=== PATIENT | female | born 1950 | race Caucasian/White ===

== ENCOUNTER 2022-11-08 09:50 | Outpatient (OUT) | payer MEDICARE, SELFPAY ==
--- NOTE | 2022-11-08 09:54 | US_ITS ---
[address] [address] Patient Name: AVELINO KRAUSE MRN: [id number] date: 1950 Sex: F Assigned Patient Location: Current Patient Location: Accession/Order Number: [id number] Exam Date: 11/08/2022 10:00 Report Date: 11/08/2022 11:36 At the request of: SHANNON YOON Procedure: US pelvis transvaginal EXAMINATION: US pelvis transvaginal HISTORY: Gynecological exam Z01.411 , pelvic pain for 5 weeks COMPARISON: No relevant comparison available. TECHNIQUE: Transabdominal and/or transvaginal sonographic examination was performed as indicated by examination type. FINDINGS: UTERUS: Contains a hypoechoic 0.8 cm myometrial lesion favoring a leiomyoma, and a 3 mm hyperechoic area suspected represent a dystrophic calcification. Uterus size: 4.8 x 2.7 x 4.1 cm ENDOMETRIUM: Isoechoic 1.4 x 1.1 x 0.7 cm mass within fundal endometrial cavity with adjacent 0.2 cm area and small amount of fluid within the endometrial cavity. Endometrial thickness: 5 mm RIGHT OVARY: Normal size and appearance. Duplex Doppler demonstrates normal waveform and flow; resistive index 0.7. Ovary size: 1.7 x 1.0 x 1.2 cm LEFT OVARY: Normal size and appearance. Duplex Doppler demonstrates normal waveform and flow; resistive index 0.6. Ovary size: 1.9 x 1.2 x 1.1 cm CUL-DE-SAC: Unremarkable. No significant free fluid. BLADDER: Unremarkable. OTHER: None. US/US pelvis transvaginal IMPRESSION: 1. 1.4 cm mass versus clotted blood products within endometrial cavity; a mass is suspected. Tissue sampling should be considered. 2. Uterine myometrial findings favor a leiomyoma and dystrophic calcification. 3. Unremarkable ovaries. Electronically authenticated by: CHERIE MENENDEZ Date: 11/08/2022 11:36
== END 2022-11-08 09:51 | disposition home or self-care (01) ==
LOC: US 09:50
PROVIDERS: PCP Family Medicine; Visit Provider Family Medicine
DX: Z01.411 Encounter for gynecological examination (general) (routine) with abnormal findings (principal)
CPT/HCPCS: 76830

== ENCOUNTER 2023-01-27 13:11 | Outpatient (OUT) | payer MEDICARE, SELFPAY ==
--- NOTE | 2023-01-27 13:25 | CT_ITS ---
[address] [address] Patient Name: AVELINO KRAUSE MRN: [id number] date: 1950 Sex: F Assigned Patient Location: CT Current Patient Location: Accession/Order Number: [id number] Exam Date: 01/27/2023 13:31 Report Date: 01/29/2023 07:07 At the request of: RAYNA OCHOA Procedure: CT lung screening low-dose EXAMINATION: CT lung screening low-dose HISTORY: Nicotine Dependence F17.219 COMPARISON: No relevant comparison available. TECHNIQUE: Axial, Coronal, and Sagittal images were created without the administration of IV contrast material. Dose reduction techniques were achieved by using automated exposure control and/or adjustment of mA and/or kV according to patient size and/or use of iterative reconstruction technique. FINDINGS: LUNGS: 8 mm irregular nodule versus infiltrate within right lower lobe superior segment. Several subcentimeter parenchymal and pleural-based opacities scattered within the lungs including a 10 mm opacity within medial aspect of left posterior costophrenic angle. PLEURA: No mass, effusion, or pneumothorax. VASCULATURE: No abnormality. TRA: No mass or pathologic adenopathy. MEDIASTINUM: No mass or pathologic adenopathy. CARDIAC: No enlargement, pericardial thickening, or significant calcification. AORTA: No aneurysm or dissection. CHEST WALL: No mass or axillary adenopathy BONES: No bone lesion or fracture. LIMITED ABDOMEN: No suspicious findings. Limited images of the upper abdomen. OTHER: Negative. CT/CT lung screening low-dose IMPRESSION: 1. Lung-RADS Category 4A- Suspicious. Findings for which additional diagnostic testing and/ or tissue sampling is recommended. 3 month LDCT; PET/CT may be used when there is a >= 8 mm solid component. 2. Scattered small infiltrates versus nodules. Follow-up CT chest in 3 months is recommended to document stability versus increase in size or clearing size. Electronically authenticated by: CHEREI MENENDEZ Date: 01/29/2023 07:07
== END 2023-01-27 13:12 | disposition home or self-care (01) ==
LOC: CT 13:13
PROVIDERS: PCP Family Medicine; Visit Provider Internal Medicine
DX: F17.219 Nicotine dependence, cigarettes, with unspecified nicotine-induced disorders (principal); R91.1 Solitary pulmonary nodule
CPT/HCPCS: 71271

== ENCOUNTER 2023-05-30 12:46 | Outpatient (RCR) | payer MEDICARE, SELFPAY | END 2023-06-18 17:18 | disposition home or self-care (01) | LOC: PT 12:46 | PROVIDERS: PCP Family Medicine; Visit Provider Family Medicine | DX: S46.812D Strain of other muscles, fascia and tendons at shoulder and upper arm level, left arm, subsequent encounter (principal) | CPT/HCPCS: 97010; 97110; 97140; 97162; G0283 ==

== ENCOUNTER 2023-10-24 09:17 | Outpatient (OUT) | payer MEDICARE, SELFPAY ==
--- NOTE | 2023-10-24 09:31 | XR_ITS ---
The [address] [address] Patient Name: AVELINO KRAUSE MRN: [id number] date: 1950 Sex: F Assigned Patient Location: LAB Current Patient Location: LAB Accession/Order Number: [id number] Exam Date: 10/24/2023 09:38 Report Date: 10/24/2023 09:57 At the request of: SHANNON YOON Procedure: XR chest 2V EXAMINATION: XR chest 2V HISTORY: Dyspnea, Fatigue COMPARISON: No relevant comparison available. TECHNIQUE: PA and lateral FINDINGS: LUNGS: No significant pulmonary parenchymal abnormalities. VASCULATURE: No increased pulmonary vasculature. PLEURA: No pneumothorax, effusion, or pleural thickening. CARDIAC: No cardiomegaly or cardiac silhouette abnormality. MEDIASTINUM: No visible mass or adenopathy. BONES: No fracture or visible bone lesion. Dextrocurvature OTHER: Negative. XR/XR chest 2V IMPRESSION: Clear lungs Electronically authenticated by: CYRUS WOODS Date: 10/24/2023 09:57
--- OUTSIDE RECORDS SUMMARY | 2023-10-24 09:46 | XMS_ITS | CCD ---
Author Organization [facility] Care Team Providers Care Customer Acquisition Manager Name Role Phone SHANNON YOON Primary Care Unavailable CORY MOREL Attending Unavailable CORY MOREL Admitting Unavailable SELF, REFERRED Referring Unavailable CORY MOREL Attending Unavailable Shannon Yoon Unavailable Unavailable Unavailable CAR, DR SHANNON Wood Primary Care Unavailable CORY MOREL Admitting Unavailable CORY MOREL Attending Unavailable CORY MOREL Consulting Unavailable CAR, DR SHANNON Wood Admitting Unavailable YOON, DR SHANNON Wood Attending Unavailable YOON, DR SHANNON Wood Consulting Unavailable YOON, DR SHANNON Wood Primary Care Unavailable SAMSA, RAYNA Consulting Unavailable YOON, DR SHANNON Wood Primary Care Unavailable SAMSA, RAYNA Admitting Unavailable SAMSA, RAYNA Attending Unavailable YONO, DR SHANNON Wood Primary Care Unavailable SAMSA, RAYNA Admitting Unavailable Zieber, DR Arizmendi Consulting Unavailable SAMSA, ARYNA Attending Unavailable SAMSA, RAYNA Consulting Unavailable YOON, DR SHANNON Wood Admitting Unavailable YOON, DR SHANNON Wood Attending Unavailable YOON, DR SHANNON Wood Consulting Unavailable YOON, DR SHANNON Wood Primary Care Unavailable YOON, DR SHANNON Wood Admitting Unavailable YOON, DR SHANNON Wood Attending Unavailable YOON, DR SHANNON Wood Primary Care Unavailable YOON, DR SHANNON Wood Primary Care Unavailable YOON, DR SHANNON Wood Admitting Unavailable YOON, DR SHANNON Wood Attending Unavailable YOON, DR SHANNON Wood Consulting Unavailable CAR, DR SHANNON Wood Primary Care Unavailable CORY MOREL Admitting Unavailable CORY MOREL Attending Unavailable CORY MOREL Consulting Unavailable MD Shannon Yoon Primary Care Provider MD Juany Richter Attending Provider Shannon Yoon Unavailable Eulogio Mai Unavailable MD Shannon Yoon Primary Care Provider MD Juany Richter Attending Provider MD Eulogio Mai Attending Provider MD Juany Richter Referring Provider Dr. Rayna Ochoa Referring Unavailab le Car, Dr. Shannon Rajan Primary Care Unav ailable Juany Richter Attending Unavailable Car, Dr. Shannon Rajan Primary Care Unav ailable Juany Richter Referring Unavailable Juany Richter Attending Unavailable Car, Dr. Shannon Rajan Primary Care Unav ailable Rober, Juany Referring Unavailable Juany Richter Attending Unavailable MD Shannon Yoon Primary Care Provider MD Dena Alcantara Attending Provider DO Gavino Tavera Attending Provider Dena Alcantara Unavailable Gavino Tavera Unavailable Dr. Juany Richter Attending Unavailable Rober, Dr. Harrington Referring Unavailable Car, Dr. Shannon Rajan Primary Care Unav aileduardo Richter, Dr. Harrington Attending Unavailable Car, Dr. Shannon Rajan Primary Care Unav MD Shannon Barton Primary Care Provider MD Juany Richter Attending Provider MD Shannon Yoon Primary Care Provider MD Shannon Yoon Attending Provider NON STAFF Primary Care Provider Unavaildonny Campbell Pili Unavailable MD Shannon Yoon Primary Care Provider MD Eulogio Mai Attending Provider MD Eulogio Mai Attending Provider MD Shannon Yoon Primary Care Provider DO Lorri White Attending Provider [phone] Shannon Yoon MD Primary Care Provider MD Shannon Yoon Primary Care Provider MD Juany Richter Attending Provider [phone] Shannon Yoon MD Primary Care Provider MD Shannon Yoon Primary Care Provider MD Juany Richter Attending Provider Eulogio Mai Attending Unavailabl Eulogio Clay Admitting Unavailabl e Yoon, Shannon E Primary Care Unavailable Yoon, Shannon E Admitting Unavailable Yoon, Shannon E Attending Unavailable Yoon, Shannon E Admitting Unavailable Yoon, Shannon E Attending Unavailable NON STAFF Primary Care Unavailable Juany Richter Attending Unavailable Richter, Juany Admitting Unavailable Yoon, Shannon E Primary Care Unavailable Lorri White Attending Unavailable Rinberonica Lorri Admitting Unavailable Yoon, Shannon E Primary Care Unavailable Gavino Tavera Attending Unavailable Gavino Tavera Admitting Unavailable Yoon, Shannon E Primary Care Unavailable Pili Campbell Attending Unavailable Pili Campbell Admitting Unavailable Yoon, Shannon E Primary Care Unavailable Juany Richter Attending Unavailable Richter, Juany Admitting Unavailable Yoon, Shannon E Primary Care Unavailable Yoon, Shannon E Primary Care Unavailable Dena Alcantara Attending Unavailable Dena Alcantara Admitting Unavailable Rinberonica Lorri Attending Unavailable Rinberonica Lorri Admitting Unavailable Yoon, Shannon E Primary Care Unavailable JUAN CARLOS RICHTERA Attending Unavailable YOON, SHANNON E Primary Care Unavailable JUAN CARLOS RICHTERA Referring Unavailable MAXIMILIANO BLACKBURN Referring Unavailable YOON, SHANNON E Primary Care Unavailable JUANY RICHTER Attending Unavailable JUAN CARLOS RICHTERA Referring Unavailable YOON, SHANNON E Primary Care Unavailable MD Shannon Yoon Primary Care Provider MD Juany Richter Attending Provider MD Juany Richter Referring Provider RAHEL TOVAR Attending Unavailabl RAHEL Bedolla Attending Unavailabl e RAHEL TOVAR Attending Unavailabl e RAHEL TOVAR Attending UnavailLORRI Rey Allergies Allergy Classification Reported Allergen(s) Allergy Type Date of Onset Reaction(s) Facility (20 sources) Azithromycin; Translations: [AZITHROMYCIN] Drug Allergy Unknown, [facility] Repository (19 sources) busPIRone; Translations: [BUSPIRONE] Drug Allergy [facility] Repository (1 source) Cefuroxime; Translations: [CEFUROXIME AXETIL] Drug Allergy [facility] Repository (1 source) celecoxib; Translations: [CELECOXIB] Drug Allergy [facility] Repository (19 sources) Cephalexin; Translations: [CEPHALEXIN] Drug Allergy [facility] Repository (20 sources) Ciprofloxacin; Translations: [CIPROFLOXACIN] Drug Allergy Unknown, [facility] Repository (20 sources) Citalopram; Translations: [CITALOPRAM] Drug Allergy Unknown, [facility] Repository (20 sources) Doxycycline; Translations: [DOXYCYCLINE] Drug Allergy [facility] Repository (20 sources) DULoxetine; Translations: [DULOXETINE] Drug Allergy [facility] Repository (1 source) hydroCHLOROthiazide / Losartan; Translations: [LOSARTAN-HYDROCHLOROT HIAZIDE] Drug Allergy [facility] Repository (20 sources) Ketorolac; Translations: [KETOROLAC] Drug Allergy Headache [facility] Repository (20 sources) Latex; Translations: [LATEX] Propensity to adverse reactions to drug (disorder) 016 Swelling, [facility] Repository (20 sources) levocetirizine; Translations: [LEVOCETIRIZINE] Drug Allergy Unknown, [facility] Repository (20 sources) Lisinopril; Translations: [LISINOPRIL] Drug Allergy Hives, Shortness of breath [facility] Repository (20 sources) Magnesium; Translations: [MAGNESIUM] Drug Allergy 014 Unknown, Rash, Abdominal Pain [facility] Repository (2 sources) Metoprolol; Translations: [METOPROLOL] Drug Allergy [facility] Repository (1 source) PARoxetine; Translations: [PAROXETINE HCL] Drug Allergy [facility] Repository (20 sources) Penicillins; Translations: [PENICILLINS] Propensity to adverse reactions to drug (disorder) 014 Hives, Unknown [facility] Repository (20 sources) predniSONE; Translations: [PREDNISONE] Drug Allergy Hives [facility] Repository (19 sources) Sulfonamides (Antibiotic); Translations: [SULFA (SULFONAMIDE ANTIBIOTICS)] Propensity to adverse reactions to drug (disorder) Rash [facility] Repository (1 source) NITROFURANTOIN MONOHYD/M-CRYST; Translations: [NITROFURANTOIN MONOHYD/M-CRYST] Propensity to adverse reactions to drug (disorder) [facility] Repository (13 sources) Angiotensin Converting Enzyme (Chanel) Inhibitors; Translations: [CHANEL Inhibitors] Allergy to drug (finding) 023 Shortness of breath, Hives [facility] Repository (20 sources) Ketorolac; Translations: [Toradol] Drug Allergy Headache, Unknown [facility] [employer] DO Work Phone: (12 sources) Lisinopril; Translations: [Lisinopril TABS] Drug Allergy Hives, Shortness of breath [facility] [employer] DO Work Phone: (16 sources) Sulfamethoxazole; Translations: [sulfa] Drug Allergy 023 Hives [facility] [employer] DO Work Phone: (12 sources) Angiotensin Receptor Blockers; Translations: [Angiotensin Receptor Blockers] Allergy to drug (finding) [facility] Work Phone: (1 source) Azithromycin Drug Allergy [facility] Repository (1 source) Ciprofloxacin Drug Allergy [facility] Repository (1 source) Citalopram Drug Allergy [facility] Repository (1 source) DULoxetine Drug Allergy [facility] Repository (1 source) hydroCHLOROthiazide / Losartan Drug Allergy [facility] Repository (1 source) Nitrofurantoin Drug Allergy [facility] Repository (1 source) PARoxetine Drug Allergy [facility] Repository (2 sources) Sulfamethoxazole; Translations: [SULFAMETHOXAZOLE] Drug Allergy [facility] Repository (9 sources) atorvastatin; Translations: [atorvastatin] Drug Allergy [facility] (8 sources) clopidogrel; Translations: [Plavix] Drug Allergy [facility] Work Phone: (20 sources) busPIRone Drug Allergy Unknown [facility] [employer] Other (20 sources) Cefuroxime Drug Allergy 015 Unknown, [facility] (20 sources) Cephalexin Drug Allergy Unknown [employer] Other (20 sources) hydroCHLOROthiazide Drug Allergy 023 Unknown, [facility] (20 sources) hydroCHLOROthiazide / Losartan Drug Allergy Unknown [employer] Other (20 sources) Latex rubber gloves Propensity to adverse reactions Unknown [employer] [facility] Other (20 sources) NITROFURANTOIN, MACROCRYSTALS / Nitrofurantoin, Monohydrate Drug Allergy Unknown [employer] Other (20 sources) PARoxetine Drug Allergy 023 Unknown, [facility] (20 sources) Sulfonamides (Antibiotic) Propensity to adverse reactions Unknown [facility] [employer] Other (20 sources) Substance with penicillin structure and antibacterial mechanism of action (substance) Drug allergy Unknown [employer] Other (18 sources) Losartan; Translations: [losartan] Drug Allergy [facility] (19 sources) Nitrofurantoin; Translations: [nitrofurantoin] Drug Allergy 022 [facility] (12 sources) Corticosteroids Propensity to adverse reactions 011 STEROIDS [facility] [employer] Other (12 sources) Penicillin Drug Allergy 013 Unknown [facility] [employer] Other (12 sources) Ceftin *CEPHALOSPORINS* Propensity to adverse reactions Unknown [facility] [employer] Other (13 sources) Substance with sulfonamide structure and antibacterial mechanism of action (substance) Drug allergy [facility] [employer] Other (1 source) DULoxetine Drug Allergy [facility] (2 sources) Rosuvastatin calcium; Translations: [ROSUVASTATIN] Propensity to adverse reactions [facility] (1 source) Hydrobenzthiazide Allergy to substance Shortness of breath [facility] (1 source) Losartan Potassium-Hctz Drug Allergy [facility] (8 sources) Cephalosporins (Antibiotic) Allergy to substance 023 Abdominal Pain [facility] (8 sources) Xyzal Allergy 24HR Allergy to substance 023 Abdominal Pain [facility] (5 sources) Angiotensin II receptor antagonist; Translations: [ARB-ANGIOTENSIN RECEPTOR ANTAGONIST] Drug Allergy [facility] Work Phone: (4 sources) Angiotensin-converting enzyme inhibitor agent Drug Allergy 023 Hives, Shortness of breath [facility] (4 sources) rosuvastatin Drug Allergy 023 Itching, Myalgia [facility] Work Phone: (4 sources) methylPREDNISolone; Translations: [METHYLPREDNISOLONE] Drug Allergy 024 [facility] Work Phone: (1 source) Cefuroxime Drug Allergy [facility] Repository (1 source) hydroCHLOROthiazide Drug Allergy [facility] Repository (1 source) PARoxetine Drug Allergy [facility] Repository (1 source) clopidogrel; Translations: [CLOPIDOGREL] Drug Allergy [facility] 3 Repository Medications Current Medications Medication Drug Class(es) Dates Sig (Normalized) Sig (Original) acetaminophen 500 mg oral tablet (10 sources) Start: 01-30-2023 take 2 tablets by mouth twice daily Acetaminophen (Tylenol Extra Strength) 500 mg Tablet Active 1000 MG PO Twice daily January 30, 2023 1:00am [id number] 200 actuat albuterol 0.09 mg/actuat metered dose inhaler (20 sources) beta2-Adrenergic Agonist Start: 06-04-2022 take 1 puff(s) by inhalation every four hours Albuterol Sulfate Active 1 PUFF INHALATION Every 4 hours June 04, 2022 12:00am Start: 02-07-2022 take 2 puff(s) by mo [facility] every four hours as needed Albuterol Sulfate HFA 108 (90 Base) MCG/ACT Inhalation Aerosol Solution INHALE 2 PUFFS BY MOUTH EVERY 4 HOURS NEEDED FOR SHORTNESS OF BREATH Quantity: 7 Refills: 0 Ordered: 08-Mar-2022 DO Start : 07-Feb-2022 Active take 2 puff(s) by in halation every four hours albuterol sulfate (Proair Digihaler) 90 mcg/actuation aero powdr breath act w/sensor inhaler Inhale 2 puffs every 4 hours if needed for shortness of breath. 0 Active albuterol HFA 90 mcg/act inhaler every 4 (four) hours. 0 Active take 1 puff(s) by in halation every four hours as needed Albuterol Sulfate HFA 108 (90 Base) MCG/ACT 1 puff as needed Inhalation every 4 hrs Not-Taking/PRN take 1 puff(s) by in halation every four hours as needed Albuterol Sulfate HFA 108 (90 Base) MCG/ACT 1 puff as needed Inhalation every 4 hrs Not-Taking take 1 puff(s) by in halation every four hours as needed Albuterol Sulfate HFA 108 (90 Base) MCG/ACT 1 puff as needed Inhalation every 4 hrs Not-Taking amiodarone hydrochloride 100 mg oral tablet (20 sources) Antiarrhythmic Start: 06-04-2022 End: 06-04-2024 take 100 mg by mouth once daily in the morning Amiodarone Active 100 MG PO Every morning June 04, 2022 12:00am Start: 06-04-2022 take 100 mg by mouth twice bud ly Amiodarone Active 100 MG PO 2 times daily June 04, 2022 12:00am Start: 04-08-2022 take 0.5 tablet by m outh once daily Amiodarone HCl - 200 MG Oral Tablet 1/2 tablet daily Quantity: 45 Refills: 1 Ordered: 08-Apr-2022 Juany Richter MD Start : 08-Apr-2022 Active dose change Start: 02-11-2022 take 1 tablet by neda th every other day Amiodarone HCl - 200 MG Oral Tablet 1 tablet every other day Quantity: 45 Refills: 1 Ordered: 11-Feb-2022 Juany Richter MD Start : 11-Feb-2022 Active amLODIPine 5 mg / hydroCHLOROthiazide 12.5 mg / olmesartan medoxomil 20 mg oral tablet (1 source) Thiazide Diuretic, Dihydropyridine Calcium Channel [place], Angiotensin 2 Receptor [place] take 1 tablet by mouth every twenty-four hours Fxogogcbkn-agBWKFVxqw-PIWB 20-5-12.5 MG 1 tablet once a day Active apixaban 5 mg oral tablet (20 sources) Factor Xa Inhibitor Sta rt: End : take 1 tablet by mouth twice daily Apixaban (Eliquis) 5 mg tablet Active 5 MG PO Twice daily June 04, 2022 12:00am Start: 09-26-2021 Eliquis 5 MG t ablet every 12 (twelve) hours. 0 09/26/2021 Active aspirin 81 mg delayed release oral tablet (20 sources) Platelet Aggregation Inhibitor, Nonsteroidal Anti-inflammatory Drug Start: 04-29-2022 take 81 mg by mouth once daily Aspirin Active 81 MG PO Daily June 04, 2022 12:00am End: 05-05-2023 take 1 tablet by mouth once daily at mealtime ASPIRIN ORAL Take 1 tablet by mouth once daily. 81 mg; with food 0 05/05/2023 Discontinued (Other) Baby Aspirin Act khloe cephalexin 500 mg oral capsule (3 sources) Cephalosporin Antibacterial Start: 04-30-2022 take 1 capsule by mouth every twelve hours Cephalexin 500 MG 1 capsule Orally bid for 7 days to replace zpack. pt states she tolerated it fine in 12/2021 - multiple allergies. Apr, Active ciprofloxacin 500 mg oral tablet (5 sources) Quinolone Antimicrobial Start: 10-09-2023 take 500 mg by mouth once daily Ciprofloxacin Hcl Active 500 MG PO Daily October 09, 2023 1:49pm Start: 09-24-2023 End: 10-09-2023 take 250 mg by mouth once daily Ciprofloxacin Hcl Discontinued 250 MG PO Daily September 24, 2023 12:00am October 09, 2023 1:50pm [facility] Coenzyme Q-10 100 MG (2 sources) take 1 capsule by mouth once daily [facility] Coenzyme Q-10 100 MG TAKE 1 CAPSULE BY MOUTH ONCE DAILY. Oral for 90 Days Active diclofenac sodium 75 mg delayed release oral tablet (1 source) Nonsteroidal Anti-inflammatory Drug take 1 tablet by mouth twice daily diclofenac (Voltaren) 75 MG EC tablet TAKE 1 TABLET BY MOUTH TWICE A DAY Oral for 30 0 Active guaiFENesin (1 source) Guaiatussin AC 100-10 MG/5ML 5ml-10ml Orally every 4 hrs prn for 7 days Active hydroCHLOROthiazide 12.5 mg / olmesartan medoxomil 20 mg oral tablet (20 sources) Thiazide Diuretic, Angiotensin 2 Receptor [place] Start: take 1 tablet by mouth once daily Olmesartan-Hydrochlo rothiazide (Benicar Hct) 20-12.5 mg Tablet Active 1 TAB PO Daily June 04, 2022 12:00am Inclisiran (2 sources) Start: Inclisiran (Leqvio) 284 mg/1.5 mL syringe Active 284 MG SUBCUT EVERY 6 MONTHS October 09, 2023 12:00am inclisiran (Leqvio) injection (4 sources) Start: End: 025 inclisiran (Leqvio) injection Indications: Mixed hyperlipidemia , Statin intolerance Inject 1.5 mL (284 mg total) under the skin every 6 months. at 0, 3 months and then every 6 months thereafter 3 mL 0 04/06/2023 04/05/2024 Active Loratadine (20 sources) Start: take 1 tablet by mouth once daily Loratadine Active 0 .ROUTE .COMPLEX October 06, 2023 9:44am TAKE 1 TABLET BY MOUTH EVERY DAY FOR 90 DAYS Start: 04-18-2023 End: 10-06-2023 take 1 tablet by mouth once daily Loratadine Discontinued 0 .ROUTE .COMPLEX April 18, 2023 10:00am October 06, 2023 9:44am TAKE 1 TABLET BY MOUTH EVERY DAY FOR 90 DAYS Start: 04-18-2023 take 1 tablet by neda th once daily Loratadine Active 0 .ROUTE .COMPLEX April 18, 2023 10:00am TAKE 1 TABLET BY MOUTH EVERY DAY FOR 90 DAYS Start: 04-18-2023 take 1 tablet by neda th once daily Loratadine Active 0 .ROUTE .COMPLEX April 18, 2023 9:00am TAKE 1 TABLET BY MOUTH EVERY DAY FOR 90 DAYS Start: 06-04-2022 End: 04-18-2023 take 10 mg by mouth once daily Loratadine Discontinued 10 MG PO Daily June 04, 2022 12:00am April 18, 2023 10:00am Magnesium (15 sources) Magnesium 400 MG as directed Orally Active magnesium oxide 400 mg oral tablet (20 sources) Start: 2021 take 400 mg by mouth twice daily Magnesium Oxide Active 400 MG PO Twice daily January 30, 2023 1:00am methylPREDNISolone 4 mg oral tablet (1 source) Corticosteroid Start: 2022 methylPREDNISolone 4 MG as directed Orally for 6 days Jan, Active montelukast 10 mg oral tablet (20 sources) Leukotriene Receptor Antagonist Start: 2022 take 10 mg by mouth once daily at bedtime Montelukast Active 10 MG PO Daily at bedtime January 30, 2023 1:00am omeprazole 40 mg delayed release oral capsule (20 sources) Proton Pump Inhibitor Start: 2023 End: 2023 Omeprazole Active 0 .ROUTE .COMPLEX September 30, 2023 9:04am TAKE 1 CAPSULE BY MOUTH EVERY DAY 30 MINUTES BEFORE MORNING MEAL Start: 06-04-2022 End: 03-26-2024 take 40 mg by mouth once daily Omeprazole Discontinued 40 MG PO Daily June 04, 2022 12:00am May 27, 2023 1:06pm pitavastatin calcium 4 mg oral tablet (3 sources) HMG-CoA Reductase Inhibitor Start: 12-23-2022 End: 06-05-2023 take 1 tablet by mouth once daily pitavastatin calcium (Livalo) 4 mg tablet Indications: Paroxysmal atrial fibrillation (CMS/HCC) , High risk medication use , Hypertension, unspecified type , Mixed hyperlipidemia , PVD (peripheral vascular disease) (CMS/HCC) , Vascular claudication (CMS/HCC) , Varicose veins of both lower extremities, unspecified whether complicated , Current smoker , Hypercoagulable state due to paroxysmal atrial fibrillation (CMS/HCC) , Second hand smoke exposure , Statin intolerance , Chronic obstructive pulmonary disease, unspecified COPD type (CMS/HCC) Take 4 mg by mouth once daily. 90 tablet 1 12/23/2022 06/05/2023 Discontinued (Therapy completed) pravastatin sodium 40 mg oral tablet (2 sources) HMG-CoA Reductase Inhibitor Start: 01-27-2023 End: 01-27-2024 take 1 tablet by mouth once daily pravastatin (PravachoL) 40 mg tablet Indications: PVD (peripheral vascular disease) (CMS/HCC) , Mixed hyperlipidemia Take 1 tablet (40 mg) by mouth once daily. 30 tablet 11 01/27/2023 06/05/2023 Discontinued (Side effects) traMADol hydrochloride 50 mg oral tablet (20 sources) Opioid Agonist Start: 09-12-2023 take 1 tablet by mouth every four to six hours Tramadol Active 50 MG PO EVERY 4-6 HOURS 30 September 12, 2023 12:00am Dispense quantity of thirty tablets M17.11 Start: 04-23-2023 End: 08-18-2023 take 50 mg by mouth every eight hours Tramadol Discontinued 50 MG PO Every 8 hours 19 09July 18, 2023 10:33am August 18, 2023 4:08pm twenty Start: 08-02-2022 take 1 tablet by neda th three times daily as needed traMADol HCl 50 MG 1 tablet as needed Orally tid prn for 7 days Dec, Active ubidecarenone 100 mg oral ca psule (17 sources) Start: 01-30-2023 Coenzyme Q10 A ctive 100 MG PO Daily at bedtime January 30, 2023 1:00am Start: 12-23-2022 End: 12-23-2023 take 1 capsule by mouth once daily coenzyme Q-10 100 mg capsule Indications: Paroxysmal atrial fibrillation (CMS/HCC) , High risk medication use , Hypertension, unspecified type , Mixed hyperlipidemia , PVD (peripheral vascular disease) (CMS/HCC) , Vascular claudication (CMS/HCC) , Varicose veins of both lower extremities, unspecified whether complicated , Current smoker , Hypercoagulable state due to paroxysmal atrial fibrillation (CMS/HCC) , Second hand smoke exposure , Statin intolerance , Chronic obstructive pulmonary disease, unspecified COPD type (CMS/HCC) Take 1 capsule (100 mg) by mouth once daily. 90 capsule 1 12/23/2022 12/23/2023 Active ubidecarenone 100 mg / vitamin e 5 unt oral capsule (1 source) Start: 12-23-2022 End: 12-23-2023 take 1 capsule by mouth in the morning coenzyme Q-10 100 MG capsule Take 100 mg by mouth in the morning. 0 12/23/2022 12/23/2023 Active 24 hr venlafaxine 37.5 mg extended release oral capsule (7 sources) Serotonin and Norepinephrine Reuptake Inhibitor Start: 12-19-2022 take 1 capsule by mouth once daily at mealtime venlafaxine XR (Effexor XR) 37.5 MG 24 hr capsule TAKE 1 CAPSULE BY MOUTH EVERY DAY WITH FOOD FOR 30 DAYS 0 12/19/2022 Active Completed/Discontinued Medications Medication Drug Class(es) Dates Sig (Normalized) Sig (Original) atorvastatin 80 mg oral tablet (4 sources) HMG-CoA Reductase Inhibitor Start: 04-18-2022 take 1 tablet by mouth at bedtime Atorvastatin Calcium 80 MG Oral Tablet TAKE 1 TABLET AT BEDTIME. Quantity: 90 Refills: 3 Ordered: 18-Apr-2022 Juany Richter MD Start : 18-Apr-2022 Active dose increased Start: 04-08-2022 take 1 tablet by neda th at bedtime Atorvastatin Calcium 20 MG Oral Tablet TAKE 1 TABLET AT BEDTIME Quantity: 90 Refills: 3 Ordered: 08-Apr-2022 Juany Richter MD Start : 08-Apr-2022 Active new start clopidogrel 75 mg oral tablet (4 sources) [id number] Platelet Inhibitor Start: 04-08-2022 take 1 tablet by mouth once daily Clopidogrel Bisulfate 75 MG Oral Tablet TAKE 1 TABLET DAILY. Quantity: 90 Refills: 3 Ordered: 08-Apr-2022 Juany Richter MD Start : 08-Apr-2022 Active fluticasone propionate 0.05 mg/actuat metered dose nasal spray (20 sources) Corticosteroid Start: 06-04-2022 End: 01-30-2023 take 1 spray(s) nasal route once daily Fluticasone Propionate Discontinued 1 SPRAY INTRANASAL Daily June 04, 2022 12:00am January 30, 2023 5:00pm administer into each nostril Start: 09-25-2020 take 2 spray(s) nasa l route once daily Fluticasone Propionate 50 MCG/ACT Nasal Suspension SPRAY 2 SPRAYS INTO EACH NOSTRIL EVERY DAY Quantity: 16 Refills: 0 Ordered: 22-Jul-2021 DO Start : 25-Sep-2020 Active fluticasone (Deshawn nase) 50 MCG/ACT nasal spray 1 (one) time each day at the same time. 0 Active take 1 spray(s) nasa l route once daily as needed Fluticasone Propionate 50 MCG/ACT 1 spray in each nostril Nasally Once a day Not-Taking/PRN take 1 spray(s) nasa l route once daily Fluticasone Propionate 50 MCG/ACT 1 spray in each nostril Nasally Once a day Not-Taking hydrocortisone 10 mg/ml / neomycin 3.5 mg/ml / polymyxin b [id number] unt/ml otic suspension (5 sources) Aminoglycoside Antibacterial, Polymyxin-class Antibacterial, Corticosteroid Start: 08-18-2023 End: 09-08-2023 [id number]-Sj Discontinued 4 DROPS OTIC Three times daily August 18, 2023 12:00am September 08, 2023 10:11am rosuvastatin calcium 10 mg oral tablet (3 sources) HMG-CoA Reductase Inhibitor Start: 07-08-2022 take 1 tablet by mouth at bedtime Rosuvastatin Calcium 10 MG Oral Tablet TAKE 1 TABLET AT BEDTIME Quantity: 90 Refills: 3 Ordered: 08-Jul-2022 Juany Richter MD Start : 08-Jul-2022 Active stop Simvastatin/ new start simvastatin 20 mg oral tablet (20 sources) HMG-CoA Reductase Inhibitor Start: 04-29-2022 End: 01-30-2023 take 20 mg by mouth once daily Simvastatin Discontinued 20 MG PO Daily June 04, 2022 12:00am January 30, 2023 5:01pm triamcinolone acetonide 40 mg/ml injectable suspension (20 sources) Corticosteroid Start: 08-09-2022 Kenalog-40 11 Nov, 2022 40 mg Problems Active Problems Problem Classification Problem Date Documented Date Episodic/Chronic Acute bronchitis (6 sources) Acute bronchitis; Translations: [Acute bronchitis due to other specified organisms] Episodic Administrative/social admission (14 sources) Follow-up status; Translations: [Other specified counseling] Episodic Allergic reactions (12 sources) Allergy to drug; Translations: [Personal history of allergy to unspecified medicinal agent] Episodic Anxiety disorders (6 sources) Anxiety disorder; Translations: [Anxiety disorder, unspecified] Onset: 01-02-2015 Chronic Cardiac dysrhythmias (20 sources) Atrial fibrillation; Translations: [Atrial fibrillation] Onset: 07-05-2021 Chronic Chronic kidney disease (4 sources) Chronic kidney disease stage 3A ; Translations: [Stage 3a chronic kidney disease (CMS/HCC)] Onset: 06-05-2023 06-05-2023 Chronic Chronic kidney disease (2 sources) Chronic kidney disease; Translations: [Chronic kidney disease, stage 3a (CMS/HCC)] Onset: 06-05-2023 Chronic obstructive pulmonary disease and bronchiectasis (20 sources) Chronic obstructive lung disease; Translations: [Chronic airway obstruction, not elsewhere classified] Onset: 10-28-2022 04-03-2023 Chronic Chronic obstructive pulmonary disease and bronchiectasis (8 sources) Bronchitis; Translations: [Bronchitis, not specified as acute or chronic] 10-09-2023 Episodic Coagulation and hemorrhagic disorders (8 sources) 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; Translations: [Hemorrhagic disorder due to extrinsic circulating anticoagulants] Onset: 08-29-2022 08-29-2022 Chronic Coronary atherosclerosis and other heart disease (1 source) Coronary atherosclerosis and other heart disease; Translations: [Atherosclerosis of [place] arteries of extremities with intermittent claudication, bilateral legs] Onset: 12-26-2022 Diabetes mellitus without complication (7 sources) Impaired fasting glucose; Translations: [Impaired fasting glycemia] Onset: 04-27-2021 Episodic Disorders of lipid metabolism (12 sources) Mixed hyperlipidemia; Translations: [Mixed hyperlipidemia] Onset: 10-28-2022 10-28-2022 Chronic Esophageal disorders (20 sources) Gastroesophageal reflux disease; Translations: [Esophageal reflux] Onset: 10-28-2022 Chronic Essential hypertension (20 sources) Hypertensive disorder; Translations: [Unspecified essential hypertension] Onset: 06-14-2021 Chronic Genitourinary symptoms and ill-defined conditions (20 sources) Dysuria; Translations: [History of urinary tract infection] Onset: 06-30-2014 Episodic Immunizations and screening for infectious disease (6 sources) Other specified abnormal immunological findings in serum; Translations: [Abnormal immunology finding] Episodic Inflammatory diseases of female pelvic organs (1 source) Acute vaginitis Episodic Malaise and fatigue (15 sources) Other fatigue; Translations: [Fatigue] Onset: 03-24-2013 10-23-2023 Episodic Mood disorders (13 sources) Moderate recurrent major depression; Translations: [Major depressive disorder, recurrent, moderate] Onset: 02-20-2018 Chronic Mycoses (7 sources) Candidiasis of skin and nails; Translations: [Candidiasis of skin and nail] 04-06-2023 Episodic Osteoarthritis (20 sources) Osteoarthrosis of the carpometacarpal joint of the thumb; Translations: [Unilateral primary osteoarthritis of first carpometacarpal joint, left hand] Onset: 01-02-2015 Chronic Other aftercare (12 sources) Drug therapy finding; Translations: [Long-term (current) use of other medications] Episodic Other aftercare (3 sources) Treatment changed; Translations: [Long-term (current) use of other medications] Episodic Other aftercare (6 sources) Long-term current use of drug therapy; Translations: [Other terminal make up operator (current) drug therapy] Episodic Other circulatory disease (6 sources) Elevated blood-pressure reading without diagnosis of hypertension; Translations: [Elevated blood-pressure reading, without diagnosis of hypertension] Episodic Other connective tissue disease (20 sources) Enthesopathy of knee; Translations: [Other bursitis of knee, left knee] Episodic Other connective tissue disease (20 sources) Radial styloid tenosynovitis; Translations: [Radial styloid tenosynovitis [de Quervain]] Episodic Other connective tissue disease (1 source) Pain in left hand Episodic Other ear and sense organ disorders (6 sources) Hearing loss; Translations: [Unspecified hearing loss, bilateral] Chronic Other ear and sense organ disorders (5 sources) Otitis externa; Translations: [Unspecified otitis externa, unspecified ear] 08-18-2023 Chronic Other ear and sense organ disorders (5 sources) Unspecified otitis externa, unspecified ear; Translations: [Infective otitis externa, unspecified] 08-18-2023 Chronic Other ear and sense organ disorders (6 sources) Bilateral tinnitus; Translations: [Tinnitus, bilateral] Episodic Other injuries and conditions due to external causes (6 sources) History of fall; Translations: [History of falling] Episodic Other lower respiratory disease (4 sources) Shortness of breath; Translations: [SHORTNESS OF BREATH] Onset: 02-12-2022 Episodic Other lower respiratory disease (4 sources) Solitary pulmonary nodule; Translations: [SOLITARY PULMONARY NODULE] Onset: 01-28-2022 Episodic Other lower respiratory disease (20 sources) Lung field abnormal; Translations: [Other nonspecific abnormal finding of lung field] Episodic Other lower respiratory disease (20 sources) Solitary nodule of lung; Translations: [Solitary pulmonary nodule] Episodic Other lower respiratory disease (7 sources) Dyspnea; Translations: [Shortness of breath] 10-23-2023 Episodic Other lower respiratory disease (6 sources) Cough; Translations: [Cough, unspecified] Episodic Other lower respiratory disease (1 source) Dyspnea, unspecified; Translations: [Other respiratory abnormalities] 10-23-2023 Episodic Other nervous system disorders (6 sources) Carpal tunnel syndrome; Translations: [Carpal tunnel syndrome, left upper limb] Onset: 12-23-2013 Chronic Other nervous system disorders (2 sources) Idiopathic progressive polyneuropathy; Translations: [Idiopathic progressive neuropathy] Onset: 08-29-2022 04-06-2023 Chronic Other non-traumatic joint disorders (3 sources) Pain in right knee Episodic Other non-traumatic joint disorders (6 sources) Arthralgia of the lower leg; Translations: [Pain in left knee] Episodic Other nutritional; endocrine; and metabolic disorders (20 sources) Obesity; Translations: [Obesity, unspecified] Onset: 10-28-2022 10-28-2022 Chronic Other nutritional; endocrine; and metabolic disorders (6 sources) Obese class II; Translations: [Body mass index (BMI) 35.0-35.9, adult] Chronic Other nutritional; endocrine; and metabolic disorders (6 sources) Obese class I; Translations: [Body mass index (BMI) 34.0-34.9, adult] Chronic Other screening for suspected conditions (not mental disorders or infectious disease) (9 sources) Endometrium thickened; Translations: [Abnormal findings on diagnostic imaging of other specified body structures] Chronic Other screening for suspected conditions (not mental disorders or infectious disease) (19 sources) Patient encounter status; Translations: [Screening for lipoid disorders] Episodic Other skin disorders (6 sources) Folliculitis; Translations: [Follicular disorder, unspecified] Episodic Other upper respiratory disease (20 sources) Allergic rhinitis; Translations: [Other allergic rhinitis] Chronic Other upper respiratory disease (1 source) Other allergic rhinitis Chronic Other upper respiratory disease (6 sources) Seasonal allergic rhinitis; Translations: [Other seasonal allergic rhinitis] Chronic Other upper respiratory infections (6 sources) Chronic sinusitis; Translations: [Chronic sinusitis, unspecified] Chronic Other upper respiratory infections (14 sources) Acute pharyngitis; Translations: [Acute pharyngitis, unspecified] Onset: 02-20-2018 Episodic Otitis media and related conditions (6 sources) Non-suppurative otitis media; Translations: [Unspecified nonsuppurative otitis media, bilateral] Episodic Peripheral and visceral atherosclerosis (20 sources) Peripheral vascular disease; Translations: [Peripheral vascular disease, unspecified] Onset: 04-04-2022 Chronic Comment on above: HIP; Residual codes; unclassified (6 sources) Hypersomnia; Translations: [Hypersomnia, unspecified] Chronic Residual codes; unclassified (6 sources) Procedure not done; Translations: [Procedure and treatment not carried out because of patient's decision for unspecified reasons] Episodic Residual codes; unclassified (6 sources) Tobacco user; Translations: [Tobacco use] Episodic Spondylosis; intervertebral disc disorders; other back problems (18 sources) Lumbar radiculopathy; Translations: [Radiculopathy, lumbar region] Onset: 04-08-2013 05-26-2023 Episodic Sprains and strains (10 sources) Strain of muscle and tendon of back wall of thorax, subsequent encounter; Translations: [Strain of muscle and tendon of back wall of thorax, initial encounter] Onset: 06-26-2021 Episodic Substance-related disorders (20 sources) Smoker; Translations: [Tobacco use disorder] Onset: 03-14-2022 Chronic Comment on above: 10 cigs a day; Unclassified (1 source) CONTACT W/AND (SUSP) EXPOS COVID-19; Translations: [CONTACT W/AND (SUSP) EXPOS COVID-19] Onset: 08-13-2021 Unclassified (1 source) Encounter for other preprocedural examination; Translations: [Encounter for other preprocedural examination] Onset: 01-30-2023 Unclassified (1 source) Encounter for screening for malignant neoplasm of cervix; Translations: [Encounter for screening for malignant neoplasm of cervix] Onset: 10-22-2022 Unclassified (1 source) Pain in right knee; Translations: [Pain in right knee] Onset: 08-09-2022 Unclassified (1 source) Pain in left hand; Translations: [Pain in left hand] Onset: 07-30-2022 Urinary tract infections (20 sources) Chronic interstitial cystitis; Translations: [Interstitial cystitis (chronic) without hematuria] Chronic Urinary tract infections (1 source) Acute cystitis without hematuria Episodic Past or Other Problems Problem Classification Problem Date Documented Da te Episodic/Chronic Abdominal pain (15 sources) Pelvic and perineal pain; Translations: [Pelvic and perineal pain] Onset: 10-10-2022 Episodic Diseases of mouth; excluding dental (6 sources) Glossodynia; Translations: [Glossodynia] Onset: 05-29-2017 Episodic Mood disorders (4 sources) Mood disorders Onset: 04-08-2022 07-02-2022 Other aftercare (3 sources) Other terminal make up operator (current) drug therapy; Translations: [OTH SHELTER CURRENT DRUG THERAPY] Onset: 02-16-2022 Episodic Other aftercare (5 sources) Taking high risk medication; Translations: [Other terminal make up operator (current) drug therapy] Onset: 10-28-2022 10-28-2022 Episodic Other connective tissue disease (6 sources) Pain in limb; Translations: [Pain in leg, unspecified] Onset: 03-24-2013 Episodic Other female genital disorders (1 source) Other specified conditions associated with female genital organs and menstrual cycle; Translations: [Other specified conditions associated with female genital organs and menstrual cycle] Onset: 02-10-2023 Episodic Other gastrointestinal disorders (6 sources) Flatulence, eructation and gas pain; Translations: [Abdominal distension (gaseous)] Onset: 06-15-2018 Episodic Other lower respiratory disease (17 sources) Multiple nodules of lung; Translations: [Other nonspecific abnormal finding of lung field] Onset: 10-28-2022 04-03-2023 Episodic Other non-traumatic joint disorders (6 sources) Shoulder joint pain; Translations: [Pain in unspecified shoulder] Onset: 03-17-2014 Episodic Other nutritional; endocrine; and metabolic disorders (6 sources) Excessive thirst; Translations: [Polydipsia] Onset: 07-28-2013 Episodic Residual codes; unclassified (8 sources) Other specified health status; Translations: [Other drug allergy] Onset: 12-23-2022 01-09-2023 Episodic Residual codes; unclassified (4 sources) Passive smoker; Translations: [Contact with and (suspected) exposure to environmental tobacco smoke (acute) (chronic)] Onset: 12-23-2022 12-23-2022 Episodic Residual codes; unclassified (2 sources) Contact with and (suspected) exposure to environmental tobacco smoke (acute) (chronic); Translations: [Contact with and (suspected) exposure to environmental tobacco smoke (acute) (chronic)] Onset: 12-23-2022 Episodic Screening and history of mental health and substance abuse codes (9 sources) Ex-smoker; Translations: [Personal history of tobacco use] Onset: 06-05-2023 06-05-2023 Episodic Comment on above: 06/2022 quit; Unclassified (12 sources) Patient status finding; Translations: [Patient new to provider] Unclassified (4 sources) Onset: 12-23-2022 Resolved: 06-05-2023 12-23-2022 Varicose veins of lower extremity (19 sources) Varicose veins of lower extremity; Translations: [Asymptomatic varicose veins] Onset: 04-04-2022 10-28-2022 Episodic Results Test Name Value Interpretation Reference Range Facility Laboratory - Chemistry and C hemistry - challengeon 09-24-2023 Bilirubin Ql (U) Negative [facility] Glucose (U) [Mass/Vol] Negative [facility] Ketones Ql (U) Negative [facility] pH (U) 6.5 [pH] [facility] Specific gravity (U) [Rel density] 1.010 [facility] Laboratory - Specimen inform ationon 09-24-2023 Appearance (U) cloudy [facility] Color (U) yellow [facility] Laboratory - Urinalysison Leukocyte esterase Test strip Ql (U) ++ [facility] Nitrite Ql (U) Negative [facility] Protein Ql (U) + [facility] No Panel Informationon 09-23 Urine Occult Blood ++ [facility] Urine Urobilinogen offchart [facility] US ankle/arm indiceson 07-01 US ankle/arm indices [facility] [address] [place] [address] Ultrasound Report Signed Patient: Avelino Barrett MR#: [id number] : 1950 Acct:[id number] Age/Sex: 72 / F ADM Date: 07/02/23 Loc: [facility] Room: Type: [facility] Attending Dr: Pili Campbell [employer]ANCH LENDING OFFICER-C Ordering Provider: Pili Campbell APRN Date of Service: 07/02/23 US/US ankle/arm indices: I70.213 Copies to: Pili Campbell APRN LOWER EXTREMITY SEGMENTAL ARTERIAL DOPSCAN (PVR) INDICATION: Surveillance study for PAD. PROCEDURE: Right arm blood pressure is 162 , left is 156 . Pressures of the right leg are 100 at the ankle using the posterior tibial artery and 92 at the ankle using the dorsalis pedis artery with ankle-brachial index of 0.57 0.62 . Pressures of the left leg are 82 at the ankle using the posterior tibial artery and 76 at the ankle using the dorsalis pedis artery with ankle-brachial index of 0.47 0.51 . Wave forms by plethysmography are biphasic, bilaterally. 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 Impression dictated by: Eulogio Mai MD07/02/2023 3:38 PM Dictation Location: [place] [address] Tech: Emperatriz Kang Transcribed By: JESSICA 07/02/23 [id number] Dictated By: Eulogio Mai MD 07/02/23 1538 Signed By: 07/02/23 1538 Normal [facility] ECG 12 Leadon 06-05-2023 Normal sinus rhythm with normal intervals, no significant change prior EKG from April 2023. [facility] Work Phone: XR Chest 2 Viewson 4 These images are not reportable by radiology and will not be interpreted by Radiologists. IMAGING Alanine Aminotransferaseon 0 04-15-2023 ALT [Catalytic activity/Vol] 13 U/L Normal [facility] Comment on above: Performed By: #### L IPID, TSH3, AST, BMP, ALT #### [facility] [address] [place] [address] [place] Alanine aminotransferase [En zymatic activity/volume] in Serum or PlasmaOrdered By: Juany Richter on 04-15-2023 ALT [Catalytic activity/Vol] 13 U/L [facility] Aspartate Amino Transferaseo n 04-15-2023 AST [Catalytic activity/Vol] 15 U/L Normal [facility] Comment on above: Performed By: #### L IPID, TSH3, AST, BMP, ALT #### [facility] [address] [place] [address] [place] Aspartate aminotransferase [ Enzymatic activity/volume] in Serum or PlasmaOrdered By: Juany Richter on 04-15-2023 AST [Catalytic activity/Vol] 15 U/L [facility] Basic Metabolic Panelon 04-03 Anion gap [Moles/Vol] 11.6 mmol/L Normal 6.0-15.0 [facility] Comment on above: Performed By: #### L IPID, TSH3, AST, BMP, ALT #### [facility] [address] [place] [id number] [place] Calcium [Mass/Vol] 9.6 mg/dL Normal 8.6-10.3 [facility] Comment on above: Performed By: #### L IPID, TSH3, AST, BMP, ALT #### [facility] [address] [place] [id number] [place] Chloride [Moles/Vol] 103 mmol/L Normal 98-107 [facility] Comment on above: Performed By: #### L IPID, TSH3, AST, BMP, ALT #### [address] CO2 [Moles/Vol] 30.1 mmol/L Normal 21.0-31.0 [facility] Comment on above: Performed By: #### L IPID, TSH3, AST, BMP, ALT #### [address] Creatinine [Mass/Vol] 1.09 mg/dL Normal 0.60-1.20 [facility] Comment on above: Performed By: #### L IPID, TSH3, AST, BMP, ALT #### [place] [address] [place] GFR/1.73 sq M.predicted MDRD (S/P/Bld) [Vol rate/Area] 54.313 mL/min/{1.73_m2} Normal [facility] Comment on above: Performed By: #### L IPID, TSH3, AST, BMP, ALT #### [address] Glucose [Mass/Vol] 94 mg/dL Normal 70-100 [facility] Comment on above: Result Comment: [facility] Glucose Reference Range is dependent on time and content of last meal. Glucose of more than 200 mg/dL in a nonstressed, ambulatory subject supports the diagnosis of Diabetes Mellitus. ADA recommended reference range Performed By: #### L IPID, TSH3, AST, BMP, ALT #### [address] Potassium [Moles/Vol] 4.7 mmol/L Normal 3.5-5.1 [facility] Comment on above: Performed By: #### L IPID, TSH3, AST, BMP, ALT #### [place] [address] [place] Sodium [Moles/Vol] 140 mmol/L Normal 136-145 [facility] Comment on above: Performed By: #### L IPID, TSH3, AST, BMP, ALT #### [facility] [address] [place] [address] [place] Urea nitrogen [Mass/Vol] 15 mg/dL Normal 7-25 [facility] Comment on above: Performed By: #### L IPID, TSH3, AST, BMP, ALT #### [facility] [address] [place] [address] [place] Calcium [Mass/volume] in Ser um or PlasmaOrdered By: Juany Richter on 04-15-2023 Calcium [Mass/Vol] 9.6 mg/dL 8.6-10.3 [facility] Carbon dioxide, total [Moles /volume] in Serum or PlasmaOrdered By: Juany Richter on 04-15-2023 CO2 [Moles/Vol] 30.1 mmol/L 21.0-31.0 [facility] Chloride [Moles/volume] in S diomedes or PlasmaOrdered By: Juany Richter on 04-15-2023 Chloride [Moles/Vol] 103 mmol/L 98-107 [facility] Cholesterol [Mass/volume] in Serum or PlasmaOrdered By: Juany Richter on 04-15-2023 Cholesterol [Mass/Vol] 203 mg/dL 140-200 [facility] Comment on above: Chol less than 200 m g/dl low riskChol 201-239 mg/dl borderline riskChol 240 mg/dl and greater high risk Cholesterol in LDL Calc [Mas s/Vol]Ordered By: Juany Richter on 04-15-2023 Cholesterol in LDL [Mass/Vol] 114 mg/dL 0-100 [facility] Comment on above: LDL ATP III CLASSIFI CATIONLDL less than 100 mg/dL OptimalLDL 100-129 mg/dL Near or above optimalLDL 130-159 mg/dL Borderline highLDL 160-189 mg/dL HighLDL greater than 189 mg/dL Very high Cholesterol in VLDL Calc [Ma ss/Vol]Ordered By: Juany Richter on 04-15-2023 Cholesterol in VLDL [Mass/Vol] 40 mg/dL [facility] Creatinine [Mass/volume] in Serum or PlasmaOrdered By: Juany Richter on 04-15-2023 Creatinine [Mass/Vol] 1.09 mg/dL 0.60-1.20 [facility] Glucose [Mass/volume] in Ser um or PlasmaOrdered By: Juany Richter on 04-15-2023 Glucose [Mass/Vol] 94 mg/dL 70-100 [facility] Comment on above: ADA recommended refe rence rangeRandom Glucose Reference Range is dependent on time and content of last meal. Glucose of more than 200 mg/dL in a nonstressed, ambulatory subject supports the diagnosis of Diabetes Mellitus. Lipid Panelon 04-15-2023 Cholesterol [Mass/Vol] 203 mg/dL High 140-200 [facility] Comment on above: Result Comment: Chol less than 200 mg/dl low risk Chol 201-239 mg/dl borderline risk Chol 240 mg/dl and greater high risk Performed By: #### T SH3, AST, BMP #### [facility] [address] Cholesterol in HDL [Mass/Vol] 48 mg/dL Normal 23-92 [facility] Comment on above: Result Comment: HDL CHOL ATP-III CLASSIFICATION Cardiovascular Risk HDL > or equal to 60 mg/dL LOW HDL < 40 mg/dL HIGH Performed By: #### T SH3, AST, BMP #### [facility] [address] [place] [id number] [facility] Cholesterol.total/Cho lesterol in HDL [Mass ratio] 4.2 {ratio} Normal <5.0 [facility] Comment on above: Performed By: #### T SH3, AST, BMP #### [facility] [address] [place] [id number] [place] LDL Cholesterol,Calculate d 114 mg/dL High 0-100 [facility] Comment on above: Result Comment: LDL ATP III CLASSIFICATION LDL less than 100 mg/dL Optimal LDL 100-129 mg/dL Near or above optimal LDL 130-159 mg/dL Borderline high LDL 160-189 mg/dL High LDL greater than 189 mg/dL Very high Performed By: #### T SH3, AST, BMP #### [facility] [address] [place] [id number] [place] Triglyceride w/Reflex 204 mg/dL High 0-149 [facility] Comment on above: Result Comment: TRIG ATP III CLASSIFICATION TRIG less than 150 mg/dL Normal TRIG 150-199 mg/dL Borderline high TRIG 200-500 mg/dL High TRIG greater than 500 mg/dL Very high Standard traceable to the [facility] Conrtrol and Prevention (CDC) test method. Performed By: #### T SH3, AST, BMP #### [facility] [address] VLDL CHOLESTEROL 40 mg/dL Normal [facility] Comment on above: Performed By: #### T SH3, AST, BMP #### [facility] [address] No Panel InformationOrdered By: Juany Richter on 04-15-2023 Estimated GFR (CKD-EPI) 54.313 mL/Min [facility] Creatinine Clearance (Chem N/A [facility] Potassium [Moles/volume] in Serum or PlasmaOrdered By: Juany Richter on 04-15-2023 Potassium [Moles/Vol] 4.7 mmol/L 3.5-5.1 [facility] Serum or plasma anion gap de terminationOrdered By: Juany Richter on 04-15-2023 Anion gap [Moles/Vol] 11.6 mmol/L 6.0-15.0 [facility] Serum or plasma high density lipoprotein (HDL) cholesterol measurementOrdered By: Juany Richter on 04-15-2023 Cholesterol in HDL [Mass/Vol] 48 mg/dL 23-92 [facility] Comment on above: HDL CHOL ATP-III CLA SSIFICATION Cardiovascular RiskHDL > or equal to 60 mg/dL LOWHDL < 40 mg/dL HIGH Serum or plasma total choles terol/high density lipoprotein (HDL) cholesterol mass ratOrdered By: Juany Richter on 04-15-2023 Cholesterol.total/Cho lesterol in HDL [Mass ratio] 4.2 {ratio} <5.0 [facility] Sodium [Moles/volume] in Ser um or PlasmaOrdered By: Juany Richter on 04-15-2023 Sodium [Moles/Vol] 140 mmol/L 136-145 [facility] Thyroid Stimulating Hormoneo n 04-15-2023 TSH Qn 4.62 m[IU]/L Normal 0.45-5.33 [facility] Comment on above: Result Comment: PERF ORMED BY: [place] [address] PATHOLOGIST FELT PAD CUTTER GARRETT PEÑA M.D. Performed By: #### T SH3, AST, BMP #### [facility] [address] [place] [address] Thyrotropin [Units/volume] i n Serum or PlasmaOrdered By: Juany Richter on 04-15-2023 TSH Qn 4.62 m[IU]/L 0.45-5.33 [facility] Triglyceride [Mass/volume] i n Serum or PlasmaOrdered By: Juany Richter on 04-15-2023 Triglyceride [Mass/Vol] 204 mg/dL 0-149 [facility] Comment on above: TRIG ATP III CLASSIF ICATIONTRIG less than 150 mg/dL NormalTRIG 150-199 mg/dL Borderline highTRIG 200-500 mg/dL High TRIG greater than 500 mg/dL Very highStandard traceable to the Center for Disease Conrtrol and Prevention (CDC) test method. Urea nitrogen [Mass/volume] in Serum or PlasmaOrdered By: Juany Richter on 04-15-2023 Urea nitrogen [Mass/Vol] 15 mg/dL 7-25 [facility] XR chest 2V*on 04-15-2023 XR chest 2V* [facility] [place] [address] [place], [place] [id number] XRay Report Signed Patient: Avelino Barrett MR#: [id number] : 1950 Acct:[id number] Age/Sex: 72 / F ADM Date: 04/15/23 Loc: RT Room: Type: [facility] CLI Attending Dr: Juany Richter MD Copies to: Juany Richter MD Ordering Provider: Juany Richter MD Date of Service: 04/15/23 XR/XR chest 2V*: I48.91,Z79.899 PA AND LATERAL CHEST: CLINICAL HISTORY: High risk medication for atrial fibrillation COMPARISON: 10/07/2022 There is mild hyperinflation. There is no focal parenchymal consolidation, effusion or pneumothorax. The cardiac, hilar and mediastinal silhouettes are within normal limits. There is no vascular congestion. The visualized bony structures are osteopenic. That show scoliotic curvature and endplate spurring are present. XR/XR chest 2V* IMPRESSION: NO ACUTE CARDIOPULMONARY ABNORMALITY. Impression dictated by: Quiana Pepe M.D.04/15/2023 2:18 PM Dictation Location: [facility] Transcribed By: JESSICA 04/15/231417 Dictated By: Quiana Pepe MD 04/15/231416 Signed By: 04/15/231417 Normal [facility] ABO/Rh Retypeon 02-10-2023 ABO/RH Recheck Result Positive Normal [facility] Comment on above: Result Comment: PERF ORMED BY: [facility] [address] [place] [address] PATHOLOGIST FELT PAD CUTTER GARRETT Koroma 02-10-2023 L ------ Specimen: [id number] Received: 02/10/23 Status: SHELLI Tuttle Num: [id number] Spec Type: Surgical Subm Dr: Lorri White, Tissues: A Endometrium - Curettings (ENDO CURETT) Procedures: HE/2, Gross/Micro L4 Age/ Patient Sex Location Account Attending Physician Avelino Barrett 72/F [place] [id number] Lorri White, DO SPEC NUM: [id number] RECD: 02/10/23 STATUS: SHELLI TUTTLE NUM: [id number] SARA: 02/10/23 DR: Lorri White DO ENTERED: 02/10/23 ELAINE SILVERIO: SEEMA TYPE: Surgical DEPT: S ENTERED BY: [id number] RECV BY: [id number] ORDERED: HE/2, Gross/Micro L4 ORDERED: HE/2, Gross/Micro L4 Pathological Diagnosis Endometrial curettings: - Mostly myometrial tissue beneath the markedly denuded mucosal surface with only scant portion of inactive type endometrial glands without hyperplasia or atypia - Incidental focal minor changes of adenomyosis also observed Clinical Information Endometrial polyps, PMB Gross Description Received in formalin labeled with the patient's name, date of and endometrial curettings and submucous fibroid tissue is a 2.2 x 1.1 x 0.3 cm aggregate of lima-red soft tissue. Quality Control Technician sections are submitted in one cassette labeled A1. Microscopic Description Two H E slides reviewed. The microscopic examination confirms the diagnosis. Specimen: [id number] Received: 02/10/23 Status: SHELLI Tuttle Num: [id number] Spec Type: Surgical Subm Dr: Lorri White DO Tissues: A Endometrium - Curettings (ENDO CURETT) Procedures: HE/2, Gross/Micro L4 Patient: Avelino Barrett [id number] (Continued) Specimen: [id number] Received: 02/10/23 (Continued) Signed (signature on file) Sher Infante MD 02/11/23 1920 Specimen: [id number] Received: 02/10/23 Status: SHELLI Tuttle Num: [id number] Spec Type: Surgical Subm Dr: Lorri White DO Tissues: A Endometrium - Curettings (ENDO CURETT) Procedures: HE/2, Gross/Micro L4 Patient: Avelino Barrett [id number] (Continued) Specimen: [id number] Received: 02/10/23 (Continued) CPT Codes 39068 Specimen: [id number] Received: 02/10/23 Status: SHELLI Tuttle Num: [id number] Spec Type: Surgical Subm Dr: Lorri White DO Tissues: A Endometrium - Curettings (ENDO CURETT) Procedures: HE/2, Lady/Jaylan L4 Patient: Avelino Barrett [id number] (Continued) Signed (signature on file) Sam-Eric Infante MD 02/11/231919 Normal [facility] Basic Metabolic Panelon 11-3 -2022 Anion gap [Moles/Vol] 10.9 mmol/L Normal 6.0-15.0 [facility] Comment on above: Performed By: #### T SH3, AST, BMP #### [address] Calcium [Mass/Vol] 9.4 mg/dL Normal 8.6-10.3 [facility] Comment on above: Result Comment: PERF ORMED BY: [place] [address] PATHOLOGIST FELT PAD CUTTER GARRETT PEÑA M.D. Performed By: #### T SH3, AST, BMP #### [address] Chloride [Moles/Vol] 105 mmol/L Normal 98-107 [facility] Comment on above: Performed By: #### T SH3, AST, BMP #### [address] [address] [place] CO2 [Moles/Vol] 26.8 mmol/L Normal 21.0-31.0 [facility] Comment on above: Performed By: #### T LIZZY AST, BMP #### [address] Creatinine [Mass/Vol] 1.09 mg/dL Normal 0.60-1.20 [facility] Comment on above: Performed By: #### T SH3, AST, BMP #### [place] [address] [place] GFR/1.73 sq M.predicted MDRD (S/P/Bld) [Vol rate/Area] 54.313 mL/min/{1.73_m2} Normal [facility] Comment on above: Performed By: #### T SH3, AST, BMP #### [address] Glucose [Mass/Vol] 78 mg/dL Normal 70-100 [facility] Comment on above: Result Comment: [facility] Glucose Reference Range is dependent on time and content of last meal. Glucose of more than 200 mg/dL in a nonstressed, ambulatory subject supports the diagnosis of Diabetes Mellitus. ADA recommended reference range Performed By: #### T SH3, AST, BMP #### [address] Potassium [Moles/Vol] 3.7 mmol/L Normal 3.5-5.1 [facility] Comment on above: Performed By: #### T SH3, AST, BMP #### [place] [address] [place] Sodium [Moles/Vol] 139 mmol/L Normal 136-145 [facility] Comment on above: Performed By: #### T SH3, AST, BMP #### [address] Urea nitrogen [Mass/Vol] 13 mg/dL Normal 7-25 [facility] Comment on above: Performed By: #### T SH3, AST, BMP #### [address] Basophils Auto (Bld) [#/Vol] Ordered By: Lorri White on 01-30-2023 Basophils (Bld) [#/Vol] 0.1 10*3/uL 0.0-0.2 [facility] Basophils/100 WBC Auto (Bld) Ordered By: Lorri White on 01-30-2023 Basophils/100 WBC (Bld) 0.7 % . [facility] Calcium [Mass/volume] in Ser um or PlasmaOrdered By: Lorri White on 01-30-2023 Calcium [Mass/Vol] 9.4 mg/dL 8.6-10.3 [facility] Carbon dioxide, total [Moles /volume] in Serum or PlasmaOrdered By: Lorri White on 01-30-2023 CO2 [Moles/Vol] 26.8 mmol/L 21.0-31.0 [facility] Chloride [Moles/volume] in S diomedes or PlasmaOrdered By: Lorri White on 01-30-2023 Chloride [Moles/Vol] 105 mmol/L 98-107 [facility] Complete Blood Count Auto Di ffon 01-30-2023 Basophils (Bld) [#/Vol] 0.1 10*3/uL Normal 0.0-0.2 [facility] Comment on above: Result Comment: PERF ORMED BY: [place] [address] PATHOLOGIST FELT PAD CUTTER GARRETT PEÑA M.D. Performed By: #### T SH3, AST, BMP #### [address] Basophils/100 WBC (Bld) 0.7 % Normal . [facility] Comment on above: Performed By: #### T SH3, AST, BMP #### [place] [address] [place] Eosinophils (Bld) [#/Vol] 0.1 10*3/uL Normal 0.0-0.45 [facility] Comment on above: Performed By: #### T SH3, AST, BMP #### [address] Eosinophils/100 WBC (Bld) 0.8 % Normal . [facility] Comment on above: Performed By: #### T SH3, AST, BMP #### [address] Erythrocyte distribution width (RBC) [Ratio] 14.5 % Normal 11.9-15.3 [facility] Comment on above: Performed By: #### T SH3, AST, BMP #### [address] Hematocrit (Bld) [Volume fraction] 37.4 % Normal 34.0-46.4 [facility] Comment on above: Performed By: #### T SH3, AST, BMP #### [address] Hemoglobin (Bld) [Mass/Vol] 12.4 g/dL Normal 11.8-15.4 [facility] Comment on above: Performed By: #### T SH3, AST, BMP #### [address] Lymphocytes (Bld) [#/Vol] 2.7 10*3/uL Normal 1.00-4.8 [facility] Comment on above: Performed By: #### T SH3, AST, BMP #### [address] Lymphocytes/100 WBC (Bld) 27.2 % Normal . [facility] Comment on above: Performed By: #### T SH3, AST, BMP #### [address] MCH (RBC) [Entitic mass] 28.2 pg Normal 24.7-34.3 [facility] Comment on above: Performed By: #### T SH3, AST, BMP #### [address] MCV (RBC) [Entitic vol] 85.4 fL Normal 80-100 [facility] Comment on above: Performed By: #### T SH3, AST, BMP #### [address] [place] [address] [place] Mean Corpuscular HGB Conc 33.0 g/dL Normal 32.0-35.0 [facility] Comment on above: Performed By: #### T SH3, AST, BMP #### [facility] [address] [place] [address] [place] Monocytes (Bld) [#/Vol] 0.7 10*3/uL Normal 0.0-0.8 [facility] Comment on above: Performed By: #### T SH3, AST, BMP #### [facility] [address] [place] [address] [place] Monocytes/100 WBC (Bld) 6.6 % Normal . [facility] Comment on above: Performed By: #### T SH3, AST, BMP #### [place] [address] [place] Neutrophils (Bld) [#/Vol] 6.5 10*3/uL Normal 1.8-7.7 [facility] Comment on above: Performed By: #### T SH3, AST, BMP #### [place] [address] [place] Neutrophils/100 WBC (Bld) 64.7 % Normal . [facility] Comment on above: Performed By: #### T SH3, AST, BMP #### [address] NRBC% 0.1 /100{WBC} Normal 0-0.5 [facility] Comment on above: Performed By: #### T SH3, AST, BMP #### [facility] [address] [place] [address] [place] Platelet mean volume (Bld) [Entitic vol] 10.0 fL Normal 6.3-10.7 [facility] Comment on above: Performed By: #### T SH3, AST, BMP #### [facility] [address] [place] [address] [place] Platelets (Bld) [#/Vol] 192 10*3/uL Normal 150-450 [facility] Comment on above: Performed By: #### T SH3, AST, BMP #### [facility] [address] [place] [address] [place] RBC (Bld) [#/Vol] 4.38 10*6/uL Normal 3.60-5.00 [facility] Comment on above: Performed By: #### T SH3, AST, BMP #### [facility] [address] [place] [id number] [facility] WBC (Bld) [#/Vol] 10.0 10*3/uL Normal 3.8-11.6 [facility] Comment on above: Performed By: #### T SH3, AST, BMP #### [facility] [address] Creatinine [Mass/volume] in Serum or PlasmaOrdered By: Lorri White on 01-30-2023 Creatinine [Mass/Vol] 1.09 mg/dL 0.60-1.20 [facility] ECG 12 lead ECGon 01-30-2023 ECG 12 lead ECG [facility] [place] [address] [place] [address] Electrocardiograph Report Signed Patient: Avelino Barrett MR#: [id number] : 1950 Acct:[id number] Age/Sex: 72 / F ADM Date: 01/30/23 Loc: Room: Type: [facility] Attending Dr: Lorri White DO Ordering Provider: Lorri White DO Date of Service: 01/30/23 ECG/ECG 12 lead ECG: surgery 02/10/23 Copies to: Test Reason : Blood Pressure : / mmHG Vent. Rate : 065 BPM Atrial Rate : 065 BPM P-R Int : 144 ms QRS Dur : 090 ms QT Int : 434 ms P-R-T Axes : 026 059 057 degrees QTc Int : 451 ms Normal sinus rhythm Normal ECG No previous ECGs available Confirmed by [facility]ERELLE GOMEZ [facility] ([id number]) on 02/01/2023 1:02:41 AM Referred By: CAR WHITE Electronically Signed By:EVAN ROBB [facility] Transcribed By: MUS Signed By Osmani Robb MD 02/01/23 0102 Normal [facility] Eosinophils Auto (Bld) [#/Vo l]Ordered By: Lorri White on 01-30-2023 Eosinophils (Bld) [#/Vol] 0.1 10*3/uL 0.0-0.45 [facility] Eosinophils/100 WBC Auto (Bl d)Ordered By: Lorri White on 01-30-2023 Eosinophils/100 WBC (Bld) 0.8 % . [facility] Erythrocyte distribution wid th Auto (RBC) [Ratio]Ordered By: Lorri White on 01-30-2023 Erythrocyte distribution width (RBC) [Ratio] 14.5 % 11.9-15.3 [facility] Glucose [Mass/volume] in Ser um or PlasmaOrdered By: Lorri White on 01-30-2023 Glucose [Mass/Vol] 78 mg/dL 70-100 [facility] Comment on above: ADA recommended refe rence rangeRandom Glucose Reference Range is dependent on time and content of last meal. Glucose of more than 200 mg/dL in a nonstressed, ambulatory subject supports the diagnosis of Diabetes Mellitus. Hematocrit Auto (Bld) [Volum e fraction]Ordered By: Lorri White on 01-30-2023 Hematocrit (Bld) [Volume fraction] 37.4 % 34.0-46.4 [facility] Hemoglobin [Mass/volume] in BloodOrdered By: Lorri White on 01-30-2023 Hemoglobin (Bld) [Mass/Vol] 12.4 g/dL 11.8-15.4 [facility] Leukocytes [#/volume] correc alirio for nucleated erythrocytes in Blood by Automated counOrdered By: Lorri White on 01-30-2023 WBC corrected for nucl RBC Auto (Bld) [#/Vol] 10.0 10*3/uL 3.8-11.6 [facility] Lymphocytes Auto (Bld) [#/Vo l]Ordered By: Lorri White on 01-30-2023 Lymphocytes (Bld) [#/Vol] 2.7 10*3/uL 1.00-4.8 [facility] Lymphocytes/100 WBC Auto (Bl d)Ordered By: Lorri White on 01-30-2023 Lymphocytes/100 WBC (Bld) 27.2 % . [facility] MCH Auto (RBC) [Entitic mass ]Ordered By: Lorri White on 01-30-2023 MCH (RBC) [Entitic mass] 28.2 pg 24.7-34.3 [facility] MCHC Auto (RBC) [Mass/Vol]Or dered By: Lorri White on 01-30-2023 MCHC (RBC) [Mass/Vol] 33.0 g/dL 32.0-35.0 [facility] MCV Auto (RBC) [Entitic vol] Ordered By: Lorri White on 01-30-2023 MCV (RBC) [Entitic vol] 85.4 fL 80-100 [facility] Monocytes Auto (Bld) [#/Vol] Ordered By: Lorri White on 01-30-2023 Monocytes (Bld) [#/Vol] 0.7 10*3/uL 0.0-0.8 [facility] Monocytes/100 WBC Auto (Bld) Ordered By: Lorri White on 01-30-2023 Monocytes/100 WBC (Bld) 6.6 % . [facility] Neutrophils Auto (Bld) [#/Vo l]Ordered By: Lorri White on 01-30-2023 Neutrophils (Bld) [#/Vol] 6.5 10*3/uL 1.8-7.7 [facility] Neutrophils/100 WBC Auto (Bl d)Ordered By: Lorri White on 01-30-2023 Neutrophils/100 WBC (Bld) 64.7 % . [facility] No Panel InformationOrdered By: Lorri White on 01-30-2023 Estimated GFR (CKD-EPI) 54.313 mL/Min [facility] Creatinine Clearance (Chem N/A [facility] Nucleated erythrocytes [Pres ence] in Blood by Automated countOrdered By: Lorri White on 01-30-2023 Nucleated RBC Auto Ql (Bld) 0.1 /100{WBC} 0-0.5 [facility] PST Type and Screenon 2022 ABO and Rh group Nom (Bld) Blood group O Rh(D) positive Normal [facility] Comment on above: Order Comment: Date of Surgery: [id number] Result Comment: PERF ORMED BY: [facility] [place] [place] [address] PATHOLOGIST FELT PAD CUTTER GARRETT PEÑA M.D. Platelet mean volume Auto (B ld) [Entitic vol]Ordered By: Lorri White on 01-30-2023 Platelet mean volume (Bld) [Entitic vol] 10.0 fL 6.3-10.7 [facility] Platelets Auto (Bld) [#/Vol] Ordered By: Lorri White on 01-30-2023 Platelets (Bld) [#/Vol] 192 10*3/uL 150-450 [facility] Potassium [Moles/volume] in Serum or PlasmaOrdered By: Lorri White on 01-30-2023 Potassium [Moles/Vol] 3.7 mmol/L 3.5-5.1 [facility] RBC Auto (Bld) [#/Vol]Ordere d By: Lorri White on 01-30-2023 RBC (Bld) [#/Vol] 4.38 10*6/uL 3.60-5.00 [facility] Serum or plasma anion gap de terminationOrdered By: Lorri White on 01-30-2023 Anion gap [Moles/Vol] 10.9 mmol/L 6.0-15.0 [facility] Sodium [Moles/volume] in Ser um or PlasmaOrdered By: Lorri White on 01-30-2023 Sodium [Moles/Vol] 139 mmol/L 136-145 [facility] Urea nitrogen [Mass/volume] in Serum or PlasmaOrdered By: Lorri White on 01-30-2023 Urea nitrogen [Mass/Vol] 13 mg/dL 7-25 [facility] WBC Auto (Bld) [#/Vol]Ordere d By: Lorri White on 01-30-2023 WBC (Bld) [#/Vol] 10.0 10*3/uL 3.8-11.6 [facility] US ankle/arm indiceson 12-26 US ankle/arm indices [facility] [place] [address] [place] [address] Ultrasound Report Signed Patient: Avelino Barrett MR#: [id number] : 1950 Acct:[id number] Age/Sex: 72 / F ADM Date: 12/26/22 Loc: [facility] Room: Type: [facility] CLI Attending Dr: Eulogio Mai MD Ordering Provider: Eulogio Mai MD Date of Service: 12/26/22 US/US ankle/arm indices: I70.213 Copies to: Eulogio Mai MD LOWER EXTREMITY SEGMENTAL ARTERIAL DOPSCAN (PVR) INDICATION: Foot wound PROCEDURE: Right arm blood pressure is 154 , left is 141 . Pressures of the right leg are 68 at the ankle using the posterior tibial artery and 84 at the ankle using the dorsalis pedis artery with ankle-brachial index of 0.55 0.44 . Pressures of the left leg are 68 at the ankle using the posterior tibial artery and 66 at the ankle using the dorsalis pedis artery with ankle-brachial index of 0.43 0.44 . Wave forms by plethysmography are biphasic, bilaterally. 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 Impression dictated by: Eulogio Mai MD12/26/2022 1:08 PM Dictation Location: [place] [address] Tech: Brianna Montero Transcribed By: JESSICA 12/26/22 1308 Dictated By: Eulogio Mai MD 12/26/22 1307 Signed By: 12/26/22 1308 Normal [facility] Human papilloma virus 16+18+ 31+33+35+39+45+51+52+56+58+59+66+68 DNA [Presence] in CerOrdered By: Shannon Yoon on 10-22-2022 HPV 16+18+31+33+35+39+45+ 51+52+56+58+59+66+68 DNA Probe+sig amp Ql (Cvx) Negative Negative [facility] Comment on above: This nucleic acid am plification test detects fourteen high- risk HPV types (16,18,31,33,35,39,45,51,52,56,58,59,66,68)without differentiation.Performed at: [facility] [address] [place], [place] [id number] Director: Nicanor Hancock MD, Phone: [phone] at: =[address] [id number] Director: Roslyn Walls MD, Phone: [phone] IGP, Aptima HPV, rfx 16/18,4 5on 10-22-2022 PAP HPV Aptima Negative Normal Negative [facility] Comment on above: Result Comment: This nucleic acid amplification test detects fourteen high- risk HPV types (16,18,31,33,35,39,45,51,52,56,58,59,66,68) without differentiation. Performed at: [facility] [address] [address] [place], [place] [id number] Emissions Repair Technician: Nicanor Hancock MD, Phone: [phone] Performed at: =[address], [place] [id number] Emissions Repair Technician: Roslyn Walls MD, Phone: [phone] PERFORMED BY: [address] [place] [address] PATHOLOGIST FELT PAD CUTTER GARRETT PEÑA M.D. Performed By: #### P AP [id number], VAGINITIS #### [facility] , Pap Image Guided Note Normal . [facility] Comment on above: Result Comment: TEST S RESULT FLAG UNITS REF RANGE LAB Clinician Provided Cytology Information No. of containers..01 ThinPrep Vial DIAGNOSIS: 01 NEGATIVE FOR INTRAEPITHELIAL LESION OR MALIGNANCY. Specimen adequacy: 01 Satisfactory for evaluation. Endocervical and/or squamous metaplastic cells (endocervical component) are present. Performed by: 01 Marisol Hart, Signal Supervisor (ASCP) . 01 Note: Note 02 The Pap smear is a screening test designed to aid in the detection of premalignant and malignant conditions of the uterine cervix. It is not a diagnostic procedure and should not be used as the sole means of detecting cervical cancer. Both false-positive and false-negative reports do occur. Test Methodology: Note 02 This liquid based ThinPrep(R) pap test was screened with the use of an image guided system. HPV Genotype Reflex Note 01 Criteria not met, HPV Genotype not performed. FLAG LEGEND: L-Low Normal,H-High Normal,LL-Alert Low,HH-Alert High <-Panic Low,>-Panic High,A-Abnormal,AA-Critical Abnormal Performed at: 01 [facility] [address] [address] [place] [address] Nicanor Hancock MD, 02 WB [facility] [address] [address] Roslyn Walls MD, Performed By: #### P AP [id number], VAGINITIS #### [facility] , No Panel InformationOrdered By: Shannon Yoon on 10-22-2022 Rgis albicans (KARON) Negative Negative [facility] Comment on above: This test was develo ped and its performance characteristicsdetermined by [employer]. It has not been cleared orapproved by the Food and Drug Administration. Gris glabrata (KARON) Negative Negative [facility] Comment on above: This test was develo ped and its performance characteristicsdetermined by [employer]. It has not been cleared orapproved by the Food and Drug Administration. IG Pap w/Ct-Ng & HPV Rflx (Off-Site Note . [facility] Comment on above: TESTS RESULT FLAG UN ITS REF RANGE LAB Clinician Provided Cytology Information No. of containers..01 ThinPrep VialDIAGNOSIS: 01 NEGATIVE FOR INTRAEPITHELIAL LESION OR MALIGNANCY.Specimen adequacy: 01 Satisfactory for evaluation. Endocervical and/or squamous metaplastic cells (endocervical component) are present.Performed by: 01 Marisol Hart, Signal Supervisor ([facility]). 01Note: Note 02 The Pap smear is a screening test designed to aid in the detection of premalignant and malignant conditions of the uterine cervix. It is not a diagnostic procedure and should not be used as the sole means of detecting cervical cancer. Both false-positive and false-negative reports do occur.Test Methodology: Note 02 This liquid based ThinPrep(R) pap test was screened with the use of an image guided system.HPV Genotype Reflex Note 01 Criteria not met, HPV Genotype not performed. ------ FLAG LEGEND: L-Low Normal,H-High Normal,LL-Alert Low,HH-Alert High <-Panic Low,>-Panic High,A-Abnormal,AA-Critical Abnormal ----Performed at:01 [facility] Cyto Histo [id number] [place] [id number] Nicanor Hancock MD, [address] [address] Roslyn Walls MD, Trichomonas vaginalis (KARON) Negative Negative [facility] Comment on above: Performed at: =G - L karol [id number] [facility], [place] [id number] Director: Roslyn Walls MD, Phone: [phone] Vaginal fluid Atopobium vagi ana DNA detection by probe and target amplification methoOrdered By: Shannon Yoon on 10-22-2022 A. vaginae DNA KARON+probe Ql (Vag fld) Low - 0 Score . [facility] Vaginal fluid Megasphaera sp ecies type 1 DNA detection by probe and target amplificatOrdered By: Shannon Yoon on 10-22-2022 Megasphaera sp type 1 DNA KARON+probe Ql (Vag fld) Low - 0 Score . [facility] Comment on above: Calculate total scor e by adding the 3 individual bacterialvaginosis (BV) marker scores together. Total score isinterpreted as follows:Total score 0-1: Indicates the absence of BV.Total score 2: Indeterminate for BV. Additional clinical data should be evaluated to establish a diagnosis.Total score 3-6: Indicates the presence of BV.This test was developed and its performance characteristicsdetermined by [employer]. It has not been cleared or approvedby the Food and Drug Administration. Vaginal fluid bacterial vagi nosis associated bacterium 2 DNA detection by probe and tOrdered By: Shannon Yoon on 10-22-2022 Bacterial vaginosis associated bacterium 2 DNA KARON+probe Ql (Vag fld) Low - 0 Score . [facility] Vaginitis (VG)on 10-22-2022 Vaginitis (VG) Negative Negative [facility] Other Vaginitis (VG) Low - 0 . [facility] Other Atopobium Vaginae Low - 0 Normal . [facility] Comment on above: Performed By: #### P AP [id number], VAGINITIS #### [facility] , BVAB2 Low - 0 Normal . [facility] Comment on above: Performed By: #### P AP , VAGINITIS #### [facility] , Gris Albicans, KARON Negative Normal Negative [facility] Comment on above: Result Comment: This test was developed and its performance characteristics determined by [facility]. It has not been cleared or approved by the Food and Drug Administration. Performed By: #### P AP , VAGINITIS #### [facility] , Gris Glabrata, KARON Negative Normal Negative [facility] Comment on above: Result Comment: This test was developed and its performance characteristics determined by [facility]. It has not been cleared or approved by the Food and Drug Administration. PERFORMED BY: [address] [address] PATHOLOGIST FELT PAD CUTTER GARRETT PEÑA M.D. Performed By: #### P AP , VAGINITIS #### [facility] , Megasphaera Low - 0 Normal . [facility] Comment on above: Result Comment: Calc ulate total score by adding the 3 individual bacterial vaginosis (BV) marker scores together. Total score is interpreted as follows: Total score 0-1: Indicates the absence of BV. Total score 2: Indeterminate for BV. Additional clinical data should be evaluated to establish a diagnosis. Total score 3-6: Indicates the presence of BV. This test was developed and its performance characteristics determined by [facility]. It has not been cleared or approved by the Food and Drug Administration. Performed By: #### P AP , VAGINITIS #### [facility] , Tric Vag KARON Negative Normal Negative [facility] Comment on above: Result Comment: Perf ormed at: =G - [facility] [address] [id number] Emissions Repair Technician: Roslyn Walls MD, Phone: [phone] Performed By: #### P AP , VAGINITIS #### [facility] , Urine Cultureon 10-10-2022 Bacteria identified Cx Nom (U) 20,000 colonies/ml mixed bacterial skin contaminants 2 Days PERFORMED BY: [place] [address] [place] [address] PATHOLOGIST FELT PAD CUTTER GARRETT PEÑA M.D. Normal [facility] Comment on above: Performed By: #### T SH3, AST, BMP #### [facility] [address] Bacteria identified Cx Nom (U) [facility] Other Urine culture routineOrdered By: Shannon Yoon on 10-10-2022 Bacteria identified Cx Nom (U) 2 Days [facility] Aspartate Amino Transferaseo n 10-07-2022 AST [Catalytic activity/Vol] 16 U/L Normal 13-39 [facility] Comment on above: Order Comment: PT NO T FASTING Performed By: #### T SH3, AST, BMP #### [place] [address] [place] Aspartate aminotransferase [ Enzymatic activity/volume] in Serum or PlasmaOrdered By: Juany Richter on 10-07-2022 AST [Catalytic activity/Vol] 16 U/L 13-39 [facility] Basic Metabolic Panelon Anion gap [Moles/Vol] 13.3 mmol/L Normal 6.0-15.[address] [facility] Comment on above: Order Comment: PT NO T FASTING Performed By: #### T SH3, AST, BMP #### [address] Calcium [Mass/Vol] 9.4 mg/dL Normal 8.6-10.3 [facility] Comment on above: Order Comment: PT NO T FASTING Performed By: #### T SH3, AST, BMP #### [facility] [address] [place] [address] [place] Chloride [Moles/Vol] 104 mmol/L Normal 98-107 [facility] Comment on above: Order Comment: PT NO T FASTING Performed By: #### T SH3, AST, BMP #### [facility] [address] [place] [address] [place] CO2 [Moles/Vol] 25.6 mmol/L Normal 21.0-31.0 [facility] Comment on above: Order Comment: PT NO T FASTING Performed By: #### T SH3, AST, BMP #### [facility] [address] Creatinine [Mass/Vol] 1.15 mg/dL Normal 0.60-1.20 [facility] Comment on above: Order Comment: PT NO T FASTING Performed By: #### T SH3, AST, BMP #### [facility] [address] [place] [address] [place] GFR/1.73 sq M.predicted MDRD (S/P/Bld) [Vol rate/Area] 51.248 mL/min/{1.73_m2} Normal [facility] Comment on above: Order Comment: PT NO T FASTING Performed By: #### T SH3, AST, BMP #### [address] Glucose [Mass/Vol] 126 mg/dL High 70-100 [facility] Comment on above: Order Comment: PT NO T FASTING Result Comment: [facility] Glucose Reference Range is dependent on time and content of last meal. Glucose of more than 200 mg/dL in a nonstressed, ambulatory subject supports the diagnosis of Diabetes Mellitus. ADA recommended reference range Performed By: #### T SH3, AST, BMP #### [address] Potassium [Moles/Vol] 3.9 mmol/L Normal 3.5-5.1 [facility] Comment on above: Order Comment: PT NO T FASTING Performed By: #### T SH3, AST, BMP #### [place] [address] [place] Sodium [Moles/Vol] 139 mmol/L Normal 136-145 [facility] Comment on above: Order Comment: PT NO T FASTING Performed By: #### T SH3, AST, BMP #### [place] [address] [place] Urea nitrogen [Mass/Vol] 10 mg/dL Normal 7-25 [facility] Comment on above: Order Comment: PT NO T FASTING Performed By: #### T SH3, AST, BMP #### [address] [place] [address] [facility] Calcium [Mass/volume] in Ser um or PlasmaOrdered By: Juany Richter on 10-07-2022 Calcium [Mass/Vol] 9.4 mg/dL 8.6-10.3 [facility] Carbon dioxide, total [Moles /volume] in Serum or PlasmaOrdered By: Juany Richter on 10-07-2022 CO2 [Moles/Vol] 25.6 mmol/L 21.0-31.0 [facility] Chloride [Moles/volume] in S diomedes or PlasmaOrdered By: Juany Richter on 10-07-2022 Chloride [Moles/Vol] 104 mmol/L 98-107 [facility] Creatinine [Mass/volume] in Serum or PlasmaOrdered By: Juany Richter on 10-07-2022 Creatinine [Mass/Vol] 1.15 mg/dL 0.60-1.20 [facility] Glucose [Mass/volume] in Ser um or PlasmaOrdered By: Juany Richter on 10-07-2022 Glucose [Mass/Vol] 126 mg/dL 70-100 [facility] Comment on above: ADA recommended refe rence rangeRandom Glucose Reference Range is dependent on time and content of last meal. Glucose of more than 200 mg/dL in a nonstressed, ambulatory subject supports the diagnosis of Diabetes Mellitus. No Panel InformationOrdered By: Juany Richter on 10-07-2022 Estimated GFR (CKD-EPI) 51.248 mL/Min [facility] Creatinine Clearance (Chem N/A [facility] Potassium [Moles/volume] in Serum or PlasmaOrdered By: Juany Richter on 10-07-2022 Potassium [Moles/Vol] 3.9 mmol/L 3.5-5.1 [facility] Serum or plasma anion gap de terminationOrdered By: Juany Richter on 10-07-2022 Anion gap [Moles/Vol] 13.3 mmol/L 6.0-15.0 [facility] Sodium [Moles/volume] in Ser um or PlasmaOrdered By: Juany Richter on 10-07-2022 Sodium [Moles/Vol] 139 mmol/L 136-145 [facility] Thyroid Stimulating Hormoneo n 10-07-2022 TSH Qn 3.20 m[IU]/L Normal 0.45-5.33 [facility] Comment on above: Order Comment: PT NO T FASTING Result Comment: PERF ORMED BY: [place] [address] PATHOLOGIST FELT PAD CUTTER GARRETT PEÑA M.D. Performed By: #### T SH3, AST, BMP #### [address] Thyrotropin [Units/volume] i n Serum or PlasmaOrdered By: Juany Richter on 10-07-2022 TSH Qn 3.20 m[IU]/L 0.45-5.33 [facility] Urea nitrogen [Mass/volume] in Serum or PlasmaOrdered By: Juany Richter on 10-07-2022 Urea nitrogen [Mass/Vol] 10 mg/dL 7-25 [facility] XR chest 2V*on 10-07-2022 XR chest 2V* [facility] [place] [address] [place] [address] XRay Report Signed Patient: Avelino Barrett MR#: [id number] : 1950 Acct:[id number] Age/Sex: 71 / F ADM Date: 10/07/22 Loc: RT Room: Type: [facility] Attending Dr: Juany Richter MD Copies to: Juany Richter MD Ordering Provider: Juany Richter MD Date of Service: 10/07/22 XR/XR chest 2V*: Z79.899, I48.91 Plain film chest 2 view HISTORY: High risk medication usage COMPARISON: None FINDINGS: SUPPORT DEVICES: None POSTSURGICAL CHANGES: None HEART: Within normal limits PULMONARY TRA: Within normal limits MEDIASTINUM: Unremarkable LUNGS AND PLEURA: No acute lung process, pleural effusion or pneumothorax identified. BONY STRUCTURES: Mild scoliosis. The thoracic spondylosis. ADDITIONAL FINDINGS None XR/XR chest 2V* IMPRESSION: No acute process. Impression dictated by: Raghu Woods M.D.10/07/2022 3:44 PM Dictation Location: [facility]--12 Transcribed By: [facility] 10/07/22 1544 Dictated By: Raghu Woods DO 10/07/22 1543 Signed By: 10/07/22 1544 Normal [facility] XR knee RT 3Von 08-09-2022 XR knee RT 3V [facility] [employer] Other XR knee RT 3V [facility] [employer] Other XR knee RT 3V [address] [place] [address] [employer] Other XR knee [place] 3[place] [address] [facility] [employer] Other XR knee RT 3V XRay Report [facility] Other XR knee RT 3V Signed [facility] Other XR knee RT 3V Patient: Avelino Barrett MR#: [facility] Other XR knee RT 3V [id number] [facility] Other XR knee RT 3V : 1950 Acct:[id number] [facility] Other XR knee RT 3V Age/Sex: 71 / F ADM Date: 08/09/22 [facility] Other XR knee RT 3V Loc: [facility] Room: Type : [facility] [employer] Other XR knee RT 3V Attending Dr: Gavino Tavera DO [facility] Other XR knee RT 3V Copies to: Gavino Tavera DO [facility] Other XR knee RT 3V Ordering Provider: Gwen Tavera DO [facility] Other XR knee RT 3V Date of Service: 08/09/22 [facility] Other XR knee RT 3V [id number]) XR/XR knee RT 3V - NOT FOR ER USE: Acute pain of right knee [facility] Other XR knee RT 3V 3 views right knee p luisa film [facility] Other XR knee RT 3V COMPARISON: None [facility] Other XR knee RT 3V HISTORY: [place] a tear in the right knee 3 weeks ago. Painful since. [facility] Other XR knee RT 3V ACUTE FINDINGS: None [email or web address] Other XR knee RT 3V DEGENERATIVE CHANGE: Minor [facility] Other XR knee RT 3V SOFT TISSUE FINDINGS : Unremarkable [facility] Other XR knee RT 3V JOINT EFFUSION: Mode rate joint effusion [facility] Other XR knee RT 3V POSTOP CHANGES: None [email or web address] Other XR knee RT 3V BONE MINERALIZATION: Adequate [facility] Other XR knee RT 3V X R/XR knee RT 3V - NOT FOR ER USE [facility] Other XR knee RT 3V IMPRESSION: Moderate joint effusion. Minor degeneration. [facility] Other XR knee RT 3V Impression dictated by: Raghu Woods M.D.08/09/2022 2:22 PM [facility] Other XR knee RT 3V Dictation Location: [facility]-- [facility] Other XR knee RT 3V Transcribed By: JESSICA 08/09/22 [facility] Other XR knee RT 3V Dictated By: Sumanth Woods DO 08/09/22 1419 [facility] Other XR knee RT 3V Signed By: [facility] Other XR knee RT 3V 08/09/22 1422 [facility] [employer] Other XR knee RT 3V - NOT FOR ER U Inga 08-09-2022 XR knee RT 3V - NOT FOR ER USE [address] [address] XRay Report Signed Patient: Avelino Barrett MR#: [id number] : 1950 Acct:[id number] Age/Sex: 71 / F ADM Date: 08/09/22 Loc: [facility] Room: Type: [facility] Attending Dr: Gavino Tavera DO Copies to: Gavino Tavera DO Ordering Provider: Gavino Tavera DO Date of Service: 08/09/22 XR/XR knee RT 3V - NOT FOR ER USE: Acute pain of right knee 3 views right knee plain film COMPARISON: None HISTORY: [place]arks[place] a tear in the right knee 3 weeks ago. Painful since. ACUTE FINDINGS: None DEGENERATIVE CHANGE: Minor SOFT TISSUE FINDINGS: Unremarkable JOINT EFFUSION: Moderate joint effusion POSTOP CHANGES: None BONE MINERALIZATION: Adequate XR/XR knee RT 3V - NOT FOR ER USE IMPRESSION: Moderate joint effusion. Minor degeneration. Impression dictated by: Raghu Woods M.D.08/09/2022 2:22 PM Dictation Location: [place] [address] Transcribed By: [facility] 08/09/22 1422 Dictated By: Raghu Woods DO 08/09/22 1419 Signed By: 08/09/22 1422 Normal [facility] XR hand LT min 3V*on 023 XR hand LT min 3V* [facility] [employer] Other XR hand LT min 3V* [facility] [employer] Other XR hand LT min 3V* [address] [facility] [employer] Other XR hand LT min 3V* [place] [address] [facility] [employer] Other XR hand LT min 3V* XRay Report [facility] Other XR hand LT min 3V* Signed [facility] Other XR hand LT min 3V* Patient: Avelino Barrett MR#: [facility] [employer] Other XR hand LT min 3V* [id number] [employer] Other XR hand LT min 3V* : 1950 Acct:[id number] [facility] Other XR hand LT min 3V* Age/Sex: 71 / F ADM Date: 07/30/22 [facility] Other XR hand LT min 3V* Loc: [facility] Room: Type : [facility] [employer] Other XR hand LT min 3V* Attending Dr: Lito Alcantara MD [facility] Other XR hand LT min 3V* Copies to: Dena Alcantara MD [facility] Other XR hand LT min 3V* Ordering Provider: Cadence Alcantara MD [facility] Other XR hand LT min 3V* Date of Service: 07/30/22 [facility] Other XR hand LT min 3V* [address]) XR/XR hand LT min 3V*: Left hand pain [facility] Other XR hand LT min 3V* [address] ain film [facility] Other XR hand LT min 3V* COMPARISON: None [facility] Other XR hand LT min 3V* HISTORY: LEFT thumb and carpometacarpal pain for months [facility] Other XR hand LT min 3V* ACUTE FINDINGS: None [facility] Other XR hand LT min 3V* DEGENERATIVE CHANGE: Extensive 1st carpometacarpal degeneration include joint space narrowing and [facility] Other XR hand LT min 3V* large spurring and degenerative subluxation. Moderate interphalangeal degenerative changes. [facility] Other XR hand LT min 3V* SOFT TISSUE FINDINGS : Unremarkable [facility] Other XR hand LT min 3V* JOINT EFFUSION: None [facility] Other XR hand LT min 3V* POSTOP CHANGES: None [facility] Other XR hand LT min 3V* BONY MINERALIZATION: Adequate [facility] Other XR hand LT min 3V* X R/XR hand LT min 3V* [facility] Other XR hand LT min 3V* IMPRESSION: Extensiv e 1st carpometacarpal degeneration. [facility] Other XR hand LT min 3V* Impression dictated by: Raghu Woods M.D.07/30/2022 10:29 AM [facility] Other XR hand LT min 3V* Dictation Location: [place] [address] [facility] Other XR hand LT min 3V* Transcribed By: [facility] 07/30/22 102 [facility] Other XR hand LT min 3V* Dictated By: Sumanth Woods DO 07/30/22 1023 [facility] Other XR hand LT min 3V* Signed By: [facility] Other XR hand LT min 3V* 07/30/[address] [place] [address] [employer] Other XR hand LT min 3V* [facility] [place] [address] [place] [address] XRay Report Signed Patient: Avelino Barrett MR#: [id number] : 1950 Acct:[id number] Age/Sex: 71 / F ADM Date: 07/30/22 Loc: [facility] Room: Type: [facility] Attending Dr: Dena Alcantara MD Copies to: eDna Alcantara MD Ordering Provider: Dena Alcantara MD Date of Service: 07/30/22 XR/XR hand LT min 3V*: Left hand pain 4 views LEFT hand plain film COMPARISON: None HISTORY: LEFT thumb and carpometacarpal pain for months ACUTE FINDINGS: None DEGENERATIVE CHANGE: Extensive 1st carpometacarpal degeneration include joint space narrowing and large spurring and degenerative subluxation. Moderate interphalangeal degenerative changes. SOFT TISSUE FINDINGS: Unremarkable JOINT EFFUSION: None POSTOP CHANGES: None BONY MINERALIZATION: Adequate XR/XR hand LT min 3V* IMPRESSION: Extensive 1st carpometacarpal degeneration. Impression dictated by: Raghu Woods M.D.07/30/2022 10:29 AM Dictation Location: [place] [address] Transcribed By: [facility] 07/30/22 1029 Dictated By: Raghu Woods DO 07/30/22 1023 Signed By: 07/30/22 1029 Normal [facility] Office Visit (Cardiology)on 07-08-2022 Follow-up visit Diagnoses/Problems Assessed Afib (427.31) (I48.91) GERD (gastroesophageal reflux disease) (530.81) (K21.9) Mixed hyperlipidemia (272.2) (E78.2) PVD (peripheral vascular disease) (443.9) (I73.9) Vascular claudication (443.9) (I73.9) HIP Hypertension (401.9) (I10) High risk medication use (V58.69) (Z79.899) COPD (chronic obstructive pulmonary disease) (496) (J44.9) Multiple drug allergies (V14.9) (Z88.9) Former smoker (V15.82) (Z87.891) 06/2022 quit Class 2 obesity with body mass index (BMI) of 35.0 to 35.9 in adult (278.00,V85.35) (E66.9,Z68.35) Medication course changed (V58.69) (Z79.899) Orders Afib Start: Amiodarone HCl - 100 MG Oral Tablet; TAKE 1 TABLET DAILY IO EKG Electrocardiogram- 12 Lead; Status:Complete; Done: 08Jul2022 Afib, High risk medication use, Hypertension, Mixed hyperlipidemia ALT - Alanine Aminotransferase, Serum; Status:Active; Requested for:08Dec2022; AST; Status:Active; Requested for:08Dec2022; Basic Metabolic Panel; Status:Active; Requested for:08Dec2022; Complete Blood Count; Status:Active; Requested for:08Dec2022; Lipid Panel; Status:Active; Requested for:08Dec2022; Class 2 obesity with body mass index (BMI) of 35.0 to 35.9 in adult Healthy Weight Tips; Status:Complete; Done: 08Jul2022 Some eating tips that can help you lose weight.; Status:Complete; Done: 08Jul2022 Mixed hyperlipidemia, Vascular claudication Start: Rosuvastatin Calcium 10 MG Oral Tablet; TAKE 1 TABLET AT BEDTIME SocHx: Former smoker Tobacco Use Screening; Status:Complete; Done: 08Jul2022 Patient Instructions Please bring all medicines, vitamins, and herbal supplements with you when you come to the office. Prescriptions will not be filled unless you are compliant with your follow up appointments or have a follow up appointment scheduled as per instruction of your physician. Refills should be requested at the time of your visit. new start Rosuvastatin 10mg daily sent to [facility]. Amiodarone 100mg daily sent to [facility] at patient request Follow up in 5 months Chief Complaint AVELINO BUSTOS is being seen for a 3 month follow-up of. History of Present Illness This is a follow-up from April 2022. Had lab work James work in June the results of which were reviewed. Patient says she could not tolerate atorvastatin 40 mg. She says she could tolerate the 20 mg. She quit smoking 10 days ago and was congratulated profusely. We will continue to encourage her to stay off of cigarettes. She does not report any palpitations lightheadedness presyncope or syncope. She has significant peripheral vascular disease, Dr. Sanchez intervened on her left leg, but she says that now she has burning sensation in her legs all the time particularly the left leg. She says that the symptoms have not really improved with the intervention. Patient is having class III claudication. Her EKG shows sinus rhythm at 75 bpm MN interval 150 ms QRS duration 90 ms QTc 477 ms. Laboratory data from June show that her triglycerides are 125 LDL is 70 total cholesterol 151 and HDL 56. On 06/21/2022 she had left ankle-brachial index done, which showed moderately severe left lower extremity peripheral vascular occlusive disease at rest, with further reduction in ankle-brachial index compared to the previous study. At the left ankle SHERLY was 0.61 for the posterior tibial and 0.55 for the dorsalis pedis. Today's EKG was reviewed, shows normal sinus rhythm QTc 477 ms normal MN interval. To further clarify the physical examination findings, left foot is cool to touch. I had great difficulty dopplerable pulses in her left foot, they are both very faint on the right foot, dorsalis pedis and posterior tibial are strong to Doppler and the right foot is slightly warmer than the left. Assessment: 1. Symptomatic atrial fibrillation-fatigue, drop in blood pressure on her home monitoring device. She is currently in sinus rhythm. 2. Atrial fibrillation was initially diagnosed in 2018. 3. Remains on high risk medications Eliquis and amiodarone. Amiodarone dose was reduced at last office visit. 4. Echocardiogram July 2021-LVEF greater than 55% mild concentric left ventricular hypertrophy normal diastolic function normal chamber dimensions RVSP 35 mmHg trivial tricuspid regurgitation mild mitral annular calcification no aortic or mitral valve disease normal IVC LV end-systolic dimension 2.8 cm left atrial volume index 34 mL/m left atrial diameter 4.3 cm 5. Varicose veins and history of vein ligation and stripping left lower extremity 2002 6. Evidence of peripheral vascular disease on examination 7. Buttock discomfort with ambulation-need to exclude claudication due to vascular disease 8. Multiple drug intolerances-including prednisone, several antibiotics, hydrochlorothiazide, lisinopril, Hyzaar, however patient is tolerating Benicar. 9. 60+ pack year history of smoking currently smoking less than 1 pack/day 10. Small pulmonary nodules,addressed by daniel (more content not included)... Normal [facility] Tobacco Screening.on 023 Fall risk assessment a) No falls within the last year [facility] y 250 DO Work Phone: Tobacco use status [facility] a) Yes [facility] 250 DO Work Phone: Tobacco Screening. Yes -[facility] 250 DO Work Phone: Alanine aminotransferase [En zymatic activity/volume] in Serum or PlasmaOrdered By: Juany Richter on 06-21-2022 ALT [Catalytic activity/Vol] 16 U/L 7-52 [facility] Aspartate aminotransferase [ Enzymatic activity/volume] in Serum or PlasmaOrdered By: Juany Richter on 06-21-2022 AST [Catalytic activity/Vol] 21 U/L 13-39 [facility] Cholesterol [Mass/volume] in Serum or PlasmaOrdered By: Juany Richter on 06-21-2022 Cholesterol [Mass/Vol] 151 mg/dL 140-200 [facility] Comment on above: Chol less than 200 m g/dl low riskChol 201-239 mg/dl borderline riskChol 240 mg/dl and greater high risk Cholesterol in LDL Calc [Mas s/Vol]Ordered By: Juany Richter on 06-21-2022 Cholesterol in LDL [Mass/Vol] 70 mg/dL 0-100 [facility] Comment on above: LDL ATP III CLASSIFI CATIONLDL less than 100 mg/dL OptimalLDL 100-129 mg/dL Near or above optimalLDL 130-159 mg/dL Borderline highLDL 160-189 mg/dL HighLDL greater than 189 mg/dL Very high Cholesterol in VLDL Calc [Ma ss/Vol]Ordered By: Juany Richter on 06-21-2022 Cholesterol in VLDL [Mass/Vol] 25 mg/dL [facility] Serum or plasma high density lipoprotein (HDL) cholesterol measurementOrdered By: Juany Richter on 06-21-2022 Cholesterol in HDL [Mass/Vol] 56 mg/dL 35-85 [facility] Comment on above: HDL CHOL ATP-III CLA SSIFICATION Cardiovascular RiskHDL > or equal to 60 mg/dL LOWHDL < 40 mg/dL HIGH Serum or plasma total choles terol/high density lipoprotein (HDL) cholesterol mass ratOrdered By: Juany Richter on 06-21-2022 Cholesterol.total/Cho lesterol in HDL [Mass ratio] 2.7 {ratio} <5.0 [facility] Triglyceride [Mass/volume] i n Serum or PlasmaOrdered By: Juany Richter on 06-21-2022 Triglyceride [Mass/Vol] 125 mg/dL 0-149 [facility] Comment on above: TRIG ATP III CLASSIF ICATIONTRIG less than 150 mg/dL NormalTRIG 150-199 mg/dL Borderline highTRIG 200-500 mg/dL High TRIG greater than 500 mg/dL Very highStandard traceable to the Center for Disease Conrtrol and Prevention (CDC) test method. Creatinine [Mass/volume] in Serum or PlasmaOrdered By: Eulogio Mai on 06-04-2022 Creatinine [Mass/Vol] 1.19 mg/dL 0.60-1.20 [facility] No Panel InformationOrdered By: Eulogio Mai on 06-04-2022 Estimated GFR (CKD-EPI) 49.189 mL/Min [facility] Creatinine Clearance (Chem 46.02 [facility] Urea nitrogen [Mass/volume] in Serum or PlasmaOrdered By: Eulogio Mai on 06-04-2022 Urea nitrogen [Mass/Vol] 13 mg/dL 7- [facility] Urinalysis - DIPSTICKon 04-04 Appearance (U) cloudy [employer] Other Bilirubin Ql (U) small [employer] Other Color (U) light yellow [employer] Other Glucose Ql (U) Negative [employer] Other Hemoglobin Ql (U) non hem to trace N [employer] Other Ketones Ql (U) Negative [employer] Other Leukocyte esterase Test strip Ql (U) moderate [employer] Other Nitrite Ql (U) Negative [employer] Other pH (U) 5.0 [pH] [employer] Other Protein Ql (U) Negative [employer] Other Specific gravity (U) [Rel density] 1.010 [employer] Other Urobilinogen (U) [Mass/Vol] 0.5 mg/dL [employer] Other Urinalysis - DIPSTICK [place] Other Office Visit (Cardiology)on 04-08-2022 Follow-up visit Diagnoses/Problems Assessed Afib (427.31) (I48.91) COPD (chronic obstructive pulmonary disease) (496) (J44.9) Current smoker (305.1) (F17.200) 10 cigs a day High risk medication use (V58.69) (Z79.899) Hypertension (401.9) (I10) Multiple drug allergies (V14.9) (Z88.9) PVD (peripheral vascular disease) (443.9) (I73.9) Encounter to discuss test results (V65.49) (Z71.2) Vascular claudication (443.9) (I73.9) HIP Class 1 obesity with body mass index (BMI) of 34.0 to 34.9 in adult (278.00,V85.34) (E66.9,Z68.34) Orders Afib Start: Amiodarone HCl - 200 MG Oral Tablet; 1/2 tablet daily Health Maintenance Depression Follow-up Visit Outpatient Follow-up Patient to follow up with PCP if symptoms worsen or persists. Status: Complete - Retrospective Authorization Done: [id number] PVD (peripheral vascular disease) Start: Atorvastatin Calcium 20 MG Oral Tablet; TAKE 1 TABLET AT BEDTIME Vascular Surgery Referral Evaluation and Treatment Evaluate AND Treat Status: Hold For - Scheduling,Retrospective Authorization Requested for: [id number] Start: Clopidogrel Bisulfate 75 MG Oral Tablet; TAKE 1 TABLET DAILY SocHx: Current smoker Tobacco Use Screening; Status:Complete; Done: [id number] Patient Instructions Please bring all medicines, vitamins, and herbal supplements with you when you come to the office. Prescriptions will not be filled unless you are compliant with your follow up appointments or have a follow up appointment scheduled as per instruction of your physician. Refills should be requested at the time of your visit. vascular referral Follow up in 3 months Chief Complaint AVELINO BUSTOS is being seen for a 2 month follow-up of. History of Present Illness Patient was first seen by me 02/11/2022. She presents for follow-up after testing. She underwent Lexiscan Myoview, and PVR rest and exercise, as well as pulmonary function testing and ankle-brachial indicis. She reports feeling well overall, the only symptom she has now is bilateral thigh claudication. As a result her activity level is low. Her EKG today shows normal sinus rhythm at 66 bpm with MN interval of 130 ms QRS duration 92 ms and QTc of 452 ms she does not report any palpitations. She currently is smoking about 10 cigarettes a day, and says she will try to cut down further and then stop. I have reviewed with her the results of her peripheral vascular studies, and that there is a high level of suspicion for flow-limiting disease in the thigh or even more proximally. Her pulmonary function testing was not suggestive of any gross abnormalities concerning for amiodarone toxicity. Assessment: 1. Symptomatic atrial fibrillation-fatigue, drop in blood pressure on her home monitoring device. She is currently in sinus rhythm. 2. Atrial fibrillation was initially diagnosed in 2018. 3. Remains on high risk medications Eliquis and amiodarone. Amiodarone dose was reduced at last office visit. 4. Echocardiogram July 2021-LVEF greater than 55% mild concentric left ventricular hypertrophy normal diastolic function normal chamber dimensions RVSP 35 mmHg trivial tricuspid regurgitation mild mitral annular calcification no aortic or mitral valve disease normal IVC LV end-systolic dimension 2.8 cm left atrial volume index 34 mL/m left atrial diameter 4.3 cm 5. Varicose veins and history of vein ligation and stripping left lower extremity 2002 6. Evidence of peripheral vascular disease on examination 7. Buttock discomfort with ambulation-need to exclude claudication due to vascular disease 8. Multiple drug intolerances-including prednisone, several antibiotics, hydrochlorothiazide, lisinopril, Hyzaar, however patient is tolerating Benicar. 9. 60+ pack year history of smoking currently smoking less than 1 pack/day 10. Small pulmonary nodules 11. Shortness of breath-this was noted on recent visit with primary care, patient did not express this as a major symptom to me. Most likely related to COPD, however amiodarone induced pulmonary toxicity cannot be excluded, I agree with primary MDs note. PFTs have been ordered by primary care. Albuterol inhaler has been recommended. 12. [id number]-MDOs score 4 based on my evaluation today 13.GERD on prophylaxis. 14. PVR rest and exercise April 2022-evidence of moderate multivessel disease, monophasic waveforms are noted in the right common femoral artery right superficial femoral artery right popliteal artery right posterior tibial artery and right dorsalis pedis artery. Blunted waveforms beginning at the level of the popliteal artery on the left side there is evidence of moderate multivessel disease monophasic flow is noted in the left common femoral left popliteal left anterior tibial left posterior tibial and left dorsalis pedis blunted waveforms noted at the beginning of the knee level. 15. Ankle-brachial indicis abnormal in the proximal thigh level at 0.75 on the right and 0.61 on the left, and drops steadily down to 0.52 rig (more content not included)... Normal [facility] Tobacco Screening.on 023 Adult depression screening assessment Yes [facility] y 250 DO Work Phone: Adult depression screening assessment Moderately Severe (15-19) [facility] 250 DO Work Phone: [phone] Fall risk assessment a) No falls within the last year [facility] 250 DO Work Phone: [phone] Tobacco use status [facility] a) Yes [facility] 250 DO Work Phone: [phone] Tobacco Screening[address] Yes [facility] 250 DO Work Phone: [phone] Tobacco Screening. 3-Nearly every day [facility] 250 DO Work Phone: [phone] Tobacco Screening. 2-More than half the days [facility] 250 DO Work Phone: [phone] Tobacco Screening. 0-Not at all [facility] [facility] 250 DO Work Phone: [phone] Tobacco Screening. Somewhat Difficult [facility] [facility] 250 DO Work Phone: Cholesterol [Mass/volume] in Serum or PlasmaOrdered By: Juany Richter on 04-04-2022 Cholesterol [Mass/Vol] 230 mg/dL 140-200 [facility] Comment on above: Chol less than 200 m g/dl low riskChol 201-239 mg/dl borderline riskChol 240 mg/dl and greater high risk Cholesterol in LDL Calc [Mas s/Vol]Ordered By: Juany Richter on 04-04-2022 Cholesterol in LDL [Mass/Vol] 139 mg/dL 0-100 [facility] Comment on above: LDL ATP III CLASSIFI CATIONLDL less than 100 mg/dL OptimalLDL 100-129 mg/dL Near or above optimalLDL 130-159 mg/dL Borderline highLDL 160-189 mg/dL HighLDL greater than 189 mg/dL Very high Cholesterol in VLDL Calc [Ma ss/Vol]Ordered By: Juany Richter on 04-04-2022 Cholesterol in VLDL [Mass/Vol] 39 mg/dL [facility] Serum or plasma high density lipoprotein (HDL) cholesterol measurementOrdered By: Juany Richter on 04-04-2022 Cholesterol in HDL [Mass/Vol] 51 mg/dL 35-85 [facility] Comment on above: HDL CHOL ATP-III CLA SSIFICATION Cardiovascular RiskHDL > or equal to 60 mg/dL LOWHDL < 40 mg/dL HIGH Serum or plasma total choles terol/high density lipoprotein (HDL) cholesterol mass ratOrdered By: Juany Richter on 04-04-2022 Cholesterol.total/Cho lesterol in HDL [Mass ratio] 4.5 {ratio} <5.0 [facility] Triglyceride [Mass/volume] i n Serum or PlasmaOrdered By: Juany Richter on 04-04-2022 Triglyceride [Mass/Vol] 199 mg/dL 35-149 [facility] Comment on above: TRIG ATP III CLASSIF ICATIONTRIG less than 150 mg/dL NormalTRIG 150-199 mg/dL Borderline highTRIG 200-500 mg/dL High TRIG greater than 500 mg/dL Very highStandard traceable to the Center for Disease Conrtrol and Prevention (CDC) test method. VASC LAB PVR W/O EXERCISEon 04-04-2022 VASC LAB PVR W/O EXERCISE [facility] 250 DO Work Phone: VASC LAB PVR W/O Exerciseon 04-04-2022 VASC LAB PVR W/O Exercise [address], [address], [place] [address] Vascular Lab Report PVR With Out Exercise Patient Name: AVELINO NINO Brielle Physician: [id number] Niesha BUSTOS MD, FACC Study Date: 04/04/2022 Referring Physician: JUANY RICHTER MRN/PID: [id number] PCP: Accession/Order#: [id number] CC Report to: Date of : 1950 Technologist: Thea Manriquez RDCS, RVT Gender: F Technologist 2: Admission Status: Outpatient Location Performed: [facility] Diagnosis/ICD: Y15-Ldelcbulq primary hypertension; I73.9-Peripheral vascular disease, unspecified; I83.93-Asymptomatic varicose veins of bilateral lower extremities Indication: HTN, Atrial Fibrillation, GERD, COPD, Lung Nodules, Obesity Procedure/CPT: 88345 Peripheral artery PVR (multi segmental pressure)-46733 CONCLUSIONS: Right Lower PVR: There is evidence of moderate multi vessel disease. Monophasic flow is noted in the right common femoral artery, right superficial femoral artery, right popliteal artery, right posterior tibial artery and right dorsalis pedis artery. Blunted PVR waveform beginning at the level of the popliteal artery. Left Lower PVR: There is evidence of moderate multi-vessel disease. Monophasic flow is noted in the left common femoral artery, left popliteal artery, left anterior tibial artery, left posterior tibial artery and left dorsalis pedis artery. Blunted PVR waveform beginning at the level of the knee. Imaging AND Doppler Findings: RIGHT Lower PVR Pressures Ratios Right High Thigh 1 mmHg 0.01 Right Low Thigh 115 mmHg 0.65 Right Calf 95 mmHg 0.53 Right Posterior Tibial (Ankle) 105 mmHg 0.59 Right Dorsalis Pedis (Ankle) 92 mmHg 0.52 LEFT Lower PVR Pressures Ratios Left High Thigh 109 mmHg 0.61 Left Low Thigh 108 mmHg 0.61 Left Calf 78 mmHg 0.44 Left Posterior Tibial (Ankle) 94 mmHg 0.53 Left Dorsalis Pedis (Ankle) 89 mmHg 0.50 Right Left Brachial Pressure 178 mmHg 175 mmHg [id number] Niesha Quiroz MD, FACC Final (Updated) Normal [facility] CARDIAC STRESS/REST INJE CTIONon 03-18-2022 [facility] CARDIAC STRESS/REST INJECTION Patient Name: AVELINO GARCIA STUDY: MYOCARDIAL PERFUSION STRESS TEST WITH LEXISCAN Performing facility: [facility], [address], [address], [place] [address] [facility] Provider: Juany Richter MD, [facility] PCP: Dr. Marcio Valenzuela Supervising provider: Juany Richter MD, [facility] INDICATION: A-fib HTN HISTORY: Gender: F; Age: 71 y/o ; Height: 0 cm; Weight: 0 kg. HTN; Arrhythmias; COPD; PVD Currently smoking. COMPARISON: Previous nuclear testing completed at [place]. ACCESSION NUMBER(S): [id number]; [id number]; [id number] ORDERING CLINICIAN: JUANY RICHTER TECHNIQUE: ONE DAY protocol. Stress injection: Date:03-18-22, 35.1 mCi of Myoview IV 20 seconds after rapid injection of Lexiscan. Rest injection: Date: 03-18-22, 11.7 mCi of Myoview IV at rest. The patient had a rapid injection of 0.4 mg of Lexiscan IV over 10 seconds. Imaging was performed by gated tomographic technique. Reason for Lexiscan: dizziness/unsteady/fall risk STRESS TEST DATA: Resting heart rate was 61 BPM. Resting blood pressure was 136/78 mmHg. Peak blood pressure was 132/80 mmHg. Peak heart rate was 85 BPM. TEST TERMINATED DUE TO: Protocol completed FINDINGS: STRESS TEST RESULTS: Resting electrocardiogram revealed normal sinus rhythm. There were no significant ischemic ECG changes or dysrhythmias. The patient did not have chest pains/symptoms during procedure. There was a normal recovery phase. IMAGING RESULTS: Image quality was good. Rest and stress tomographic images were reviewed and revealed normal perfusion without evidence of ischemia, myocardial infarction, or left ventricular dilatation with stress. Overall left ventricular systolic function appeared to be normal without regional wall motion abnormalities. Ejection fraction was 53%. TID is 1.0 and is normal. There was evidence of diaphragmatic attenuation artifact. IMPRESSION: Normal Lexiscan Myoview cardiac perfusion stress test. No evidence of ischemia or myocardial infarction by perfusion imaging. Normal left ventricular systolic function, ejection fraction 53%. No previous studies are available for comparison. Electronically signed by: NIESHA QUIROZ MD Normal [facility] No Panel Informationon 03-18 Normal [facility] y 250 DO Work Phone: HEMOGLOBINon 02-12-2022 Hemoglobin (Bld) [Mass/Vol] 13.6 g/dL Normal 12.0-16.0 [facility] Comment on above: Performed By: #### H GB #### [facility] [address] [place], [place] [address] Dr. Christopher Infante Office Visit (Cardiology)on 02-11-2022 Follow-up visit Diagnoses/Problems Assessed Afib (427.31) (I48.91) High risk medication use (V58.69) (Z79.899) Patient new to provider Multiple drug allergies (V14.9) (Z88.9) Hypertension (401.9) (I10) GERD (gastroesophageal reflux disease) (530.81) (K21.9) COPD (chronic obstructive pulmonary disease) (496) (J44.9) Current smoker (305.1) (F17.200) 10 cigs a day Lung nodules (793.19) (R91.8) Class 1 obesity with body mass index (BMI) of 33.0 to 33.9 in adult (278.00,V85.33) (E66.9,Z68.33) Varicose veins of legs (454.9) (I83.93) PVD (peripheral vascular disease) (443.9) (I73.9) Lipid screening (V77.91) (Z13.220) Orders Afib Start: Amiodarone HCl - 200 MG Oral Tablet; 1 tablet every other day IO EKG Electrocardiogram- 12 Lead; Status:Complete; Done: [id number] Afib, Hypertension NM Cardiac Stress/Rest Nuclear Med Order; Status:Hold For - Scheduling,Retrospective Authorization; Requested for:[id number]; Radiologist to Determine Optimal Study : Y What are the patient's signs and symptoms? : pvd - varicose veins-htn Afib, Hypertension, PVD (peripheral vascular disease), Varicose veins of legs Start: Magnesium Oxide 400 MG Oral Tablet; TAKE 1 TABLET TWICE DAILY Class 1 obesity with body mass index (BMI) of 33.0 to 33.9 in adult Healthy Weight Tips; Status:Complete - Retrospective Authorization; Done: 33Ltl8471 Some eating tips that can help you lose weight.; Status:Complete - Retrospective Authorization; Done: 67Ada3261 Hypertension, PVD (peripheral vascular disease), Varicose veins of legs US Arterial Duplex Bilateral Lower Extremity; Status:Hold For - Scheduling,Retrospective Authorization; Requested for:[id number]; Radiologist to Determine Optimal Study : Y What are the patient's signs and symptoms? : pvd - varicose veins US PVR Lower Extremity Rest; Status:Hold For - Scheduling,Retrospective Authorization; Requested for:[id number]; Radiologist to Determine Optimal Study : Y What are the patient's signs and symptoms? : pvd - varicose veins Lipid screening Lipid Panel; Status:Active - Retrospective Authorization; Requested for:[id number]; SocHx: Current smoker Tobacco Use Screening; Status:Complete; Done: 95Uci2477 You need to stop smoking. Though it is not easy, more than half of all adult smokers have quit. We encourage you to write down all the reasons you should quit smoking and set a quit date for yourself. Ask us how we can help. You may also call 9-746-GQVNNOW for free resources and assistance.; Status:Complete - Retrospective Authorization; Done: 24Ogh8589 Tobacco Use Screening; Status:Complete; Done: 55Hrk7846 Unlinked Stop: Amiodarone HCl - 200 MG Oral Tablet Patient Instructions Please bring all medicines, vitamins, and herbal supplements with you when you come to the office. Prescriptions will not be filled unless you are compliant with your follow up appointments or have a follow up appointment scheduled as per instruction of your physician. Refills should be requested at the time of your visit. decrease Amiodarone to 200 mg 1 tablet every other day Start Magnesium Oxide 400 mg 1 tablet twice daily Follow up after testing completed History of Present Illness Patient is being seen in cardiology consultation regarding atrial fibrillation management. Is a 71-year-old female, with history of hypertension nicotine dependence , peripheral vascular disease on today's examination, no documented diabetes, no TIA or CVA, no documented coronary artery disease. Probably has COPD based on testing, and some exertional shortness of breath, denies chest pressure tightness or heaviness denies palpitations lightheadedness presyncope syncope orthopnea PND or lower extremity edema. This activity is difficult because of bilateral hip and buttock discomfort particularly with walking. I have not excluded that this represents vascular claudication at least in part. Patient did not report significant shortness of breath or change in her functional status in the last several months, however subsequent review of primary care notes since that patient has had shortness of breath and he ordered pulmonary function testing and included the differential of amiodarone induced pulmonary toxicity in the differential diagnosis of this symptom. Symptoms of atrial fibrillation was fatigue, but it occurred in the setting of her second COVID immunization, she had some minor upper respiratory symptoms and she was achy. An EKG by primary MD confirmed atrial fibrillation. She would noticed that her blood pressure would drop low at times, and she would have to hold her blood pressure medications, and this may have been in the setting of atrial fibrillation. EKG today shows normal sinus rhythm at 69 bpm MN interval 158 ms QRS interval 90 ms QTC 458 ms An EKG in the chart from 2018 does show atrial fibrillation. Normal QRS and QTc. Laboratory data from April 2021 hemoglobin 13 hematocrit 42 platelets 180 Assessment: 1. Symptomat (more content not included)... Normal [facility] Tobacco Screening.on 022 Adult depression screening assessment No [facility] y 250 DO Work Phone: Fall risk assessment a) No falls within the last year [facility] DO Work Phone: Tobacco use status [facility] a) Yes [facility] y 250 DO Work Phone: CT CHEST WO CONon 01-28-2022 CT CHEST WO CON EXAMINATION: CT CHES T WO CON HISTORY: Solitary nodule of lung ; follow-up COMPARISON: CT chest 01/26/2021, 06/26/2020, 08/06/2017; PET/CT 07/15/2020 TECHNIQUE: Axial, Coronal, and Sagittal images were created without the administration of IV contrast material. Dose reduction techniques were achieved by using automated exposure control and/or adjustment of mA and/or kV according to patient size and/or use of iterative reconstruction technique. FINDINGS: LUNGS: Stable scattered patchy opacities within the lungs. Stable spiculated 1.3 x 0.9 cm opacity within right lower lobe superior segment adjacent the hilum and major fissure. Stable 8 mm spiculated nodule at apex of right lower lobe. PLEURA: No mass, effusion, or pneumothorax. VASCULATURE: No abnormality. TRA: No mass or adenopathy. MEDIASTINUM: No mass or adenopathy. CARDIAC: No enlargement or pericardial thickening. AORTA: No aneurysm or dissection. CHEST WALL: No mass or axillary adenopathy. BONES: No bone lesion or fracture. LIMITED ABDOMEN: No suspicious findings. Limited images of the upper abdomen. OTHER: Negative. IMPRESSION: 1. No significant change in the scattered pulmonary nodules and opacities which were not metabolically active on the prior PET study. Consider follow-up imaging in one year to document continued stability. Electronically authenticated by: CHERIE MENENDEZ Date: 2022-01-28 19:17 Normal [facility] Follow-Upon 01-15-2022 Follow-Up [id number] Avelino Garcia 1950 F Date Provider Department Center 01/15/[address] [facility]-CORY MOREL [facility] No family history on file Level of Service:45013 [place] OFFICE/OUTPATIENT ESTABLISHED MOD MDM 30-39 MIN Normal [facility] Erroneous Telephone Encounte atiya 11-13-2021 Erroneous Telephone Encounter [id number] Avelino Garcia 1950 F Date Provider Department Center 11/13/2021 [facility]EDMAR MORAES [facility] No family history on file Reason for Visit and Comments: Error (VOID this visit) [77] Normal [facility] Covid-19 PCR (CVDTB)on 08-01 SARS-CoV-2 (COVID-19) RNA KARON+probe Ql (Unsp spec) Not detected Normal NOT DETECTED [facility] Comment on above: Result Comment: This test is not yet approved or cleared by the [place] FDA. When there are no FDA-approved or cleared tests available, and other criteria are met, FDA can make tests available under an emergency access mechanism called an Emergency Use Authorization (EUA). The EUA for this test is supported by the Carpet Inspector of Health and Human Service's (HHS's) declaration that circumstances exist to justify the emergency use of in vitro diagnostics for the detection and/or diagnosis of the virus that causes COVID-19. This EUA will remain in effect (meaning this test can be used) for the duration of the COVID-19 declaration justifying emergency of IVDs, unless it is terminated or revoked by FDA (after which the test may no longer be used). When diagnostic testing is negative, the possibility of a false negative should be considered in the context of a patient's recent exposures and the presence of clinical signs and symptoms consistent with SARS-CoV-2. Performed By: #### C [facility] #### [facility] [address] [place] [address] Dr. Christopher Infante ECHOCARDIO M/2D COMPLETEon 0 07-05-2021 ECHOCARDIO M/2D COMPLETE Patient: AVELINO BARRETT Exam Date: 07/05/2021 : 1950 Gender:F Ordering : CORY MOREL Admission #: [id number] Family : Order #: [id number] CLICK HERE TO VIEW EXAM ECHOCARDIOGRAM REPORT PROCEDURE: CARDIO PULMONARY ECHOCARDIO M/2D COMP INDICATIONS: Atrial fibrillation, smoker, hypertension COMPARISON: None. DESCRIPTION: COMPLETE ECHOCARDIOGRAM Real-time transthoracic echocardiography with 2D, M-mode, spectral and color flow Doppler performed. QUALITY: Technical quality was good. LEFT VENTRICLE: Normal chamber size. Mild concentric left ventricular hypertrophy. No regional wall motion abnormalities. LV EF: Normal left ventricular ejection fraction, (>55%). DIASTOLIC: Normal diastolic function. ATRIAL SEPTUM: Visually appears intact. LEFT ATRIUM: Normal chamber size. RIGHT ATRIUM: Normal chamber size. RIGHT VENTRICLE: Normal chamber size. Normal right ventricular systolic function. TRICUSPID VALVE: Normal mobility and thickness. No stenosis with trivial regurgitation. Doppler studies reveal mildly (35-45) elevated right sided pressures. RVSP 35 mmHg MITRAL VALVE: Normal mobility and thickness. No evidence of mitral valve stenosis. Mild mitral annular calcification. No mitral regurgitation. AORTIC VALVE: Normal trileaflet appearance. Mildly calcified aortic valve. Mildly diminished mobility. No evidence of aortic valve stenosis. No aortic regurgitation. AORTIC ROOT: Normal diameter and appearance. PULMONIC VALVE: Not well visualized. No stenosis. No regurgitation. PERICARDIUM: No evidence of pericardial effusion. IVC: Collapses with inspirations. CONCLUSION: Global left ventricular systolic function is normal; visually estimated ejection fraction is 60 to 65%. Mild left ventricular hypertrophy. Normal diastolic function. The right ventricle is normal in size and systolic function. Mildly elevated right-sided pressures. No significant valvular abnormalities. Adult Echocardiography Procedure Report Left Ventricle LVEDD (3.7 - 5.6 cm): 4.32 cm LVESD (2.2 - 4.0 cm): 2.81 cm LVIVS thickness (0.6 - 1.2 cm): 1.10 cm LVPW thickness (0.5 - 1.0 cm): 1.11 cm e': 12.30 cm/s E - e': 6.60 LVOT Area (cm2): 3.80 cm2 LVOT Diameter 2.20 cm Left Ventricular Ejection Fraction: 64.50 % Left Atrium LA Volume Index (2D A2C): 34.20 ml/m2 Left Atrium Systolic Dimension: 4.30 cm Left Atrium Systolic Area(A2C): 20.30 cm2 Left Atrium Systolic Area(A4C): 16.40 cm2 Left Atrium Systolic Volume(A2C): 35069 mm3 Left Atrium Systolic Volume(A4C): 10136 mm3 Mitral Valve MV E to A Ratio: 0.80 Mitral Valve A-Wave Peak Velocity: 96.70 cm/s Mitral Valve E-Wave Peak Velocity: 80.90 cm/s Deceleration Time: 272 ms Right Ventricle Aorta AO Root Diam: 3.40 cm Aortic Valve AoV Area (Peak Chase): 2.80 cm2 Peak Velocity(Antegrade Flow): 175.00 cm/s Peak Gradient(Antegrade Flow): 12 mm[Hg] Tricuspid Valve Pulmonic Valve Peak Velocity: 122.00 cm/s Peak Gradient: 6 mm[Hg] Right Atrium Dictated by: Alberto Hall M.D. on 07/05/2021 at 15:02 Approved by: Alberto Hall M.D. on 07/05/2021 at 15:04 Normal [facility] CBC AUTO DIFFon 04-23-2021 BASO # 0.1 103/ul Normal 0.0-0.1 [facility] Comment on above: Performed By: #### C BC #### [facility] [address] [place] [address] Dr. Christopher Infante Basophils/100 WBC (Bld) 0.5 % Normal 0.2-2.0 [facility] Comment on above: Performed By: #### C BC #### [facility] [address] [place] [address] Dr. Christopher Infante EO # 0.2 103/ul Normal 0.0-0.7 [facility] Comment on above: Performed By: #### C BC #### [facility] [address] [place] [address] Dr. Christopher Infante Eosinophils/100 WBC (Bld) 2.3 % Normal 0.9-7.0 [facility] Comment on above: Performed By: #### C BC #### [facility] [address] [place] [address] Dr. Christopher Infante Erythrocyte distribution width (RBC) [Ratio] 14.3 % Normal 11.0-15.0 [facility] Comment on above: Performed By: #### C BC #### [facility] [address] [place] [address] Dr. Christopher Infante Hematocrit (Bld) [Volume fraction] 41.7 % Normal 36.0-48.0 [facility] Comment on above: Performed By: #### C BC #### [facility] [address] [place] [address] Dr. Christopher Infante Hemoglobin (Bld) [Mass/Vol] 13.1 g/dL Normal 12.0-16.0 [facility] Comment on above: Performed By: #### C BC #### [facility] [address] [place] [address] Dr. Christopher Infante IG # 0.03 10e3/ul Normal 0.00-0.03 [facility] Comment on above: Performed By: #### C BC #### [facility] [address] [place] [address] Dr. Christopher Infante IG % 0.3 % Normal 0.0-0.5 [facility] Comment on above: Performed By: #### C BC #### [facility] [address] [place] [address] Dr. Christopher Infante LYMPH # 2.6 103/ul Normal 1.2-3.8 [facility] Comment on above: Performed By: #### C BC #### [facility] [address] [place] [address] Dr. Christopher Infante Lymphocytes/100 WBC (Bld) 27.4 % Normal 20.5-60.0 [facility] Comment on above: Performed By: #### C BC #### [facility] [address] [place] [address] Dr. Christopher Infante MANUAL DIFF REQ NO Normal [facility] Comment on above: Performed By: #### C BC #### [facility] [address] [place] [address] Dr. Christopher Infante MCH (RBC) [Entitic mass] 28.7 pg Normal 26.7-34.0 [facility] Comment on above: Performed By: #### C BC #### [facility] [address] [place] [address] Dr. Christopher Infante MCHC (RBC) [Mass/Vol] 31.4 g/dL Normal 29.9-35.2 [facility] Comment on above: Performed By: #### C BC #### [facility] [address] [place] [address] Dr. Christopher Infante MCV (RBC) [Entitic vol] 91.2 fL Normal 81.0-99.0 [facility] Comment on above: Performed By: #### C BC #### [facility] [address] [place] [address] Dr. Christopher Infante MONO # 0.7 103/ul Normal 0.3-0.8 [facility] Comment on above: Performed By: #### C BC #### [facility] [address] [place] [address] Dr. Christopher Infante Monocytes/100 WBC (Bld) 7.4 % Normal 1.7-12.0 [facility] Comment on above: Performed By: #### C BC #### [facility] [address] [place] [address] Dr. Chirstopher Infante NEUT # 5.9 103/ul Normal 1.4-6.5 [facility] Comment on above: Performed By: #### C BC #### [facility] [address] [place] [address] Dr. Christopher Infante Neutrophils/100 WBC (Bld) 62.1 % Normal 43.0-75.0 [facility] Comment on above: Performed By: #### C BC #### [facility] [address] [place] [address] Dr. Christopher Infante Platelet mean volume (Bld) [Entitic vol] 11.7 fL Normal 9.5-13.5 [facility] Comment on above: Performed By: #### C BC #### [facility] [address] [place] [address] Dr. Christopher Infante PLT 180 103/ul Normal 150-450 [facility] Comment on above: Performed By: #### C BC #### [facility] [address] [place] [address] Dr. Christopher Infante RBC 4.57 106/ul Normal 4.20-5.40 [facility] Comment on above: Performed By: #### C BC #### [facility] [address] [place] [address] Dr. Christopher Infante WBC 9.5 103/ul Normal 4.0-11.0 [facility] Comment on above: Performed By: #### C BC #### [facility] [address] [place] [address] Dr. Christopher Infante FREE T4on 04-23-2021 Free T4 [Mass/Vol] 0.92 ng/dL Normal 0.78-2.[address] [facility] Comment on above: Performed By: #### F T4 #### [facility] [address] [place] [address] Dr. Christopher Infante GLYCOHEMOGLOBIN A1Con 2021 ADA RECOMMENDATION ADA THERAPEUTIC TARG ET 6.0 - 7.0 ACTION SUGGESTED > 7.0 Normal [facility] Comment on above: Performed By: #### A 1C #### [facility] [address] [place] [address] Dr. Christopher Infante Glucose [Mass/Vol] 123 mg/dL Normal [facility] Comment on above: Performed By: #### A 1C #### [facility] [address] [place] [address] Dr. Christopher Infante HbA1c (Bld) [Mass fraction] 5.9 % Normal <=6.0 [facility] Comment on above: Performed By: #### A 1C #### [facility] [address] [place] [address] Dr. Christopher Infante PROF 14(COMP METB)on 022 Albumin [Mass/Vol] 3.7 g/dL Normal 3.5-5.[address] [facility] Comment on above: Performed By: #### C MP, TSH #### [facility] [address] [place] [address] Dr. Christopher Infante Albumin/Globulin [Mass ratio] 1.2 {ratio} Normal [facility] Comment on above: Performed By: #### C MP, TSH #### [facility] [address] [place] [address] Dr. Christopher Infante ALP [Catalytic activity/Vol] 90 U/L Normal 38-126 [facility] Comment on above: Performed By: #### C MP, TSH #### [facility] [address] [place] [address] Dr. Christopher Infante ALT [Catalytic activity/Vol] 18 U/L Normal 9-52 [facility] Comment on above: Performed By: #### C MP, TSH #### [facility] [address] [place] [address] Dr. Christopher Infante Anion gap [Moles/Vol] 12.8 mmol/L Normal [facility] Comment on above: Performed By: #### C MP, TSH #### [facility] [address] [place] [address] Dr. Christopher Infante AST [Catalytic activity/Vol] 17 U/L Normal 14-36 [facility] Comment on above: Performed By: #### C MP, TSH #### [facility] [address] [address] [address] Christopher Infante Bilirubin [Mass/Vol] 0.4 mg/dL Normal 0.2-1.3 [facility] Comment on above: Performed By: #### C MP, TSH #### [facility] [address] [address] [address] Christopher Infante Calcium [Mass/Vol] 9.0 mg/dL Normal 8.4-10.[address] [facility] Comment on above: Performed By: #### C MP, TSH #### [facility] [address] [address] [address] Christopher Infante Chloride [Moles/Vol] 107 mmol/L Normal 98-107 [facility] Comment on above: Performed By: #### C MP, TSH #### [facility] [address] [place] [address] Dr. Christopher Infante CO2 [Moles/Vol] 25.3 mmol/L Normal 22.0-30.0 [facility] Comment on above: Performed By: #### C MP, TSH #### [facility] [address] [place] [address] Dr. Christopher Infante Creatinine [Mass/Vol] 1.10 mg/dL Critically high 0.52-1.04 [facility] Comment on above: Performed By: #### C MP, TSH #### [facility] [address] [place] [address] Dr. Christopher Infante EGFR-AF BHUTANESE 60 mL/min/1.73m2 Normal >=60 [facility] Comment on above: Performed By: #### C MP, TSH #### [facility] [address] [place] [address] Dr. Christopher Infante EGFR-NON AF BHUTANESE 49 mL/min/1.73m2 Critically low >=60 [facility] Comment on above: Performed By: #### C MP, TSH #### [facility] [address] [place] [address] Dr. Christopher Infante Globulin (S) [Mass/Vol] 3.2 g/dL Normal [facility] Comment on above: Performed By: #### C MP, TSH #### [facility] [address] [address] [address] Christopher Infante Glucose [Mass/Vol] 110 mg/dL Critically high 74-106 [facility] Comment on above: Performed By: #### C MP, TSH #### [facility] [address] [address] [address] Christopher Infante Potassium [Moles/Vol] 4.1 mmol/L Normal 3.4-5.0 [facility] Comment on above: Performed By: #### C MP, TSH #### [facility] [address] [address] [address] Christopher Infante Protein [Mass/Vol] 6.9 g/dL Normal 6.1-8.[address] [facility] Comment on above: Performed By: #### C MP, TSH #### [facility] [address] [address] [address] Christopher Infante Sodium [Moles/Vol] 141 mmol/L Normal 137-[address] [facility] Comment on above: Performed By: #### C MP, TSH #### [facility] [address] [address] [address] Christopher Infante Urea nitrogen [Mass/Vol] 13.0 mg/dL Normal 7.0-17.0 [facility] Comment on above: Performed By: #### C MP, TSH #### [facility] [address] [address] [address] Christopher Infante Urea nitrogen/Creatinine [Mass ratio] 11.8 mg/mg Normal [facility] Comment on above: Performed By: #### C MP, TSH #### [facility] [address] [address] [address] Christopher Infante TSHon 04-23-2021 TSH 2.305 uIU/mL Normal 0.470-4.68 0 [facility] Comment on above: Performed By: #### C MP, TSH #### [facility] [address] [address] [address] Christopher Infante TSH RANGE SEE BELOW Normal [facility] Comment on above: Result Comment: <0.3 4 UIU/ml HYPERTHYROID 0.34-5.60 UIU/ml EUTHYROID >5.60 UIU/ml HYPOTHYROID Performed By: #### C MP, TSH #### [facility] [address] [place] [address] Dr. Christopher Infante Vital Signs Date Time Vital Sign Value Performing Clinician Facility 10-23-2023 11:06-0400 Body height 160.02 cm MD Shannon Yoon Work Phone: [facility] 10-23-2023 11:06-0400 Body mass index (BMI) [Ratio] 34.3 kg/m2 MD Shannon Yoon Work Phone: [facility] 10-23-2023 11:06-0400 Body temperature 97.7 [degF] MD Shannon Yoon Work Phone: [facility] 10-23-2023 11:06-0400 Body weight 87.99 kg MD Shannon Yoon Work Phone: [facility] 10-23-2023 11:06-0400 Diastolic blood pressure 65 mm[Hg] MD Shannon Yoon Work Phone: [facility] 10-23-2023 11:06-0400 Heart rate 69 /min MD Shannon Yoon Work Phone: [facility] 10-23-2023 11:06-0400 Systolic blood pressure 99 mm[Hg] MD Shannon Yoon Work Phone: [facility] 10-09-2023 13:27-0400 Body height 160.02 cm MD Shannon Yoon Work Phone: [facility] 10-09-2023 13:27-0400 Body mass index (BMI) [Ratio] 34.2 kg/m2 MD Shannon Yoon Work Phone: [facility] 10-09-2023 13:27-0400 Body temperature 98.7 [degF] MD Shannon Yoon Work Phone: [facility] 10-09-2023 13:27-0400 Body weight 87.77 kg MD Shannon Yoon Work Phone: [facility] 10-09-2023 13:27-0400 Diastolic blood pressure 62 mm[Hg] MD Shannon Yoon Work Phone: [facility] 10-09-2023 13:27-0400 Heart rate 63 /min MD Shannon Yoon Work Phone: [facility] 10-09-2023 13:27-0400 Systolic blood pressure 96 mm[Hg] MD Shannon Yoon Work Phone: [facility] 09-08-2023 11:05-0400 Diastolic blood pressure 75 mm[Hg] MD Shannon Yoon Work Phone: [facility] 09-08-2023 11:05-0400 Heart rate 62 /min MD Shannon Yoon Work Phone: [facility] 09-08-2023 11:05-0400 Systolic blood pressure 138 mm[Hg] MD Shannon Yoon Work Phone: [facility] 08-18-2023 14:51-0400 Body height 160.02 cm [facility] 08-18-2023 14:51-0400 Body mass index (BMI) [Ratio] 35.6 kg/m2 [facility] 08-18-2023 14:51-0400 Body temperature 98 [degF] [facility] 08-18-2023 14:51-0400 Body weight 91.17 kg [facility] 08-18-2023 14:51-0400 Diastolic blood pressure 66 mm[Hg] [facility] 08-18-2023 14:51-0400 Heart rate 71 /min [facility] 08-18-2023 14:51-0400 Systolic blood pressure 99 mm[Hg] [facility] 07-02-2023 11:11-0400 Body height 160.02 cm [facility] 07-02-2023 11:11-0400 Body mass index (BMI) [Ratio] 36.1 kg/m2 [facility] 07-02-2023 11:11-0400 Body temperature 97.8 [degF] [facility] 07-02-2023 11:11040 Body weight 92.53 kg [facility] 07-02-2023 11:11040 Diastolic blood pressure 78 mm[Hg] [facility] 07-02-2023 11:110400 Heart rate 67 /min [facility] 07-02-2023 11:11040 Respiratory rate 16 /min [facility] 07-02-2023 11:110400 SaO2% (BldA) [Mass fraction] 98 % [facility] 07-02-2023 11:11040 Systolic blood pressure 124 mm[Hg] [facility] 06-05-2023 10:31-0400 Body height 160 cm Juany Richter MD Work Phone: [facility] 06-05-2023 10:31-0400 Body mass index (BMI) [Ratio] 34.72 kg/m2 Juany Richter MD Work Phone: [facility] 06-05-2023 10:31-0400 Body weight 88.91 kg Juany Richter MD Work Phone: [facility] 06-05-2023 10:31-0400 Diastolic blood pressure 82 mm[Hg] Juany Richter MD Work Phone: [facility] 06-05-2023 10:31-0400 Heart rate 75 /min Juany Richter MD Work Phone: [facility] 06-05-2023 10:31-0400 Systolic blood pressure 128 mm[Hg] Juany Richter MD Work Phone: [facility] 05-26-2023 10:36-0400 Body height 160.02 cm MD Shannon Yoon Work Phone: [facility] 05-26-2023 10:36-0400 Body mass index (BMI) [Ratio] 36.1 kg/m2 MD Shannon Yoon Work Phone: [facility] 05-26-2023 10:36-0400 Body weight 92.53 kg MD Shannon Yoon Work Phone: [facility] 05-26-2023 10:36-0400 Diastolic blood pressure 74 mm[Hg] MD Shannon Yoon Work Phone: [facility] 05-26-2023 10:36-0400 Heart rate 74 /min MD Shannon Yoon Work Phone: [facility] 05-26-2023 10:36-0400 Systolic blood pressure 145 mm[Hg] MD Shannon Yoon Work Phone: [facility] 05-05-2023 13:12-0500 Body height 160 cm [facility] 05-05-2023 13:12-0500 Body mass index (BMI) [Ratio] 35.96 kg/m2 [facility] 05-05-2023 13:12-0500 Body weight 92.08 kg [facility] 05-05-2023 13:12-0500 Diastolic blood pressure 70 mm[Hg] [facility] 05-05-2023 13:12-0500 Heart rate 66 /min [facility] 05-05-2023 13:12-0500 Systolic blood pressure 126 mm[Hg] [facility] 04-03-2023 10:53-0500 Body height 162.6 cm Rahel Tovar DPM Work Phone: [facility] 04-03-2023 10:53-0500 Body mass index (BMI) [Ratio] 33.99 kg/m2 Rahel Tovar DPM Work Phone: [facility] 04-03-2023 10:53-0500 Body weight 89.81 kg Rahel Tovar DPM Work Phone: [facility] 04-03-2023 10:53-0500 Diastolic blood pressure 78 mm[Hg] Christopher Bohach DPM Work Phone: [facility] 04-03-2023 10:53-0500 Heart rate 74 /min Christopher Bohach DPM Work Phone: [facility] 04-03-2023 10:53-0500 Respiratory rate 16 /min Christopher Bohach DPM Work Phone: [facility] 04-03-2023 10:53-0500 Systolic blood pressure 126 mm[Hg] Christopher Bohach DPM Work Phone: [facility] 02-19-2023 10:45-0500 Body height 160.02 cm Shannon Yoon Other [facility] 02-19-2023 10:45-0500 Body mass index (BMI) [Ratio] 35.71 kg/m2 Shannon Yoon Other [facility] [employer] Other 02-19-2023 10:45-0500 Body temperature 97.8 [degF] Shannon Yoon Other [facility] Other 02-19-2023 10:45-0500 Body weight 91.45 kg Shannon Yoon Other [facility] Other 02-19-2023 10:45-0500 Body weight 91.44 kg MD Shannon Yoon Work Phone: [facility] 02-19-2023 10:45-0500 Diastolic blood pressure 76 mm[Hg] Shannon Yoon Other [facility] 02-19-2023 10:45-0500 Systolic blood pressure 121 mm[Hg] Shannon Yoon Other [facility] 02-10-2023 11:50-0500 Diastolic blood pressure 64 mm[Hg] MD Shannon Yoon Work Phone: [facility] 02-10-2023 11:50-0500 Heart rate 65 /min MD Shannon Yoon Work Phone: [facility] 02-10-2023 11:50-0500 Respiratory rate 16 /min MD Shannon Yoon Work Phone: [facility] 02-10-2023 11:50-0500 SaO2% (BldA) [Mass fraction] 96 % MD Shannon Yoon Work Phone: [facility] 02-10-2023 11:50-0500 Systolic blood pressure 114 mm[Hg] MD Shannon Yoon Work Phone: [facility] 02-10-2023 11:17-0500 Body temperature 98.4 [degF] MD Shannon Yoon Work Phone: [facility] 02-10-2023 10:47-0500 Inhaled oxygen flow rate 8 L/min MD Shannon Yoon Work Phone: [facility] 02-10-2023 10:00-0500 Body height 160.02 cm MD Shannon Yoon Work Phone: [facility] 02-10-2023 10:00-0500 Body mass index (BMI) [Ratio] 35.5 kg/m2 MD Shannon Yoon Work Phone: [facility] 02-10-2023 10:00-0500 Body weight 91 kg MD Shannon Yoon Work Phone: [facility] 02-06-2023 11:30-0500 Body height 160.02 cm Shannon Yoon Other [facility] 02-06-2023 11:30-0500 Body mass index (BMI) [Ratio] 35.42 kg/m2 hSannon Yoon Other [facility] [employer] Other 02-06-2023 11:30-0500 Body temperature 97.5 [degF] Shannon Yoon Other [employer] Other 02-06-2023 11:30-0500 Body weight 90.72 kg Shannon Yoon Other [facility] [employer] Other 02-06-2023 11:30-0500 Body weight 90.71 kg MD Shannon Yoon Work Phone: [facility] 02-06-2023 11:30-0500 Diastolic blood pressure 74 mm[Hg] Shannon Yoon Other [facility] [facility] 02-06-2023 11:30-0500 Systolic blood pressure 136 mm[Hg] Shannon Yoon Other [facility] 12-26-2022 10:00-0400 Body height 160.02 cm Pili Campbell Other [facility] Other 12-26-2022 10:00-0400 Body mass index (BMI) [Ratio] 35.42 kg/m2 Pili Campbell Other [facility] Other 12-26-2022 10:00-0400 Body temperature 96.1 [degF] Pili Campbell Other [facility] Other 12-26-2022 10:00-0400 Body weight 90.72 kg Pili Campbell Other [facility] Other 12-26-2022 10:00-0400 Diastolic blood pressure 78 mm[Hg] Pili Campbell Other [facility] Other 12-26-2022 10:00-0400 SaO2% (BldA) [Mass fraction] 99 % Pili Campbell Other [facility] Other 12-26-2022 10:00-0400 Systolic blood pressure 128 mm[Hg] Pili Campbell Other [facility] Other 2022 08:45-0400 Body height 160.02 cm Shannon Yoon Other [facility] Other 2022 08:45-0400 Body mass index (BMI) [Ratio] 35.46 kg/m2 Shannon Yoon Other [facility] Other 2022 08:45-0400 Body weight 90.81 kg Shannon Yoon Other [facility] Other 2022 08:45-0400 Diastolic blood pressure 81 mm[Hg] Shannon Yoon Other [facility] Other 2022 08:45-0400 Systolic blood pressure 140 mm[Hg] Shannon Yoon Other [facility] Other 10-22-2022 10:15-0400 Body height 160.02 cm Shannon Yoon Other [facility] Other 10-22-2022 10:15-0400 Body mass index (BMI) [Ratio] 35.42 kg/m2 Shannon Yoon Other [facility] Other 10-22-2022 10:15-0400 Body weight 90.72 kg Shannon Yoon Other [facility] Other 10-22-2022 10:15-0400 Diastolic blood pressure 72 mm[Hg] Shannon Yoon Other [facility] Other 10-22-2022 10:15-0400 Systolic blood pressure 115 mm[Hg] Shannon Yoon Other [facility] Other 10-10-2022 15:15-0400 Body height 160.02 cm Shannon Yoon Other [facility] Other 10-10-2022 15:15-0400 Body mass index (BMI) [Ratio] 35.96 kg/m2 Shannon Yoon Other [facility] Other 10-10-2022 15:15-0400 Body weight 92.08 kg Shannon Yoon Other [facility] Other 10-10-2022 15:15-0400 Diastolic blood pressure 71 mm[Hg] Shannon Yoon Other [facility] Other 10-10-2022 15:15-0400 Systolic blood pressure 113 mm[Hg] Shannon Yoon Other [facility] Other 08-09-2022 10:15-0400 Body height 160.02 cm Gavino Tavera Other [facility] Other 08-09-2022 10:15-0400 Body mass index (BMI) [Ratio] 35.78 kg/m2 Gavino Tavera Other [facility] Other 08-09-2022 10:15-0400 Body weight 91.63 kg Gavino Tavera Other [facility] Other 08-02-2022 10:30-0400 Body height 160.02 cm Shannon Yoon Other [facility] Other 08-02-2022 10:30-0400 Body mass index (BMI) [Ratio] 35.78 kg/m2 Shannon Yoon Other [facility] Other 08-02-2022 10:30-0400 Body weight 91.63 kg Shannon Yoon Other [facility] Other 08-02-2022 10:30-0400 Diastolic blood pressure 71 mm[Hg] Shannon Yoon Other [facility] [employer] Other 08-02-2022 10:30-0400 Systolic blood pressure 113 mm[Hg] Shannon Yoon Other [facility] [employer] Other 07-30-2022 08:00-0400 Body height 160.02 cm Dena Alcantara Other [facility] Other 07-30-2022 08:00-0400 Body mass index (BMI) [Ratio] 35.07 kg/m2 Denarome Alcantara Other [facility] Other 07-30-2022 08:00-0400 Body weight 89.81 kg Denarome Alcantara Other [facility] Other 07-08-2022 10:50-0400 Diastolic blood pressure 80 mm[Hg] Shannon Yoon Work Phone: [facility] [employer] 250 DO Work Phone: 07-08-2022 10:50-0400 Systolic blood pressure 126 mm[Hg] Shannon Yoon Work Phone: [facility] [employer] 250 DO Work Phone: 07-08-2022 10:47-0400 Body height 160.02 cm Shannon Yoon Work Phone: [facility] [employer] 250 DO Work Phone: 07-08-2022 10:47-0400 Body mass index (BMI) [Ratio] 35.96 kg/m2 Shannon Yoon Work Phone: [facility] [employer] 250 DO Work Phone: 07-08-2022 10:47-0400 Body surface area Derived from formula 1.95 m2 Shannon Nina Car Work Phone: [facility] [employer] 250 DO Work Phone: 07-08-2022 10:47-0400 Body weight 92.08 kg Shannon Wood Car Work Phone: [facility] [employer] DO Work Phone: 07-08-2022 10:47-0400 Heart rate 75 /min Shannon E Car Work Phone: [facility] [employer] DO Work Phone: 06-26-2022 11:00-0400 Body height 160.02 cm Eulogio Mai Other [facility] [employer] Other 06-26-2022 11:00-0400 Body mass index (BMI) [Ratio] 35.07 kg/m2 Eulogio Mai Other [facility] Other 06-26-2022 11:00-0400 Body temperature 97.3 [degF] Eulogio Mai Other [facility] Other 06-26-2022 11:00-0400 Body weight 89.81 kg Eulogio Mai Other [facility] Other 06-26-2022 11:00-0400 Diastolic blood pressure 62 mm[Hg] Eulogio Mai Other [facility] Other 06-26-2022 11:00-0400 SaO2% (BldA) [Mass fraction] 98 % Eulogio Mai Other [facility] Other 06-26-2022 11:00-0400 Systolic blood pressure 110 mm[Hg] Eulogio Mai Other [facility] Other 06-04-2022 14:40-0400 Diastolic blood pressure 78 mm[Hg] MD Shannon Yoon Work Phone: [facility] 06-04-2022 14:40-0400 Heart rate 66 /min MD Shannon Yoon Work Phone: [facility] 06-04-2022 14:40-0400 Respiratory rate 16 /min MD Shannon Yoon Work Phone: [facility] 06-04-2022 14:40-0400 SaO2% (BldA) [Mass fraction] 95 % MD Shannon Yoon Work Phone: [facility] 06-04-2022 14:40-0400 Systolic blood pressure 137 mm[Hg] MD Shannon Yoon Work Phone: [facility] 06-04-2022 12:00-0400 Inhaled oxygen flow rate 3 L/min MD Shannon Yoon Work Phone: [facility] 06-04-2022 08:49-0400 Body height 160.02 cm MD Shannon Yoon Work Phone: [facility] 06-04-2022 08:49-0400 Body weight 87.08 kg MD Shannon Yoon Work Phone: [facility] 05-08-2022 11:30-0500 Body height 160.02 cm Eulogio Mai Other [facility] [employer] Other 05-08-2022 11:30-0500 Body mass index (BMI) [Ratio] 35.07 kg/m2 Eulogio Mai Other [facility] Other 05-08-2022 11:30-0500 Body temperature 96.7 [degF] Eulogio Mai Other [facility] Other 05-08-2022 11:30-0500 Body weight 89.81 kg Eulogio Mai Other [facility] [employer] Other 05-08-2022 11:30-0500 Diastolic blood pressure 74 mm[Hg] Eulogio Mai Other [facility] Other 05-08-2022 11:30-0500 SaO2% (BldA) [Mass fraction] 98 % Eulogio Mai Other [facility] Other 05-08-2022 11:30-0500 Systolic blood pressure 128 mm[Hg] Eulogio Mai Other [facility] Other 04-30-2022 10:15-0500 Body height 160.02 cm Shannon Yoon Other [facility] Other 04-30-2022 10:15-0500 Body mass index (BMI) [Ratio] 35.07 kg/m2 Shannon Yoon Other [facility] Other 04-30-2022 10:15-0500 Body temperature Shannon Yoon Other [employer] Other 04-30-2022 10:15-0500 Body weight 89.81 kg Shannon Yoon Other [facility] Other 04-30-2022 10:15-0500 SaO2% (BldA) [Mass fraction] 97 % Shannon Yoon Other [facility] Other 04-08-2022 14:11-0500 Body height 160.02 cm Shannon Yoon Work Phone: [facility] 250 DO Work Phone: 04-08-2022 14:11-0500 Body mass index (BMI) [Ratio] 34.37 kg/m2 Shannon Yoon Work Phone: [facility] 250 DO Work Phone: 04-08-2022 14:11-0500 Body surface area Derived from formula 1.91 m2 Shannon Yoon Work Phone: [facility] 250 DO Work Phone: 04-08-2022 14:11-0500 Body weight 88 kg Shannon Yoon Work Phone: [facility] 250 DO Work Phone: 04-08-2022 14:11-0500 Diastolic blood pressure 80 mm[Hg] Shannon Yoon Work Phone: [facility] 250 DO Work Phone: 04-08-2022 14:11-0500 Heart rate 66 /min Shannon Yoon Work Phone: [facility] 250 DO Work Phone: 04-08-2022 14:11-0500 Systolic blood pressure 118 mm[Hg] Shannon Yoon Work Phone: [facility] 250 DO Work Phone: 04-08-2022 14:11-0500 15 1 Shannon Yoon Work Phone: [facility] 250 DO Work Phone: Comment on above: [id number] TS 04-04-2022 14:11-0500 139 1 Shannon Yoon Work Phone: [facility] 250 DO Work Phone: Comment on above: [id number] 03-18-2022 08:00-0500 53 1 Shannon Yoon Work Phone: [facility] [place] Work Phone: Comment on above: [id number] 02-11-2022 13:41-0500 Diastolic blood pressure 82 mm[Hg] Shannon Yoon Work Phone: [facility] 250 DO Work Phone: 02-11-2022 13:41-0500 Systolic blood pressure 128 mm[Hg] Shannon Yoon Work Phone: [facility] 250 DO Work Phone: 02-11-2022 13:40-0500 Body height 160.02 cm Shannon Yoon Work Phone: [facility] 250 DO Work Phone: 02-11-2022 13:40-0500 Body mass index (BMI) [Ratio] 33.92 kg/m2 Shannon Yoon Work Phone: [facility] 250 DO Work Phone: 02-11-2022 13:40-0500 Body surface area Derived from formula 1.9 m2 Shannon Yoon Work Phone: [facility] 250 DO Work Phone: 02-11-2022 13:40-0500 Body weight 86.86 kg Shannon Yoon Work Phone: [facility] 250 DO Work Phone: 02-11-2022 13:40-0500 Diastolic blood pressure 86 mm[Hg] Shannon Yoon Work Phone: [facility] 250 DO Work Phone: 02-11-2022 13:40-0500 Heart rate 69 /min Shannon Yoon Work Phone: [facility] 250 DO Work Phone: 02-11-2022 13:40-0500 Systolic blood pressure 138 mm[Hg] Shannon Yoon Work Phone: [facility] 250 DO Work Phone: Encounters Encounter Date Encounter Type Care Provider Facility Start: 10-23-2023 End: 10-23-2023 ambulatory MD Shannon Yoon Work Phone: [facility] Work Phone: Start: 10-23-2023 End: 10-23-2023 Patient encounter procedure MD Shannon Yoon Work Phone: [facility] Work Phone: Start: 10-20-2023 End: 10-20-2023 ambulatory RAHEL TOVAR Not Available Start: 10-09-2023 End: 10-09-2023 ambulatory MD Shannon Yoon Work Phone: [facility] Work Phone: Start: 10-09-2023 End: 10-09-2023 Patient encounter procedure MD Shannon Yoon Work Phone: [facility] Work Phone: Start: 09-24-2023 End: 09-24-2023 ambulatory MD Shannon Yoon Work Phone: [facility] Work Phone: Start: 09-24-2023 End: 09-24-2023 Patient encounter procedure MD Shannon Yoon Work Phone: [facility] Work Phone: Start: 09-12-2023 End: 09-12-2023 ambulatory MD Shannon Yoon Work Phone: [facility] Work Phone: Start: 09-12-2023 End: 09-12-2023 Patient encounter procedure MD Shannon Yoon Work Phone: [facility] Work Phone: Start: 09-08-2023 Registered Recurring MD Shannon Yoon Work Phone: [facility] - [facility] Work Phone: Start: 08-18-2023 End: 08-18-2023 ambulatory [facility] Work Phone: Start: 08-18-2023 End: 08-18-2023 Patient encounter procedure [facility] Work Phone: Start: 08-15-2023 End: 08-15-2023 ambulatory RAHEL TOVAR Not Available Start: 07-02-2023 End: 07-02-2023 ambulatory Pili Campbell Facility:[facility] Start: 07-02-2023 End: 07-02-2023 Patient encounter procedure [facility] Vascular Surgery Work Phone: Start: 06-12-2023 End: 06-12-2023 ambulatory RAHEL TOVAR Not Available Start: 06-05-2023 End: 06-05-2023 Office outpatient visit 25 minutes Juany Richter MD Work Phone: [facility] Comment on above: Paroxysmal atrial fi brillation (CMS/HCC); PVD (peripheral vascular disease) ([facility]/HCC); Hypertension, unspecified type; Hypercoagulable state due to paroxysmal atrial fibrillation (CMS/HCC); Gastroesophageal reflux disease, unspecified whether esophagitis present; Chronic obstructive pulmonary disease, unspecified COPD type ([facility]/HCC); CHANEL inhibitor intolerance; Stage 3a chronic kidney disease (CMS/HCC); Mixed hyperlipidemia; High risk medication use; Former smoker Start: 06-05-2023 End: 06-05-2023 ambulatory [facility] Ambulatory Start: 06-05-2023 End: 06-05-2023 Subsequent hospital visit by physician Rad External Film EF [facility]TERNAL [employer] Comment on above: Paroxysmal atrial fi brillation (CMS/HCC) Start: 05-26-2023 End: 05-26-2023 ambulatory MD Shannon Yoon Work Phone: [facility] Work Phone: Start: 05-26-2023 End: 05-26-2023 Patient encounter procedure MD Shannon Yoon Work Phone: [facility] Work Phone: Start: 05-05-2023 End: 05-05-2023 Professional / ancillary services management Diana De Oliveira LPN [facility] Comment on above: Atrial fibrillation, unspecified type ([facility]/HCC) Start: 05-05-2023 End: 05-05-2023 ambulatory [facility] Ambulatory Start: 04-23-2023 End: 04-23-2023 ambulatory MD Shannon Yoon Work Phone: [facility] Work Phone: Start: 04-23-2023 End: 04-23-2023 Patient encounter procedure MD Shannon Yoon Work Phone: [facility] Work Phone: Start: 04-15-2023 Non-patient / Non-visit MD Hanna Yoon Work Phone: [facility] Work Phone: Start: 04-15-2023 End: 04-15-2023 ambulatory Juany Richter Facility:[facility] Start: 04-15-2023 End: 04-15-2023 ambulatory MD Shannon Yoon Work Phone: [facility] Work Phone: Start: 04-15-2023 End: 04-15-2023 Patient encounter procedure MD Shannon Yoon Work Phone: [facility]-Respiratory Therapy Work Phone: Start: 04-03-2023 End: 04-03-2023 Patient encounter procedure Rahel Tovar DPM Work Phone: [facility] Comment on above: Idiopathic progressi ve polyneuropathy (Primary Dx); Onychomycosis Start: 04-03-2023 End: 04-03-2023 ambulatory RAHEL TOVAR Not Available Start: 02-20-2023 End: 02-20-2023 ambulatory LORRI WHITE Not Available Start: 02-19-2023 End: 02-19-2023 ambulatory Shannon Yoon Other [facility] Other Start: 02-19-2023 Office outpatient vi sit 15 minutes Shannon Yoon [facility] Start: 02-19-2023 End: 02-19-2023 Patient encounter procedure MD Shannon Yoon Work Phone: [facility] Work Phone: Start: 02-10-2023 End: 02-10-2023 ambulatory Lorri White Facility:[facility] Start: 02-10-2023 End: 02-10-2023 Admission to same day surgery center MD Shannon Yoon Work Phone: [facility] [place] Start: 02-10-2023 End: 02-10-2023 ambulatory MD Shannon Yoon Work Phone: [facility] Work Phone: Start: 02-06-2023 End: 02-06-2023 ambulatory Shannon Yoon Other [facility] Other Start: 02-06-2023 Office outpatient vi sit 15 minutes Shannon Yoon [facility] Start: 02-06-2023 Telephone encounter Shannon Yoon [facility] Start: 02-06-2023 End: 02-06-2023 Patient encounter procedure MD Shannon Yoon Work Phone: [facility] Work Phone: Start: 02-03-2023 End: 02-03-2023 ambulatory Shannon Yoon Other [facility] Other Start: 02-03-2023 Telephone encounter Shannon Yoon [facility] Start: 01-30-2023 End: 01-30-2023 ambulatory Lorri Normakes Facility:[facility] Start: 01-30-2023 End: 01-30-2023 ambulatory MD Shannon Yoon Work Phone: [facility] Work Phone: Start: 01-30-2023 End: 01-30-2023 Patient encounter procedure MD Shannon Yoon Work Phone: [facility] Work Phone: Start: 12-26-2022 End: 12-26-2022 Patient encounter procedure Pili Campbell [facility] Vascular Surgery Start: 12-26-2022 End: 12-26-2022 ambulatory MD Shannon Yoon Work Phone: [facility] Other Start: 12-23-2022 End: 12-23-2022 ambulatory [facility] Ambulatory Start: 2022 End: 2022 ambulatory Shannon Yoon Other [facility] Other Start: 2022 Patient encounter procedure Shannon Yoon [facility] Start: 11-11-2022 End: 11-11-2022 ambulatory Shannon Yoon Other [facility] Other Start: 11-11-2022 Telephone encounter Shannon Yoon [facility] Start: 10-25-2022 End: 10-25-2022 ambulatory Shannon Yoon Other [facility] Other Start: 10-25-2022 Telephone encounter Shannon Yoon [facility] Start: 10-22-2022 Encounter for gynecological examination (general) (routine) with abnormal findings Shannon Yoon [facility] Start: 10-22-2022 Office outpatient vi sit 25 minutes Shannon Yoon [facility] Start: 10-22-2022 End: 10-22-2022 ambulatory MD Shannon Yoon Work Phone: [facility] Work Phone: Start: 10-22-2022 End: 10-22-2022 Departed Referred MD Shannon Yoon Work Phone: [facility] [place] Work Phone: Start: 10-15-2022 End: 10-15-2022 ambulatory Shannon Yoon Other [facility] Other Start: 10-15-2022 Telephone encounter Shannon Yoon [facility] Start: 10-10-2022 End: 10-10-2022 Departed Referred MD Shannon Yoon Work Phone: [facility] [place] Work Phone: Start: 10-10-2022 End: 10-10-2022 ambulatory Shannon Yoon [facility] Other Start: 10-10-2022 Office outpatient vi sit 15 minutes Shannon Yoon [facility] Start: 10-07-2022 End: 10-07-2022 ambulatory Juany Richter Facility:[facility] Start: 10-07-2022 End: 10-07-2022 ambulatory MD Shannon Yoon Work Phone: [facility] Work Phone: Start: 10-07-2022 End: 10-07-2022 Patient encounter procedure MD Shannon Yoon Work Phone: [facility]-Respiratory Therapy Work Phone: Start: 08-09-2022 Office outpatient vi sit 25 minutes Gavino Tavera [facility] Start: 08-09-2022 End: 08-09-2022 ambulatory Gavino Tavera Facility:[facility] Start: 08-09-2022 End: 08-09-2022 ambulatory MD Shannon Yoon Work Phone: [facility] Work Phone: Start: 08-09-2022 End: 08-09-2022 Patient encounter procedure MD Shannon Yoon Work Phone: [facility] Start: 08-02-2022 End: 08-02-2022 ambulatory Shannon Yoon Other [facility] Other Start: 08-02-2022 Office outpatient vi sit 15 minutes Shannon Yoon [facility] Start: 07-30-2022 Office outpatient ne w 30 minutes Dena Alcantara [facility] Start: 07-30-2022 End: 07-30-2022 ambulatory Shannon Yoon Facility:[facility] Start: 07-30-2022 End: 07-30-2022 ambulatory MD Shannon Yoon Work Phone: [facility] Work Phone: Start: 07-30-2022 End: 07-30-2022 Patient encounter procedure MD Shannon Yoon Work Phone: [facility] Start: 07-08-2022 Office outpatient vi sit 25 minutes Shannon Yoon Work Phone: [facility] 250 DO Work Phone: Start: 07-08-2022 Patient encounter procedure Shannon Yoon Work Phone: [facility] 250 DO Work Phone: Start: 07-08-[address] Shannon Yoon Facility: Start: 06-26-2022 End: 06-26-2022 ambulatory Eulogio Mai Other [facility] Other Start: 06-26-2022 Office outpatient vi sit 15 minutes Eulogio Mai [facility] Vascular Surgery Start: 06-21-2022 End: 06-21-2022 ambulatory MD Shannon Yoon Work Phone: [facility] Work Phone: Start: 06-21-2022 End: 06-21-2022 Patient encounter procedure MD Shannon Yoon Work Phone: [facility]Ultrasound [facility] [place] Work Phone: Start: 06-20-2022 End: 06-20-2022 ambulatory Shannon Yoon Other [facility] Other Start: 06-20-2022 Telephone encounter Shannon Yoon [facility] Start: 06-04-2022 End: 06-04-2022 Admission to same day surgery center MD Shannon Yoon Work Phone: [facility]-Interventional Radiology Work Phone: Start: 06-04-2022 End: 06-04-2022 ambulatory MD Shannon Yoon Work Phone: [facility] Work Phone: Start: 05-08-2022 End: 05-08-2022 ambulatory Eulogio Sergei Other [facility] Other Start: 05-08-2022 Office outpatient ne w 60 minutes Eulogio Mai [facility] Vascular Surgery Start: 05-01-2022 End: 05-01-2022 ambulatory Shannon Yoon Other [facility] Other Start: 05-01-2022 Telephone encounter Shannon Yoon [facility] Start: 04-30-2022 End: 04-30-2022 ambulatory Shannon Yoon Other [facility] Other Start: 04-30-2022 Office outpatient vi sit 15 minutes Shannon Yoon [facility] Start: 04-18-2022 Telephone encounter Shannon toth Work Phone: [facility] 250 DO Work Phone: Start: 04-08-[address] Shannon Yoon Facility: Start: 04-08-2022 Office outpatient vi sit 25 minutes Shannon Yoon Work Phone: [facility] 250 DO Work Phone: Start: 04-04-2022 End: 04-04-2022 ambulatory MD Shannon Yoon Work Phone: [facility] Work Phone: Start: 04-04-2022 End: 04-04-2022 Patient encounter procedure MD Shannon Yoon Work Phone: [facility] [place] Work Phone: Start: 03-18-2022 Chart Update Shannon Yoon Work Phone: [facility] 250 DO Work Phone: Start: 03-18-2022 Patient encounter procedure Shannon Yoon Work Phone: [facility] [address] [place] Work Phone: Start: 03-18-[address] Juany Perkins ty:[id number] Start: 02-12-2022 End: 02-13-2022 ambulatory RAYNA OCHOA Facility:[facility] Start: 02-11-2022 Office consultation new/estab patient 60 min Shannon Yoon Work Phone: [facility] 250 DO Work Phone: Start: 02-11-2022 Office outpatient ne w 45 minutes Shannon Yoon Work Phone: [facility] 250 DO Work Phone: Start: 02-11-[address] Rayna Cardoso acility: Start: 02-08-2022 ambulatory Facility:[facility] Start: 01-28-2022 End: 01-29-[address] SHANNON YOON Facility: Start: 01-15-2022 End: 01-15-2022 ambulatory CORY MOREL [facility] Start: 12-10-2021 End: 12-11-[address] SHANNON YOON Facility:[facility] Start: 08-13-2021 Encounter for preprocedural laboratory examination CORY MOREL [facility] Start: 08-13-2021 End: 08-14-2021 ambulatory SHANNON YOON Facility:[facility] Start: 08-10-2021 End: 08-11-[address] SHANNON YOON Facility:[facility] Start: 08-10-2021 End: 08-11-2021 Encounter for preprocedural laboratory examination DR SHANNON YOON Facility:[facility] Start: 07-05-2021 End: 07-06-[address] SHANNON YOON Facility:[facility] Start: 06-26-2021 End: 07-20-[address] SHANNON YOON Facility:[facility] Start: 06-14-2021 End: 06-15-[address] SHANNON YOON Facility:[facility] Start: 04-23-2021 End: 04-24-[address] SHANNON YOON Facility:[facility] Procedures Date Procedure Procedure Detail Performing Clinician Start: 06-05-2023 ECG 12-LEAD JUANY MOH AN Start: 06-05-2023 FOLLOW UP IN CARDIOLOGY JUANY RICHTER Start: 06-05-2023 Ecg routine ecg w/le ast 12 lds w/i&r Juany Richter MD Work Phone: Start: 06-05-2023 Radiologic exam ches t 2 views Juany Richter MD Work Phone: Start: 05-05-2023 ECG 12-LEAD JUANY BRENDON AN Start: 04-15-2023 Plain chest X-ray MD Edgardo Yoon Work Phone: Start: 02-10-2023 Hysteroscopy MD Shannon Yoon Work Phone: Start: 01-30-2023 Antibody screen Eulogio Mai Comment on above: Order Comment: Date of Surgery: [id number] Result Comment: PERF ORMED BY: [facility] [id number] [place] [address] PATHOLOGIST FELT PAD CUTTER GARRETT PEÑA M.D. Start: 12-26-2022 Ankle brachial press ure index MD Shannon Yoon Work Phone: Start: 12-23-2022 CBC panel - Blood by Automated count JUANY RICHTER Start: 12-23-2022 Comprehensive metabo lic 2000 panel - Serum or Plasma JUANY RICHTER Start: 12-23-2022 Lipid panel JUANY MOH AN Start: 12-23-2022 ECG 12-LEAD JUANY MOH AN Start: 10-10-2022 Urine culture MD Shannon Yoon Work Phone: Start: 10-07-2022 Plain chest X-ray MD Edgardo Yoon Work Phone: Start: 08-09-2022 X-ray of right knee MD Shannon Yoon Work Phone: Start: 07-30-2022 Plain X-ray of left hand MD Shannon Yoon Work Phone: Start: 06-21-2022 Ankle brachial press ure index MD Shannon Yoon Work Phone: Start: 06-04-2022 Abdominal aortogram MD Shannon Yoon Work Phone: Start: 06-04-2022 Aortography MD Shannon Yoon Work Phone: Start: 07-17-2017 Screening for malign ant neoplasm of colon Shannon Yoon Other Appendectomy Shannon Yoon Work Phone: section Shannon Mendez aun Work Phone: Cholecystectomy Shannon Vazquez un Work Phone: Decompression of med bello nerve Shannon Yoon Work Phone: Depression screening Shannon Yoon Other Ligation of fallopian tube Ish Yoon Work Phone: Screening for malign ant neoplasm of breast Shannon Yoon Other Total colonoscopy Shannon Bills raun Work Phone: Comment on above: 2011; Viral screening Shannon Yoon Other Plan of Treatment Date Care Activity Detail Author Start: 12-22-2023 End: 12-22-2023 Patient encounter procedure 12/22/2023 9:45 AM EDT Office Visit [facility] [address] [place] [address] Juany Richter MD [address] [facility] [address] [place] [address] [facility] Start: 11-02-2023 Influenza vaccination Influenza Vaccine (Season Ended) [facility] Start: 06-12-2023 End: 06-12-2023 Patient encounter procedure 06/12/2023 10:15 AM EDT Procedure Visit [facility] [address] [place] [address] Rahel Tovar DPIsh [address] [place] [address] [facility] Start: 06-05-2023 End: 06-04-2024 Alanine aminotransferase [Enzymatic activity/volume] in Serum or Plasma by With P-5'-P Alanine Aminotransferase Lab Routine Paroxysmal atrial fibrillation (CMS/HCC) Expected: 06/05/2023 (Approximate), Expires: 06/04/2024 [facility] Work Phone: Comment on above: Expected: 06/05/2023 (Approximate), Expi res: 06/04/2024 Start: 06-05-2023 End: 06-04-2024 Aspartate aminotransferase [Enzymatic activity/volume] in Serum or Plasma by With P-5'-P Aspartate Aminotransferase Lab Routine Paroxysmal atrial fibrillation (CMS/HCC) Expected: 06/05/2023 (Approximate), Expires: 06/04/2024 [facility] Service Area Work Phone: Comment on above: Expected: 06/05/2023 (Approximate), Expi res: 06/04/2024 Start: 06-05-2023 End: 06-04-2024 Basic metabolic 2000 panel - Serum or Plasma Basic Metabolic Panel Lab Routine Paroxysmal atrial fibrillation (CMS/HCC) Expected: 06/05/2023 (Approximate), Expires: 06/04/2024 [facility] Work Phone: Comment on above: Expected: 06/05/2023 (Approximate), Expi res: 06/04/2024 Start: 06-05-2023 End: 06-04-2024 Complete Pulmonary Function Test Pre/Post Bronchodialator (Spirometry Pre/Post/DLCO/Lung Volumes) Complete Pulmonary Function Test Pre/Post Bronchodialator (Spirometry Pre/Post/DLCO/Lung Volumes) PFT Routine Paroxysmal atrial fibrillation ([facility]/HCC) Expected: 06/05/2023 (Approximate), Expires: 06/04/2024 [facility] Work Phone: Comment on above: Expected: 06/05/2023 (Approximate), Expi res: 06/04/2024 Start: 06-05-2023 End: 06-04-2024 Lipid 1996 panel - Serum or Plasma Lipid Panel Lab Routine PVD (peripheral vascular disease) ([facility]) Mixed hyperlipidemia Expected: 06/05/2023 (Approximate), Expires: 06/04/2024 [facility] Work Phone: Comment on above: Expected: 06/05/2023 (Approximate), Expi res: 06/04/2024 Start: 06-05-2023 End: 06-04-2024 Thyrotropin [Units/volume] in Serum or Plasma Thyroid Stimulating Hormone Lab Routine Paroxysmal atrial fibrillation ([facility]/HCC) Expected: 06/05/2023 (Approximate), Expires: 06/04/2024 [facility] Work Phone: Comment on above: Expected: 06/05/2023 (Approximate), Expi res: 06/04/2024 Start: 06-05-2023 End: 06-05-2023 Patient encounter procedure 06/05/2023 10:00 AM EDT Office Visit [facility] [address] [place] [address] Juany Richter MD [address] [place] [address] [address] [place] [address] [facility] Start: 02-10-2023 End: 02-10-2023 [facility] Start: 12-05-2022 FUV, Provider: Juany Richter, Status: Pen, Time: 10:30 AM FUV, Provider: Juany Richter, Status: Pen, Time: 10:30 AM [facility] 250 DO Work Phone: Start: 09-01-2023 COVID-19 Vaccine ( season) COVID-19 Vaccine ( season) [facility] Start: 11-01-2022 Influenza vaccination Influenza Vaccine (#1) [facility] Start: 10-22-2022 [facility] Start: 07-08-2022 FUV, Provider: Juany Richter, Status: Pen, Time: 10:30 AM FUV, Provider: Juany Richter, Status: Pen, Time: 10:30 AM [facility] 250 DO Work Phone: Start: 06-21-2022 Ankle brachial pressure index [facility] Start: 06-04-2022 [facility] Start: 04-08-2022 FUV, Provider: Juany Richter, Status: Pen, Time: 1:45 PM FUV, Provider: Juany Richter, Status: Pen, Time: 1:45 PM -[facility] 250 DO Work Phone: Start: 04-04-2022 PVR, Provider: ANASTACIA HHVI ULTRASOUND 01,[id number], Status: Pen, Time: 8:45 AM PVR, Provider: ANASTACIA HHVI ULTRASOUND 01,[id number], Status: Pen, Time: 8:45 AM [facility] 250 DO Work Phone: Start: 04-01-2022 FUV, Provider: Juany Richter, Status: Pen, Time: 10:30 AM FUV, Provider: Juany Richter, Status: Pen, Time: 10:30 AM -[facility] 250 DO Work Phone: Start: 03-25-2022 PVR, Provider: [id number] ULTRASOUND 02,[id number], Status: Pen, Time: 10:15 AM PVR, Provider: LUCRECIA ULTRASOUND 02,[id number], Status: Pen, Time: 10:15 AM [facility] 250 DO Work Phone: Start: 03-18-2022 STRESS NUC, Provider: ANASTACIA HHVI NUCLEAR 01,[id number], Status: Pen, Time: 8:00 AM STRESS NUC, Provider: ANASTACIA LAMAS NUCLEAR ,[id number], Status: Pen, Time: 8:00 AM -[facility] 250 DO Work Phone: Start: 12-16-2016 Pneumococcal Vaccine: 65+ Years (1 - PCV) Pneumococcal Vaccine: 65+ Years (1 - PCV) [facility] Start: 12-16-2001 Zoster Vaccines (1 of 2) Zoster Vaccines (1 of 2) [facility] Start: 1991 Screening for malignant neoplasm of breast Mammogram [facility] Start: 12-16-1973 DTaP/Tdap/Td Vaccines (1 - Tdap) DTaP/Tdap/Td Vaccines (1 - Tdap) [facility] Start: 12-16-1969 Diabetes mellitus screening Diabetes Screening [facility] Start: 12-16-1969 Hepatitis C screening Hepatitis C Screening [facility] Start: 12-16-1957 Pneumococcal Vaccine: 65+ Years (1 - PCV) Pneumococcal Vaccine: 65+ Years (1 - PCV) [facility] Start: 1950 Lipid panel Lipid Panel [facility] Start: 1950 Medicare Annual Wellness Visit Medicare Annual Wellness Visit (AWV) [facility] Start: 1950 Screening for malignant neoplasm of colon [facility] Start: 1950 Screening for osteoporosis Bone Density Scan [facility] Start: 1950 Thyroid stimulating hormone measurement TSH Level [facility] Ankle brachial press ure index [facility] Comprehensive metabo lic 2000 panel - Serum or Plasma [facility] ECG 12 Lead ECG 12 Lead ECG Routine Atrial fibrillation, unspecified type (CMS/HCC) 05/05/2023 10:36 AM EST [facility] Service Area Work Phone: Patient Education Peripheral Art kathrine Disease and Claudication Atherectomy - Angioplasty of a Noncoronary Vessel Peripheral Vascular Ultrasound Peripheral Vascular (Arterial) Disease (DC) Peripheral Vascular Stenting (DC) Peripheral Vascular Stenting [facility] Work Phone: Patient referral [facility] Work Phone: XR Chest 2 Views [facility] Immunizations Immunization Date Immunization Notes Care Provider Fa cility 01-23-2021 COVID-19 (Pfizer) MD Shannon Yoon Work Phone: [facility] 01-23-2021 Pfizer-BioNTech COVI D-19 Vacc 30 MCG/0.3ML Intramuscular Suspension Shannon Yoon Work Phone: [facility] 06-22-2020 COVID-19 (Pfizer) MD Shannon Yoon Work Phone: [facility] 06-22-2020 Pfizer-BioNTech COVI D-19 Vacc 30 MCG/0.3ML Intramuscular Suspension Shannon Yoon Work Phone: [facility] 06-02-2020 COVID-19 (Pfizer) MD Shannon Yoon Work Phone: [facility] 06-02-2020 Pfizer-BioNTech COVI D-19 Vacc 30 MCG/0.3ML Intramuscular Suspension Shannon Yoon Work Phone: [facility] Payers Date Payer Category Payer Unknown [id number] 2022 Self-pay [id number] 2022 Medicare [id number] 2022 Private Health Insurance [id number] 1959 Medicare [id number] 1959 Private Health Insurance [id number] 1951 Unknown [id number] 2.16.8 40.1.574394.3.579.2.647 1951 Unknown [id number] 2.16.84 0.1.900836.3.579.2.593 1951 Unknown [id number] 2.16.84 0.1.291924.3.579.2.593 1951 Unknown [id number] 2.16.84 0.1.618330.3.579.2.593 1951 Unknown [id number] 2.16.84 0.1.295296.3.579.2.593 1951 Unknown [id number] 2.16.84 0.1.441407.3.579.2.593 1951 Unknown [id number] 2.16.84 0.1.514088.3.579.2.593 1951 Unknown [id number] 2.16.84 0.1.203681.3.579.2.593 1951 Unknown [id number] 2.16.84 0.1.092383.3.579.2.593 1951 Unknown [id number] 2.16. 840.1.254369.3.579.2.356 1951 Unknown [id number] 2.16. 840.1.829086.3.579.2.356 1951 Unknown [id number] 2.16. 840.1.333517.3.579.2.356 1951 Unknown [id number] 2.16.8 40.1.382037.3.579.2.1068 1951 Unknown [id number] 2.16.8 40.1.680874.3.579.2.1068 1951 Unknown [id number] 2.16.8 40.1.970382.3.579.2.1244 1951 Unknown [id number] 2.16.8 40.1.811426.3.579.2.1244 1951 Unknown [id number] 2.16.8 40.1.111788.3.579.2.1244 1951 Unknown [id number] 2.16.84 0.1.388032.3.579.2.1259 1951 Unknown [id number] 2.16.84 0.1.015782.3.579.2.1259 1951 Unknown [id number] 2.16.84 0.1.204239.3.579.2.1259 1951 Unknown [id number] 2.16.84 0.1.339231.3.579.2.1259 1951 Unknown [id number] 2.16.840 .1.781455.3.579.2.1259 Private Health Insurance [id number] 2.16.840.1.533601.19 Unknown Unknown [id number] 2.16.8 40.1.727907.3.579.2.531 Unknown [id number] 2.16.8 40.1.160860.3.579.2.531 Unknown [id number] 2.16.8 40.1.464997.3.579.2.531 Unknown [id number] 2.16.8 40.1.928506.3.579.2.531 Unknown [id number] 2.16.8 40.1.928899.3.579.2.531 Unknown [id number] 2.16.8 40.1.684740.3.579.2.531 Unknown [id number] 2.16.8 40.1.611238.3.579.2.531 Unknown [id number] 2.16.8 40.1.973507.3.579.2.531 Social History Date Type Detail Facility Start: 04-08-2022 End: 08-29-2022 Illicit drug use Illicit drug use [facility] Comment on above: diet mt dew 2 liter a day; 10 cigs a day; 06/2022 quit; Start: 1950 Sex Assigned At Female F [facility] Start: 04-08-2022 End: 04-03-2023 Sex Assigned At [facility] Start: 06-04-2022 End: 02-10-2023 Tobacco smoking status NHIS Smoker (finding) [facility] Start: 08-29-2022 Tobacco smoking stat us NYIS Smokes tobacco daily [facility] End: 12-01-2022 History of tobacco use Cigarette Smoker [facility] Start: 08-29-2022 End: 12-23-2022 Tobacco use and exposure Smokeless tobacco non-user [facility] Start: 04-03-2023 End: 06-05-2023 Alcohol intake Lifetime non-drinker (finding) [facility] Start: 1950 Sex Assigned At Not on file N [facility] Start: 12-23-2022 [facility] Work Phone: Start: 04-25-2023 End: 06-05-2023 Exposure to SARS-CoV-2 (event) Not sure [facility] Medical Equipment Procedure Code Equipment Code Equipment Origin al Text Equipment Identifier Dates Aortogram, abdominal, with bilateral lower extremity runoff Multiple peripheral artery stent, bare-metal [id number] FDA Start: 06-04-2022 Goals Date Patient Goal Desired Activity /State Clinical Notes 01-15-2022 to 06-05-2023 Juany Richter MD - 06/05/2023 10:00 AM EDTPatient InstructionsDiana De Oliveira LPN - 05/05/2023 11:00 AM ESTPatient InstructionsChstephen Tovar DPM - 04/03/2023 11:00 AM EST Note Date & Type Note Facility 06-05-2023 History of Present illness Narrative This is a follow-up from December 2022. At that visit we recommended Livalo 4 mg p.o. daily along with coenzyme Q 10. Subjective : Interval review of systems is negative for chest discomfort pressure tightness heaviness palpitations lightheadedness orthopnea paroxysmal nocturnal dyspnea dependent edema or claudication TIA or CVA type symptoms or bleeding diathesis History so Far : 1. Symptomatic atrial fibrillation-fatigue, drop in blood pressure on her home monitoring device. She is currently in sinus rhythm. 2. Atrial fibrillation was initially diagnosed in 2019. 3. Remains on high risk medications Eliquis and amiodarone. Amiodarone dose was reduced at last office visit. 4. Echocardiogram July 2021-LVEF greater than 55% mild concentric left ventricular hypertrophy normal diastolic function normal chamber dimensions RVSP 35 mmHg trivial tricuspid regurgitation mild mitral annular calcification no aortic or mitral valve disease normal IVC LV end-systolic dimension 2.8 cm left atrial volume index 34 mL/m left atrial diameter 4.3 cm 5. Varicose veins and history of vein ligation and stripping left lower extremity 2002 6. Evidence of peripheral vascular disease on examination 7. Buttock discomfort with ambulation-need to exclude claudication due to vascular disease 8. Multiple drug intolerances-including prednisone, several antibiotics, hydrochlorothiazide, lisinopril, Hyzaar, however patient is tolerating Benicar. 9. 60+ pack year history of smoking currently smoking less than 1 pack/day 10. Small pulmonary nodules,addressed by primary. 11. Shortness of breath-this was noted on recent visit with primary care, patient did not express this as a major symptom to me. Most likely related to COPD, however amiodarone induced pulmonary toxicity cannot be excluded, I agree with primary MDs note. PFTs have been ordered by primary care. Albuterol inhaler has been recommended. 12. [id number] score 4 based on my evaluation today 13.GERD on prophylaxis. 14. PVR rest and exercise April 2022-evidence of moderate multivessel disease, monophasic waveforms are noted in the right common femoral artery right superficial femoral artery right popliteal artery right posterior tibial artery and right dorsalis pedis artery. Blunted waveforms beginning at the level of the popliteal artery on the left side there is evidence of moderate multivessel disease monophasic flow is noted in the left common femoral left popliteal left anterior tibial left posterior tibial and left dorsalis pedis blunted waveforms noted at the beginning of the knee level. 15. Ankle-brachial indicis abnormal in the proximal thigh level at 0.75 on the right and 0.61 on the left, and drops steadily down to 0.52 right dorsalis pedis 0.59 right posterior tibial, 0.53 left posterior tibial 0.50 left dorsalis pedis. 16. Pulmonary function testing 02/12/2022-nondiagnostic spirometry normal total lung capacity with mild isolated diffusion impairment which can be seen but is not restricted to cardiopulmonary vascular disorders, early interstitial lung disease early emphysema and smoking. DLCO 71% FEV1 over FVC 76% DLCO corrected for alveolar ventilation 72% 17. Ankle-brachial index of the left lower extremity 06/21/2022 was 0.61 at the posterior tibial and 0.55 at the dorsalis pedis. 18. Intolerance to atorvastatin in excess of 20 mg dose-myalgia 19. Allergy to Plavix-hives. 20. PFTs-DLCO 13.3 which is 66% predicted, mild obstructive ventilatory impairment mild diffusion abnormality no reversibility after bronchodilator therapy This is a patient with aggressive vascular disease, paroxysmal atrial fibrillation on high risk medications amiodarone and Eliquis, also on aspirin, her most recent lipid profile is excellent, but she will need statin therapy. She cannot tolerate atorvastatin greater than 20 mg dosage. She is also having class III claudication despite recent intervention to the left lower extremities. She had to stop Plavix because of hives. Consideration may be given for Brilinta and Eliquis. She could not tolerate rosuvastatin even at a lower dose, because of disabling myalgia Objective Failed to redirect to the Timeline version of the [employer]. Wt Readings from Last 3 Encounters: 06/05/23 88.9 kg (196 lb) 05/05/23 92.1 kg (203 lb) 12/23/22 90.7 kg (200 lb) Visit Vitals BP 128/82 (BP Location: Right arm, Patient Position: Sitting) Pulse 75 Ht 1.6 m (5' 3 ) Wt 88.9 kg (196 lb) BMI 34.72 kg/m Smoking Status Former BSA 1.99 m Physical Exam: GENERAL APPEARANCE: in no acute distress. CHEST: Symmetric and non-tender. INTEGUMENT: Skin warm and dry HEENT: No gross abnormalities identified.No pallor or scleral icterus. NECK: Supple, no JVD, no bruit. NEURO/PSHCY: Alert and oriented x3; appropriate behavior and responses and responses LUNGS: Clear to auscultation bilaterally; normal respiratory effort. HEART: Rate and rhythm regular with no evident murmur; no gallop appreciated. ABDOMEN: Soft, non tender. MUSCULOSKELETAL: No gross deformities. EXTREMITIES: Warm There is no edema noted. Meds: Current Outpatient Medications Medication Instructions albuterol sulfate (Proair Digihaler) 90 mcg/actuation aero powdr breath act w/sensor inhaler 2 puffs, inhalation, Every 4 hours PRN amiodarone (PACERONE) 100 mg, oral, Daily apixaban (ELIQUIS) 5 mg, oral, 2 times daily aspirin 81 mg, oral, Daily, Take with food. coenzyme Q-10 100 mg, oral, Daily inclisiran (LEQVIO) 284 mg, subcutaneous, Every 6 months, at 0, 3 months and then every 6 months thereafter loratadine (Claritin) 10 mg tablet 1 tablet, oral, Nightly magnesium oxide (MAG-OX) 400 mg, oral, 2 times daily montelukast (SINGULAIR) 10 mg, oral, Nightly olmesartan-hydrochlorothiazide (Benicar HCT) 20-12.5 mg tablet 1 tablet, oral, Daily omeprazole (PriLOSEC) [address] capsule 1 capsule, oral, Daily Allergies Allergen Reactions Chanel Inhibitors Hives and Shortness of breath Lisinopril Hives and Shortness of breath TABS Prednisone Hives Sulfamethoxazole Hives itching Arb-Angiotensin Receptor Antagonist Hives Atorvastatin Itching Adverse reaction: myalgia Methylprednisolone Hives Plavix [Clopidogrel] Hives Rosuvastatin Itching and Myalgia Penicillins Unknown Latex Rash swelling Toradol [Ketorolac] Headache LABS: Reviewed lipid profile Patient Active Problem List Diagnosis Date Noted Stage 3a chronic kidney disease ([facility]) 06/05/2023 Former smoker 06/05/2023 Hypercoagulability due to atrial fibrillation ([facility]) 12/23/2022 Second hand smoke exposure 12/23/2022 CHANEL inhibitor intolerance 12/23/2022 Afib ([facility]) 10/28/2022 COPD (chronic obstructive pulmonary disease) ([facility]) 10/28/2022 GERD (gastroesophageal reflux disease) 10/28/2022 Lung nodules 10/28/2022 Hypertension 10/28/2022 PVD (peripheral vascular disease) ([facility]) 10/28/2022 Varicose veins of legs 10/28/2022 Class 2 obesity with body mass index (BMI) of 35.0 to 35.9 in adult 10/28/2022 High risk medication use 10/28/2022 Mixed hyperlipidemia 10/28/2022 Vascular claudication ([facility]) 10/28/2022 Assessment: This is a patient with aggressive vascular disease, paroxysmal atrial fibrillation on high risk medications amiodarone and Eliquis, also on aspirin, her most recent lipid profile is excellent, but she will need statin therapy. She cannot tolerate atorvastatin greater than 20 mg dosage. She is also having class III claudication despite recent intervention to the left lower extremities. She had to stop Plavix because of hives. Consideration may be given for Brilinta and Eliquis. She could not tolerate rosuvastatin even at a lower dose, because of disabling myalgia 1. Paroxysmal atrial fibrillation (CMS/HCC) Follow Up In Cardiology 2. PVD (peripheral vascular disease) (CMS/HCC) 3. Hypertension, unspecified type 4. Hypercoagulable state due to paroxysmal atrial fibrillation (CMS/HCC) 5. Gastroesophageal reflux disease, unspecified whether esophagitis present 6. Chronic obstructive pulmonary disease, unspecified COPD type (CMS/HCC) 7. CHANEL inhibitor intolerance 8. Stage 3a chronic kidney disease (CMS/HCC) 9. Mixed hyperlipidemia 10. High risk medication use 11. Former smoker Clinical decision making: Patient is abstaining from cigarettes and she is encouraged to continue to do that No clinical evidence of amiodarone toxicity She did not get covered for Livalo. She has been approved for Leqvio, first injection July 2023 Patient has intolerance to CHANEL inhibitors and angiotensin receptor blockers. Ongoing risk factor modification encouraged Peripheral vascular disease is addressed by vascular surgery and she has upcoming appointment Amiodarone surveillance per protocol Follow up : 6 months Comprehensive profile and lipid profile prior to next visit Provider Attestation - Scribe documentation All medical record entries made by the Scribe were at my direction and personally dictated by me. I have reviewed the chart and agree that the record accurately reflects my personal performance of the history, physical exam, discussion and plan. documented in this encounter [facility] Work Phone: 06-05-2023 Instructions Ann Gonzalez LPN - 06/05/2023 10:00 AM EDT Please bring all medicines, vitamins, and herbal supplements with you when you come to the office. Prescriptions will not be filled unless you are compliant with your follow up appointments or have a follow up appointment scheduled as per instruction of your physician. Refills should be requested at the time of your visit. Amiodarone follow up per routine documented in this encounter [facility] Work Phone: 05-05-2023 History of Present illness Narrative Patient here for at EKG visit ordered by Maximiliano Blackburn [employer] OFFICER due to AFIB. Dr. Robb in suite physician. Patient here due to symptoms of shortness of breathe possibly due to decrease of amiodarone. Medication list Updated verbally. Patient having Shortness of breathe per telephone note from 04/30/2023 . Discussed with Laya Piña RN prior to discharge. To Dr. Robb for review in absence of Maximiliano Kapoor NP and Dr. Juany Richter MD Vitals: 05/05/23 1312 BP: 126/70 BP Location: Right arm Patient Position: Sitting Pulse: 66 Weight: 92.1 kg (203 lb) Height: 1.6 m (5' 3 ) documented in this encounter [facility] Work Phone: 05-05-2023 Instructions Diana De Oliveira LPN - 05/05/2023 11:00 AM EST EKG done in office today documented in this encounter [facility] Work Phone: 04-03-2023 History of Present illness Narrative Subjective Patient ID: Avelino Barrett is a 72 y.o. female who presents for Toenail Care (Toenail care). Nail care Location nails on bilateral feet Severity of symptoms mild Onset gradual Status no change Context hard to trim, hard to reach Nails thickened, discolored, pain Relieved by debridement, filing down nails, clipping nails History of ulcers/wounds no Aggravated by shoe gear, pressure Last seen date: Shannon Yoon Last seen diagnosing provider: 02-22 General: Chillsdenies. Feverdenies. Musculoskeletal: muscle weaknessdenies. Bone/joint symptomsdenies. Peripheral Vascular: Edemadenies. Hx of blood clots in legsdenies. Raynaud'sdenies. Rest pain denies. Ulceration of feetdenies. Varicose veinsdenies. Skin: Hyperpigmentationdenies. Nail changesdenies. Rashdenies. Skin lesion(s)denies. Neurologic: Gait abnormalitydenies. Tingling/Numbnessdenies. Current Medications Current Outpatient Medications: albuterol HFA 90 mcg/act inhaler, every 4 (four) hours., Disp: , Rfl: amiodarone (Pacerone) 100 MG tablet, Take 100 mg by mouth in the morning., Disp: , Rfl: Benicar HCT 20-12.5 MG tablet, 1 (one) time each day at the same time., Disp: , Rfl: coenzyme Q-10 100 MG capsule, Take 100 mg by mouth in the morning., Disp: , Rfl: [facility] Aspirin Low Dose 81 MG EC tablet, TAKE 1 TABLET BY MOUTH EVERY DAY WITH FOOD, Disp: , Rfl: diclofenac (Voltaren) 75 MG EC tablet, TAKE 1 TABLET BY MOUTH TWICE A DAY Oral for 30, Disp: , Rfl: Eliquis 5 MG tablet, every 12 (twelve) hours., Disp: , Rfl: fluticasone (Flonase) 50 MCG/ACT nasal spray, 1 (one) time each day at the same time., Disp: , Rfl: loratadine (Claritin) 10 MG tablet, TAKE 1 TABLET BY MOUTH EVERY DAY FOR 90 DAYS, Disp: , Rfl: magnesium oxide (Mag-Ox) 400 MG tablet, Take 1 tablet by mouth in the morning and 1 tablet before bedtime., Disp: , Rfl: montelukast (Singulair) 10 MG tablet, TAKE 1 TABLET BY MOUTH EVERY DAY FOR 30 DAYS, Disp: , Rfl: omeprazole (PriLOSEC) [address] capsule, 1 (one) time each day at the same time., Disp: , Rfl: Pitavastatin Calcium (Livalo) 4 MG tablet, Take 4 mg by mouth in the morning., Disp: , Rfl: traMADol (Ultram) 50 MG tablet, TAKE 1 TABLET BY MOUTH 3 TIMES A DAY NEEDED FOR 7 DAYS, Disp: , Rfl: venlafaxine XR (Effexor XR) 37.5 MG 24 hr capsule, TAKE 1 CAPSULE BY MOUTH EVERY DAY WITH FOOD FOR 30 DAYS, Disp: , Rfl: Allergies Hydrobenzthiazide, Doxycycline, Duloxetine, Ketorolac, Latex, Levocetirizine, Lisinopril, Losartan potassium-hctz, Metoprolol, Nitrofurantoin, Penicillins, Prednisone, Rosuvastatin, Sulfa antibiotics, and Duloxetine hcl Medical Histories Past Medical History: Diagnosis Date A-fib (CMS/HCC) Allergies Arrhythmia Arthritis Hypertension (CMS/HCC) Surgical Histories Past Surgical History: Procedure Laterality Date APPENDECTOMY CARPAL TUNNEL RELEASE Right SECTION, CLASSIC GALLBLADDER HYSTEROSCOPY 02/10/2023 D&C TUBAL LIGATION VEIN LIGATION Hospitalizations Family History Family History Problem Relation Name Age of Onset Heart disease Mother Cancer Father Ovarian cancer Sister Cancer Sister Diabetes Son Objective Foot Exam General Examination: GENERAL EXAMINATIONawake, aware of surroundings, in no acute distress. Vascular: DORSALIS PEDIS PULSE:2/4, bilaterally. POSTERIOR TIBIAL PULSE:2/4, bilaterally. TEMPERATURE GRADIENT:warm to warm. EDEMA:mild. VARICOSITIES:moderate , bilaterally. CAPILLARY FILLING TIME(sec):capillary fill intact bilateral digits less than 3 secs. HAIR GROWTH:absent. Neurologic: NEUROLOGIC light touch (normal). increased sensation to left great toe. Absent sharp sensations to the lesser toes bilateral. Vibratory sensation, shapr/dull and light touch are decreased to the plantar foot bilateral. Dermatologic: SKIN FINDINGS: web spaces are clean/dry, no erythema or ecchymosis noted. HYPERKERATOSIS:none. INGROWN NAIL PATHOLOGY:bilateral , hallux , lateral border , ingrown nail palate . MYCOSIS SCALE:4mm thick 50% with inflammation left more gr toes thick yellow crumbling. mild 2 bilat and mod 5 2-3mm. SKIN PATHOLOGY:texture, turgor, hair growth, within normal limits. atrophic skin with neg digital hair and hyperpigmentation-. Orthopedic: JOINT RANGE OF MOTION:ankle joint and subtalar joint ROM are normal and pain free. DEFORMITIES:none. MUSCLE STRENGTH5/5 for dorsiflexion, plantarflexion, inversion, eversion. POP lat gr toes. Modifier: -Q9, Parastesias. Nail Pathology: Right Foot: 1 (great toe)Long, Thick, Crumbly, Deformed, Discolored, Brittle, Dystrophic 5mm. 2Long, Thick, Crumbly, Deformed, Discolored, Brittle, Dystrophic. 3Normal. 4Long , Thick. 5Long, Thick, Crumbly, Deformed, Discolored, Brittle, Dystrophic. Nail Pathology: Left Foot: 1 (great toe)Long, Thick, Crumbly, Deformed, Discolored, Brittle, [id number]. 2Long, Thick, Crumbly, Deformed, Discolored, Brittle, Dystrophic. 3Normal. 4Normal. 5Long, Thick, Crumbly, Deformed, Discolored, Brittle, Dystrophic. Assessment/Plan neuropathy, mycotic nails Nails: all thick and dystrophic nails debrided of all affected and loose material All of the nondystrophic nails were debrided documented in this encounter [facility] 02-19-2023 Evaluation note Encounter Date Diagnosis Assessment Notes Jan, Acute recurrent maxillary sinusitis (ICD-10 - J01.01) Sinus infections can be triggered by a secondary infection from a viral URI or even seasonal allergies. Take medications as directed. Use saline nasal spray prior to presciption nasal spray. Take medications as directed, and complete all doses of medication even if you start to feel better. Patient advised to follow up with PCP if symptoms persist or worsen. Patient verbalized understanding and agreement with treatment plan. [facility] Other 12-07-2023 Evaluation note* Encounter Date Diagnosis Assessment Notes Treatment Notes Treatment Clinical Notes Jan, Acute recurrent maxillary sinusitis (ICD-10 - J01.01) Sinus infections can be triggered by a secondary infection from a viral URI or even seasonal allergies. Take medications as directed. Use saline nasal spray prior to presciption nasal spray. Take medications as directed, and complete all doses of medication even if you start to feel better. Patient advised to follow up with PCP if symptoms persist or worsen. Patient verbalized understanding and agreement with treatment plan. [facility] Other 10-26-2023 Evaluation note* Encounter Date Diagnosis Assessment Notes Treatment Notes Treatment Clinical Notes Dec, PAD (peripheral artery disease) (ICD-10 - I73.9) We reviewed her ABIs today which once again have worsened. We discussed this at length. She has no symptoms of claudication or ischemic rest pain and she has no tissue loss. For now she is getting along pretty well overall other than some joint pain and low back pain which limit her on occasion. She does continue to take her daily statin and aspirin medications. At this juncture, we will continue to follow her along closely but she knows if she were to worsen or develop a wound that she should come back sooner than her next scheduled appointment. We will see her again in 6 months with repeat studies otherwise. She should continue her walking program the same. She verbalizes understanding of all discussion, agrees with this plan, and denies any questions. Dec, Current every day smoker (ICD-10 - F17.200) We discussed the health risks of tobacco smoking. She understands her risks and is unmotivated to quit. [facility] 10-17-2023 Evaluation note* Encounter Date Diagnosis Assessment Notes Treatment Notes Treatment Clinical Notes Dec, Medicare annual wellness visit, subsequent (ICD-10 - Z00.00) Personalized health advice was given to the beneficiary including a written plan for screenings discussed and provided. Advanced care planning reviewed and/or information given as requested. Additional counseling was provided here today in regards to, [ ]. The above visit was performed by [ ], under direct supervision of [ ]. Document reviewed and amended by provider signed below. Dec, Seasonal affective disorder (ICD-10 - F33.8) Patient notes increased depression this time a year. Patient agrees to medication. Previously had adverse reaction to Celexa therefore will trial lowest dose of Effexor. Patient understands to contact office in 3 to 4 weeks with update on how her symptoms have been if we should increase dose etc. Dec, Essential hypertension (ICD-10 - I10) Continue present medicines for chronic condition Dec, Atrial fibrillation (ICD-10 - I48.91) Reviewed cardiology notes continue present medicines for chronic conditions. Dec, PAD (peripheral artery disease) (ICD-10 - I73.9) Advise she keep follow-up appointment with Dr. Mai in a few weeks. [facility] Other 09-11-2023 Evaluation note* Encounter Date Diagnosis Assessment Notes Treatment Notes Treatment Clinical Notes Nov, Endometrial thickening on ultrasound (ICD-10 - R93.89) [facility] 08-22-2023 Evaluation note* Encounter Date Diagnosis Assessment Notes Treatment Notes Treatment Clinical Notes Oct, Right medial knee pain (ICD-10 - M25.561) Pt requests a refill. Also is seeing ortho for joint issues. Oct, Acute vaginitis (ICD-10 - N76.0) Culture obtained Oct, Screening for cervical cancer (ICD-10 - Z12.4) Pap completed Oct, Encounter for gynecological examination (general) (routine) with abnormal findings (ICD-10 - Z01.411) Pt agreeable to pelvic US if test results are negative. Oct, Other Clinical impressions discussed. Monthly SBE advised along with yearly mammograms. Colon and osteoporosis screening reviewed and ordered if indicated (see preventative tab below). I will contact pt. with the results of her pap testing and arrange follow up based on the results. All questions answered to her satisfaction and patient sent home stable [facility] Other 08-10-2023 Evaluation note* Encounter Date Diagnosis Assessment Notes Treatment Notes Treatment Clinical Notes Oct, Paroxysmal a-fib (ICD-10 - I48.0) Presently in regular rhythm. Refilled eliquis Oct, GERD without esophagitis (ICD-10 - K21.9) Refilled med. Pt states her symptoms are controlled. Oct, Left flank pain (ICD-10 - R10.9) Check UA and C&S at lab. Jun, Dysuria (ICD-10 - R30.0) Dysuria [facility] 08-10-2023 Evaluation note* Encounter Date Diagnosis Assessment Notes Treatment Notes Treatment Clinical Notes Oct, Paroxysmal a-fib (ICD-10 - I48.0) Presently in regular rhythm. Refilled eliquis Oct, GERD without esophagitis (ICD-10 - K21.9) Refilled med. Pt states her symptoms are controlled. Oct, Left flank pain (ICD-10 - R10.9) Check UA and C&S at lab. Will treat with antibiotic if she has a UTI. Will refer to Urology if she has signs of a kidney stone. Will assess lab results as soon as they are available. Jun, Dysuria (ICD-10 - R30.0) Dysuria [facility] 06-09-2023 Evaluation note* Encounter Date Diagnosis Assessment Notes Treatment Notes Treatment Clinical Notes Aug, Acute pain of right knee (ICD-10 - M25.561) Aug, Primary osteoarthritis of right knee (ICD-10 - M17.11) Avelino presents with right knee DJD. At this juncture we have discussed the findings and diagnosis as well as personally reviewed appropriate imaging and performed interpretation of related testing and examination with the patient in office today. Prior medical notes from Dr. Yoon and history have been reviewed. Today we have discussed degenerative joint disease of the knee and its treatment. Imaging was discussed and explained to the patient. We discussed recommended conservative therapies including physical therapy, anti-inflammatory medications, and weight loss strategies. We also discussed other treatment options including cortisone injections, Visco supplementation injections which are options for treatment. I have laid out the course of knee DJD including the end-stage treatment of total joint arthroplasty. The patient recognizes and understands our options and goals and we will move forward with our treatment. Today we have initiated aspiration and cortisone injection. Under sterile technique patient's right knee was aspirated via the superolateral portal revealing 55 mL of normal-appearing joint fluid and then injected with 4 cc of Marcaine with 1 cc of Kenalog. She tolerated this well. We applied a compressive wrap. She should continue icing and compression and monitor this. If it returns I will see her back if she returns to normal and she can follow-up. The patient has been involved in our cooperative treatment plan and agrees to move forward with treatment at this time. The patient is suffering from degenerative arthritis involving the knee. We discussed the conservative treatment options which can be beneficial in relieving pain, including gentle non-impact motion exercise and non-steroidal anti-inflammatory medication. We discussed the use of occasional cortisone injections that can provide pain relief as well as hyaluronan lubricant injection. Patient was prepped and a knee aspiration was preformed. Patient was then aspirated of approximately 55 mls of normal appearing fluid under sterile conditions. We performed a marcaine / kenalog cortisone injection into the knee joint under sterile technique. Patient tolerated the injection well without adverse reaction. Dressing was applied to knee. Aug, Other See orders for this visit as documented in the electronic medical record. [facility] 06-02-2023 Evaluation note* Encounter Date Diagnosis Assessment Notes Treatment Notes Treatment Clinical Notes Aug, Right anterior knee pain (ICD-10 - M25.561) Keep ortho appt - requests pain med to be moderately comfortable in the meantime. [facility] Other 05-30-2023 Evaluation note* Encounter Date Diagnosis Assessment Notes Treatment Notes Treatment Clinical Notes July, Left hand pain (ICD-10 - M79.642) July, Primary osteoarthritis of first carpometacarpal joint of left hand (ICD-10 - M18.12) The patient is suffering from degenerative arthritis involving the thumb CMC joint. We discussed the conservative treatment options which can be beneficial in relieving pain, including hand occupational therapy, wearing a brace, and non-steroidal anti-inflammatory medication. We discussed the use of occasional cortisone injections that can provide pain relief. Patient given order for occupational therapy and brace. Discussed with patient she can use over the counter voltaren gel. Patient given Dr. Alcantara medication sheet. Patient offered cortisone injection today, patient declined [facility] 04-26-2023 Evaluation note* Encounter Date Diagnosis Assessment Notes Treatment Notes Treatment Clinical Notes Jun, PAD (peripheral artery disease) (ICD-10 - I73.9) I did review the patient's post procedure ABIs. They appear worse. I explained this to the patient. She was surprised to hear this. She thinks her symptoms are better. I suspect her SFA stent is occluded. I explained this to her. She does not want anything done at this time as she she is happy with her result. I do not recommend we intervene in the right leg at this time it is not causing her any problems. I will see her back in 6 months with surveillance ABIs. I encouraged her to ambulate as much as possible to help mitigate this disease process. She understands agrees the plan all her questions were addressed. [facility] Encounter Date Diagnosis Assessment Notes Treatment Notes Treatment Clinical Notes May, PAD (peripheral artery disease) (ICD-10 - I73.9) This patient has severe claudication. She states that it interferes with her ability to work and exercise. Is been going on for 10 years and getting worse lately. I believe we are past the point of an exercise regimen for this patient. She can barely walk 30 feet. I am recommending a diagnostic and possibly therapeutic angiography in order to increase the blood supply to her legs. 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 We will need to ultrasound the groin vessels prior to the procedure to ensure that there is adequate blood supply to achieve access. We may have to come from the left arm for a diagnostic angiogram. The risks and benefits were explained as well as medical surgical alternatives the patient understands wishes to proceed all her questions were addressed. I did give her a PAD handout today. We reviewed each page individually. We especially consultative try to concentrate on the potential complication section. We went through each complication individually and the patient still wishes to proceed despite these horrible complications such as amputation and . We will schedule this in the near future. In the meantime she should continue taking her aspirin for its antiplatelet activity. The patient does not tolerate statin. Clearly she is to quit smoking. She is aware of this and she has been trying for years. [facility] 02-28-2023 Evaluation note* Encounter Date Diagnosis Assessment Notes Treatment Notes Treatment Clinical Notes Apr, Dysuria (ICD-10 - R30.0) see antibiotic below Apr, Acute cystitis without hematuria (ICD-10 - N30.00) multiple allergies. pt states she can take the keflex as the azithromycin interferes with amiodarone. Apr, Non-seasonal allergic rhinitis due to other allergic trigger (ICD-10 - J30.89) requests refill on claritin Apr, Atrial fibrillation (ICD-10 - I48.91) pt requests a change in dose so she doesn't have to take 2 - will notify her new portrait photographer. [facility] 02-01-2023 History of Present illness Narrative* This is a follow-up from April 2022. * Had lab work James work in June the results of which were reviewed. * Patient says she could not tolerate atorvastatin 40 mg. * She says she could tolerate the 20 mg. * She quit smoking 10 days ago and was congratulated profusely. We will continue to encourage her to stay off of cigarettes. She does not report any palpitations lightheadedness presyncope or syncope. She has significant peripheral vascular disease, Dr. Sanchez intervened on her left leg, but she says that now she has burning sensation in her legs all the time particularly the left leg. She says that the symptoms have not really improved with the intervention. * Patient is having class III claudication. * Her EKG shows sinus rhythm at 75 bpm MN interval 150 ms QRS duration 90 ms QTc 477 ms. * Laboratory data from June show that her triglycerides are 125 LDL is 70 total cholesterol 151 and HDL 56. * On 06/21/2022 she had left ankle-brachial index done, which showed moderately severe left lower extremity peripheral vascular occlusive disease at rest, with further reduction in ankle-brachial index compared to the previous study. At the left ankle SHERLY was 0.61 for the posterior tibial and 0.55 forthe dorsalis pedis. * Today's EKG was reviewed, shows normal sinus rhythm QTc 477 ms normal MN interval. * To further clarify the physical examination findings, left foot is cool to touch. I had great difficulty dopplerable pulses in her left foot, they are both very faint on the right foot, dorsalis pedis and posterior tibial are strong to Doppler and the right foot is slightly warmer than the left. * Assessment: * 1. Symptomatic atrial fibrillation-fatigue, drop in blood pressure on her home monitoring device. She is currently in sinus rhythm. * 2. Atrial fibrillation was initially diagnosed in 2019. * 3. Remains on high risk medications Eliquis and amiodarone. Amiodarone dose was reduced at last office visit. * 4. Echocardiogram July 2021-LVEF greater than 55% mild concentric left ventricular hypertrophy normal diastolic function normal chamber dimensions RVSP 35 mmHg trivial tricuspid regurgitation mild mitral annular calcification no aortic or mitral valve disease normal IVC LV end-systolic dimension 2.8cm left atrial volume index 34 mL/m left atrial diameter 4.3 cm * 5. Varicose veins and history of vein ligation and stripping left lower extremity 2002 * 6. Evidence of peripheral vascular disease on examination * 7. Buttock discomfort with ambulation-need to exclude claudication due to vascular disease * 8. Multiple drug intolerances-including prednisone, several antibiotics, hydrochlorothiazide, lisinopril, Hyzaar, however patient is tolerating Benicar. * 9. 60+ pack year history of smoking currently smoking less than 1 pack/day * 10. Small pulmonary nodules,addressed by primary. * 11. Shortness of breath-this was noted on recent visit with primary care, patient did not express this as a major symptom to me. Most likely related to COPD, however amiodarone induced pulmonary toxicity cannot be excluded, I agree with primary MDs note. PFTs have been ordered by primary care. Albuterol inhaler has been recommended. * 12. [id number] score 4 based on my evaluation today * 13.GERD on prophylaxis. * 14. PVR rest and exercise April 2022-evidence of moderate multivessel disease, monophasic waveforms are noted in the right common femoral artery right superficial femoral artery right popliteal artery right posterior tibial artery and right dorsalis pedis artery. Blunted waveforms beginning at the level of the popliteal artery on the left side there is evidence of moderate multivessel disease monophasic flow is noted in the left common femoral left popliteal left anterior tibial left posterior tibial and left dorsalis pedis blunted waveforms noted at the beginning of the knee level. * 15. Ankle-brachial indicis abnormal in the proximal thigh level at 0.75 on the right and 0.61 on the left, and drops steadily down to 0.52 right dorsalis pedis 0.59 right posterior tibial, 0.53 left posterior tibial 0.50 left dorsalis pedis. * 16. Pulmonary function testing 02/12/2022-nondiagnostic spirometry normal total lung capacity with mild isolated diffusion impairment which can be seen but is not restricted to cardiopulmonary vascular disorders, early interstitial lung disease early emphysema and smoking. DLCO 71% FEV1 over FVC 76% DLCO corrected for alveolar ventilation 72% * 17. Ankle-brachial index of the left lower extremity 06/21/2022 was 0.61 at the posterior tibial and0.55 at the dorsalis pedis. * 18. Intolerance to atorvastatin in excess of 20 mg dose-myalgia * 19. Allergy to Plavix-hives. * This is a patient with aggressive vascular disease, paroxysmal atrial fibrillation on high risk medications amiodarone and Eliquis, also on aspirin, her most recent lipid profile is excellent, but she will need statin therapy. She cannot tolerate atorvastatin greater than 20 mg dosage. She is also having class III claudication despite recent intervention to the left lower extremities. She had to stop Plavix because of hives. Consideration may be given for Brilinta and Eliquis. * Recommendations: * 1. Patient needs statin therapy, we will initiate rosuvastatin 10 mg daily with liver and lipid profile in 3 months * 2. Proceed with amiodarone surveillance per protocol clinically no evidence of amiodarone toxicity. * 3. Patient should seek emergent medical attention if her claudication worsens or if she develops bluish discoloration or ulcers that are not healing. * 4. She is encouraged her to continue to abstain from cigarettes. * 5. Please obtain most recent office note and procedure report from vascular. * 6. Patient to see vascular surgery if claudication symptoms worsen. She reports that she has been seen in follow-up after her vascular procedure. * 7. Consider vascular rehabilitation. I encouraged her to walk as much as possible and take breaks in between. -[place] [id number] DO Work Phone: [phone] History of Present illness Narrative* Patient was first seen by me 02/11/2022. She presents for follow-up after testing. She underwent Lexiscan Myoview, and PVR rest and exercise, as well as pulmonary function testing and ankle-brachial indicis. She reports feeling well overall, the only symptom she has now is bilateral thigh claudication. As a result her activity level is low. * Her EKG today shows normal sinus rhythm at 66 bpm with MN interval of 130 ms QRS duration 92 ms andQTc of 452 ms she does not report any palpitations. She currently is smoking about 10 cigarettes a day, and says she will try to cut down further and then stop. * I have reviewed with her the results of her peripheral vascular studies, and that there is a high level of suspicion for flow-limiting disease in the thigh or even more proximally. Her pulmonary function testing was not suggestive of any gross abnormalities concerning for amiodarone toxicity. * Assessment: * 1. Symptomatic atrial fibrillation-fatigue, drop in blood pressure on her home monitoring device. She is currently in sinus rhythm. * 2. Atrial fibrillation was initially diagnosed in 2018. * 3. Remains on high risk medications Eliquis and amiodarone. Amiodarone dose was reduced at last office visit. * 4. Echocardiogram July 2021-LVEF greater than 55% mild concentric left ventricular hypertrophy normal diastolic function normal chamber dimensions RVSP 35 mmHg trivial tricuspid regurgitation mild mitral annular calcification no aortic or mitral valve disease normal IVC LV end-systolic dimension 2.8cm left atrial volume index 34 mL/m left atrial diameter 4.3 cm * 5. Varicose veins and history of vein ligation and stripping left lower extremity 2002 * 6. Evidence of peripheral vascular disease on examination * 7. Buttock discomfort with ambulation-need to exclude claudication due to vascular disease * 8. Multiple drug intolerances-including prednisone, several antibiotics, hydrochlorothiazide, lisinopril, Hyzaar, however patient is tolerating Benicar. * 9. 60+ pack year history of smoking currently smoking less than 1 pack/day * 10. Small pulmonary nodules * 11. Shortness of breath-this was noted on recent visit with primary care, patient did not express this as a major symptom to me. Most likely related to COPD, however amiodarone induced pulmonary toxicity cannot be excluded, I agree with primary MDs note. PFTs have been ordered by primary care. Albuterol inhaler has been recommended. * 12. [id number] score 4 based on my evaluation today * 13.GERD on prophylaxis. * 14. PVR rest and exercise April 2022-evidence of moderate multivessel disease, monophasic waveforms are noted in the right common femoral artery right superficial femoral artery right popliteal artery right posterior tibial artery and right dorsalis pedis artery. Blunted waveforms beginning at the level of the popliteal artery on the left side there is evidence of moderate multivessel disease monophasic flow is noted in the left common femoral left popliteal left anterior tibial left posterior tibial and left dorsalis pedis blunted waveforms noted at the beginning of the knee level. * 15. Ankle-brachial indicis abnormal in the proximal thigh level at 0.75 on the right and 0.61 on the left, and drops steadily down to 0.52 right dorsalis pedis 0.59 right posterior tibial, 0.53 left posterior tibial 0.50 left dorsalis pedis. * 16. Pulmonary function testing 02/12/2022-nondiagnostic spirometry normal total lung capacity with mild isolated diffusion impairment which can be seen but is not restricted to cardiopulmonary vascular disorders, early interstitial lung disease early emphysema and smoking. DLCO 71% FEV1 over FVC 76% DLCO corrected for alveolar ventilation 72% * Recommendations: * 1. At every visit to be encouraged her to quit smoking altogether * 2. Antiplatelet therapy is warranted, she prefers Plavix over aspirin, she is afraid that the aspirin will tear her stomach up. We will start Plavix 75 mg p.o. daily * 3. She will need statin therapy, I do not see a recent lipid profile, we will start with atorvastatin 20 mg daily. Have to watch because she has intolerance to so many medications. * 4. Referral to vascular surgery Dr. Rodriguez * 5. CT of the abdominal aorta with distal runoff * Follow-up in 3 months, at which time I will strongly consider switching her off the amiodarone and initiating another antiarrhythmic agent. -[facility] [employer] [employer] DO Work Phone: [phone] 608-701411-15-2022 NoteUT Cardiology Consult Note Reason for Consultation: Afib HPI: Avelino Bustos is a 71 y.o. with a past medical history of hypertension, GERD has been feeling fatigued and has been also been noted to have low blood pressure for some time she was noted to be in atrial fibrillation during the evaluation with her primary care doctor and was subsequently placed on beta-blockers for rate control. Unfortunately she cannot tolerate metoprolol because she felt that that made her throat swell up and is unable to tolerated it. She was previously on losartan thiazide combination for hypertension which was held due to the blood pressure and she wants to go back on it. She is a long-term smoker and is currently being evaluated for CT scan evidence of nodules. As far as her atrial fibrillation is concerned she said that she was aware of a fluttering sensation over the past few weeks and has not noted this before. She does report a decrease in energy level compared to a year ago. No active chest pain or syncope Patient was started on amiodarone and converted to sinus rhythm. She is doing well and feels much better. She wants to decide on ablation. Past medical history: Hypertension, interstitial cystitis, GERD, p-ANCA +, right lung mass being evaluated, Past surgical history: Left lower extremity vein ligation and stripping, upper dental surgery on the right side, tubal ligation, section, cholecystectomy, appendectomy EKG for EK08/13/2021 SR 06/14/2021 atrial fibrillation with varying rapid ventricular rate 08/05/2018 sinus rhythm Echocardiogram performed on 07/05/2021 shows EF of 55% with a left atrium normal size Stress test on 06/27/2016 for chest pain was treadmill nuclear stress test with no evidence of any EKG suggestive of ischemia nuclear perfusion study but was negative for ischemia. CT chest on 01/26/2021 showed stable appearance of scattered nodules and patchy opacities within the lung with particular note on the right perihilar nodule which was reported as showing no suspicious metabolic activity on a prior PET scan PMH: Past Medical History: Diagnosis Date Atrial fibrillation (CMS/HCC) Hypertension PSH: No past surgical history on file. SH: Social Determinants of Health Tobacco Use: High Risk Smoking Tobacco Use: Every Day Smokeless Tobacco Use: Never Passive Exposure: Not on file Alcohol Use: Not on file Financial Resource Strain: Not on file Food Insecurity: Not on file Transportation Needs: Not on file Physical Activity: Not on file Stress: Not on file Social Connections: Not on file Intimate Partner Violence: Not on file Depression: Not on file Housing Stability: Not on file Meds: Current Outpatient Medications on File Prior to Visit Medication Sig Dispense Refill amiodarone (Pacerone) 200 mg tablet 1 (one) time each day at the same time. Eliquis 5 mg tablet Take 5 mg by mouth in the morning and at bedtime. loratadine (Claritin) 10 mg tablet Take 10 mg by mouth in the morning. olmesartan-hydrochlorothiazide (BENIcar HCT) 20-12.5 mg tablet Take 1 tablet by mouth in the morning. omeprazole (PriLOSEC) [address] capsule Take 40 mg by mouth before breakfast. Do not crush or chew. [DISCONTINUED] gabapentin (Neurontin) 100 mg capsule 1 capsule. [DISCONTINUED] diclofenac (Voltaren) 75 mg EC tablet TAKE 1 TABLET BY MOUTH TWICE A DAY Oral for 30 No current facility-administered medications on file prior to visit. ROS: Physical Exam: Constitutional General Appearance: well-nourished, well-developed, appears stated age Level of Distress: comfortable Psychiatric Mental Status: alert, normal affect Orientation: oriented to time, place, and person Insight: good judgement Eyes Lids and Conjunctivae: non-injected, no xanthelasma ENMT Ears: no lesions on external ear Nose: no lesions on external nose Oropharynx: no cyanosis, no pallor Neck Neck: supple, trachea midline Carotid Arteries: bilateral normal upstroke, no bruits Jugular Veins: normal jugular venous pressure Thyroid: not enlarged Lungs Respiratory Effort: unlabored Chest Exam: normal curvature, no thoracic deformity Auscultation: clear, no wheezing, no rales, no rhonchi Cardiovascular Rate And Rhythm: regular Heart Sounds: normal S1, normal s2, no gallop Systolic Murmur: not heard Diastolic Murmur: not heard Extremities: no cyanosis, no edema, no peripheral signs of emboli Peripheral Pulses Radial Pulse: normal Abdomen Inspection and Palpation: soft, non distended, no bruit, non tender Musculoskeletal Inspection: no joint swelling Neurologic Gait: normal gait Skin Inspection and Palpation: warm and dry Nails: no clubbing Labs: @LABRESULTS@ EKG: Encounter Date: 08/13/21 ECG 12 lead Result Value Ventricular Rate 61 Atrial Rate 61 MN Interval 166 QRS DURATION 88 QT Interval 442 QTC CALCULATION(BAZETT) 444 P Axi (more content not included)...[facility] Evaluation noteNo assessment information availableWexner [facility] Work Phone: Evaluation noteNo InformationNort payleven Other Evaluation note* Diagnosis Idiopathic progressive polyneuropathy- Primary Onychomycosis Dermatophytosis of nail documented [facility]* Diagnosis Onset Date Resolution Status Osteoarthritis of left knee acute Osteoarthritis of right knee acute [facility] Work Phone: Evaluation note* Diagnosis Atrial fibrillation, unspecified type (CMS/HCC) documented in this encounter [facility] Work Phone: Evaluation note* Diagnosis Paroxysmal atrial fibrillation (CMS/HCC) Atrial fibrillation PVD (peripheral vascular disease) ([facility]/HCC) Unspecified peripheral vascular disease Hypertension, unspecified type Hypercoagulable state due to paroxysmal atrial fibrillation ([facility]/HCC) Gastroesophageal reflux disease, unspecified whether esophagitis present Chronic obstructive pulmonary disease, unspecified COPD type ([facility]/HCC) CHANEL inhibitor intolerance Stage 3a chronic kidney disease (CMS/HCC) Mixed hyperlipidemia High risk medication use Former smoker Personal history of tobacco use, presenting hazards to health Paroxysmal atrial fibrillation ([facility]) Atrial fibrillation documented in this encounter [facility] Work Phone: Evaluation note* Diagnosis Paroxysmal atrial fibrillation ([facility]/HCC) Atrial fibrillation documented in this encounter [facility] Work Phone: Evaluation note* Diagnosis Onset Date Resolution Status Spasm of left trapezius muscle acute PAD (peripheral artery disease) acute Osteoarthritis of left knee acute Osteoarthritis of right knee acute Otitis externa acute [facility] Work Phone: Evaluation note* Diagnosis Onset Date Resolution Status PAD (peripheral artery disease) acute Osteoarthritis of left knee acute Osteoarthritis of right knee acute Otitis externa acute Osteoarthritis of left knee acute Osteoarthritis of right knee acute [facility] Work Phone: Evaluation note* Diagnosis Onset Date Resolution Status PAD (peripheral artery disease) acute Osteoarthritis of left knee acute Osteoarthritis of right knee acute Otitis externa acute Osteoarthritis of left knee acute Osteoarthritis of right knee acute Dysuria acute [facility] Work Phone: Evaluation note* Diagnosis Onset Date Resolution Status Osteoarthritis of left knee acute Osteoarthritis of right knee acute Otitis externa acute Osteoarthritis of left knee acute Osteoarthritis of right knee acute Dysuria acute [facility] Work Phone: Evaluation note* Diagnosis Onset Date Resolution Status Osteoarthritis of left knee acute Osteoarthritis of right knee acute Otitis externa acute Osteoarthritis of left knee acute Osteoarthritis of right knee acute Dysuria acute Bronchitis acute Dyspnea acute Essential hypertension acute Fatigue acute [facility] Work Phone: History general Narrative - Reported* Type Description Date Medical History Cigarette nicotine dependence Medical History Atrial fibrillation Medical History Solitary pulmonary nodule Medical History Interstitial cystitis Medical History Essential hypertension Medical History De Quervain's tenosynovitis Medical History Right lower lobe lung mass Medical History Allergic rhinitis Medical History Gastro-esophageal reflux disease without esophagitis Medical History Bursitis of knee, left Surgical History LLE VEIN LIGATION AND STRIPPING 2002 Surgical History CARPAL TUNNEL RELEASE ON THE RI GHT WRIST 1986 Surgical History TUBAL LIGATION 1982 Surgical History 1980 Surgical History CHOLECYSTECTOMY 1976 Surgical History APPENDECTOMY 1974 Hospitalization History SEE SURGICAL [employer] Other History general Narrative - Reported* Type Description Date Medical History Cigarette nicotine dependence Medical History Atrial fibrillation Medical History Solitary pulmonary nodule Medical History Interstitial cystitis Medical History Essential hypertension Medical History De Quervain's tenosynovitis Medical History Right lower lobe lung mass Medical History Allergic rhinitis Medical History Gastro-esophageal reflux disease without esophagitis Medical History Bursitis of knee, left Surgical History LLE VEIN LIGATION AND STRIPPING 2002 Surgical History CARPAL TUNNEL RELEASE ON THE RI GHT WRIST 1986 Surgical History TUBAL LIGATION 1982 Surgical History 1980 Surgical History CHOLECYSTECTOMY 1976 Surgical History APPENDECTOMY 1973 Surgical History ANGIOGRAM AORTA W RUNOFF, ANGIO PLASTY ILIAC 2022 Hospitalization History SEE SURGICAL [employer] Other Hisqxau general Narrative - Reported* Type Description Date Medical History Cigarette nicotine dependence Medical History Atrial fibrillation Medical History Solitary pulmonary nodule Medical History Interstitial cystitis Medical History Essential hypertension Medical History De Quervain's tenosynovitis Medical History Right lower lobe lung mass Medical History Allergic rhinitis Medical History Gastro-esophageal reflux disease without esophagitis Medical History Bursitis of knee, left Medical History Essential (primary) hypertension Medical History Gastro-esophageal reflux disease without esophagitis Medical History Shortness of breath Medical History Anxiety disorder, unspecified Medical History Hypersomnia, unspecified Surgical History APPENDECTOMY Surgical History CHOLECYSTECTOMY Surgical History SECTION Surgical History TUBAL LIGATION Surgical History CARPAL TUNNEL RELEASE ON RIGHT WRIST Surgical History LLE VEIN LIGATION AND STRIPPING Hospitalization History SEE SURGICAL [employer] Other Hisytpr general Narrative - Reported* Type Description Date Medical History Cigarette nicotine dependence Medical History Atrial fibrillation Medical History Solitary pulmonary nodule Medical History Interstitial cystitis Medical History Essential hypertension Medical History De Quervain's tenosynovitis Medical History Right lower lobe lung mass Medical History Allergic rhinitis Medical History Gastro-esophageal reflux disease without esophagitis Medical History Bursitis of knee, left Medical History Essential (primary) hypertension Medical History Gastro-esophageal reflux disease without esophagitis Medical History Shortness of breath Medical History Anxiety disorder, unspecified Medical History Hypersomnia, unspecified Surgical History APPENDECTOMY Surgical History LLE VEIN LIGATION AND STRIPPING 2002 Surgical History CARPAL TUNNEL RELEASE ON THE RI GHT WRIST 1986 Surgical History CHOLECYSTECTOMY Surgical History SECTION Surgical History TUBAL LIGATION 1982 Surgical History 1980 Surgical History TUBAL LIGATION Surgical History CARPAL TUNNEL RELEASE ON RIGHT WRIST Surgical History CHOLECYSTECTOMY 1976 Surgical History APPENDECTOMY 1973 Surgical History LLE VEIN LIGATION AND STRIPPING Surgical History ANGIOGRAM AORTA W RUNOFF, ANGIO PLASTY ILIAC 2022 Hospitalization History SEE SURGICAL HX [employer] Other History of Present illness Narrative* Patient is being seen in cardiology consultation regarding atrial fibrillation management. * Is a 71-year-old female, with history of hypertension nicotine dependence , peripheral vascular disease on today's examination, no documented diabetes, no TIA or CVA, no documented coronary artery disease. Probably has COPD based on testing, and some exertional shortness of breath, denies chest pressure tightness or heaviness denies palpitations lightheadedness presyncope syncope orthopnea PND orlower extremity edema. This activity is difficult because of bilateral hip and buttock discomfort particularly with walking. I have not excluded that this represents vascular claudication at least inpart. Patient did not report significant shortness of breath or change in her functional status in the last several months, however subsequent review of primary care notes since that patient has had shortness of breath and he ordered pulmonary function testing and included the differential of amiodarone induced pulmonary toxicity in the differential diagnosis of this symptom. * Symptoms of atrial fibrillation was fatigue, but it occurred in the setting of her second COVID immunization, she had some minor upper respiratory symptoms and she was achy. An EKG by primary MD confirmed atrial fibrillation. She would noticed that her blood pressure would drop low at times, and she would have to hold her blood pressure medications, and this may have been in the setting of atrialfibrillation. * EKG today shows normal sinus rhythm at 69 bpm MN interval 158 ms QRS interval 90 ms QTC 458 ms * An EKG in the chart from 2018 does show atrial fibrillation. Normal QRS and QTc. * Laboratory data from April 2021 hemoglobin 13 hematocrit 42 platelets 180 * Assessment: * 1. Symptomatic atrial fibrillation-fatigue, drop in blood pressure on her home monitoring device. * 2. Atrial fibrillation was initially diagnosed in 2019. * 3. Remains on high risk medications Eliquis and amiodarone. * 4. Echocardiogram July 2021-LVEF greater than 55% mild concentric left ventricular hypertrophy normal diastolic function normal chamber dimensions RVSP 35 mmHg trivial tricuspid regurgitation mild mitral annular calcification no aortic or mitral valve disease normal IVC LV end-systolic dimension 2.8cm left atrial volume index 34 mL/m left atrial diameter 4.3 cm * 5. Varicose veins and history of vein ligation and stripping left lower extremity 2002 * 6. Evidence of peripheral vascular disease on examination * 7. Buttock discomfort with ambulation-need to exclude claudication due to vascular disease * 8. Multiple drug intolerances-including prednisone, several antibiotics, hydrochlorothiazide, lisinopril, Hyzaar, however patient is tolerating Benicar. * 9. 60+ pack year history of smoking currently smoking less than 1 pack/day * 10. Small pulmonary nodules * 11. Shortness of breath-this was noted on recent visit with primary care, patient did not express this as a major symptom to me. Most likely related to COPD, however amiodarone induced pulmonary toxicity cannot be excluded, I agree with primary MDs note. PFTs have been ordered by primary care. Albuterol inhaler has been recommended. * 12. [id number] score 4 based on my evaluation today * 13.GERD on prophylaxis. * Discussed atrial fibrillation patient was informed that the patient has an irregularly irregular heart rate, and it is called atrial fibrillation. The pathophysiology of atrial fibrillation, some of the precipitating factors, and the risk of stroke with atrial fibrillation was discussed. Patient was informed that there are different modalities for treating atrial fibrillation, and the plan of treatment would be individualized to the patient's needs and response. The importance of blood thinnersto prevent stroke in atrial fibrillation was discussed, the pros and cons of blood thinners were also discussed to include bleeding with over treatment and lack of stroke protection in the setting ofunder treatment. Patient was also told that if there is any evidence of bleeding such as black stool or blood in the stool or traumatic falls, prompt medical attention should be sought. If patient were to have surgical procedures, they would be interruption in these medications, and additional orders will need to be provided. * Also discussed the fact that atrial fibrillation management includes controlling the rate and establishing normal rhythm. * Patient should report promptly in the event of any noticeable bleeding such as blood in the stool or black stool bleeding from the nose etc. * Briefly mentioned watchman device, will continue to assess need for such a device based on clinicalcourse, and provide more information if patient is not a candidate for anticoagulation or if patient prefers an invasive approach over a medical approach for stroke prevention. * Discussed the potential for amiodarone toxicity to include lung liver and thyroid toxicity. When she was in the office I did not really highly suspect amiodarone induced pulmonary toxicity, but she will get PFTs, and we can follow-up after that. Another concern I have is her hives to prednisone. Ifdevante were to develop pneumonitis or pulmonary issues from amiodarone, the only treatment that we have would be steroids, and if she cannot have steroids then it is better to switch her to an alternateagent. * She did see an outside portrait photographer, who recommended apparently ablation for atrial fibrillation, she is hesitant to go through these procedures, we had a discussion about that. * We talked about the need to work on nicotine cessation. She already has evidence of COPD and small pulmonary nodules. * Recommendations: * 1. Decrease amiodarone to 200 mg p.o. every other day if she notices increased frequency of atrial fibrillation she can increase the medication to 200 mg daily and then inform us * 2. Lipid profile in the near future * 3. Magnesium oxide 400 mg p.o. twice daily, may switch to 400 mg daily if diarrhea occurs * 4. Lexiscan Myoview-unable to walk on treadmill because of hip pain * 5. Lower extremity arterial duplex and PVR rest and exercise * 6. Continue follow-up with pulmonary service * 7. Follow-up after testing sooner if interval problems arise. * 8. If she does not have flow-limiting coronary artery disease, we can certainly try alternate antiarrhythmic such as flecainide or propafenone which can be initiated on an outpatient basis. * Thank you for allowing us to participate in patient's care, please do not hesitate to call if further questions arise, * Sincerely, * Juany Richter MD [facility] [id number] DO Work Phone: History of Present illness Narrative* Assessment: * 1. Symptomatic atrial fibrillation-fatigue, drop in blood pressure on her home monitoring device. She is currently in sinus rhythm. * 2. Atrial fibrillation was initially diagnosed in 2018. * 3. Remains on high risk medications Eliquis and amiodarone. Amiodarone dose was reduced at last office visit. * 4. Echocardiogram July 2021-LVEF greater than 55% mild concentric left ventricular hypertrophy normal diastolic function normal chamber dimensions RVSP 35 mmHg trivial tricuspid regurgitation mild mitral annular calcification no aortic or mitral valve disease normal IVC LV end-systolic dimension 2.8cm left atrial volume index 34 mL/m left atrial diameter 4.3 cm * 5. Varicose veins and history of vein ligation and stripping left lower extremity 2002 * 6. Evidence of peripheral vascular disease on examination * 7. Buttock discomfort with ambulation-need to exclude claudication due to vascular disease * 8. Multiple drug intolerances-including prednisone, several antibiotics, hydrochlorothiazide, lisinopril, Hyzaar, however patient is tolerating Benicar. * 9. 60+ pack year history of smoking currently smoking less than 1 pack/day * 10. Small pulmonary nodules * 11. Shortness of breath-this was noted on recent visit with primary care, patient did not express this as a major symptom to me. Most likely related to COPD, however amiodarone induced pulmonary toxicity cannot be excluded, I agree with primary MDs note. PFTs have been ordered by primary care. Albuterol inhaler has been recommended. * 12. ZPG2OM9-ELKk score 4 based on my evaluation today * 13.GERD on prophylaxis. * 14. PVR rest and exercise April 2022-evidence of moderate multivessel disease, monophasic waveforms are noted in the right common femoral artery right superficial femoral artery right popliteal artery right posterior tibial artery and right dorsalis pedis artery. Blunted waveforms beginning at the level of the popliteal artery on the left side there is evidence of moderate multivessel disease monophasic flow is noted in the left common femoral left popliteal left anterior tibial left posterior tibial and left dorsalis pedis blunted waveforms noted at the beginning of the knee level. * 15. Ankle-brachial indicis abnormal in the proximal thigh level at 0.75 on the right and 0.61 on the left, and drops steadily down to 0.52 right dorsalis pedis 0.59 right posterior tibial, 0.53 left posterior tibial 0.50 left dorsalis pedis. * 16. Pulmonary function testing 02/12/2022-nondiagnostic spirometry normal total lung capacity with mild isolated diffusion impairment which can be seen but is not restricted to cardiopulmonary vascular disorders, early interstitial lung disease early emphysema and smoking. DLCO 71% FEV1 over FVC 76% DLCO corrected for alveolar ventilation 72% -[facility] [address] DO Work Phone: Hospital Discharge instructions Additional Instructions DISCHARGE INSTRUCTIONS FOR DILATION & CURETTAGE (D & C) -Today, outpatient surgery has become a vital link in the health care program. Outpatient D&C is a safe and common practice and this paper is designed to help you know what to expect when you go home and under what circumstances you should give me a call. I will have all of your labs and surgery reports for you when you come in for your follow-up. -To reach me in an emergency, call the office at [phone]. TODAY -Take it easy the rest of the day. If you have received a general anesthetic or injections to help you relax for the local procedure you should not drive a car for at least 8 hours after surgery to make sure all of the medication has worn off. ACTIVITIES -There are no restrictions on your normal activities. Generally, you may expect to go back to work the next day unless I have given you other instructions. You should shower daily and practice good personal habits to offset the chance of infection. Avoid intercourse for one week after your surgery and you should not douche. Most women experience minimal disruption of their normal routines. BLEEDING -The amount of bleeding after a D&C varies somewhat. Some women have very little requiring onlya light pad for a few days. Other women may bleed similar to a heavy period for a week or so. Do not be alarmed if you expel some clots. -If I have given you a prescription to control bleeding, get it filled on your way home, if possible, and take all the pills according to the directions on the bottle. These pills may increase the amount of your flow and give you cramping similar to first day menstrual cramps. Two Motrin every 6 hours or Anaprox every 12 hours and a heating pad should be sufficient to control any discomfort you may have. If your bleeding becomes bright red and becomes heavy enough that you have used one full pad an hour times 4 hours, I want you to give me a call. Also, if within the first week after surgery you experience chills, fever, and a change in the odor, color, or character of your drainage, you may be developing an infection and you should call me. You may expect your next period anywhere from 2 to 6 weeks after your D&C. CONTROL -Do not assume that you cannot get soon after a D&C. Practice your usual method of control beginning with the first time you have intercourse after you have surgery. If you are taking control pills, please continue them unless told otherwise. DIET -Any diet is permissible FOLLOW UP -Please call the office at [phone] to arrange an appointment to see me in 1 weeks [facility] Work Phone: Reason for referral (narrative)* Consultation (Routine) - Authorized Specialty Diagnoses / Procedures Referred By Contac t Referred To Contact Cardiology Diagnoses Paroxysmal atrial fibrillation (CMS/HCC) Procedures Follow Up In Cardiology Juany Richter MD [address] [place] [phone] Juany Richter MD [address] [place] [address] Referral ID Status Reason Start Date Expiration Date V isits Requested Visits Authorized [id number] Authorized 06/05/2023 06/04/2024 1 1 * PFT (Routine) - Pending Review Specialty Diagnoses / Procedures Referred By Contac t Referred To Contact Diagnoses Paroxysmal atrial fibrillation (CMS/HCC) Procedures Complete Pulmonary Function Test Pre/Post Bronchodialator (Spirometry Pre/Post/DLCO/Lung Volumes) Juany Richter MD [address] [place] [address] Referral ID Status Reason Start Date Expiration Date V isits Requested Visits Authorized [id number] Pending Review 06/05/2023 06/04/2024 1 1 * Imaging (Routine) - Pending Review Specialty Diagnoses / Procedures Referred By Contac t Referred To Contact Radiology Diagnoses Paroxysmal atrial fibrillation (CMS/HCC) Procedures XR chest 2 views Juany Richter MD [address] [place] [address] Referral ID Status Reason Start Date Expiration Date Visits Requested Visits Authorized [id number] Pending Review Perform Procedure 06/05/2023 06/04/2024 1 1 * Cardiovascular (Routine) - Authorized Specialty Diagnoses / Procedures Referred By Contac t Referred To Contact Diagnoses Paroxysmal atrial fibrillation (CMS/HCC) Procedures ECG 12 Lead Juany Richter MD [address] [place] [address] Referral ID Status Reason Start Date Expiration Date V isits Requested Visits Authorized [id number] Authorized 06/05/2023 06/04/2024 1 1 [facility] Work Phone: Reason for visit NarrativeREF BY DR RICHTER FOR CLAUDICATION BILATERAL; PVR DONE AT [facility] INCLUDED WITH REFERRAL [employer] Other Summary Purpose Family History Unknown Family Member Name Dates Details Family history of dementia: Mother(V17.2, Z81.8) Status:Active Family history of myocardial infarction: Father(V17.3, Z82.49) Status:Active Family history of malignant neoplasm of ovary: Sister(V16.41, Z80.41) Status:Active No pertinent family history: Son(V49.89, Z78.9) Status:Active Family history of hypertensi on: Mother, Sister(V17.49, Z82.49) Status:Active Unknown Family Member Name Dates Details Family history of dementia: Mother(V17.2, Z81.8) Status:Active Family history of myocardial infarction: Father(V17.3, Z82.49) Status:Active Family history of malignant neoplasm of ovary: Sister(V16.41, Z80.41) Status:Active No pertinent family history: Son(V49.89, Z78.9) Status:Active Family history of hypertensi on: Mother, Sister(V17.49, Z82.49) Status:Active Unknown Family Member Name Dates Details Family history of dementia: Mother(V17.2, Z81.8) Status:Active Family history of myocardial infarction: Father(V17.3, Z82.49) Status:Active Family history of malignant neoplasm of ovary: Sister(V16.41, Z80.41) Status:Active No pertinent family history: Son(V49.89, Z78.9) Status:Active Family history of hypertensi on: Mother, Sister(V17.49, Z82.49) Status:Active Unknown Family Member Name Dates Details Family history of dementia: Mother(V17.2, Z81.8) Status:Active Family history of myocardial infarction: Father(V17.3, Z82.49) Status:Active Family history of malignant neoplasm of ovary: Sister(V16.41, Z80.41) Status:Active No pertinent family history: Son(V49.89, Z78.9) Status:Active Family history of hypertensi on: Mother, Sister(V17.49, Z82.49) Status:Active Unknown Family Member Name Dates Details Family history of dementia: Mother(V17.2, Z81.8) Status:Active Family history of myocardial infarction: Father(V17.3, Z82.49) Status:Active Family history of malignant neoplasm of ovary: Sister(V16.41, Z80.41) Status:Active No pertinent family history: Son(V49.89, Z78.9) Status:Active Family history of hypertensi on: Mother, Sister(V17.49, Z82.49) Status:Active Unknown Family Member Name Dates Details Family history of dementia: Mother(V17.2, Z81.8) Status:Active Family history of myocardial infarction: Father(V17.3, Z82.49) Status:Active Family history of malignant neoplasm of ovary: Sister(V16.41, Z80.41) Status:Active No pertinent family history: Son(V49.89, Z78.9) Status:Active Family history of hypertensi on: Mother, Sister(V17.49, Z82.49) Status:Active Unknown Family Member Name Dates Details Family history of dementia: Mother(V17.2, Z81.8) Status:Active Family history of myocardial infarction: Father(V17.3, Z82.49) Status:Active Family history of malignant neoplasm of ovary: Sister(V16.41, Z80.41) Status:Active No pertinent family history: Son(V49.89, Z78.9) Status:Active Family history of hypertensi on: Mother, Sister(V17.49, Z82.49) Status:Active Unknown Family Member Name Dates Details Family history of dementia: Mother(V17.2, Z81.8) Status:Active Family history of myocardial infarction: Father(V17.3, Z82.49) Status:Active Family history of malignant neoplasm of ovary: Sister(V16.41, Z80.41) Status:Active No pertinent family history: Son(V49.89, Z78.9) Status:Active Family history of hypertensi on: Mother, Sister(V17.49, Z82.49) Status:Active Unknown Family Member Name Dates Details Family history of dementia: Mother(V17.2, Z81.8) Status:Active Family history of myocardial infarction: Father(V17.3, Z82.49) Status:Active Family history of malignant neoplasm of ovary: Sister(V16.41, Z80.41) Status:Active No pertinent family history: Son(V49.89, Z78.9) Status:Active Family history of hypertensi on: Mother, Sister(V17.49, Z82.49) Status:Active Unknown Family Member Name Dates Details Family history of hypertensi on: Mother, Sister(V17.49, Z82.49) Status:Active No pertinent family history: Son(V49.89, Z78.9) Status:Active Family history of malignant neoplasm of ovary: Sister(V16.41, Z80.41) Status:Active Family history of myocardial infarction: Father(V17.3, Z82.49) Status:Active Family history of dementia: Mother(V17.2, Z81.8) Status:Active Unknown Family Member Name Dates Details Family history of dementia: Mother(V17.2, Z81.8) Status:Active Family history of myocardial infarction: Father(V17.3, Z82.49) Status:Active Family history of malignant neoplasm of ovary: Sister(V16.41, Z80.41) Status:Active No pertinent family history: Son(V49.89, Z78.9) Status:Active Family history of hypertensi on: Mother, Sister(V17.49, Z82.49) Status:Active Relationship Condition Age at Onset Recorded Date/T tree Not Specified Hypoglycemia Unknown Hypertension Unknown Alzheimer's disease Unknown father Malignant neoplasm of lung Unknown sister Malignant neoplasm of ovary Unknown Relationship Condition Age at Onset Recorded Date/T tree Not Specified Hypoglycemia Unknown Hypertension Unknown Alzheimer's disease Unknown father Malignant neoplasm of lung Unknown sister Malignant neoplasm of ovary Unknown brother Hypertension Unknown father Heart disease Unknown Family history of lung cancer Unknown Malignant neoplasm Unknown Unknown sister Hypertension Unknown History of ovarian cancer Unknown Relationship Condition Age at Onset Recorded Date/T tree mother Hypoglycemia Unknown Hypertension Unknown Alzheimer's disease Unknown father Malignant neoplasm of lung Unknown sister Malignant neoplasm of ovary Unknown brother Hypertension Unknown father Heart disease Unknown Family history of lung cancer Unknown Malignant neoplasm Unknown Unknown sister Hypertension Unknown History of ovarian cancer Unknown Advance Directives Advance Directive Response Recorded Date/ Time Advance Directives No April 04, 2022 10:06am Advance Directive Response Recorded Date/ Time Advance Directives No April 04, 2022 11:06am Chief Complaint and Reason for Visit Chief Complaint Z13.220 Chief Complaint Z13.220 PVD Chief Complaint Z13.220 PVD i70.212 Chief Complaint PVD i70.212 Chief Complaint PVD i70.212 m79.642 Chief Complaint m79.642 M25.561 z79.899 i48.91 Chief Complaint M25.561 z79.899 i48.91 R10.9 Chief Complaint z79.899 i48.91 R10.9 N76.0 Z12.4 I70.213 Chief Complaint I70.213 Endometrial Mass and Polyp Chief Complaint I70.213 Endometrial Mass and Polyp Endometrial Mass and Polyp Chief Complaint Endometrial Mass and Polyp Sinuses-Covid Negative Endometrial Mass and Polyp Sinus Infection - Covid Negstive i48.91 z79.899 i48.91 z79.899 Chief Complaint Endometrial Mass and Polyp Sinuses-Covid Negative Endometrial Mass and Polyp Sinus Infection - Covid Negstive i48.91 z79.899 i48.91 z79.899 Reason for Visit Osteoarthritis of le ft knee Osteoarthritis of right knee Chief Complaint i48.91 z79.899 i48.91 z79.899 Needs Prescription-Body Hurting Reason for Visit Osteoarthritis of le ft knee Osteoarthritis of right knee Chief Complaint Needs Prescription-B sammy Hurting 6 MONTH F/U PAD; SHERLY'S BOTH LEGS earache, sore throat Reason for Visit Spasm of left trapez ius muscle PAD (peripheral artery disease) Osteoarthritis of left knee Osteoarthritis of right knee Otitis externa Chief Complaint 6 MONTH F/U PAD; SHERLY 'S BOTH LEGS earache, sore throat Z78.9,E78.2 OP SP CHAD KNEE PAIN REQUESTING INJECTION Reason for Visit PAD (peripheral trinidad ry disease) Osteoarthritis of left knee Osteoarthritis of right knee Otitis externa Osteoarthritis of left knee Osteoarthritis of right knee Chief Complaint 6 MONTH F/U PAD; SHERLY 'S BOTH LEGS earache, sore throat Z78.9,E78.2 OP SP CHAD KNEE PAIN REQUESTING INJECTION UA, painful and salcedo Reason for Visit PAD (peripheral trinidad ry disease) Osteoarthritis of left knee Osteoarthritis of right knee Otitis externa Osteoarthritis of left knee Osteoarthritis of right knee Dysuria Chief Complaint earache, sore throat Z78.9,E78.2 OP SP CHAD KNEE PAIN REQUESTING INJECTION UA, painful and salcedo cough ,congestion , runny nose Reason for Visit Osteoarthritis of le ft knee Osteoarthritis of right knee Otitis externa Osteoarthritis of left knee Osteoarthritis of right knee Dysuria Chief Complaint earache, sore throat Z78.9,E78.2 OP SP CHAD KNEE PAIN REQUESTING INJECTION UA, painful and salcedo cough ,congestion , runny nose medical concerns Reason for Visit Osteoarthritis of le ft knee Osteoarthritis of right knee Otitis externa Osteoarthritis of left knee Osteoarthritis of right knee Dysuria Bronchitis Dyspnea Essential hypertension Fatigue Chief Complaint AVELINO BUSTOS is being seen for a 2 month follow-up of.AVELINO BUSTOS is being seen for a 3 month follow-up of.AVELINO BUSTOS is being seen for a 3 month follow-up of.AVELINO BUSTOS is being seen for a 3 month follow-up of. Reason for Referral Specialty Diagnoses / Procedures Referred By Contac t Referred To Contact Radiology Diagnoses Paroxysmal atrial fibrillation (CMS/HCC) Procedures XR chest 2 views Juany Richter MD [address] [place] [address] [address] [place] [address] Referral ID Status Reason Start Date Expiration Date Visits Requested Visits Authorized [id number] Pending Review Perform Procedure 06/05/2023 06/04/2024 1 1 Reason *FU 11/18 [facility] VETERINARY SURGEON - last OV note, pelvic US report, pap report and vaginal culture. Thanks , Female preferred Diagnosis 1 Endometrial thickeni ng on ultrasound (R93.89) Referral Organization [facility] Medical linjaneen Referring Provider First Name Shannon Referring Provider Last Name Car Referring Provider Specialty Family [facility] cine Referred Organization [facility] Referred Provider NormaberonicaLorri Referred Address ,[place], [place],[address] Referred Provider Specialty OB - Gynecol ogy Referral Priority Routine General Notes Sugey Kong 01:09:37 PM >received today Sugey Kong 11/11/2022 01:12:16 PM >attachments made, notes locked, referral faxed Additional Source Comments INFORMATION SOURCE (unrecogn ized section and content) DATE CREATED AUTHOR 10/26/2021 [facility] DATE CREATED AUTHOR AUTHOR'S ORGANIZ ATION 01/18/2022 [facility] DATE CREATED AUTHOR AUTHOR'S ORGANIZ ATION 02/08/2022 [facility] DATE CREATED AUTHOR AUTHOR'S ORGANIZ ATION 02/22/2022 [facility] DATE CREATED AUTHOR AUTHOR'S ORGANIZ ATION 07/09/2022 [facility] DATE CREATED AUTHOR AUTHOR'S ORGANIZ ATION 08/30/2022 [facility] DATE CREATED AUTHOR AUTHOR'S ORGANIZ ATION 01/18/2023 [employer] DATE CREATED AUTHOR AUTHOR'S ORGANIZ ATION 07/04/2023 [facility] DATE CREATED AUTHOR AUTHOR'S ORGANIZ ATION 09/15/[address] [facility] DATE CREATED AUTHOR AUTHOR'S ORGANIZ ATION 10/20/2023 [facility] EPIC Care Teams (unrecognized sec tion and content) Team Status: Inactive Member Role Status Dates Shannon Yoon MD Primary Care Provider Active Juany Richter MD Attending Provider Active Team Status: Active Member Role Status Dates Shannon Yoon MD Primary Care Provider Active Team Status: Inactive Member Role Status Dates Shannon Yoon MD Primary Care Provider Active Eulogio Mai MD Attending Provider Active Team Status: Inactive Member Role Status Dates Shannon Yoon MD Primary Care Provider Active Eulogio Mai MD Attending Provider Active Juany Richter MD Referring Provider Active Team Status: Inactive Member Role Status Dates Shannon Yoon MD Primary Care Provider Active Dena Alcantara MD Attending Provider Active Team Status: Inactive Member Role Status Dates Shannon Yoon MD Primary Care Provider Active Gavino Tavera DO Attending Provider Active Team Status: Inactive Member Role Status Dates Shannon Yoon MD Attending Provider Active NON STAFF Primary Care Provider Active Team Status: Inactive Member Role Status Dates Shannon Yoon MD Attending Provider Active Team Status: Inactive Member Role Status Dates Eulogio Mai MD Attending Provider Active Shannon Yoon MD Primary Care Provider Active Team Status: Inactive Member Role Status Dates Shannon Yoon MD Primary Care Provider Active Lorri White DO Attending Provider Active Customer Acquisition Manager Relationship Specialty Start Date End Date Shannon Yoon MD [address] [place] [phone] PCP - General Family Medicine 08/29/22 Team Status: Inactive Member Role Status Arik Yoon MD Primary Care Provider Active Start: January 30, 2023 End: January 30, 2023 Lorri White DO Attending Provider Active S tart: January 30, 2023 End: January 30, 2023 Team Status: Inactive Member Role Status Arik Yoon MD Attending Provider Active St art: February 06, 2023 End: February 06, 2023 Team Status: Inactive Member Role Status Dates Shannon Yoon MD Primary Care Provider Active Start: February 10, 2023 End: February 10, 2023 Lorri White DO Attending Provider Active S tart: February 10, 2023 End: February 10, 2023 Team Status: Inactive Member Role Status Dates Shannon Yoon MD Attending Provider Active St art: February 19, 2023 End: February 19, 2023 Team Status: Inactive Member Role Status Dates Shannon Yoon MD Primary Care Provider Active Start: April 15, 2023 End: April 15, 2023 Juany Rihcter MD Attending Provider Active Star t: April 15, 2023 End: April 15, 2023 Team Status: Active Member Role Status Dates Shannon Yoon MD Primary Care Provider Active Start: April 15, 2023 Juany Richter MD Other Provider Active Start: Janae correia 2023 Rahel Massey MD Attending Provider Active Start: April 15, 2023 Team Status: Inactive Member Role Status Dates Shannon Yoon MD Primary Care Provider Active Start: April 23, 2023 End: April 23, 2023 Gavino Tavera DO Active Start: April 23, 2023 End: April 23, 2023 ANALI Pinzon Attending Provider Active Start: April 23, 2023 End: April 23, 2023 Customer Acquisition Manager Relationship Specialty Start Date End Date Shannon Yoon MD [address] [place] [phone] PCP - General Family Medicine 05/05/23 Team Status: Inactive Member Role Status Dates Shannon Yoon MD Primary Care Provide r, Attending Provider Active Start: May 26, 2023 End: May 26, 2023 Customer Acquisition Manager Relationship Specialty Start Date End Date Shannon Yoon MD [address] [place] [phone] PCP - General Family Medicine 05/05/23 Customer Acquisition Manager Relationship Specialty Start Date End Date Shannon Yoon MD [address] [place] [phone] PCP - General Family Medicine 05/05/23 Team Status: Inactive Member Role Status Dates Shannon Yoon MD Primary Care Provider Active Start: July 02, 2023 End: July 02, 2023 Eulogio Mai MD Attending Provider Active Start: July 02, 2023 End: July 02, 2023 Team Status: Inactive Member Role Status Dates Shannon Yoon MD Primary Care Provide r, Attending Provider Active Start: August 18, 2023 End: August 18, 2023 Team Status: Active Member Role Status Dates Shannon Yoon MD Primary Care Provider Active Start: September 08, 2023 Juany Richter MD Attending Provider, Referring Provider Active Start: September 08, 2023 Team Status: Inactive Member Role Status Dates Shannon Yoon MD Primary Care Provider Active Start: September 12, 2023 End: September 12, 2023 Gavino Tavera DO Attending Provider Active S tart: September 12, 2023 End: September 12, 2023 Team Status: Inactive Member Role Status Dates Shannon Yoon MD Primary Care Provide r, Attending Provider Active Start: September 24, 2023 End: September 24, 2023 Team Status: Inactive Member Role Status Dates Shannon Yoon MD Primary Care Provide r, Attending Provider Active Start: October 09, 2023 End: October 09, 2023 Team Status: Inactive Member Role Status Dates Shannon Yoon MD Primary Care Provide r, Attending Provider Active Start: October 23, 2023 End: October 23, 2023 Goals (unrecognized section and content) Goals may be documented in a n alternate sectionNo InformationNo InformationNo InformationNo InformationNo InformationNo InformationNo InformationNo InformationGoals may be documented in an alternate sectionNo InformationNo InformationNo InformationNo InformationGoals may be documented in an alternate sectionNo InformationNo InformationNo InformationNo InformationGoals may be documented in an alternate sectionGoals may be documented in an alternate sectionNo InformationNo InformationNo InformationNo InformationGoals may be documented in an alternate sectionGoals may be documented in an alternate sectionGoals may be documented in an alternate sectionGoals may be documented in an alternate sectionGoals may be documented in an alternate sectionGoals may be documented in an alternate section REASON FOR VISIT (unrecogniz ed section and content) Reason Comments Toenail Care Toenail care Reason Comments ekg visit Specialty Diagnoses / Procedures Referred By Contac t Referred To Contact Diagnoses Atrial fibrillation, unspecified type (CMS/[facility]) Procedures ECG 12 Lead Maximiliano Blackburn, CLERK TELEGRAPH SERVICE-ESCAPEMENT MATCHER [address] [facility] [address] [place] [address] Referral ID Status Reason Start Date Expiration Date V isits Requested Visits Authorized [id number] Authorized 04/29/2023 04/28/2024 1 1 Reason Comments Follow-up 6M Specialty Diagnoses / Procedures Referred By Contac t Referred To Contact Cardiology Diagnoses Paroxysmal atrial fibrillation ([facility]/HCC) Procedures Follow Up In Cardiology Juany Richter MD [address] [address] Juany Richter MD [address] [facility] [address] [place] [address] Referral ID Status Reason Start Date Expiration Date V isits Requested Visits Authorized [id number] Authorized 12/23/2022 12/23/2023 1 1 Specialty Diagnoses / Procedures Referred By Contac t Referred To Contact Radiology Diagnoses Paroxysmal atrial fibrillation (CMS/HCC) Procedures XR chest 2 views Juany Richter MD [address] [facility] 300 [place] [address] Referral ID Status Reason Start Date Expiration Date Visits Requested Visits Authorized [id number] Pending Review Perform Procedure 06/05/2023 06/04/2024 1 1 FOR RECORDS PERTAINING TO PATIENTS WHO ARE OR HAVE BEEN ENROLLED IN A CHEMICAL DEPENDENCY/SUBSTANCEABUSE PROGRAM, SOME INFORMATION MAY BE OMITTED. This clinical summary was aggregated from multiple sources. Caution should be exercised in using it in the provision of clinical care. This summary normalizes information from multiple sources, and as a consequence, information in this document may materially change the coding, format and clinical context of patient data. In addition, data may be omitted in some cases. CLINICAL DECISIONS SHOULD BE BASED ON THE PRIMARY CLINICAL RECORDS. [employer] [facility]. provides no warranty or guarantee of the accuracy or completeness of information in this document.
[2023-10-24 10:13] LABS: Basophils Percent Auto 0.4 % (0.2-2.0); Eosinophils Absolute Auto 0.1 10^3/uL (0.0-0.7); Eosinophils Percent Auto 1.2 % (0.9-7.0); Hematocrit 39.3 % (36.0-48.0); Hemoglobin 12.1 g/dL (12.0-16.0); Immature Granulocytes Abs Auto 0.03 10^3/uL (0.00-0.03); Immature Granulocytes Pct Auto 0.3 % (0.0-0.5); Lymphocytes Absolute Auto 2.2 10^3/uL (1.2-3.8); Lymphocytes Percent Auto 22.6 % (20.5-60.0); Mean Corpuscular HGB Conc 30.8 g/dL (29.9-35.2); Mean Corpuscular Hemoglobin 27.4 pg (26.7-34.0); Mean Corpuscular Volume 88.9 fL (81.0-99.0); Mean Platelet Volume 11.4 fL (9.5-13.5); Monocytes Absolute Auto 0.7 10^3/uL (0.3-0.8); Monocytes Percent Auto 7.6 % (1.7-12.0); Neutrophils Absolute Auto 6.6 10^3/uL (1.4-6.5); Neutrophils Percent Auto 67.9 % (43.0-75.0); Platelet Count 216 10^3/uL (150-450); Red Blood Count 4.42 10^6/uL (4.20-5.40); Red Cell Distribution Width 15.5 % (11.0-15.0); White Blood Count 9.7 10^3/uL (4.0-11.0)
[2023-10-24 11:50] LABS: Alanine Aminotransferase 25 U/L (14-59); Albumin Globulin Ratio 1.3; Albumin Level 3.9 g/dL (3.4-5.0); Alkaline Phosphatase 95 U/L (46-116); Anion Gap 12.9; Aspartate Amino Transferase 21 U/L (15-37); BUN Creatinine Ratio 10.4; Bilirubin Total 0.7 mg/dL (0.2-1.0); Calcium 9.2 mg/dL (8.5-10.1); Carbon Dioxide 27.2 mmol/L (21.0-32.0); Chloride 101 mmol/L (98-107); Chol HDL Ratio 1.8; Cholesterol 111 mg/dL (<=200); Estimated GFR (African America >60 (>=60); Estimated GFR (Non-African Ame 51 (>=60); Globulin 3.1 g/dL; Glucose 97 mg/dL (74-106); HDL Cholesterol 61 mg/dL (40-60); Potassium 4.1 mmol/L (3.5-5.1); Sodium 137 mmol/L (136-145); Thyroid Stimulating Hormone 2.667 uIU/mL (0.358-3.740); Triglycerides 92 mg/dL (<=150); VLDL CHOLESTEROL 18.4 mg/dL
== END 2023-10-24 09:18 | disposition home or self-care (01) ==
LOC: LAB 09:24
PROVIDERS: PCP Family Medicine; Visit Provider Family Medicine
DX: R53.83 Other fatigue (principal); I10 Essential (primary) hypertension; R06.00 Dyspnea, unspecified
CPT/HCPCS: 36415; 71046; 80053; 80061; 84443; 85025

== ENCOUNTER 2024-02-02 09:22 | Outpatient (OUT) | payer MEDICARE, SELFPAY ==
--- NOTE | 2024-02-02 | CT_ITS ---
[address] [address] Patient Name: AVELINO KRAUSE MRN: [id number] date: 1950 Sex: F Assigned Patient Location: CT Current Patient Location: Accession/Order Number: [id number] Exam Date: 02/02/2024 09:48 Report Date: 02/03/2024 05:32 At the request of: RAYNA OCHOA Procedure: CT lung screening low-dose EXAMINATION: CT lung screening low-dose HISTORY: SCREENING, Nicotine dependence, cigarettes, with unspecified COMPARISON: CT lung screening 01/27/2023-02/11/2019 TECHNIQUE: Axial, Coronal, and Sagittal images were created without the administration of IV contrast material. Dose reduction techniques were achieved by using automated exposure control and/or adjustment of mA and/or kV according to patient size and/or use of iterative reconstruction technique. FINDINGS: LUNGS: 8 mm spiculated nodule within right lower lobe superior segment which is slightly increased in size. Stable appearance of several nodular and patchy opacities scattered within the lungs. PLEURA: No mass, effusion, or pneumothorax. VASCULATURE: No abnormality. TRA: No mass or pathologic adenopathy. MEDIASTINUM: No mass or pathologic adenopathy. CARDIAC: No enlargement, pericardial thickening, or pericardial effusion. Coronary Artery calcifications: AORTA: Ascending aorta is upper limits of normal diameter, 3.9 cm. CHEST WALL: No mass or axillary adenopathy BONES: No bone lesion or fracture. LIMITED ABDOMEN: No suspicious findings. Limited images of the upper abdomen. OTHER: Negative. CT/CT lung screening low-dose IMPRESSION: 1. Lung-RADS Category 4A- Suspicious. Findings for which additional diagnostic testing and/ or tissue sampling is recommended. 3 month LDCT; PET/CT may be used when there is a >= 8 mm solid component. 2. Chronic nodule within left lower lobe superior segment which has increased slightly in size and has more pronounced spiculation. This is lower limits of normal for PET imaging, but given its change PET imaging should be considered. Otherwise follow-up CT chest in 3 months to evaluate for further change or new stability. Electronically authenticated by: CHERIE MENENEDZ Date: 02/03/2024 05:32
--- OUTSIDE RECORDS SUMMARY | 2024-02-02 09:39 | XMS_ITS | CCD ---
Author Organization [facility] Care Team Providers Care Ambulance Driver Paramedic Name Role Phone SHANNON YOON Primary Care Unavailable CORY MOREL Attending Unavailable CORY MOREL Admitting Unavailable SELF, REFERRED Referring Unavailable CORY MOREL Attending Unavailable Shannon Yoon Unavailable Unavailable Unavailable DR SHANNON YOON Primary Care Unavailable CORY MOREL Admitting Unavailable CORY MOREL Attending Unavailable CORY MOREL Consulting Unavailable CAR, DR SHANNON Wood Admitting Unavailable YOON, DR SHANNON Wood Attending Unavailable YOON, DR SHANNON Wood Consulting Unavailable YOON, DR SHANNON Wood Primary Care Unavailable SAMSA, RAYNA Consulting Unavailable YOON, DR SHANNON Wood Primary Care Unavailable SAMSA, RAYNA Admitting Unavailable SAMSA, RAYNA Attending Unavailable YOON, DR SHANNON Wood Primary Care Unavailable SAMSA, RAYNA Admitting Unavailable Zieber, DR Arizmendi Consulting Unavailable SAMSA, RAYNA Attending Unavailable SAMSA, RAYNA Consulting Unavailable YOON, [...] Care Provider MD Juany Richter Attending Provider [phone] Shannon Yoon Unavailable Eulogio Mai Unavailable MD [...] Provider NON STAFF Primary Care Provider Unavaildonny wood Abiolabrad Pili Unavailable MD Shannon Yoon Primary Care Provider MD Eulogio Mai Attending Provider MD Eulogio Mai Attending Provider MD Shannon Yoon Primary Care Provider DO Lorri White Attending Provider Shannon Yoon MD Primary Care Provider [phone] MD Shannon Yoon Primary Care Provider MD Juany Richter Attending Provider Shannon Yoon MD Primary Care Provider MD Shannon Yoon Primary Care Provider MD Juany Richter Attending Provider MD Shannon Yoon Primary Care Provider MD Juany Richter Attending Provider MD Juany Richter Referring Provider Shannon Yoon Primary Care Unavailable Juany Richter Admitting Unavailable Juany Richter Attending Unavailable Shannon Yoon Primary Care Unavailable Pili Campbell Admitting Unavailable Pili Campbell Attending Unavailable Shannon Yoon Primary Care Unavailable Juany Richter Admitting Unavailable Juany Richter Attending Unavailable Shannon Yoon Primary Care Unavailable Eulogio Mai Admitting Unavailabl Eulogio Clay Attending Unavailabl e Shannon Yoon Primary Care Unavailable Lorri White Admitting Unavailable Lorri White Attending Unavailable Lorri White Attending Unavailable Shannon Yoon Primary Care Unavailable Lorri White Admitting Unavailable MD Shannon Yoon Primary Care Provider MD Juany Richter Attending Provider MD Juany Richter Attending Provider MD Juany Richter Referring Provider RAHEL TOVAR Attending Unavailabl RAHEL Bedolla Attending Unavailabl RAHEL Bedolla Attending Unavailabl e RAHEL TOVAR Attending Unavailabl e RAHEL TOVAR Attending Unavailabl e LORRI WHITE Attending Unavailable Shannon Yoon MD Primary Care Provider MAXIMILIANO BLACKBURN Referring Unavailable SHANNON YOON Primary Care Unavailable JUANY RICHTER Attending Unavailable JUANY RICHTER Referring Unavailable SHANNON YOON Primary Care Unavailable JUANY RICHTER Attending Unavailable JUANY RICHTER Referring Unavailable SHANNON YOON Primary Care Unavailable Allergies Allergy Classification Reported Allergen(s) Allergy Type Date of Onset Reaction(s) Facility (20 sources) Azithromycin; Translations: [AZITHROMYCIN] Drug Allergy Unknown, [facility] Repository (20 sources) busPIRone; Translations: [BUSPIRONE] Drug Allergy [facility] Repository (1 source) Cefuroxime; Translations: [CEFUROXIME AXETIL] Drug Allergy [facility] Repository (1 source) celecoxib; Translations: [CELECOXIB] Drug Allergy [facility] Repository (20 sources) Cephalexin; Translations: [CEPHALEXIN] Drug Allergy [facility] Repository (20 sources) Ciprofloxacin; Translations: [CIPROFLOXACIN] Drug Allergy Unknown, [facility] Repository (20 sources) Citalopram; Translations: [CITALOPRAM] Drug Allergy Unknown, [facility] Repository (20 sources) Doxycycline; Translations: [DOXYCYCLINE] Drug Allergy [facility] Repository (20 sources) DULoxetine; Translations: [DULOXETINE] Drug Allergy [facility] Repository (1 source) hydroCHLOROthiazide / Losartan; Translations: [LOSARTAN-HYDROCHLOROT HIAZIDE] Drug Allergy [facility] Repository (20 sources) Ketorolac; Translations: [KETOROLAC] Drug Allergy [facility] Repository (20 sources) Latex; Translations: [LATEX] Propensity to adverse reactions to drug (disorder) 016 Swelling, [facility] Repository (20 sources) levocetirizine; Translations: [LEVOCETIRIZINE] Drug Allergy Unknown, [facility] Repository (20 sources) Lisinopril; Translations: [LISINOPRIL] Drug Allergy Hives, Shortness of breath [facility] Repository (20 sources) Magnesium; Translations: [MAGNESIUM] Drug Allergy Unknown, Rash, Abdominal Pain [facility] Repository (4 sources) Metoprolol; Translations: [METOPROLOL] Drug Allergy [facility] Repository (1 source) PARoxetine; Translations: [PAROXETINE HCL] Drug Allergy [facility] Repository (20 sources) Penicillins; Translations: [PENICILLINS] Propensity to adverse reactions to drug (disorder) Hives, Unknown [facility] Repository (20 sources) predniSONE; Translations: [PREDNISONE] Drug Allergy Hives [facility] Repository (20 sources) Sulfonamides (Antibiotic); Translations: [SULFA (SULFONAMIDE ANTIBIOTICS)] Propensity to adverse reactions to drug (disorder) Rash [facility] Repository (1 source) NITROFURANTOIN MONOHYD/M-CRYST; Translations: [NITROFURANTOIN MONOHYD/M-CRYST] Propensity to adverse reactions to drug (disorder) [facility] Repository (13 sources) Angiotensin Converting Enzyme (Chanel) Inhibitors; Translations: [CHANEL Inhibitors] Allergy to drug (finding) Shortness of breath, Hives [place] [id number] Repository (20 sources) Ketorolac; Translations: [Toradol] Drug Allergy [facility] Work [facility]: (12 sources) Lisinopril; Translations: [Lisinopril TABS] Drug Allergy Hives, Shortness of breath [facility] 250 DO Work Phone: (17 sources) Sulfamethoxazole; Translations: [sulfa] Drug Allergy 023 [facility] Work Phone: (12 sources) Angiotensin Receptor Blockers; Translations: [Angiotensin Receptor Blockers] Allergy to drug (finding) Hives [facility] 250 DO Work Phone: (1 source) Azithromycin Drug Allergy [facility] Repository (1 source) Ciprofloxacin Drug Allergy [facility] Repository (1 source) Citalopram Drug Allergy [facility] Repository (1 source) DULoxetine Drug Allergy [facility] Repository (1 source) hydroCHLOROthiazide / Losartan Drug Allergy [facility] Repository (1 source) Nitrofurantoin Drug Allergy [facility] Repository (1 source) PARoxetine Drug Allergy [facility] Repository (2 sources) Sulfamethoxazole; Translations: [SULFAMETHOXAZOLE] Drug Allergy [facility] Repository (10 sources) atorvastatin; Translations: [atorvastatin] Drug Allergy [facility] (9 sources) clopidogrel; Translations: [Plavix] Drug Allergy [facility] Work Phone: (20 sources) busPIRone Drug Allergy Unknown [facility] [place] Other (20 sources) Cefuroxime Drug Allergy 015 Unknown, [facility] (20 sources) Cephalexin Drug Allergy Unknown [facility] [place] Other (20 sources) hydroCHLOROthiazide Drug Allergy 023 Unknown, [facility] (20 sources) hydroCHLOROthiazide / Losartan Drug Allergy Unknown [facility] [place] Other (20 sources) Latex rubber gloves Propensity to adverse reactions Unknown [facility] Other (20 sources) NITROFURANTOIN, MACROCRYSTALS / Nitrofurantoin, Monohydrate Drug Allergy Unknown [facility] [place] Other (20 sources) PARoxetine Drug Allergy 023 Unknown, [facility] (20 sources) Sulfonamides (Antibiotic) Propensity to adverse reactions Unknown [facility] Other (20 sources) Substance with penicillin structure and antibacterial mechanism of action (substance) Drug allergy Unknown [facility] Other (20 sources) Losartan; Translations: [losartan] Drug Allergy 023 [facility] (20 sources) Nitrofurantoin; Translations: [nitrofurantoin] Drug Allergy 022 [facility] (12 sources) Corticosteroids Propensity to adverse reactions 011 STEROIDS [facility] [place] Other (12 sources) Penicillin Drug Allergy 013 Unknown [facility] Other (12 sources) Ceftin *CEPHALOSPORINS* Propensity to adverse reactions Unknown [facility] [place] Other (15 sources) Substance with sulfonamide structure and antibacterial mechanism of action (substance) Drug allergy 022 [facility] [place] Other (3 sources) DULoxetine Drug Allergy 023 [facility] (4 sources) Rosuvastatin calcium; Translations: [ROSUVASTATIN] Propensity to adverse reactions [facility] (3 sources) Hydrobenzthiazide Allergy to substance Shortness of breath [facility] (3 sources) Losartan Potassium-Hctz Drug Allergy 023 [facility] (10 sources) Cephalosporins (Antibiotic) Allergy to substance 023 Abdominal Pain [facility] (10 sources) Xyzal Allergy 24HR Allergy to substance 023 Abdominal Pain [facility] (6 sources) Angiotensin II receptor antagonist; Translations: [ARB-ANGIOTENSIN RECEPTOR ANTAGONIST] Drug Allergy [facility] Work Phone: (5 sources) Angiotensin-converting enzyme inhibitor agent Drug Allergy 023 Hives, Shortness of breath [facility] (5 sources) rosuvastatin Drug Allergy 023 Itching, Myalgia [facility] Work Phone: (5 sources) methylPREDNISolone; Translations: [METHYLPREDNISOLONE] Drug Allergy 024 [facility] Work Phone: (1 source) Cefuroxime Drug Allergy [facility] Repository (1 source) hydroCHLOROthiazide Drug Allergy [facility] Repository (1 source) PARoxetine Drug Allergy [facility] Repository (1 source) clopidogrel; Translations: [CLOPIDOGREL] Drug Allergy [facility] Repository Medications Current Medications Medication Drug Class(es) Dates Sig (Normalized) Sig (Original) acetaminophen 500 mg oral tablet (12 sources) Start: 01-30-2023 take 2 tablets by mouth twice daily Acetaminophen (Tylenol Extra Strength) 500 mg Tablet Active 1000 MG PO Twice daily January 30, 2023 1:00am [id number] 200 actuat albuterol 0.09 mg/actuat metered dose inhaler (20 sources) beta2-Adrenergic Agonist Start: 06-04-2022 take 1 puff(s) by inhalation every four hours Albuterol Sulfate Active 1 PUFF INHALATION Every 4 hours June 04, 2022 12:00am Start: 02-07-2022 take 2 puff(s) by mo ut every four hours as needed Albuterol Sulfate [...] hours if needed for shortness of breath. Active albuterol HFA 90 mcg/act inhaler every 4 (four) hours. Active take 1 puff(s) by in halation [...] as needed Inhalation every 4 hrs Not-Taking amLODIPine 5 mg / hydroCHLOROthiazide 12.5 mg / olmesartan medoxomil 20 mg oral tablet (1 source) Thiazide Diuretic, Dihydropyridine Calcium Channel Rai, Angiotensin 2 Receptor Rai take 1 tablet by mouth every twenty-four hours [id number] 20-5-12.5 MG 1 tablet once a day Active aspirin 81 mg delayed release oral tablet (20 sources) Platelet Aggregation Inhibitor, Nonsteroidal Anti-inflammatory Drug Sta rt: 3 take 1 tablet by mouth once daily at mealtime aspirin 81 mg EC tablet Indications: PVD (peripheral vascular disease) ([facility]) TAKE 1 TABLET BY MOUTH EVERY DAY WITH FOOD 90 tablet 3 04/21/2023 Active End: 05-05-2023 take 1 tablet by mouth [...] 12/2021 - multiple allergies. Apr, Active ciprofloxacin 250 mg oral tablet (10 sources) Quinolone Antimicrobial Start: 12-03-2023 take 250 mg by mouth twice daily Ciprofloxacin Hcl Active 250 MG PO Twice daily 10 December 03, 2023 12:18pm Start: 10-09-2023 End: 12-03-2023 take 500 mg by mouth once daily Ciprofloxacin Hcl Discontinued 500 MG PO Daily October 09, 2023 1:49pm December 03, 2023 12:19pm Start: 09-24-2023 End: 10-09-2023 take 250 mg [...] sodium 75 mg delayed release oral tablet (3 sources) Nonsteroidal Anti-inflammatory Drug take 1 tablet by mouth twice daily diclofenac (Voltaren) 75 MG EC tablet TAKE 1 TABLET BY MOUTH TWICE A DAY Oral for 30 Active guaiFENesin (1 source) Guaiatussin AC 100-10 MG/5ML 5ml-10ml Orally every 4 hrs prn for 7 days Active hydroCHLOROthiazide 12.5 mg / olmesartan medoxomil 20 mg oral tablet (20 sources) Thiazide Diuretic, Angiotensin 2 Receptor Rai Start: End: take 1 tablet by mouth once daily olmesartan-hydrochlo rothiazide (BENIcar HCT) 20-12.5 mg tablet Indications: Hypertension, unspecified type Take 1 tablet by mouth once daily. 90 tablet 2 01/05/2024 01/04/2025 Active Inclisiran (4 sources) Start: Inclisiran (Leqvio) 284 mg/1.5 mL syringe Active 284 MG SUBCUT EVERY 6 MONTHS October 09, 2023 12:00am inclisiran (Leqvio) injection (5 sources) Start: End: inclisiran (Leqvio) injection Indications: Mixed hyperlipidemia , Statin intolerance Inject 1.5 mL (284 mg total) under the skin every 6 months. at 0, 3 months and then every 6 months thereafter 3 mL 04/06/2023 04/05/2024 Active Start: 04-06-2023 End: 04-05-2024 inclisiran (Leqvio) injectio n Indications: Mixed hyperlipidemia , Statin intolerance Inject 1.5 mL (284 mg total) under the skin every 6 months. at 0, 3 months and then every 6 months thereafter 3 mL 0 04/06/2023 04/05/2024 Active Inclisiran Sodium (Leqvio) 284 MG/1.5ML solution prefilled syringe (2 sources) Inclisiran Sodiu m (Leqvio) 284 MG/1.5ML solution prefilled syringe Inject under the skin Active Loratadine (20 sources) Start: 10-06-2023 take 1 tablet by mouth once [...] mg oral tablet (20 sources) Start: 2021 End: 2024 take 1 tablet by mouth twice daily magnesium oxide (Mag-Ox) 400 mg (241.3 mg magnesium) tablet Indications: Paroxysmal atrial fibrillation (Multi) , Hypertension, unspecified type Take 1 tablet (400 mg) by mouth 2 times a day. 180 tablet 2 01/05/2024 01/04/2025 Active methylPREDNISolone 4 mg oral tablet (1 source) Corticosteroid Start: 2022 methylPREDNISolone 4 MG as directed Orally for 6 days Jan, Active montelukast 10 mg oral tablet (20 sources) Leukotriene Receptor Antagonist Start: 2022 take 1 tablet by mouth once daily montelukast (Singulair) 10 MG tablet TAKE 1 TABLET BY MOUTH EVERY DAY FOR 30 DAYS 08/07/2022 Active omeprazole 40 mg delayed release oral capsule (20 sources) Proton Pump Inhibitor Start: 2023 End: 2023 Omeprazole Active 0 .ROUTE .COMPLEX September 30, 2023 9:04am TAKE 1 CAPSULE BY MOUTH EVERY DAY 30 MINUTES BEFORE MORNING MEAL Start: 06-04-2022 End: 05-27-2023 take 40 mg by mouth once daily Omeprazole Discontinued 40 MG PO Daily June 04, 2022 12:00am May 27, 2023 1:06pm pitavastatin calcium 4 mg oral tablet (5 sources) HMG-CoA Reductase Inhibitor Start: 12-23-2022 End: 06-05-2023 take 1 tablet by mouth in the morning Pitavastatin Calcium (Livalo) 4 MG tablet Take 4 mg by mouth in the morning. 12/23/2022 Active pravastatin sodium 40 mg oral tablet (2 [...] Discontinued 50 MG PO Every 8 hours 20 July 18, 2023 10:33am August 18, 2023 4:08pm twenty Start: 08-02-2022 take 1 tablet by neda th three times daily as needed traMADol (Ultram) 50 MG tablet TAKE 1 TABLET BY MOUTH 3 TIMES A DAY NEEDED FOR 7 DAYS 08/02/2022 Active ubidecarenone 100 mg oral ca psule (20 sources) Start: 01-30-2023 Coenzyme Q10 A ctive 100 MG PO Daily at bedtime January 30, 2023 1:00am Start: 12-23-2022 End: 07-06-2024 take 1 capsule by mouth once daily coenzyme Q-10 100 mg capsule Indications: Paroxysmal atrial fibrillation (Multi) , High risk medication use , Hypertension, unspecified type , Mixed hyperlipidemia , PVD (peripheral vascular disease) (CMS-HCC) , Vascular claudication (CMS-HCC) , Varicose veins of both lower extremities, unspecified whether complicated , Current smoker , Hypercoagulable state due to paroxysmal atrial fibrillation (Multi) , Second hand smoke exposure , Statin intolerance , Chronic obstructive pulmonary disease, unspecified COPD type (Multi) Take 1 capsule (100 mg) by mouth once daily. 90 capsule 1 07/07/2023 07/06/2024 Active ubidecarenone 100 mg / vitamin e 5 unt oral capsule (1 source) Start: 12-23-2022 End: 12-23-2023 take 1 capsule by mouth in the morning coenzyme Q-10 100 MG capsule Take 100 mg by mouth in the morning. 0 12/23/2022 12/23/2023 Active 24 hr venlafaxine 37.5 mg extended release oral capsule (9 sources) Serotonin and Norepinephrine Reuptake Inhibitor Start: 12-19-2022 take 1 capsule by mouth once daily at mealtime venlafaxine XR (Effexor XR) 37.5 MG 24 hr capsule TAKE 1 CAPSULE BY MOUTH EVERY DAY WITH FOOD FOR 30 DAYS 12/19/2022 Active Completed/Discontinued Medications Medication Drug Class(es) Dates Sig (Normalized) Sig (Original) amiodarone hydrochloride 100 mg oral tablet (20 sources) Antiarrhythmic Start: 06-04-2022 End: 01-04-2025 take 1 tablet by mouth once daily amiodarone (Pacerone) 100 mg tablet Indications: Paroxysmal atrial fibrillation (Multi) Take 1 tablet (100 mg) by mouth once daily. 90 tablet 2 06/05/2023 01/05/2024 Discontinued (Reorder) Start: 06-04-2022 take 100 mg by mouth twice bud ly Amiodarone Active 100 MG PO 2 times daily June 04, 2022 12:00am Start: 04-08-2022 take 0.5 tablet by m out once daily Amiodarone HCl - 200 MG Oral Tablet 1/2 tablet daily Quantity: 45 Refills: 1 Ordered: 08-Apr-2022 Juany Richter MD Start : 08-Apr-2022 Active dose change Start: 02-11-2022 take 1 tablet by neda every other day Amiodarone HCl - 200 MG Oral Tablet 1 tablet every other day Quantity: 45 Refills: 1 Ordered: 11-Feb-2022 Juany Richter MD Start : 11-Feb-2022 Active apixaban 5 mg oral tablet (20 sources) Factor Xa Inhibitor Start: 09-26-2021 End: 01-04-2025 take 1 tablet by mouth twice daily apixaban (Eliquis) 5 mg tablet Indications: Paroxysmal atrial fibrillation (Multi) , High risk medication use Take 1 tablet (5 mg) by mouth 2 times a day. 180 tablet 2 06/05/2023 01/05/2024 Discontinued (Reorder) Start: 09-26-2021 Eliquis 5 MG t ablet every 12 (twelve) hours. 09/26/2021 Active atorvastatin 80 mg oral tablet (4 sources) [...] time each day at the same time. Active take 1 spray(s) nasa l route once daily as needed Fluticasone Propionate 50 MCG/ACT 1 spray in each nostril Nasally Once a day Not-Taking/PRN take 1 spray(s) nasa l route once daily Fluticasone Propionate 50 MCG/ACT 1 spray in each nostril Nasally Once a day Not-Taking hydrocortisone 10 mg/ml / neomycin 3.5 mg/ml / polymyxin b [id number] unt/ml otic suspension (7 sources) Aminoglycoside Antibacterial, Polymyxin-class Antibacterial, Corticosteroid Start: 08-18-2023 End: 09-08-2023 Pusoxggi-Vgilynndp-Nn Discontinued 4 DROPS OTIC Three times daily [...] suspension (20 sources) Corticosteroid Start: 08-09-2022 Kenalog-40 Nov, 40 mg Problems Active Problems Problem Classification Problem Date Documented Date Episodic/Chronic Abdominal pain (14 sources) Pelvic and perineal pain; Translations: [Pelvic and perineal pain] Episodic Acute bronchitis (6 sources) Acute bronchitis; Translations: [...] fibrillation] Onset: 07-05-2021 Chronic Chronic kidney disease (6 sources) Chronic kidney disease stage 3A ; Translations: [Stage 3a chronic kidney disease ([facility]/HCC)] Onset: 06-05-2023 06-05-2023 Chronic Chronic kidney disease (4 sources) Chronic kidney disease; Translations: [Chronic kidney disease, stage 3a (Multi)] Onset: 06-05-2023 Chronic obstructive pulmonary disease and bronchiectasis (20 sources) Chronic obstructive lung disease; Translations: [Chronic airway obstruction, not elsewhere classified] Onset: 10-28-2022 04-03-2023 Chronic Chronic obstructive pulmonary disease and bronchiectasis (12 sources) Bronchitis; Translations: [Bronchitis, not specified as acute or chronic] 10-09-2023 Episodic Coagulation and hemorrhagic disorders (14 sources) 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; Translations: [Hemorrhagic disorder due to extrinsic circulating anticoagulants] Onset: 08-29-2022 08-29-2022 Chronic Coronary atherosclerosis and other heart disease (1 source) Coronary atherosclerosis and other heart disease; Translations: [Atherosclerosis of [place] arteries of extremities with intermittent claudication, bilateral legs] Onset: 12-26-2022 Diabetes mellitus without complication (7 sources) Impaired fasting glucose; Translations: [Impaired fasting glycemia] Onset: 04-27-2021 Episodic Disorders of lipid metabolism (14 sources) Mixed hyperlipidemia; Translations: [Mixed hyperlipidemia] Onset: [...] source) Acute vaginitis Episodic Malaise and fatigue (19 sources) Other fatigue; Translations: [Fatigue] Onset: 03-24-2013 10-23-2023 Episodic Mood disorders (13 sources) Moderate recurrent major depression; Translations: [Major depressive disorder, recurrent, moderate] Onset: 02-20-2018 Chronic Mycoses (8 sources) Candidiasis of skin and nails; Translations: [...] current use of drug therapy; Translations: [Other retirement (current) drug therapy] Episodic Other aftercare (7 sources) Taking high risk medication; Translations: [Other termite control technician (current) drug therapy] Onset: 10-28-2022 10-28-2022 Episodic Other circulatory disease (6 sources) Elevated [...] Chronic Other ear and sense organ disorders (7 sources) Otitis externa; Translations: [Unspecified otitis externa, [...] pulmonary nodule] Episodic Other lower respiratory disease (9 sources) Dyspnea; Translations: [Shortness of breath] 10-23-2023 Episodic Other lower respiratory disease (6 sources) Cough; Translations: [Cough, unspecified] Episodic Other lower respiratory disease (3 sources) Dyspnea, unspecified; Translations: [Other respiratory abnormalities] 10-23-2023 Episodic Other nervous system disorders (6 sources) Carpal tunnel syndrome; Translations: [Carpal tunnel syndrome, left upper limb] Onset: 12-23-2013 Chronic Other nervous system disorders (5 sources) Idiopathic progressive polyneuropathy; Translations: [Idiopathic progressive [...] mass index (BMI) 34.0-34.9, adult] Chronic Other nutritional; endocrine; and metabolic disorders (2 sources) Body mass index 30+ - obesity; Translations: [Body mass index (BMI) 31.0-31.9, adult] Onset: 01-05-2024 01-05-2024 Chronic Other nutritional; endocrine; and metabolic disorders (2 sources) Body mass index (BMI) 31.0-31.9, adult; Translations: [Body mass index (BMI) 31.0-31.9, adult] Onset: 01-05-2024 Chronic Other screening for suspected conditions (not [...] sources) Tobacco user; Translations: [Tobacco use] Episodic Residual codes; unclassified (13 sources) Other specified health status; Translations: [Other drug allergy] Onset: 12-23-2022 01-09-2023 Episodic Spondylosis; intervertebral disc disorders; other back problems (20 sources) Lumbar radiculopathy; Translations: [Radiculopathy, lumbar region] [...] for other preprocedural examination] Onset: 01-30-2023 Unclassified (2 sources) Hypercoagulable state due to paroxysmal atrial fibrillation (Multi) 01-05-2024 Urinary tract infections (20 sources) Chronic interstitial cystitis; Translations: [Interstitial cystitis (chronic) without hematuria] Chronic Urinary tract infections (1 source) Acute cystitis without hematuria Episodic Past or Other Problems Problem Classification Problem Date Documented Da te Episodic/Chronic Diseases of mouth; excluding dental (6 sources) Glossodynia; Translations: [Glossodynia] Onset: 05-29-2017 Episodic Mood disorders (5 sources) Mood disorders Onset: 04-08-2022 07-02-2022 Other aftercare (3 sources) Other termite control technician (current) drug therapy; Translations: [OTH FDC CURRENT DRUG THERAPY] Onset: 02-16-2022 Episodic Other connective tissue disease (6 sources) [...] Onset: 06-15-2018 Episodic Other lower respiratory disease (20 sources) Multiple nodules of lung; Translations: [Other nonspecific abnormal finding of lung field] Onset: 10-28-2022 04-03-2023 Episodic Other non-traumatic joint disorders (6 sources) Shoulder joint pain; Translations: [Pain in unspecified shoulder] Onset: 03-17-2014 Episodic Other nutritional; endocrine; and metabolic disorders (20 sources) Obesity; Translations: [Obesity, unspecified] Onset: 10-28-2022 Resolved: 01-05-2024 10-28-2022 Chronic Other nutritional; endocrine; and metabolic disorders (6 sources) Excessive thirst; Translations: [Polydipsia] Onset: 07-28-2013 Episodic Residual codes; unclassified (5 sources) Passive smoker; Translations: [Contact with and (suspected) exposure to environmental tobacco smoke (acute) (chronic)] Onset: 12-23-2022 12-23-2022 Episodic Screening and history of mental health and substance abuse codes (11 sources) Ex-smoker; Translations: [Personal history of tobacco use] Onset: 06-05-2023 06-05-2023 Episodic Comment on above: 06/2022 quit; Unclassified (12 sources) Patient status finding; Translations: [Patient new to provider] Unclassified (5 sources) Onset: 12-23-2022 Resolved: 06-05-2023 12-23-2022 Varicose veins of lower extremity (18 sources) Varicose veins of lower extremity; Translations: [Asymptomatic varicose veins] Onset: 04-04-2022 10-28-2022 Episodic Results Test Name Value Interpretation Reference Range Facility ECG 12 Leadon 01-05-2024 [facility] Work Phone: Normal sinus rhythm isolated ventricular premature beats normal intervals no significant change compared to previous EKG of June 2023 [facility] Work Phone: Laboratory - Chemistry and C hemistry - challengeon 12-03-2023 Bilirubin Ql (U) Negative [facility] Glucose (U) [Mass/Vol] Negative [facility] Ketones Ql (U) Negative [facility] pH (U) 5.0 [pH] [facility] Specific gravity (U) [Rel density] 1.010 [facility] Urobilinogen (U) [Mass/Vol] 0.2 mg/dL [facility] Laboratory - Specimen inform ationon 12-03-2023 Appearance (U) cloudy [facility] Color (U) yellow [facility] Laboratory - Urinalysison Leukocyte esterase Test strip Ql (U) Positive [facility] Nitrite Ql (U) Negative [facility] Protein Ql (U) + [facility] No Panel Informationon 12-02 Urine Occult Blood +++ [facility] Basophils Auto (Bld) [#/Vol] on 10-24-2023 Basophils (Bld) [#/Vol] 0.0 10 3/uL 0.0-0.1 [facility] Basophils/100 WBC Auto (Bld) on 10-24-2023 Basophils/100 WBC (Bld) 0.4 % 0.2-2.0 [facility] Cholesterol in LDL Calc [Mas s/Vol]on 10-24-2023 Cholesterol in LDL [Mass/Vol] 32.0 mg/dL [facility] Comment on above: <100 mg/dl [id number] 0-129 mg/dl NEAR OR ABOVE [id number] mg/dl BORDERLINE [id number] mg/dl HIGH>190 mg/dl VERY HIGH Cholesterol in VLDL Calc [Ma ss/Vol]on 10-24-2023 Cholesterol in VLDL [Mass/Vol] 18.4 mg/dL [facility] Eosinophils/100 WBC Auto (Bl d)on 10-24-2023 Eosinophils/100 WBC (Bld) 1.2 % 0.9-7.0 [facility] Erythrocyte distribution wid th Auto (RBC) [Ratio]on 10-24-2023 Erythrocyte distribution width (RBC) [Ratio] 15.5 % High 11.0-15.0 [facility] Estimated glomerular filtrat ion rate (GFR) non- Americanon 10-24-2023 GFR/1.73 sq M.predicted among non-blacks MDRD (S/P/Bld) [Vol rate/Area] 51 mL/min/{1.73_m2} Low >=60 [facility] Globulin Calc (S) [Mass/Vol] on 10-24-2023 Globulin (S) [Mass/Vol] 3.1 g/dL [facility] Hematocrit Auto (Bld) [Volum e fraction]on 10-24-2023 Hematocrit (Bld) [Volume fraction] 39.3 % 36.0-48.0 [facility] Hemoglobin [Mass/volume] in Bloodon 10-24-2023 Hemoglobin (Bld) [Mass/Vol] 12.1 g/dL 12.0-16.0 [facility] Laboratory - Chemistry and C hemistry - challengeon 10-24-2023 Albumin [Mass/Vol] 3.9 g/dL 3.4-5.0 [facility] ALP [Catalytic activity/Vol] 95 U/L 46-116 [facility] ALT [Catalytic activity/Vol] 25 U/L 14-59 [facility] AST [Catalytic activity/Vol] 21 U/L 15-37 [facility] Bilirubin [Mass/Vol] 0.7 mg/dL 0.2-1.0 [facility] Calcium [Mass/Vol] 9.2 mg/dL 8.5-10.1 [facility] Chloride [Moles/Vol] 101 mmol/L 98-107 [facility] Cholesterol [Mass/Vol] 111 mg/dL <=200 [facility] Cholesterol in HDL [Mass/Vol] 61 mg/dL High 40-60 [facility] Comment on above: > or =60 mg/dl - LOW CARDIOVASCULAR RISK<40 mg/dl - HIGH CARDIOVASCULAR RISK CO2 [Moles/Vol] 27.2 mmol/L 21.0-32.0 [facility] Creatinine [Mass/Vol] 1.06 mg/dL High 0.55-1.02 [facility] GFR/1.73 sq M.predicted MDRD (S/P/Bld) [Vol rate/Area] mL/min/{1.73_m2} >=60 [facility] Glucose [Mass/Vol] 97 mg/dL 74-106 [facility] Potassium [Moles/Vol] 4.1 mmol/L 3.5-5.1 [facility] Protein [Mass/Vol] 7.0 g/dL 6.4-8.2 [facility] Sodium [Moles/Vol] 137 mmol/L 136-145 [facility] Triglyceride [Mass/Vol] 92 mg/dL <=150 [facility] TSH Qn 2.667 m[IU]/L 0.358-3.74 0 [facility] Urea nitrogen [Mass/Vol] 11.0 mg/dL 7.0-18.0 [facility] Urea nitrogen/Creatinine [Mass ratio] 10.4 mg/mg [facility] Laboratory - Hematology and Cell countson 10-24-2023 Immature granulocytes/100 WBC (Bld) 0.3 % 0.0-0.5 [facility] Leukocytes [#/volume] correc alirio for nucleated erythrocytes in Blood by Automated counon 10-24-2023 WBC corrected for nucl RBC Auto (Bld) [#/Vol] 9.7 10 3/uL 4.0-11.0 [facility] Lymphocytes Auto (Bld) [#/Vo l]on 10-24-2023 Lymphocytes (Bld) [#/Vol] 2.2 10 3/uL 1.2-3.8 [facility] Lymphocytes/100 WBC Auto (Bl d)on 10-24-2023 Lymphocytes/100 WBC (Bld) 22.6 % 20.5-60.0 [facility] MCH Auto (RBC) [Entitic mass ]on 10-24-2023 MCH (RBC) [Entitic mass] 27.4 pg 26.7-34.0 [facility] MCHC Auto (RBC) [Mass/Vol]on 10-24-2023 MCHC (RBC) [Mass/Vol] 30.8 g/dL 29.9-35.2 [facility] MCV Auto (RBC) [Entitic vol] on 10-24-2023 MCV (RBC) [Entitic vol] 88.9 fL 81.0-99.0 [facility] Monocytes Auto (Bld) [#/Vol] on 10-24-2023 Monocytes (Bld) [#/Vol] 0.7 10 3/uL 0.3-0.8 [facility] Monocytes/100 WBC Auto (Bld) on 10-24-2023 Monocytes/100 WBC (Bld) 7.6 % 1.7-12.0 [facility] Neutrophils Auto (Bld) [#/Vo l]on 10-24-2023 Neutrophils (Bld) [#/Vol] 6.6 10 3/uL High 1.4-6.5 [facility] Neutrophils/100 WBC Auto (Bl d)on 10-24-2023 Neutrophils/100 WBC (Bld) 67.9 % 43.0-75.0 [facility] No Panel Informationon 10-23 Eosinophils # (Auto) 0.1 10 3/uL 0.0-0.7 [facility] Immature Granulocyte # (Auto) 0.03 10 3/uL 0.00-0.03 [facility] Platelet mean volume Auto (B ld) [Entitic vol]on 10-24-2023 Platelet mean volume (Bld) [Entitic vol] 11.4 fL 9.5-13.5 [facility] Platelets Auto (Bld) [#/Vol] on 10-24-2023 Platelets (Bld) [#/Vol] 216 10 3/uL 150-450 [facility] RBC Auto (Bld) [#/Vol]on RBC (Bld) [#/Vol] 4.42 10 6/uL 4.20-5.40 [facility] Serum or plasma albumin/glob ulin mass ratioon 10-24-2023 Albumin/Globulin [Mass ratio] 1.3 {ratio} [facility] Serum or plasma anion gap de terminationon 10-24-2023 Anion gap [Moles/Vol] 12.9 mmol/L [facility] Serum or plasma total choles terol/high density lipoprotein (HDL) cholesterol mass stephon 10-24-2023 Cholesterol.total/Cho lesterol in HDL [Mass ratio] 1.8 {ratio} [facility] Comment on above: 3.3 - 4.4 LOW RISK4. 4 - 7.1 AVERAGE RISK7.1 - 11.0 MODERATE RISK>11.0 HIGH RISK Laboratory - Chemistry and C hemistry - challengeon 10-23-2023 Bilirubin Ql (U) Negative [facility] Glucose (U) [Mass/Vol] Negative [facility] Ketones Ql (U) Negative [facility] pH (U) 5 [pH] [facility] Specific gravity (U) [Rel density] 1.000 [facility] Urobilinogen (U) [Mass/Vol] 0.2 mg/dL [facility] Laboratory - Specimen inform ationon 10-23-2023 Appearance (U) clear [facility] Color (U) yellow [facility] Laboratory - Urinalysison Leukocyte esterase Test strip Ql (U) Negative [facility] Nitrite Ql (U) Negative [facility] Protein Ql (U) Negative [facility] No Panel Informationon 10-22 Urine Occult Blood Negative [facility] Laboratory - Chemistry and C hemistry - challengeon 09-24-2023 Bilirubin Ql (U) Negative [facility] Glucose (U) [Mass/Vol] Negative [facility] Ketones Ql (U) Negative [facility] pH (U) 6.5 [pH] [facility] Specific gravity (U) [Rel density] 1.010 [facility] Laboratory - Specimen inform ationon 09-24-2023 Appearance (U) cloudy [facility] Color (U) yellow [facility] Laboratory - Urinalysison Leukocyte esterase Test strip Ql (U) ++ [facility] Nitrite Ql (U) Negative [facility] Protein Ql (U) + [facility] No Panel Informationon 09-23 Urine Occult Blood ++ [facility] Urine Urobilinogen offchart [facility] US ankle/arm indiceson 07-01 US ankle/arm indices [facility] [address] [place] [address] Ultrasound Report Signed Patient: Avelino Barrett MR#: [id number] : 1950 Acct:[id number] Age/Sex: 72 / F ADM Date: 07/02/23 Loc: [facility] Room: Type: [facility] Attending Dr: Pili Campbell RADIO FREQUENCY DESIGN ENGINEER-C Ordering Provider: Pili Campbell APRN Date of [...] Eulogio Mai MD07/02/2023 3:38 PM Dictation Location: [place] [address] Tech: Emperatriz Kang Transcribed By: JESSICA 07/02/23 1538 Dictated By: Eulogio Mai MD 07/02/23 153 Signed By: 07/02/23 153 Normal [facility] ECG 12 Leadon 06-05-2023 Normal sinus rhythm with normal intervals, no significant change prior EKG from April 2023. [facility] Work Phone: XR Chest 2 Viewson 4 These images are not reportable by radiology and will not be interpreted by Radiologists. IMAGING Alanine aminotransferase [En zymatic activity/volume] in Serum or PlasmaOrdered By: Juany Richter on 04-15-2023 ALT [Catalytic activity/Vol] 13 U/L Normal 7-52 [facility] Comment on above: Performed By: #### A ST, BMP, ALT, LIPID, TSH3 #### [facility] [address] [place] [id number] [place] Aspartate aminotransferase [ Enzymatic activity/volume] in Serum or PlasmaOrdered By: Juany Richter on 04-15-2023 AST [Catalytic activity/Vol] 15 U/L Normal 13-39 [facility] Comment on above: Performed By: #### A ST, BMP, ALT, LIPID, TSH3 #### [facility] [address] [place] [address] [place] Basic Metabolic Panelon 04-03 GFR/1.73 sq M.predicted MDRD (S/P/Bld) [Vol rate/Area] 54.313 mL/min/{1.73_m2} Normal [facility] Comment on above: Performed By: #### A ST, BMP, ALT, LIPID, TSH3 #### [facility] [address] [place] [id number] [place] Calcium [Mass/volume] in Ser um or PlasmaOrdered By: Juany Richter on 04-15-2023 Calcium [Mass/Vol] 9.6 mg/dL Normal 8.6-10.3 [facility] Comment on above: Performed By: #### A ST, BMP, ALT, LIPID, TSH3 #### [facility] [address] [place] [address] [place] Carbon dioxide, total [Moles /volume] in Serum or PlasmaOrdered By: Juany Richter on 04-15-2023 CO2 [Moles/Vol] 30.1 mmol/L Normal 21.0-31.0 [facility] Comment on above: Performed By: #### A ST, BMP, ALT, LIPID, TSH3 #### [facility] [address] [place] [address] [place] Chloride [Moles/volume] in S diomedes or PlasmaOrdered By: Juany Richter on 04-15-2023 Chloride [Moles/Vol] 103 mmol/L Normal 98-107 [facility] Comment on above: Performed By: #### A ST, BMP, ALT, LIPID, TSH3 #### [facility] [address] [place] [address] [place] Cholesterol [Mass/volume] in Serum or PlasmaOrdered By: Juany Richter on 04-15-2023 Cholesterol [Mass/Vol] 203 mg/dL High 140-200 [facility] Comment on above: Chol less than 200 m g/dl low riskChol 201-239 mg/dl borderline riskChol 240 mg/dl and greater high risk Result Comment: Chol less than 200 mg/dl low risk Chol 201-239 mg/dl borderline risk Chol 240 mg/dl and greater high risk Performed By: #### A ST, BMP, ALT, LIPID, TSH3 #### [facility] [address] [place] [id number] [place] Cholesterol in LDL Calc [Mas s/Vol]Ordered By: Juany Richter on 04-15-2023 Cholesterol in LDL [Mass/Vol] 114 mg/dL 0-100 [facility] Comment on above: LDL ATP III CLASSIFI CATIONLDL less than 100 mg/dL OptimalLDL 100-129 mg/dL Near or above optimalLDL 130-159 mg/dL Borderline highLDL 160-189 mg/dL HighLDL greater than 189 mg/dL Very high Cholesterol in VLDL Calc [Ma ss/Vol]Ordered By: Juany Richter on 04-15-2023 Cholesterol in VLDL [Mass/Vol] 40 mg/dL [facility] Creatinine [Mass/volume] in Serum or PlasmaOrdered By: Juany Richter on 04-15-2023 Creatinine [Mass/Vol] 1.09 mg/dL Normal 0.60-1.20 [facility] Comment on above: Performed By: #### A ST, BMP, ALT, LIPID, TSH3 #### [facility] [address] Glucose [Mass/volume] in Ser um or PlasmaOrdered By: Juany Richter on 04-15-2023 Glucose [Mass/Vol] 94 mg/dL Normal 70-100 [facility] Comment on above: ADA recommended refe rence rangeRandom Glucose Reference Range is dependent on time and content of last meal. Glucose of more than 200 mg/dL in a nonstressed, ambulatory subject supports the diagnosis of Diabetes Mellitus. Result Comment: [place] om Glucose Reference Range is dependent on time and content of last meal. Glucose of more than 200 mg/dL in a nonstressed, ambulatory subject supports the diagnosis of Diabetes Mellitus. ADA recommended reference range Performed By: #### A ST, BMP, ALT, LIPID, TSH3 #### [facility] [address] Lipid Panelon 04-15-2023 LDL Cholesterol,Calculate d 114 mg/dL High 0-100 [facility] Comment on above: Result Comment: LDL ATP III CLASSIFICATION LDL less than 100 mg/dL Optimal LDL 100-129 mg/dL Near or above optimal LDL 130-159 mg/dL Borderline high LDL 160-189 mg/dL High LDL greater than 189 mg/dL Very high Performed By: #### A ST, BMP, ALT, LIPID, TSH3 #### [facility] [address] [place] [id number] [facility] Triglyceride w/Reflex 204 mg/dL High 0-149 [facility] Comment on above: Result Comment: TRIG ATP III CLASSIFICATION TRIG less than 150 mg/dL Normal TRIG 150-199 mg/dL Borderline high TRIG 200-500 mg/dL High TRIG greater than 500 mg/dL Very high Standard traceable to the Center for Disease Conrtrol and Prevention (CDC) test method. Performed By: #### A ST, BMP, ALT, LIPID, TSH3 #### [facility] [address] VLDL CHOLESTEROL 40 mg/dL Normal [facility] Comment on above: Performed By: #### A ST, BMP, ALT, LIPID, TSH3 #### [address] No Panel InformationOrdered By: Juany Richter on 04-15-2023 Estimated GFR (CKD-EPI) 54.313 mL/Min [facility] Creatinine Clearance (Chem N/A [facility] Potassium [Moles/volume] in Serum or PlasmaOrdered By: Juany Richter on 04-15-2023 Potassium [Moles/Vol] 4.7 mmol/L Normal 3.5-5.1 [facility] Comment on above: Performed By: #### A ST, BMP, ALT, LIPID, TSH3 #### [address] Serum or plasma anion gap de terminationOrdered By: Juany Richter on 04-15-2023 Anion gap [Moles/Vol] 11.6 mmol/L Normal 6.0-15.0 [facility] Comment on above: Performed By: #### A ST, BMP, ALT, LIPID, TSH3 #### [address] Serum or plasma high density lipoprotein (HDL) cholesterol measurementOrdered By: Juany Richter on 04-15-2023 Cholesterol in HDL [Mass/Vol] 48 mg/dL Normal 23-92 [facility] Comment on above: HDL CHOL ATP-III CLA SSIFICATION Cardiovascular RiskHDL > or equal to 60 mg/dL LOWHDL < 40 mg/dL HIGH Result Comment: HDL CHOL ATP-III CLASSIFICATION Cardiovascular Risk HDL > or equal to 60 mg/dL LOW HDL < 40 mg/dL HIGH Performed By: #### A ST, BMP, ALT, LIPID, TSH3 #### [address] Serum or plasma total choles terol/high density lipoprotein (HDL) cholesterol mass ratOrdered By: Juany Richter on 04-15-2023 Cholesterol.total/Cho lesterol in HDL [Mass ratio] 4.2 {ratio} Normal <5.0 [facility] Comment on above: Performed By: #### A ST, BMP, ALT, LIPID, TSH3 #### [address] Sodium [Moles/volume] in Ser um or PlasmaOrdered By: Juany Richter on 04-15-2023 Sodium [Moles/Vol] 140 mmol/L Normal 136-145 [facility] Comment on above: Performed By: #### A ST, BMP, ALT, LIPID, TSH3 #### [address] Thyrotropin [Units/volume] i n Serum or PlasmaOrdered By: Juany Richter on 04-15-2023 TSH Qn 4.62 m[IU]/L Normal 0.45-5.33 [facility] Comment on above: Result Comment: PERF ORMED BY: [place] [address] PATHOLOGIST SENIOR SECURITY ANALYST GARRETT PEÑA M.D. Performed By: #### A ST, BMP, ALT, LIPID, TSH3 #### [address] Triglyceride [Mass/volume] i n Serum or PlasmaOrdered By: Juany Richter on 04-15-2023 Triglyceride [Mass/Vol] 204 mg/dL 0-149 [facility] Comment on above: TRIG ATP III CLASSIF ICATIONTRIG less than 150 mg/dL NormalTRIG 150-199 mg/dL Borderline highTRIG 200-500 mg/dL High TRIG greater than 500 mg/dL Very highStandard traceable to the Center for Disease Conrtrol and Prevention (CDC) test method. Urea nitrogen [Mass/volume] in Serum or PlasmaOrdered By: Juany Richter on 04-15-2023 Urea nitrogen [Mass/Vol] 15 mg/dL Normal 7-25 [facility] Comment on above: Performed By: #### A ST, BMP, ALT, LIPID, TSH3 #### [facility] [address] XR chest 2V*on 04-15-2023 XR chest 2V* [facility] Main [place] [address] [place] [id number] XRay Report Signed Patient: Avelino Barrett MR#: [id number] : 1950 Acct:[id number] Age/Sex: 72 / F ADM Date: 04/15/23 Loc: RT Room: Type: [facility] Attending Dr: Juany Richter MD Copies to: [...] Quiana Pepe M.D.04/15/2023 2:18 PM Dictation Location: [place] [address] Transcribed By: [facility] 04/15/23 1418 Dictated By: Quiana Pepe MD 04/15/23 1417 Signed By: 04/15/23 1418 Normal [facility] ABO/Rh Retypeon 02-10-2023 ABO/RH Recheck Result Positive Normal [facility] Comment on above: Result Comment: PERF ORMED BY: [place] [address] PATHOLOGIST SENIOR SECURITY ANALYST GARRETT Koroma 02-10-2023 L ------ Specimen: [id number] Received: 02/10/23 Status: SHELLI Parag Num: [id number] Spec Type: Surgical Subm Dr: Lorri White DO Tissues: A Endometrium - Curettings (ENDO CURETT) Procedures: HE/2, Gross/Micro L4 Age/ Patient Sex Location Account Attending Physician Avelino Barrett 72/F [place] [id number] Lorri White DO SPEC NUM: [id number] RECD: 02/10/23 STATUS: SHELLI PARAG NUM: [id number] SARA: 02/10/23- RYAN DR: Lorri White DO ENTERED: 02/10/23 [facility] DR: SPEC TYPE: Surgical DEPT: S ENTERED BY: [id number] RECV BY: [id number] ORDERED: HE/2, Gross/Micro L4 ORDERED: HE, Gross/Micro L4 Pathological Diagnosis Endometrial curettings: - [...] 0.3 cm aggregate of lima-red soft tissue. Cable Armorer sections are submitted in one cassette labeled A1. Microscopic Description Two H E slides reviewed. The microscopic examination confirms the diagnosis. Specimen: [id number] Received: 02/10/23 Status: SHELLI Parag Num: [id number] Spec Type: Surgical Subm Dr: Lorri White DO Tissues: A Endometrium - Curettings (ENDO CURETT) Procedures: 2, Gross/Micro L4 Patient: Avelino Barrett [id number] (Continued) Specimen: [id number] Received: 02/10/23 (Continued) Signed (signature on file) Austin Infante MD 02/11/23 1920 Specimen: [id number] Received: 02/10/23 Status: SHELLI Whittaker Num: [id number] Spec Type: Surgical Subm Dr: Lorri White DO Tissues: A Endometrium - Curettings (ENDO CURETT) Procedures: HE/2Lady/Jaylan L4 Patient: Avelino Barrett [id number] (Continued) Specimen: [id number] Received: 02/10/23 (Continued) CPT Codes 28633 Specimen: [id number] Received: 02/10/23 Status: SHELLI Parag Num: [id number] Spec Type: Surgical Subm Dr: Lorri White DO Tissues: A Endometrium - Curettings (ENDO CURETT) Procedures: Lady JOHNSTON/Jaylan L4 Patient: Avelino Barrett [id number] (Continued) Signed (signature on file) Austin Infante MD 02/11/231919 Normal [facility] Automated basophil %Ordered By: Lorri White on 01-30-2023 Basophils/100 WBC (Bld) 0.7 % Normal . [facility] Comment on above: Performed By: #### B MP, CBC ####[address] Automated basophil countOrde red By: Lorri White on 01-30-2023 Basophils (Bld) [#/Vol] 0.1 10*3/uL Normal 0.0-0.2 [facility] Comment on above: Result Comment: PERF ORMED BY: [facility] [address] [place] [address] PATHOLOGIST SENIOR SECURITY ANALYST GARRETT PEÑA M.D. Performed By: #### B MP, CBC ####[address] Automated blood monocyte cou ntOrdered By: Lorri White on 01-30-2023 Monocytes (Bld) [#/Vol] 0.7 10*3/uL Normal 0.0-0.8 [facility] Comment on above: Performed By: #### B MP, CBC ####[address] Automated eosinophil %Ordere d By: Lorri White on 01-30-2023 Eosinophils/100 WBC (Bld) 0.8 % Normal . [facility] Comment on above: Performed By: #### B MP, CBC ####[address] Automated eosinophil countOr dered By: Lorri White on 01-30-2023 Eosinophils (Bld) [#/Vol] 0.1 10*3/uL Normal 0.0-0.45 [facility] Comment on above: Performed By: #### B MP, CBC ####[address] Automated monocyte %Ordered By: Lorri White on 01-30-2023 Monocytes/100 WBC (Bld) 6.6 % Normal . [facility] Comment on above: Performed By: #### B MP, CBC ####[address] [place] [address] [facility] Automated neutrophil %Ordere d By: Lorri White on 01-30-2023 Neutrophils/100 WBC (Bld) 64.7 % Normal . [facility] Comment on above: Performed By: #### B MP, CBC ####[place] [id number] [facility] Basic Metabolic Panelon 01-03 GFR/1.73 sq M.predicted MDRD (S/P/Bld) [Vol rate/Area] 54.313 mL/min/{1.73_m2} Normal [facility] Comment on above: Performed By: #### B MP, CBC ####[place] [id number] [facility] Calcium [Mass/volume] in Ser um or PlasmaOrdered By: Lorri White on 01-30-2023 Calcium [Mass/Vol] 9.4 mg/dL Normal 8.6-10.3 [facility] Comment on above: Result Comment: PERF ORMED BY: [facility] [address] [place] [id number] PATHOLOGIST SENIOR SECURITY ANALYST GARRETT PEÑA M.D. Performed By: #### B MP, CBC ####[place] [id number] [facility] Carbon dioxide, total [Moles /volume] in Serum or PlasmaOrdered By: Lorri White on 01-30-2023 CO2 [Moles/Vol] 26.8 mmol/L Normal 21.0-31.0 [facility] Comment on above: Performed By: #### B MP, CBC ####[place] [id number] [place] Chloride [Moles/volume] in S diomedse or PlasmaOrdered By: Lorri White on 01-30-2023 Chloride [Moles/Vol] 105 mmol/L Normal 98-107 [facility] Comment on above: Performed By: #### B MP, CBC ####[place] [id number] [facility] Complete Blood Count Auto Di ffon 01-30-2023 Mean Corpuscular HGB Conc 33.0 g/dL Normal 32.0-35.0 [facility] Comment on above: Performed By: #### B MP, CBC ####[facility] NRBC% 0.1 /100{WBC} Normal 0-0.5 [facility] Comment on above: Performed By: #### B MP, CBC ####[facility] Den[address] Creatinine [Mass/volume] in Serum or PlasmaOrdered By: Lorri White on 01-30-2023 Creatinine [Mass/Vol] 1.09 mg/dL Normal 0.60-1.20 [facility] Comment on above: Performed By: #### B MP, CBC ####[address] ECG 12 lead ECGon 01-30-2023 ECG 12 lead ECG [facility] [place] [address] Electrocardiograph Report Signed Patient: Avelino Barrett MR#: [id number] : 1950 Acct:[id number] Age/Sex: 72 / F ADM Date: 01/30/23 Loc: Room: Type: [facility] Attending Dr: Lorri White DO Ordering [...] ECG No previous ECGs available Confirmed by EVAN ROBB MD, FACC ([id number]) on 02/01/2023 1:02:41 AM Referred By: CAR WHITE Electronically Signed By:EVAN ROBB MD FACC Transcribed By: MUS Signed By Osmani Robb MD 02/01/23 0102 Normal [facility] Erythrocyte distribution wid th [Ratio] by Automated countOrdered By: Lorri White on 01-30-2023 Erythrocyte distribution width (RBC) [Ratio] 14.5 % Normal 11.9-15.3 [facility] Comment on above: Performed By: #### B MP, CBC ####[place] [address] [place] [address] [facility] Erythrocytes [#/volume] in B lood by Automated countOrdered By: Lorri White on 01-30-2023 RBC (Bld) [#/Vol] 4.38 10*6/uL Normal 3.60-5.00 [facility] Comment on above: Performed By: #### B VENECIA, CBC ####[place] [address] [place] [address] [facility] Glucose [Mass/volume] in Ser um or PlasmaOrdered By: Lorri White on 01-30-2023 Glucose [Mass/Vol] 78 mg/dL Normal 70-100 [facility] Comment on above: ADA recommended refe rence rangeRandom Glucose Reference Range is dependent on time and content of last meal. Glucose of more than 200 mg/dL in a nonstressed, ambulatory subject supports the diagnosis of Diabetes Mellitus. Result Comment: [place] om Glucose Reference Range is dependent on time and content of last meal. Glucose of more than 200 mg/dL in a nonstressed, ambulatory subject supports the diagnosis of Diabetes Mellitus. ADA recommended reference range Performed By: #### B MP, CBC ####[place] [address] [place] [address] [place] Hematocrit [Volume Fraction] of Blood by Automated countOrdered By: Lorri White on 01-30-2023 Hematocrit (Bld) [Volume fraction] 37.4 % Normal 34.0-46.4 [facility] Comment on above: Performed By: #### B MP, CBC ####[place] [address] [place] [address] [place] Hemoglobin [Mass/volume] in BloodOrdered By: Lorri White on 01-30-2023 Hemoglobin (Bld) [Mass/Vol] 12.4 g/dL Normal 11.8-15.4 [facility] Comment on above: Performed By: #### B MP, CBC ####[address] Leukocytes [#/volume] correc alirio for nucleated erythrocytes in Blood by Automated counOrdered By: Lorri White on 01-30-2023 WBC corrected for nucl RBC Auto (Bld) [#/Vol] 10.0 10*3/uL 3.8-11.6 [facility] Leukocytes [#/volume] in Blo od by Automated countOrdered By: Lorri White on 01-30-2023 WBC (Bld) [#/Vol] 10.0 10*3/uL Normal 3.8-11.6 [facility] Comment on above: Performed By: #### B VENECIA, CBC ####[address] Lymphocytes [#/volume] in Bl ood by Automated countOrdered By: Lorri White on 01-30-2023 Lymphocytes (Bld) [#/Vol] 2.7 10*3/uL Normal 1.00-4.8 [facility] Comment on above: Performed By: #### B MP, CBC ####[address] Lymphocytes/100 leukocytes i n Blood by Automated countOrdered By: Lorri White on 01-30-2023 Lymphocytes/100 WBC (Bld) 27.2 % Normal . [facility] Comment on above: Performed By: #### B MP, CBC ####[place] [id number] [facility] MCH [Entitic mass] by Automa alirio countOrdered By: Lorri White on 01-30-2023 MCH (RBC) [Entitic mass] 28.2 pg Normal 24.7-34.3 [facility] Comment on above: Performed By: #### B MP, CBC ####[address] MCHC Auto (RBC) [Mass/Vol]Or dered By: Lorri White on 01-30-2023 MCHC (RBC) [Mass/Vol] 33.0 g/dL 32.0-35.0 [facility] MCV [Entitic volume] by Auto mated countOrdered By: Lorri White on 01-30-2023 MCV (RBC) [Entitic vol] 85.4 fL Normal 80-100 [facility] Comment on above: Performed By: #### B MP, CBC ####[facility] [id number] Neutrophils [#/volume] in Bl ood by Automated countOrdered By: Lorri White on 01-30-2023 Neutrophils (Bld) [#/Vol] 6.5 10*3/uL Normal 1.8-7.7 [facility] Comment on above: Performed By: #### B MP, CBC ####[facility] Ind02[address] No Panel InformationOrdered By: Lorri White on 01-30-2023 Estimated GFR (CKD-EPI) 54.313 mL/Min [facility] Creatinine Clearance (Chem N/A [facility] Nucleated erythrocytes [Pres ence] in Blood by Automated countOrdered By: Lorri White on 01-30-2023 Nucleated RBC Auto Ql (Bld) 0.1 /100{WBC} 0-0.5 [facility] PST Type and Screenon 2022 ABO and Rh group Nom (Bld) Blood group O Rh(D) positive Normal [facility] Comment on above: Order Comment: Date of Surgery: [id number] Result Comment: PERF ORMED BY: [facility] [address] [place] [address] PATHOLOGIST SENIOR SECURITY ANALYST GARRETT PEÑA M.D. Platelet mean volume [Entiti c volume] in Blood by Automated countOrdered By: Lorri White on 01-30-2023 Platelet mean volume (Bld) [Entitic vol] 10.0 fL Normal 6.3-10.7 [facility] Comment on above: Performed By: #### B MP, CBC ####[address] [address] [place] Platelets [#/volume] in Bloo d by Automated countOrdered By: Lorri White on 01-30-2023 Platelets (Bld) [#/Vol] 192 10*3/uL Normal 150-450 [facility] Comment on above: Performed By: #### B MP, CBC ####[address] [address] [facility] Potassium [Moles/volume] in Serum or PlasmaOrdered By: Lorri White on 01-30-2023 Potassium [Moles/Vol] 3.7 mmol/L Normal 3.5-5.1 [facility] Comment on above: Performed By: #### B MP, CBC ####[address] [address] [facility] Serum or plasma anion gap de terminationOrdered By: Lorri White on 01-30-2023 Anion gap [Moles/Vol] 10.9 mmol/L Normal 6.0-15.0 [facility] Comment on above: Performed By: #### B MP, CBC ####[address] [address] [facility] Sodium [Moles/volume] in Ser um or PlasmaOrdered By: Lorri White on 01-30-2023 Sodium [Moles/Vol] 139 mmol/L Normal 136-145 [facility] Comment on above: Performed By: #### B MP, CBC ####[address] [address] [place] Urea nitrogen [Mass/volume] in Serum or PlasmaOrdered By: Lorri White on 01-30-2023 Urea nitrogen [Mass/Vol] 13 mg/dL Normal 7-25 [facility] Comment on above: Performed By: #### B MP, CBC ####[address] [address] [place] US ankle/arm indiceson 12-26 US ankle/arm indices [facility] Main [place] [id number] Ultrasound Report Signed Patient: Avelino Barrett MR#: [id number] : 1950 Acct:[id number] Age/Sex: 72 / F ADM Date: 12/26/22 Loc: MELANI Room: Type: [facility] Attending Dr: Eulogio Mai MD Ordering Provider: [...] Eulogio Mai MD12/26/2022 1:08 PM Dictation Location: [place] [address] Tech: Brianna Montero Transcribed By: JESSICA 12/26/22 1308 Dictated By: Eulogio Mai MD 12/26/22 1307 Signed By: 12/26/22 1308 Normal [facility] Human papilloma virus 16+18+ 31+33+35+39+45+51+52+56+58+59+66+68 DNA [Presence] in CerOrdered By: Shannon Yoon on 10-22-2022 HPV 16+18+31+33+35+39+45+ 51+52+56+58+59+66+68 DNA Probe+sig amp Ql (Cvx) Negative Negative [facility] Comment on above: This nucleic acid am plification test detects fourteen high- risk HPV types (16,18,31,33,35,39,45,51,52,56,58,59,66,68)without differentiation.Performed at: [facility] Cyto Ddlpc12156 [facility], [place], [place] [id number] Director: Nicanor Hancock MD, Phone: [phone] at: =G - [facility] [address], [place] [id number] Director: Roslyn Walls MD, Phone: [phone] No Panel InformationOrdered By: Shannon Yoon on 10-22-2022 Gris albicans (KARON) Negative Negative [facility] Comment on above: This test was develo ped and its performance characteristicsdetermined by [facility]. It has not been cleared orapproved by the Food and Drug Administration. Gris glabrata (KARON) Negative Negative [facility] Comment on above: This test was develo ped and its performance characteristicsdetermined by [facility]. It has not been cleared orapproved by the Food and Drug Administration. IG Pap w/Ct-Ng & HPV Rflx (Off-Site Note . [facility] Comment on above: TESTS RESULT FLAG UN ITS REF RANGE LAB Clinician Provided Cytology Information No. of containers..01 ThinPrep VialDIAGNOSIS: 01 NEGATIVE FOR INTRAEPITHELIAL LESION OR MALIGNANCY.Specimen adequacy: 01 Satisfactory for evaluation. Endocervical and/or squamous metaplastic cells (endocervical component) are present.Performed by: Lauro Hart, [place] (ASCP). 01Note: Note 02 The Pap smear is [...] High <-Panic Low,>-Panic High,A-Abnormal,AA-Critical Abnormal ----Performed at:01 [facility] Cyto Histo [address] [place] [address] Nicanor Hancock MD, [address] [address] Roslyn Walls MD, Trichomonas vaginalis (KARON) Negative Negative [facility] Comment on above: Performed at: =G - [facility] [address] [place], [place] [id number] Director: Roslyn Walls MD, Phone: [phone] Vaginal fluid Atopobium vagi ana DNA detection by probe and target amplification methoOrdered By: Shannon Yoon on 10-22-2022 A. vaginae DNA KARON+probe Ql (Vag fld) Low - 0 Score . [facility] Vaginal fluid Megasphaera sp ecies type 1 DNA detection by probe and target amplificatOrdered By: Shannon Yoon on 10-22-2022 Megasphaera sp type 1 DNA KARON+probe Ql (Vag fld) Low - 0 Score . [facility] Comment on above: Calculate total scor e by adding the 3 individual bacterialvaginosis (BV) marker scores together. Total score isinterpreted as follows:Total score 0-1: Indicates the absence of BV.Total score 2: Indeterminate for BV. Additional clinical data should be evaluated to establish a diagnosis.Total score 3-6: Indicates the presence of BV.This test was developed and its performance characteristicsdetermined by [facility]. It has not been cleared or approvedby the Food and Drug Administration. Vaginal fluid bacterial vagi nosis associated bacterium 2 DNA detection by probe and tOrdered By: Shannon Yoon on 10-22-2022 Bacterial vaginosis associated bacterium 2 DNA KARON+probe Ql (Vag fld) Low - 0 Score . [facility] Vaginitis (VG)on 10-22-2022 Vaginitis (VG) Negative Negative [facility] Other Vaginitis (VG) Low - 0 . [facility] Other Urine Cultureon 10-10-2022 Bacteria identified Cx Nom (U) [employer] Other Urine culture routineOrdered By: Shannon Yoon on 10-10-2022 Bacteria identified Cx Nom (U) 2 Days [facility] Aspartate aminotransferase [ Enzymatic activity/volume] in Serum or PlasmaOrdered By: Juany Richter on 10-07-2022 AST [Catalytic activity/Vol] 16 U/L 13-39 [facility] Calcium [Mass/volume] in Ser um or PlasmaOrdered By: Juany Richter on 10-07-2022 Calcium [Mass/Vol] 9.4 mg/dL 8.6-10.3 [facility] Carbon dioxide, total [Moles /volume] in Serum or PlasmaOrdered By: Juany Richter on 10-07-2022 CO2 [Moles/Vol] 25.6 mmol/L 21.0-31.0 [facility] Chloride [Moles/volume] in S diomedes or PlasmaOrdered By: Juany Richter on 10-07-2022 Chloride [Moles/Vol] 104 mmol/L 98-107 [facility] Creatinine [Mass/volume] in Serum or PlasmaOrdered By: Juany Richter on 10-07-2022 Creatinine [Mass/Vol] 1.15 mg/dL 0.60-1.20 [facility] Glucose [Mass/volume] in Ser um or PlasmaOrdered By: Juany Richter on 10-07-2022 Glucose [Mass/Vol] 126 mg/dL 70-100 [facility] Comment on above: ADA recommended refe rence rangeRandom Glucose Reference Range is dependent on time and content of last meal. Glucose of more than 200 mg/dL in a nonstressed, ambulatory subject supports the diagnosis of Diabetes Mellitus. No Panel InformationOrdered By: Juany Richter on 10-07-2022 Estimated GFR (CKD-EPI) 51.248 mL/Min [facility] Creatinine Clearance (Chem N/A [facility] Potassium [Moles/volume] in Serum or PlasmaOrdered By: Juany Richter on 10-07-2022 Potassium [Moles/Vol] 3.9 mmol/L 3.5-5.1 [facility] Serum or plasma anion gap de terminationOrdered By: Juany Richter on 10-07-2022 Anion gap [Moles/Vol] 13.3 mmol/L 6.0-15.0 [facility] Sodium [Moles/volume] in Ser um or PlasmaOrdered By: Juany Richter on 10-07-2022 Sodium [Moles/Vol] 139 mmol/L 136-145 [facility] Thyrotropin [Units/volume] i n Serum or PlasmaOrdered By: Juany Richter on 10-07-2022 TSH Qn 3.20 m[IU]/L 0.45-5.33 [facility] Urea nitrogen [Mass/volume] in Serum or PlasmaOrdered By: Juany Richter on 10-07-2022 Urea nitrogen [Mass/Vol] 10 mg/dL 7-25 [facility] XR knee RT 3Von 08-09-2022 XR knee RT 3V [facility] Other XR knee RT 3V [facility] Main [facility] [employer] Other XR knee RT 3V [address] [place] [address] [employer] Other XR [place] 3[place] [address] [facility] [employer] Other XR knee RT 3V XRay Report [facility] Other XR knee RT 3V Signed [facility] [employer] Other XR knee RT 3V Patient: Avelino Barrett MR#: Chef Other XR knee RT 3V [id number] Chef Other XR knee RT 3V : 1950 Acct:[id number] [employer] Other XR knee RT 3V Age/Sex: 71 / F ADM Date: 08/09/22 Chef Other XR knee RT 3V Loc: SOXD Room: Type : [facility] Chef Other XR knee RT 3V Attending Dr: Gavino Tavera DO Chef Other XR knee RT 3V Copies to: Gavino Tavera DO Chef Other XR knee RT 3V Ordering Provider: Gwen Tavera DO Chef Other XR knee RT 3V Date of Service: 08/09/22 Chef Other XR knee RT 3V [id number]) XR/XR knee RT 3V - NOT FOR ER USE: Acute pain of right knee [employer] Other XR knee RT 3V 3 views right knee p luisa film Chef Other XR knee RT 3V COMPARISON: None [employer] Other XR knee RT 3V HISTORY: [place] a tear in the right knee 3 weeks ago. Painful since. Chef Other XR knee RT 3V ACUTE FINDINGS: None N [employer] Other XR knee RT 3V DEGENERATIVE CHANGE: Minor [employer] Other XR knee RT 3V SOFT TISSUE FINDINGS : Unremarkable [employer] Other XR knee RT 3V JOINT EFFUSION: Mode rate joint effusion Chef Other XR knee RT 3V POSTOP CHANGES: None N [facility] [employer] Other XR knee RT 3V BONE MINERALIZATION: Adequate [employer] Other XR knee RT 3V X R/XR knee RT 3V - NOT FOR ER USE [employer] Other XR knee RT 3V IMPRESSION: Moderate joint effusion. Minor degeneration. Chef Other XR knee RT 3V Impression dictated by: Raghu Woods M.D.08/09/2022 2:22 PM Chef Other XR knee RT 3V Dictation Location: [place] [address] Chef Other XR knee RT 3V Transcribed By: PWS 08/09/22 [facility] Chef Other XR knee RT 3V Dictated By: Sumanth Woods DO 08/09/22 [facility] Chef Other XR knee RT 3V Signed By: Chef Other XR knee RT 3V 08/09/22 [facility] [employer] Other XR hand LT min 3V*on 023 XR hand LT min 3V* [facility] Chef Other XR hand LT min 3V* [facility] Chef Other XR hand LT min 3V* [address] [place] [address] Chef Other XR hand LT min 3V* [place] [address] Chef Other XR hand LT min 3V* XRay Report [employer] Other XR hand LT min 3V* Signed [employer] Other XR hand LT min 3V* Patient: EnricoAvelino Megan MR#: Chef Other XR hand LT min 3V* [id number] Chef Other XR hand LT min 3V* : 1950 Acct:[id number] Chef Other XR hand LT min 3V* Age/Sex: 71 / F ADM Date: 07/30/22 Chef Other XR hand LT min 3V* Loc: SOXD Room: Type : REG CLI Chef Other XR hand LT min 3V* Attending Dr: Lito Alcantara MD Chef Other XR hand LT min 3V* Copies to: Dena Alcantara MD Chef Other XR hand LT min 3V* Ordering Provider: Cadence Alcantara MD Chef Other XR hand LT min 3V* Date of Service: 07/30/22 Chef Other XR hand LT min 3V* [id number]) XR/XR hand LT min 3V*: Left hand pain Chef Other XR hand LT min 3V* [address] ain film Chef Other XR hand LT min 3V* COMPARISON: None Chef Other XR hand LT min 3V* HISTORY: LEFT thumb and carpometacarpal pain for months Chef Other XR hand LT min 3V* ACUTE FINDINGS: None [employer] Other XR hand LT min 3V* DEGENERATIVE CHANGE: Extensive 1st carpometacarpal degeneration include joint space narrowing and Chef Other XR hand LT min 3V* large spurring and degenerative subluxation. Moderate interphalangeal degenerative changes. Chef Other XR hand LT min 3V* SOFT TISSUE FINDINGS : Unremarkable Chef Other XR hand LT min 3V* JOINT EFFUSION: None Chef Other XR hand LT min 3V* POSTOP CHANGES: None Chef Other XR hand LT min 3V* BONY MINERALIZATION: Adequate Chef Other XR hand LT min 3V* X R/XR hand LT min 3V* Chef Other XR hand LT min 3V* IMPRESSION: Extensiv e 1st carpometacarpal degeneration. Chef Other XR hand LT min 3V* Impression dictated by: Raghu Woods M.D.07/30/2022 10:29 AM Chef Other XR hand LT min 3V* Dictation Location: [place] [address] Chef Other XR hand LT min 3V* Transcribed By: JESSICA 07/30/[address] [place] [address] [employer] Other XR hand LT min 3V* Dictated By: Sumanth Woods DO 07/30/22 [facility] Chef Other XR hand LT min 3V* Signed By: Chef Other XR hand LT min 3V* 07/30/[address] [place] [address] [employer] Other Office Visit (Cardiology)on 07-08-2022 Follow-up visit Diagnoses/Problems [...] new start Rosuvastatin 10mg daily sent to [facility]. Amiodarone 100mg daily sent to [facility] at patient request Follow up in 5 months Chief Complaint AVELINO NINO ISABELL is being seen for a 3 month [...] EKG shows sinus rhythm at 75 bpm WV interval 150 ms QRS duration 90 ms [...] normal sinus rhythm QTc 477 ms normal WV interval. To further clarify the physical examination [...] by daniel (more content not included)... Normal [employer] Tobacco Screening.on 023 Fall risk assessment a) No falls within the last year -[facility] y 250 DO Work Phone: Tobacco use status [facility] a) Yes [facility] y 250 DO Work Phone: Tobacco Screening. Yes [facility] y 250 DO Work Phone: Alanine aminotransferase [En zymatic activity/volume] in Serum or PlasmaOrdered By: Juany Richter on 06-21-2022 ALT [Catalytic activity/Vol] 16 U/L 7-52 [facility] Aspartate aminotransferase [ Enzymatic activity/volume] in Serum or PlasmaOrdered By: Juany Richter on 06-21-2022 AST [Catalytic activity/Vol] 21 U/L 13-39 [facility] Cholesterol [Mass/volume] in Serum or PlasmaOrdered By: Juany Richter on 06-21-2022 Cholesterol [Mass/Vol] 151 mg/dL 140-200 [facility] Comment on above: Chol less than 200 m g/dl low riskChol 201-239 mg/dl borderline riskChol 240 mg/dl and greater high risk Cholesterol in LDL Calc [Mas s/Vol]Ordered By: Juany Richter on 06-21-2022 Cholesterol in LDL [Mass/Vol] 70 mg/dL 0-100 [facility] Comment on above: LDL ATP III CLASSIFI CATIONLDL less than 100 mg/dL OptimalLDL 100-129 mg/dL Near or above optimalLDL 130-159 mg/dL Borderline highLDL 160-189 mg/dL HighLDL greater than 189 mg/dL Very high Cholesterol in VLDL Calc [Ma ss/Vol]Ordered By: Juany Richter on 06-21-2022 Cholesterol in VLDL [Mass/Vol] 25 mg/dL [facility] Serum or plasma high density lipoprotein (HDL) cholesterol measurementOrdered By: Juany Richter on 06-21-2022 Cholesterol in HDL [Mass/Vol] 56 mg/dL 35-85 [facility] Comment on above: HDL CHOL ATP-III CLA SSIFICATION Cardiovascular RiskHDL > or equal to 60 mg/dL LOWHDL < 40 mg/dL HIGH Serum or plasma total choles terol/high density lipoprotein (HDL) cholesterol mass ratOrdered By: Juany Richter on 06-21-2022 Cholesterol.total/Cho lesterol in HDL [Mass ratio] 2.7 {ratio} <5.0 [facility] Triglyceride [Mass/volume] i n Serum or PlasmaOrdered By: Juany Richter on 06-21-2022 Triglyceride [Mass/Vol] 125 mg/dL 0-149 [facility] Comment on above: TRIG ATP III CLASSIF ICATIONTRIG less than 150 mg/dL NormalTRIG 150-199 mg/dL Borderline highTRIG 200-500 mg/dL High TRIG greater than 500 mg/dL Very highStandard traceable to the Center for Disease Conrtrol and Prevention (CDC) test method. Creatinine [Mass/volume] in Serum or PlasmaOrdered By: Eulogio Mai on 06-04-2022 Creatinine [Mass/Vol] 1.19 mg/dL 0.60-1.20 [facility] No Panel InformationOrdered By: Eulogio Mai on 06-04-2022 Estimated GFR (CKD-EPI) 49.189 mL/Min [facility] Creatinine Clearance (Chem 46.02 [facility] Urea nitrogen [Mass/volume] in Serum or PlasmaOrdered By: Eulogio Mai on 06-04-2022 Urea nitrogen [Mass/Vol] 13 mg/dL 7-25 [facility] Urinalysis - DIPSTICKon 04-04 Appearance (U) cloudy [employer] Other Bilirubin Ql (U) small [employer]ED INFORMATION [employer]URITY Other Color (U) light yellow [employer] Other Glucose Ql (U) Negative [employer] Other Hemoglobin Ql (U) non hem to trace N [employer] Other Ketones Ql (U) Negative [employer] Other Leukocyte esterase Test strip Ql (U) moderate [employer] Other Nitrite Ql (U) Negative [employer] Other pH (U) 5.0 [pH] Chef Other Protein Ql (U) Negative [employer] Other Specific gravity (U) [Rel density] 1.010 [employer] Other Urobilinogen (U) [Mass/Vol] 0.5 mg/dL [employer] Other Urinalysis - DIPSTICK [facility] Other Office Visit (Cardiology)on 04-08-2022 Follow-up visit [...] persists. Status: Complete - Retrospective Authorization Done: [id number] PVD (peripheral vascular disease) Start: Atorvastatin Calcium 20 MG Oral Tablet; TAKE 1 TABLET AT BEDTIME Vascular Surgery Referral Evaluation and Treatment Evaluate AND Treat Status: Hold For - Scheduling,Retrospective Authorization Requested for: [id number] Start: Clopidogrel Bisulfate 75 MG Oral Tablet; TAKE 1 TABLET DAILY SocHx: Current smoker Tobacco Use Screening; Status:Complete; Done: [id number] Patient Instructions Please bring all medicines, vitamins, [...] normal sinus rhythm at 66 bpm with WV interval of 130 ms QRS duration 92 [...] care. Albuterol inhaler has been recommended. 12. [id number] score 4 based on my evaluation today [...] 0.52 rig (more content not included)... Normal [employer] Tobacco Screening.on 023 Adult depression screening assessment Yes [facility] y 250 DO Work Phone: Adult depression screening assessment Moderately Severe (15-19) [facility] y 250 DO Work Phone: Fall risk assessment a) No falls within the last year [facility] y 250 DO Work Phone: Tobacco use status CPHS a) Yes [facility] y 250 DO Work Phone: Tobacco Screening. Yes [facility] y 250 DO Work Phone: Tobacco Screening. 3-Nearly every day [facility] [employer] y 250 DO Work Phone: Tobacco Screening. 2-More than half the days [facility] y 250 DO Work Phone: Tobacco Screening. 0-Not at all -[facility] y 250 DO Work Phone: Tobacco Screening. Somewhat Difficult [facility] y 250 DO Work Phone: Cholesterol [Mass/volume] in Serum or PlasmaOrdered By: Juany Richter on 04-04-2022 Cholesterol [Mass/Vol] 230 mg/dL 140-200 [facility] Comment on above: Chol less than 200 m g/dl low riskChol 201-239 mg/dl borderline riskChol 240 mg/dl and greater high risk Cholesterol in LDL Calc [Mas s/Vol]Ordered By: Juany Richter on 04-04-2022 Cholesterol in LDL [Mass/Vol] 139 mg/dL 0-100 [facility] Comment on above: LDL ATP III CLASSIFI CATIONLDL less than 100 mg/dL OptimalLDL 100-129 mg/dL Near or above optimalLDL 130-159 mg/dL Borderline highLDL 160-189 mg/dL HighLDL greater than 189 mg/dL Very high Cholesterol in VLDL Calc [Ma ss/Vol]Ordered By: Juany Richter on 04-04-2022 Cholesterol in VLDL [Mass/Vol] 39 mg/dL [facility] Serum or plasma high density lipoprotein (HDL) cholesterol measurementOrdered By: Juany Richter on 04-04-2022 Cholesterol in HDL [Mass/Vol] 51 mg/dL 35-85 [facility] Comment on above: HDL CHOL ATP-III CLA SSIFICATION Cardiovascular RiskHDL > or equal to 60 mg/dL LOWHDL < 40 mg/dL HIGH Serum or plasma total choles terol/high density lipoprotein (HDL) cholesterol mass ratOrdered By: Juany Richter on 04-04-2022 Cholesterol.total/Cho lesterol in HDL [Mass ratio] 4.5 {ratio} <5.0 [facility] Triglyceride [Mass/volume] i n Serum or PlasmaOrdered By: Juany Richter on 04-04-2022 Triglyceride [Mass/Vol] 199 mg/dL 35-149 [facility] Comment on above: TRIG ATP III CLASSIF ICATIONTRIG less than 150 mg/dL NormalTRIG 150-199 mg/dL Borderline highTRIG 200-500 mg/dL High TRIG greater than 500 mg/dL Very highStandard traceable to the Center for Disease Conrtrol and Prevention (CDC) test method. VASC LAB PVR W/O EXERCISEon 04-04-2022 VASC LAB PVR W/O EXERCISE [facility] y 250 DO Work Phone: VASC LAB PVR W/O Exerciseon 04-04-2022 [facility] [address] [facility], [address] [facility], [place] [address] Vascular Lab Report PVR With Out Exercise Patient Name: AVELINO Hannah Physician: [id number] Niesha BUSTOS MD, [facility] Study Date: 04/04/2022 Referring Physician: JUANY RICHTER MRN/PID: [id number] PCP: Accession/Order#: [id number] CC Report to: Date of : 1950 Technologist: Thea Manriquez RD, T Gender: F Technologist 2: Admission Status: Outpatient Location Performed: [facility] Diagnosis/ICD: M41-Fjibrcvhy primary hypertension; I73.9-Peripheral vascular disease, unspecified; I83.93-Asymptomatic varicose veins of bilateral lower extremities Indication: HTN, Atrial Fibrillation, GERD, COPD, Lung Nodules, Obesity Procedure/CPT: 22585 Peripheral artery PVR (multi segmental pressure)-10404 CONCLUSIONS: Right Lower PVR: There is evidence [...] Left Brachial Pressure 178 mmHg 175 mmHg [id number] Niesha Quiroz MD, FACC Final (Updated) Normal [facility] CARDIAC STRESS/REST INJE CTIONon 03-18-2022 [facility] CARDIAC STRESS/REST INJECTION Patient Name: AVELINO GARCIA STUDY: MYOCARDIAL PERFUSION STRESS TEST WITH LEXISCAN Performing facility: [facility], [address] [place] [address], [address] Provider: Juany Richter MD, FACC PCP: Dr. Marcio Valenzuela Supervising provider: Juany Richter MD, FACC INDICATION: A-fib HTN HISTORY: Gender: F; Age: 71 y/o ; Height: 0 cm; Weight: 0 kg. HTN; Arrhythmias; COPD; PVD Currently smoking. COMPARISON: Previous nuclear testing completed at [place]. ACCESSION NUMBER(S): [id number]; [id number]; [id number] ORDERING CLINICIAN: JUANY RICHTER TECHNIQUE: ONE DAY [...] Electronically signed by: NIESHA QUIROZ MD Normal [facility] No Panel Informationon 03-18 Normal -[facility] y 250 DO Work Phone: HEMOGLOBINon 02-12-2022 Hemoglobin (Bld) [Mass/Vol] 13.6 g/dL Normal 12.0-16.0 [facility] Comment on above: Performed By: #### H GB #### [facility] [address] [place], [place] [address] Dr. Christopher Infante Office Visit (Cardiology)on 02-11-2022 [...] IO EKG Electrocardiogram- 12 Lead; Status:Complete; Done: [id number] Afib, Hypertension NM Cardiac Stress/Rest Nuclear Med Order; Status:Hold For - Scheduling,Retrospective Authorization; Requested for:[id number]; Radiologist to Determine Optimal Study : Y What are the patient's signs and symptoms? : pvd - varicose veins-htn Afib, Hypertension, PVD (peripheral vascular disease), Varicose veins of legs Start: Magnesium Oxide 400 MG Oral Tablet; TAKE 1 TABLET TWICE DAILY Class 1 obesity with body mass index (BMI) of 33.0 to 33.9 in adult Healthy Weight Tips; Status:Complete - Retrospective Authorization; Done: [id number] Some eating tips that can help you lose weight.; Status:Complete - Retrospective Authorization; Done: [id number] Hypertension, PVD (peripheral vascular disease), Varicose veins of legs US Arterial Duplex Bilateral Lower Extremity; Status:Hold For - Scheduling,Retrospective Authorization; Requested for:[id number]; Radiologist to Determine Optimal Study : Y What are the patient's signs and symptoms? : pvd - varicose veins US PVR Lower Extremity Rest; Status:Hold For - Scheduling,Retrospective Authorization; Requested for:[id number]; Radiologist to Determine Optimal Study : Y What are the patient's signs and symptoms? : pvd - varicose veins Lipid screening Lipid Panel; Status:Active - Retrospective Authorization; Requested for:[id number]; SocHx: Current smoker Tobacco Use Screening; Status:Complete; Done: [id number] You need to stop smoking. Though it is not easy, more than half of all adult smokers have quit. We encourage you to write down all the reasons you should quit smoking and set a quit date for yourself. Ask us how we can help. You may also call 4-931-IHGZ-NOW for free resources and assistance.; Status:Complete - Retrospective Authorization; Done: [id number] Tobacco Use Screening; Status:Complete; Done: [id number] Unlinked Stop: Amiodarone HCl - 200 MG [...] shows normal sinus rhythm at 69 bpm WV interval 158 ms QRS interval 90 ms QTC 458 ms An EKG in the chart from 2018 does show atrial fibrillation. Normal QRS and QTc. Laboratory data from April 2021 hemoglobin 13 hematocrit 42 platelets 180 Assessment: 1. Symptomat (more content not included)... Normal [employer] Tobacco Screening.on 022 Adult depression screening assessment No [facility] [employer] y 250 DO Work Phone: Fall risk assessment a) No falls within the last year [facility] [employer] y 250 DO Work Phone: Tobacco use status CPHS a) Yes [facility] [employer] y 250 DO Work Phone: CT CHEST [...] by: CHERIE MENENDEZ Date: 2022-01-28 19:17 Normal [facility] Follow-Upon 01-15-2022 Follow-Up [id number] Avelino Garcia 1950 F Date Provider Department Center 01/15/2022 241-CORY MOREL [facility] No family history on file Level of Service:62411 [place] OFFICE/OUTPATIENT ESTABLISHED MOD MDM 30-39 MIN Normal [facility] Erroneous Telephone Encounte atiya 11-13-2021 Erroneous Telephone Encounter [id number] Avelino Garcia 1950 F Date Provider Department [place] 11/13/2021 1987-EDMAR MORAES [facility] No family history on file Reason for Visit and Comments: Error (VOID this visit) [77] Normal [facility] Covid-19 PCR (CVDTBH)on 08-01 SARS-CoV-2 (COVID-19) RNA KARON+probe Ql (Unsp spec) Not detected Normal NOT DETECTED [facility] Comment on above: Result Comment: This test is not yet approved or cleared by the [place] FDA. When there are no FDA-approved or cleared tests available, and other criteria are met, FDA can make tests available under an emergency access mechanism called an Emergency Use Authorization (EUA). The EUA for this test is supported by the Electronics Worker of Health and Human Service's (HHS's) declaration [...] consistent with SARS-CoV-2. Performed By: #### C [facility] #### [facility] [address] [place] [address] [address] Christopher Infante ECHOCARDIO M/2D COMPLETEon 0 07-05-2021 ECHOCARDIO M/2D COMPLETE Patient: AVELINO BARRETT Exam Date: 07/05/2021 : 1950 Gender:F Ordering : CORY MOREL Admission #: [id number] Family : Order #: [id number] CLICK HERE TO VIEW EXAM ECHOCARDIOGRAM REPORT [...] Area(A4C): 16.40 cm2 Left Atrium Systolic Volume(A2C): 17100 mm3 Left Atrium Systolic Volume(A4C): 63836 mm3 Mitral Valve MV E to A [...] Gradient: 6 mm[Hg] Right Atrium Dictated by: Ehab Eltahawy, M.D. on 07/05/2021 at 15:02 Approved by: Alberto Hall M.D. on 07/05/2021 at 15:04 Normal [facility] CBC AUTO DIFFon 04-23-2021 BASO # 0.1 103/ul Normal 0.0-0.1 [facility] Comment on above: Performed By: #### C BC #### [facility] [address] [place] [address] [address] Christopher Infante Basophils/100 WBC (Bld) 0.5 % Normal 0.2-2.0 [facility] Comment on above: Performed By: #### C BC #### [facility] [address] [place] [address] Dr. Christopher Infante EO # 0.2 103/ul Normal 0.0-0.7 [facility] Comment on above: Performed By: #### C BC #### [facility] [address] [place] [address] Dr. Christopher Infante Eosinophils/100 WBC (Bld) 2.3 % Normal 0.9-7.0 [facility] Comment on above: Performed By: #### C BC #### [facility] [address] [place] [address] Dr. Christopher Infante Erythrocyte distribution width (RBC) [Ratio] 14.3 % Normal 11.0-15.0 [facility] Comment on above: Performed By: #### C BC #### [facility] [address] [place] [address] Dr. Christopher Infante Hematocrit (Bld) [Volume fraction] 41.7 % Normal 36.0-48.0 [facility] Comment on above: Performed By: #### C BC #### [facility] [address] [place] [address] Dr. Christopher Infante Hemoglobin (Bld) [Mass/Vol] 13.1 g/dL Normal 12.0-16.0 [facility] Comment on above: Performed By: #### C BC #### [facility] [address] [place] [address] Dr. Christopher Infante IG # 0.03 10e3/ul Normal 0.00-0.03 [facility] Comment on above: Performed By: #### C BC #### [facility] [address] [place] [address] Dr. Christopher Infante IG % 0.3 % Normal 0.0-0.5 [facility] Comment on above: Performed By: #### C BC #### [facility] [address] [place] [address] Dr. Christopher Infante LYMPH # 2.6 103/ul Normal 1.2-3.8 [facility] Comment on above: Performed By: #### C BC #### [facility] [address] [place] [address] Dr. Christopher Infante Lymphocytes/100 WBC (Bld) 27.4 % Normal 20.5-60.0 [facility] Comment on above: Performed By: #### C BC #### [facility] [address] [place] [address] Dr. Christopher Infante MANUAL DIFF REQ NO Normal [facility] Comment on above: Performed By: #### C BC #### [facility] [address] [place] [address] Dr. Christopher Infante MCH (RBC) [Entitic mass] 28.7 pg Normal 26.7-34.0 [facility] Comment on above: Performed By: #### C BC #### [facility] [address] [place] [address] Dr. Christopher Infante MCHC (RBC) [Mass/Vol] 31.4 g/dL Normal 29.9-35.2 [facility] Comment on above: Performed By: #### C BC #### [facility] [address] [place] [address] Dr. Christopher Infante MCV (RBC) [Entitic vol] 91.2 fL Normal 81.0-99.0 [facility] Comment on above: Performed By: #### C BC #### [facility] [address] [place] [address] Dr. Christopher Infante MONO # 0.7 103/ul Normal 0.3-0.8 [facility] Comment on above: Performed By: #### C BC #### [facility] [address] [place] [address] Dr. Christopher Infante Monocytes/100 WBC (Bld) 7.4 % Normal 1.7-12.0 [facility] Comment on above: Performed By: #### C BC #### [facility] [address] [place] [address] Dr. Christopher Infante NEUT # 5.9 103/ul Normal 1.4-6.5 [facility] Comment on above: Performed By: #### C BC #### [facility] [address] [place] [address] Dr. Christopher Infante Neutrophils/100 WBC (Bld) 62.1 % Normal 43.0-75.0 [facility] Comment on above: Performed By: #### C BC #### [facility] [address] [place] [address] Dr. Christopher Infante Platelet mean volume (Bld) [Entitic vol] 11.7 fL Normal 9.5-13.5 [facility] Comment on above: Performed By: #### C BC #### [facility] [address] [place] [address] Dr. Christopher Infante PLT 180 103/ul Normal 150-450 [facility] Comment on above: Performed By: #### C BC #### [facility] [address] [place] [address] Dr. Christopher Infante RBC 4.57 106/ul Normal 4.20-5.40 [facility] Comment on above: Performed By: #### C BC #### [facility] [address] [place] [address] Dr. Christopher Infante WBC 9.5 103/ul Normal 4.0-11.0 [facility] Comment on above: Performed By: #### C BC #### [facility] [address] [place] [address] Dr. Christopher Infante FREE T4on 04-23-2021 Free T4 [Mass/Vol] 0.92 ng/dL Normal 0.78-2.19 [facility] Comment on above: Performed By: #### F T4 #### [facility] [address] [place] [address] Dr. Christopher Infante GLYCOHEMOGLOBIN A1Con 2021 ADA RECOMMENDATION ADA THERAPEUTIC TARG ET 6.0 - 7.0 ACTION SUGGESTED > 7.0 Normal [facility] Comment on above: Performed By: #### A 1C #### [facility] [address] [place] [address] Dr. Christopher Infante Glucose [Mass/Vol] 123 mg/dL Normal [facility] Comment on above: Performed By: #### A 1C #### [facility] [address] [place] [address] Dr. Christopher Infante HbA1c (Bld) [Mass fraction] 5.9 % Normal <=6.0 [facility] Comment on above: Performed By: #### A 1C #### [facility] [address] [place] [address] Dr. Christopher Infante PROF 14(COMP METB)on 022 Albumin [Mass/Vol] 3.7 g/dL Normal 3.5-5.0 [facility] Comment on above: Performed By: #### C MP, TSH #### [facility] [address] [place] [address] Dr. Christopher Infante Albumin/Globulin [Mass ratio] 1.2 {ratio} Normal [facility] Comment on above: Performed By: #### C MP, TSH #### [facility] [address] [place] [address] Dr. Christopher Infante ALP [Catalytic activity/Vol] 90 U/L Normal 38-126 [facility] Comment on above: Performed By: #### C MP, TSH #### [facility] [address] [place] [address] Dr. Christopher Infante ALT [Catalytic activity/Vol] 18 U/L Normal 9-52 [facility] Comment on above: Performed By: #### C MP, TSH #### [facility] [address] [place] [address] Dr. Christopher Infante Anion gap [Moles/Vol] 12.8 mmol/L Normal [facility] Comment on above: Performed By: #### C MP, TSH #### [facility] [address] [place] [address] Dr. Christopher Infante AST [Catalytic activity/Vol] 17 U/L Normal 14-36 [facility] Comment on above: Performed By: #### C MP, TSH #### [facility] [address] [place] [address] Dr. Christopher Infante Bilirubin [Mass/Vol] 0.4 mg/dL Normal 0.2-1.3 [facility] Comment on above: Performed By: #### C MP, TSH #### [facility] [address] [place] [address] Dr. Christopher Infante Calcium [Mass/Vol] 9.0 mg/dL Normal 8.4-10.2 [facility] Comment on above: Performed By: #### C MP, TSH #### [facility] [address] [place] [address] Dr. Christopher Infante Chloride [Moles/Vol] 107 mmol/L Normal 98-107 [facility] Comment on above: Performed By: #### C MP, TSH #### [facility] [address] [place] [address] Dr. Christopher Infante CO2 [Moles/Vol] 25.3 mmol/L Normal 22.0-30.0 [facility] Comment on above: Performed By: #### C MP, TSH #### [facility] [address] [place] [address] Dr. Christopher Infante Creatinine [Mass/Vol] 1.10 mg/dL Critically high 0.52-1.04 [facility] Comment on above: Performed By: #### C MP, TSH #### [facility] [address] [place] [address] Dr. Christopher Infante EGFR-AF VINCENTIAN 60 mL/min/1.73m2 Normal >=60 [facility] Comment on above: Performed By: #### C MP, TSH #### [facility] [address] [place] [address] Dr. Christopher Infante EGFR-NON AF VINCENTIAN 49 mL/min/1.73m2 Critically low >=60 [facility] Comment on above: Performed By: #### C MP, TSH #### [facility] [address] [place] [address] [address] Christopher Infante Globulin (S) [Mass/Vol] 3.2 g/dL Normal [facility] Comment on above: Performed By: #### C MP, TSH #### [facility] [address] [place] [address] [address] Christopher Infante Glucose [Mass/Vol] 110 mg/dL Critically high 74-106 [facility] Comment on above: Performed By: #### C MP, TSH #### [facility] [address] [place] [address] Dr. Christopher Infante Potassium [Moles/Vol] 4.1 mmol/L Normal 3.4-5.0 [facility] Comment on above: Performed By: #### C MP, TSH #### [facility] [address] [place] [address] [address] Christopher Infante Protein [Mass/Vol] 6.9 g/dL Normal 6.1-8.2 [facility] Comment on above: Performed By: #### C MP, TSH #### [facility] [address] [place] [address] Dr. Christopher Infante Sodium [Moles/Vol] 141 mmol/L Normal 137-145 [facility] Comment on above: Performed By: #### C MP, TSH #### [facility] [address] [place] [address] Dr. Christopher Infante Urea nitrogen [Mass/Vol] 13.0 mg/dL Normal 7.0-17.0 [facility] Comment on above: Performed By: #### C MP, TSH #### [facility] [address] [place] [address] Dr. Christopher Infante Urea nitrogen/Creatinine [Mass ratio] 11.8 mg/mg Normal [facility] Comment on above: Performed By: #### C MP, TSH #### [facility] [address] [place] [address] Dr. Christopher Infante TSHon 04-23-2021 TSH 2.305 uIU/mL Normal 0.470-4.68 0 [facility] Comment on above: Performed By: #### C MP, TSH #### [facility] [address] [place] [address] [address] Christopher Infante TSH RANGE SEE BELOW Normal [facility] Comment on above: Result Comment: <0.3 4 UIU/ml HYPERTHYROID 0.34-5.60 UIU/ml EUTHYROID >5.60 UIU/ml HYPOTHYROID Performed By: #### C MP, TSH #### [facility] [address] [place] [address] [address] Christopher Infante Vital Signs Date Time Vital Sign Value Performing Clinician Facility 01-05-2024 10:41-0500 Body height 160 cm Juany Richter MD Work Phone: [facility] 01-05-2024 10:41-0500 Body mass index (BMI) [Ratio] 31.89 kg/m2 Juany Richter MD Work Phone: [facility] 01-05-2024 10:41-0500 Body weight 81.65 kg Juany Richter MD Work Phone: [facility] 01-05-2024 10:41-0500 Diastolic blood pressure 64 mm[Hg] Juany Richter MD Work Phone: [facility] 01-05-2024 10:41-0500 Heart rate 89 /min Juany Richter MD Work Phone: [facility] 01-05-2024 10:41-0500 Systolic blood pressure 100 mm[Hg] Juany Richter MD Work Phone: [facility] 12-29-2023 10:13-0400 Body height 162.6 cm Rahel Tovar DPM Work Phone: [facility] 12-29-2023 10:13-0400 Body mass index (BMI) [Ratio] 33.99 kg/m2 Rahel Tovar DPM Work Phone: [facility] 12-29-2023 10:13-0400 Body weight 89.81 kg Rahel Tovar DPM Work Phone: [facility] 12-29-2023 10:13-0400 Diastolic blood pressure 65 mm[Hg] Rahel Calleach DPM Work Phone: [facility] 12-29-2023 10:13-0400 Heart rate 89 /min Christkurt Bettinaach DPM Work Phone: [facility] 12-29-2023 10:13-0400 Systolic blood pressure 95 mm[Hg] Franker Bohach DPM Work Phone: [facility] 12-15-2023 10:34-0400 Diastolic blood pressure 70 mm[Hg] MD Shannon Yoon Work Phone: [facility] 12-15-2023 10:34-0400 Heart rate 90 /min MD Shannon Yoon Work Phone: [facility] 12-15-2023 10:34-0400 Systolic blood pressure 126 mm[Hg] MD Shannon Yoon Work Phone: [facility] 10-23-2023 11:06-0400 Body height 160.02 cm MD Shannon Yoon Work Phone: [facility] 10-23-2023 11:06-0400 Body mass index (BMI) [Ratio] 34.3 kg/m2 MD Shannon Yoon Work Phone: [facility] 10-23-2023 11:06-0400 Body temperature 97.7 [degF] MD Shannon Yoon Work Phone: [facility] 10-23-2023 11:06-0400 Body weight 87.99 kg MD Shannon Yoon Work Phone: [facility] 10-23-2023 11:06-0400 Diastolic blood pressure 65 mm[Hg] MD Shannon Yoon Work Phone: [facility] 10-23-2023 11:06-0400 Heart rate 69 /min MD Shannon Yoon Work Phone: [facility] 10-23-2023 11:06-0400 Systolic blood pressure 99 mm[Hg] MD Shannon Yoon Work Phone: [facility] 10-09-2023 13:27-0400 Body height 160.02 cm MD Shannon Yoon Work Phone: [facility] 10-09-2023 13:27-0400 Body mass index (BMI) [Ratio] 34.2 kg/m2 MD Shannon Yoon Work Phone: [facility] 10-09-2023 13:27-0400 Body temperature 98.7 [degF] MD Shannon Yoon Work Phone: [facility] 10-09-2023 13:27-0400 Body weight 87.77 kg MD Shannon Yoon Work Phone: [facility] 10-09-2023 13:27-0400 Diastolic blood pressure 62 mm[Hg] MD Shannon Yoon Work Phone: [facility] 10-09-2023 13:27-0400 Heart rate 63 /min MD Shannon Yoon Work Phone: [facility] 10-09-2023 13:27-0400 Systolic blood pressure 96 mm[Hg] MD Shannon Yoon Work Phone: [facility] 09-08-2023 11:05-0400 Diastolic blood pressure 75 mm[Hg] MD Shannon Yoon Work Phone: [facility] 09-08-2023 11:05-0400 Heart rate 62 /min MD Shannon Yoon Work Phone: [facility] 09-08-2023 11:05-0400 Systolic blood pressure 138 mm[Hg] MD Shannon Yoon Work Phone: [facility] 08-18-2023 14:51-0400 Body height 160.02 cm [facility] 08-18-2023 14:51-0400 Body mass index (BMI) [Ratio] 35.6 kg/m2 [facility] 08-18-2023 14:51-0400 Body temperature 98 [degF] [facility] 08-18-2023 14:51-0400 Body weight 91.17 kg [facility] 08-18-2023 14:51-0400 Diastolic blood pressure 66 mm[Hg] [facility] 08-18-2023 14:51-0400 Heart rate 71 /min [facility] 08-18-2023 14:51-0400 Systolic blood pressure 99 mm[Hg] [facility] 07-02-2023 11:11-0400 Body height 160.02 cm [facility] 07-02-2023 11:11-0400 Body mass index (BMI) [Ratio] 36.1 kg/m2 [facility] 07-02-2023 11:11-0400 Body temperature 97.8 [degF] [facility] 07-02-2023 11:11-0400 Body weight 92.53 kg [facility] 07-02-2023 11:11-0400 Diastolic blood pressure 78 mm[Hg] [facility] 07-02-2023 11:11-0400 Heart rate 67 /min [facility] 07-02-2023 11:11-0400 Respiratory rate 16 /min [facility] 07-02-2023 11:11-0400 SaO2% (BldA) [Mass fraction] 98 % [facility] 07-02-2023 11:11-0400 Systolic blood pressure 124 mm[Hg] [facility] 06-05-2023 10:31-0400 Body height 160 cm Juany Richter MD Work Phone: [facility] 06-05-2023 10:31-0400 Body mass index (BMI) [Ratio] 34.72 kg/m2 Juany Richter MD Work Phone: [facility] 06-05-2023 10:31-0400 Body weight 88.91 kg Juany Richter MD Work Phone: [facility] 06-05-2023 10:31-0400 Diastolic blood pressure 82 mm[Hg] Juany Richter MD Work Phone: [facility] 06-05-2023 10:31-0400 Heart rate 75 /min Juany Richter MD Work Phone: [facility] 06-05-2023 10:31-0400 Systolic blood pressure 128 mm[Hg] Juany Richter MD Work Phone: [facility] 05-26-2023 10:36-0400 Body height 160.02 cm MD Shannon Yoon Work Phone: [facility] 05-26-2023 10:36-0400 Body mass index (BMI) [Ratio] 36.1 kg/m2 MD Shannon Yoon Work Phone: [facility] 05-26-2023 10:36-0400 Body weight 92.53 kg MD Shannon Yoon Work Phone: [facility] 05-26-2023 10:36-0400 Diastolic blood pressure 74 mm[Hg] MD Shannon Yoon Work Phone: [facility] 05-26-2023 10:36-0400 Heart rate 74 /min MD Shannon Yoon Work Phone: [facility] 05-26-2023 10:36-0400 Systolic blood pressure 145 mm[Hg] MD Shannon Yoon Work Phone: [facility] 05-05-2023 13:12-0500 Body height 160 cm [facility] 05-05-2023 13:12-0500 Body mass index (BMI) [Ratio] 35.96 kg/m2 [facility] 05-05-2023 13:12-0500 Body weight 92.08 kg [facility] 05-05-2023 13:12-0500 Diastolic blood pressure 70 mm[Hg] [facility] 05-05-2023 13:12-0500 Heart rate 66 /min [facility] 05-05-2023 13:12-0500 Systolic blood pressure 126 mm[Hg] [facility] 04-03-2023 10:53-0500 Body height 162.6 cm Christopher Bohach DPM Work Phone: [facility] 04-03-2023 10:53-0500 Body mass index (BMI) [Ratio] 33.99 kg/m2 Christopher Bohach DPM Work Phone: [facility] 04-03-2023 10:53-0500 Body weight 89.81 kg Christopher Bohach DPM Work Phone: [facility] 04-03-2023 10:53-0500 Diastolic blood pressure 78 mm[Hg] Christopher Bohach DPM Work Phone: [facility] 04-03-2023 10:53-0500 Heart rate 74 /min Christopher Bohach DPM Work Phone: [facility] 04-03-2023 10:53-0500 Respiratory rate 16 /min Christopher Bohach DPM Work Phone: [facility] 04-03-2023 10:53-0500 Systolic blood pressure 126 mm[Hg] Christopher Bohach DPM Work Phone: [facility] 02-19-2023 10:45-0500 Body height 160.02 cm Shannon Yoon Other [facility] 02-19-2023 10:45-0500 Body mass index (BMI) [Ratio] 35.71 kg/m2 Shannon Yoon Other [employer] Other 02-19-2023 10:45-0500 Body temperature 97.8 [degF] Shannon Yoon Other [employer] Other 02-19-2023 10:45-0500 Body weight 91.45 kg Shannon Yoon Other [facility] Other 02-19-2023 10:45-0500 Body weight 91.44 kg MD Shannon Yoon Work Phone: [facility] 02-19-2023 10:45-0500 Diastolic blood pressure 76 mm[Hg] Shannon Yoon Other [facility] 02-19-2023 10:45-0500 Systolic blood pressure 121 mm[Hg] Shannon Yoon Other [facility] 02-10-2023 11:50-0500 Diastolic blood pressure 64 mm[Hg] MD Shannon Yoon Work Phone: [facility] 02-10-2023 11:50-0500 Heart rate 65 /min MD Shannon Yoon Work Phone: [facility] 02-10-2023 11:50-0500 Respiratory rate 16 /min MD Shannon Yoon Work Phone: [facility] 02-10-2023 11:50-0500 SaO2% (BldA) [Mass fraction] 96 % MD Shannon Yoon Work Phone: [facility] 02-10-2023 11:50-0500 Systolic blood pressure 114 mm[Hg] MD Shannon Yoon Work Phone: [facility] 02-10-2023 11:17-0500 Body temperature 98.4 [degF] MD Shannon Yoon Work Phone: [facility] 02-10-2023 10:47-0500 Inhaled oxygen flow rate 8 L/min MD Shannon Yoon Work Phone: [facility] 02-10-2023 10:00-0500 Body height 160.02 cm MD Shannon Yoon Work Phone: [facility] 02-10-2023 10:00-0500 Body mass index (BMI) [Ratio] 35.5 kg/m2 MD Shannon Yoon Work Phone: [facility] 02-10-2023 10:00-0500 Body weight 91 kg MD Shannon Yoon Work Phone: [facility] 02-06-2023 11:30-0500 Body height 160.02 cm Shannon Yoon Other [facility] 02-06-2023 11:30-0500 Body mass index (BMI) [Ratio] 35.42 kg/m2 Shannon Yoon Other [facility] Other 02-06-2023 11:30-0500 Body temperature 97.5 [degF] Shannon Yoon Other [facility] Other 02-06-2023 11:30-0500 Body weight 90.72 kg Shannon Yoon Other [facility] Other 02-06-2023 11:30-0500 Body weight 90.71 kg MD Shannon Yoon Work Phone: [facility] 02-06-2023 11:30-0500 Diastolic blood pressure 74 mm[Hg] Shannon Yoon Other [facility] 02-06-2023 11:30-0500 Systolic blood pressure 136 mm[Hg] Shannon Yoon Other [facility] 12-26-2022 10:00-0400 Body height 160.02 cm Pili Campbell Other [employer] Other 12-26-2022 10:00-0400 Body mass index (BMI) [Ratio] 35.42 kg/m2 Pili Campbell Other [employer] Other 12-26-2022 10:00-0400 Body temperature 96.1 [degF] Pili Campbell Other [employer] Other 12-26-2022 10:00-0400 Body weight 90.72 kg Pili Campbell Other [employer] Other 12-26-2022 10:00-0400 Diastolic blood pressure 78 mm[Hg] Pili Campbell Other [employer] Other 12-26-2022 10:00-0400 SaO2% (BldA) [Mass fraction] 99 % Pili Campbell Other [employer] Other 12-26-2022 10:00-0400 Systolic blood pressure 128 mm[Hg] Pili Campbell Other [employer] Other 2022 08:45-0400 Body height 160.02 cm Shannon Yoon Other [employer] Other 2022 08:45-0400 Body mass index (BMI) [Ratio] 35.46 kg/m2 Shannon Yoon Other [employer] Other 2022 08:45-0400 Body weight 90.81 kg Shannon Yoon Other [employer] Other 2022 08:45-0400 Diastolic blood pressure 81 mm[Hg] Shannon Yoon Other [employer] Other 2022 08:45-0400 Systolic blood pressure 140 mm[Hg] Shannon Yoon Other [employer] Other 10-22-2022 10:15-0400 Body height 160.02 cm Shannon Yoon Other [employer] Other 10-22-2022 10:15-0400 Body mass index (BMI) [Ratio] 35.42 kg/m2 Shannon Yoon Other [employer] Other 10-22-2022 10:15-0400 Body weight 90.72 kg Shannon Yoon Other [employer] Other 10-22-2022 10:15-0400 Diastolic blood pressure 72 mm[Hg] Shannon Yoon Other [employer] Other 10-22-2022 10:15-0400 Systolic blood pressure 115 mm[Hg] Shannon Yoon Other [employer] Other 10-10-2022 15:15-0400 Body height 160.02 cm Shannon Yoon Other [employer] Other 10-10-2022 15:15-0400 Body mass index (BMI) [Ratio] 35.96 kg/m2 Shannon Yoon Other [employer] Other 10-10-2022 15:15-0400 Body weight 92.08 kg Shannon Yoon Other [employer] Other 10-10-2022 15:15-0400 Diastolic blood pressure 71 mm[Hg] Shannon Yoon Other [employer] Other 10-10-2022 15:15-0400 Systolic blood pressure 113 mm[Hg] Shannon Yoon Other [employer] Other 08-09-2022 10:15-0400 Body height 160.02 cm Gaivno Tavera Other [employer] Other 08-09-2022 10:15-0400 Body mass index (BMI) [Ratio] 35.78 kg/m2 Gavino Tavera Other [employer] Other 08-09-2022 10:15-0400 Body weight 91.63 kg Gavino Tavera Other [employer] Other 08-02-2022 10:30-0400 Body height 160.02 cm Shannon Yoon Other [employer] Other 08-02-2022 10:30-0400 Body mass index (BMI) [Ratio] 35.78 kg/m2 Shannon Yoon Other [employer] Other 08-02-2022 10:30-0400 Body weight 91.63 kg Shannon Yoon Other [employer] Other 08-02-2022 10:30-0400 Diastolic blood pressure 71 mm[Hg] Shannon Yoon Other [employer] Other 08-02-2022 10:30-0400 Systolic blood pressure 113 mm[Hg] Shannon Yoon Other [employer] Other 07-30-2022 08:00-0400 Body height 160.02 cm Denarome Alcantara Other [employer] Other 07-30-2022 08:00-0400 Body mass index (BMI) [Ratio] 35.07 kg/m2 Dena Alcantara Other [employer] Other 07-30-2022 08:00-0400 Body weight 89.81 kg Denarome Alcantara Other [employer] Other 07-08-2022 10:50-0400 Diastolic blood pressure 80 mm[Hg] Shannon Yoon Work Phone: [facility] [address] DO Work Phone: 07-08-2022 10:50-0400 Systolic blood pressure 126 mm[Hg] Shannon Yoon Work Phone: [facility] DO Work Phone: 07-08-2022 10:47-0400 Body height 160.02 cm Shannon Yoon Work Phone: [facility] [employer] 250 DO Work Phone: 07-08-2022 10:47-0400 Body mass index (BMI) [Ratio] 35.96 kg/m2 Shannon Yoon Work Phone: [facility] [employer] 250 DO Work Phone: 07-08-2022 10:47-0400 Body surface area Derived from formula 1.95 m2 Shannon Yoon Work Phone: [facility] [employer] 250 DO Work Phone: 07-08-2022 10:47-0400 Body weight 92.08 kg Shannon Yoon Work Phone: [facility] [employer] 250 DO Work Phone: 07-08-2022 10:47-0400 Heart rate 75 /min Shannon Yoon Work Phone: [facility] [employer] DO Work Phone: 06-26-2022 11:00-0400 Body height 160.02 cm Eulogio Mai Other [employer] Other 06-26-2022 11:00-0400 Body mass index (BMI) [Ratio] 35.07 kg/m2 Eulogio Mai Other [employer] Other 06-26-2022 11:00-0400 Body temperature 97.3 [degF] Eulogio Mai Other [employer] Other 06-26-2022 11:00-0400 Body weight 89.81 kg Eulogio Mai Other [employer] Other 06-26-2022 11:00-0400 Diastolic blood pressure 62 mm[Hg] Eulogio Mai Other [employer] Other 06-26-2022 11:00-0400 SaO2% (BldA) [Mass fraction] 98 % Eulogio Mai Other [employer] Other 06-26-2022 11:00-0400 Systolic blood pressure 110 mm[Hg] Eulogio Mai Other [place] [employer] Other 06-04-2022 14:40-0400 Diastolic blood pressure 78 mm[Hg] MD Shannon Yoon Work Phone: [facility] 06-04-2022 14:40-0400 Heart rate 66 /min MD Shannon Yoon Work Phone: [facility] 06-04-2022 14:40-0400 Respiratory rate 16 /min MD Shannon Yoon Work Phone: [facility] 06-04-2022 14:40-0400 SaO2% (BldA) [Mass fraction] 95 % MD Shannon Yoon Work Phone: [facility] 06-04-2022 14:40-0400 Systolic blood pressure 137 mm[Hg] MD Shannon Yoon Work Phone: [facility] 06-04-2022 12:00-0400 Inhaled oxygen flow rate 3 L/min MD Shannon Yoon Work Phone: [facility] 06-04-2022 08:49-0400 Body height 160.02 cm MD Shannon Yoon Work Phone: [facility] 06-04-2022 08:49-0400 Body weight 87.08 kg MD Shannon Yoon Work Phone: [facility] 05-08-2022 11:30-0500 Body height 160.02 cm Eulogio Sergei Other [employer] Other 05-08-2022 11:30-0500 Body mass index (BMI) [Ratio] 35.07 kg/m2 Eulogio Mai Other [employer] Other 05-08-2022 11:30-0500 Body temperature 96.7 [degF] Eulogio Mai Other [employer] Other 05-08-2022 11:30-0500 Body weight 89.81 kg Eulogio Mai Other [employer] Other 05-08-2022 11:30-0500 Diastolic blood pressure 74 mm[Hg] Eulogio Mai Other [employer] Other 05-08-2022 11:30-0500 SaO2% (BldA) [Mass fraction] 98 % Eulogio Mai Other [employer] Other 05-08-2022 11:30-0500 Systolic blood pressure 128 mm[Hg] Eulogio Mai Other [employer] Other 04-30-2022 10:15-0500 Body height 160.02 cm Shannon Yoon Other [employer] Other 04-30-2022 10:15-0500 Body mass index (BMI) [Ratio] 35.07 kg/m2 Shannon Yoon Other [employer] Other 04-30-2022 10:15-0500 Body temperature Shannon Yoon Other [employer] Other 04-30-2022 10:15-0500 Body weight 89.81 kg Shannon Yoon Other [employer] Other 04-30-2022 10:15-0500 SaO2% (BldA) [Mass fraction] 97 % Shannon Yoon Other [employer] Other 04-08-2022 14:11-0500 Body height 160.02 cm Shannon Yoon Work Phone: [place] [employer] DO Work Phone: 04-08-2022 14:11-0500 Body mass index (BMI) [Ratio] 34.37 kg/m2 Shannon Yoon Work Phone: [facility] [employer] DO Work Phone: 04-08-2022 14:11-0500 Body surface area Derived from formula 1.91 m2 Shannon Yoon Work Phone: [place] [employer] 250 DO Work Phone: 04-08-2022 14:11-0500 Body weight 88 kg [facility] [employer] [facility] DO Work Phone: 04-08-2022 14:11-0500 Diastolic blood pressure 80 mm[Hg] Shannon [facility] [employer] [facility] DO Work Phone: 04-08-2022 14:11-0500 Heart rate 66 /min Shannon [facility] [employer] [facility] DO Work Phone: 04-08-2022 14:11-0500 Systolic blood pressure 118 mm[Hg] Shannon Yoon Work Phone: [facility] DO Work Phone: 04-08-2022 14:11-0500 15 1 Shannon Yoon Work Phone: [facility] 250 DO Work Phone: Comment on above: [id number] 04-04-2022 14:11-0500 139 1 Shannon Yoon Work Phone: [facility] 250 DO Work Phone: Comment on above: [id number] 03-18-2022 08:00-0500 53 1 Shannon Yoon Work Phone: [facility] [address] [place] Work Phone: Comment on above: [id number] 02-11-2022 13:41-0500 Diastolic blood pressure 82 mm[Hg] Shannon Yoon Work Phone: [facility] DO Work Phone: 02-11-2022 13:41-0500 Systolic blood pressure 128 mm[Hg] Shannon Yoon Work Phone: [facility] DO Work Phone: 02-11-2022 13:40-0500 Body height 160.02 cm Shannon Yoon Work Phone: [facility] 250 DO Work Phone: 02-11-2022 13:40-0500 Body mass index (BMI) [Ratio] 33.92 kg/m2 Shannon Yoon Work Phone: [facility] 250 DO Work Phone: 02-11-2022 13:40-0500 Body surface area Derived from formula 1.9 m2 Shannon Yoon Work Phone: [facility] 250 DO Work Phone: 02-11-2022 13:40-0500 Body weight 86.86 kg Shannon E Car Work Phone: [facility] 250 DO Work Phone: 02-11-2022 13:40-0500 Diastolic blood pressure 86 mm[Hg] Shannon E Car Work Phone: [facility] 250 DO Work Phone: 02-11-2022 13:40-0500 Heart rate 69 /min Shannon Nina Yoon Work Phone: [facility] 250 DO Work Phone: 02-11-2022 13:40-0500 Systolic blood pressure 138 mm[Hg] Shannon Nina Yoon Work Phone: [facility] 250 DO Work Phone: Encounters Encounter Date Encounter Type Care Provider Facility Start: 01-05-2024 End: 01-05-2024 Office outpatient visit 25 minutes Juany Richter MD Work Phone: [facility] Comment on above: Paroxysmal atrial fi brillation (Multi); High risk medication use; PVD (peripheral vascular disease) ([facility]); Mixed hyperlipidemia; Hypertension, unspecified type; Hypercoagulable state due to paroxysmal atrial fibrillation (Multi); Statin intolerance; Stage 3a chronic kidney disease (Multi); BMI 31.0-31.9,adult; Former smoker Start: 01-05-2024 End: 01-05-2024 ambulatory [facility] Ambulatory Start: 12-29-2023 End: 12-29-2023 Bamboo flowsheet Rahel Tovar DPM Work Phone: [facility] Start: 12-29-2023 End: 12-29-2023 Bamboo flowsheet Rahel Tovar DPM Work Phone: [facility] Start: 12-29-2023 End: 12-29-2023 Patient encounter procedure Rahel Tovar DPM Work Phone: [facility] Comment on above: Idiopathic progressi ve polyneuropathy (Primary Dx); Onychomycosis Start: 12-29-2023 End: 12-29-2023 ambulatory RAHEL TOVAR Not Available Start: 12-15-2023 Non-patient / Non-visit MD Hanna Yoon Work Phone: [facility] Pulmonary Disease Work Phone: Start: 12-15-2023 Registered Recurring MD Shannon Yoon Work Phone: [facility] Work Phone: Start: 12-15-2023 End: 12-15-2023 Patient encounter procedure MD Shannon Yoon Work Phone: [facility] Work Phone: Start: 12-15-2023 End: 12-15-2023 ambulatory Shannon Yoon Facility:[facility] Start: 12-03-2023 End: 12-03-2023 ambulatory MD Shannon Yoon Work Phone: [facility] Work Phone: Start: 12-03-2023 End: 12-03-2023 Patient encounter procedure MD Shannon Yoon Work Phone: [facility] Work Phone: Start: 10-24-2023 Non-patient / Non-visit MD Hanna Yoon Work Phone: [facility] Work Phone: Start: 10-23-2023 End: 10-23-2023 ambulatory MD Shannon Yoon Work Phone: [facility] Work Phone: Start: 10-23-2023 End: 10-23-2023 Patient encounter procedure MD Shannon Yoon Work Phone: [facility] Work Phone: Start: 10-20-2023 End: 10-20-2023 ambulatory RAHEL TOVAR Not Available Start: 10-09-2023 End: 10-09-2023 ambulatory MD Shannon Yoon Work Phone: [facility] Work Phone: Start: 10-09-2023 End: 10-09-2023 Patient encounter procedure MD Shannon Yoon Work Phone: [facility] Work Phone: Start: 09-24-2023 End: 09-24-2023 ambulatory MD Shannon Yoon Work Phone: [facility] Work Phone: Start: 09-24-2023 End: 09-24-2023 Patient encounter procedure MD Shannon Yoon Work Phone: [facility] Work Phone: Start: 09-12-2023 End: 09-12-2023 ambulatory MD Shannon Yoon Work Phone: [facility] Work Phone: Start: 09-12-2023 End: 09-12-2023 Patient encounter procedure MD Shannon Yoon Work Phone: [facility] Work Phone: Start: 09-08-2023 Registered Recurring MD Shannon Yoon Work Phone: [facility]Infusion Therapy - O/P Work Phone: Start: 08-18-2023 End: 08-18-2023 ambulatory [facility] Work Phone: Start: 08-18-2023 End: 08-18-2023 Patient encounter procedure [facility] Work Phone: Start: 08-15-2023 End: 08-15-2023 ambulatory RAHEL TOVAR Not Available Start: 07-02-2023 End: 07-02-2023 Patient encounter procedure [facility] Vascular Surgery Work Phone: Start: 07-02-2023 End: 07-02-2023 ambulatory Shannon Yoon Facility:[facility] Start: 06-12-2023 End: 06-12-2023 ambulatory RAHEL CALLEKANE Not Available Start: 06-05-2023 End: 06-05-2023 Office outpatient visit 25 minutes Juany Richter MD Work Phone: [facility] Comment on above: Paroxysmal atrial fi brillation (CMS/HCC); PVD (peripheral vascular disease) (CMS/HCC); Hypertension, unspecified type; Hypercoagulable state due to paroxysmal atrial fibrillation (CMS/HCC); Gastroesophageal reflux disease, unspecified whether esophagitis present; Chronic obstructive pulmonary disease, unspecified COPD type (CMS/HCC); CHANEL inhibitor intolerance; Stage 3a chronic kidney disease (CMS/HCC); Mixed hyperlipidemia; High risk medication use; Former smoker Start: 06-05-2023 End: 06-05-2023 ambulatory [facility] Ambulatory Start: 06-05-2023 End: 06-05-2023 Subsequent hospital visit by physician Rad External Film [facility] Comment on above: Paroxysmal atrial fi brillation (CMS/HCC) Start: 05-26-2023 End: 05-26-2023 ambulatory MD Shannon Yoon Work Phone: [facility] Work Phone: Start: 05-26-2023 End: 05-26-2023 Patient encounter procedure MD Shannon Yoon Work Phone: [facility] Work Phone: Start: 05-05-2023 End: 05-05-2023 Professional / ancillary services management Diana De Oliveira LPN [facility] Comment on above: Atrial fibrillation, unspecified type (CMS/HCC) Start: 05-05-2023 End: 05-05-2023 ambulatory [facility] Ambulatory Start: 04-23-2023 End: 04-23-2023 ambulatory MD Shannon Yoon Work Phone: [facility] Work Phone: Start: 04-23-2023 End: 04-23-2023 Patient encounter procedure MD Shannon Yoon Work Phone: [facility] Work Phone: Start: 04-15-2023 Non-patient / Non-visit MD Hanna Yoon Work Phone: [facility] Pulmonary Disease Work Phone: Start: 04-15-2023 End: 04-15-2023 Patient encounter procedure MD Shannon Yoon Work Phone: [facility]Res[facility] Work Phone: Start: 04-15-2023 End: 04-15-2023 ambulatory MD Shannon Yoon Work Phone: [facility] Work Phone: Start: 04-03-2023 End: 04-03-2023 Patient encounter procedure Rahel Tovar DPM Work Phone: [facility] Comment on above: Idiopathic progressi ve polyneuropathy (Primary Dx); Onychomycosis Start: 04-03-2023 End: 04-03-2023 ambulatory RAHEL TOVAR Not Available Start: 02-20-2023 End: 02-20-2023 ambulatory LORRI WHITE Not Available Start: 02-19-2023 End: 02-19-2023 ambulatory Shannon Yoon Other [employer] Other Start: 02-19-2023 Office outpatient vi sit 15 minutes Shannon Yoon [facility] Start: 02-19-2023 End: 02-19-2023 Patient encounter procedure MD Shannon Yoon Work Phone: [facility] Work Phone: Start: 02-10-2023 End: 02-10-2023 Admission to same day surgery center MD Shannon Yoon Work Phone: [facility] [place] Start: 02-10-2023 End: 02-10-2023 ambulatory MD Shannon Yoon Work Phone: [facility] Work Phone: Start: 02-06-2023 End: 02-06-2023 ambulatory Shannon Yoon Other [employer] Other Start: 02-06-2023 Office outpatient vi sit 15 minutes Shannon Yoon [facility] Start: 02-06-2023 Telephone encounter Shannon Yoon [facility] Start: 02-06-2023 End: 02-06-2023 Patient encounter procedure MD Shannon Yoon Work Phone: [facility] Work Phone: Start: 02-03-2023 End: 02-03-2023 ambulatory Shannon Yoon Other [employer] Other Start: 02-03-2023 Telephone encounter Shannon Yoon [facility] Start: 01-30-2023 End: 01-30-2023 Patient encounter procedure MD Shannon Yoon Work Phone: [facility]-Pre-Surgical Testing Work Phone: Start: 01-30-2023 End: 01-30-2023 ambulatory MD Shannon Yoon Work Phone: [facility] Work Phone: Start: 12-26-2022 End: 12-26-2022 Patient encounter procedure Pili Campbell [facility] Vascular Surgery Start: 12-26-2022 End: 12-26-2022 ambulatory MD Shannon Yoon Work Phone: [employer] Other Start: 2022 End: 2022 ambulatory Shannon Yoon Other Chef Other Start: 2022 Patient encounter procedure Shannon Yoon [facility] Start: 11-11-2022 End: 11-11-2022 ambulatory Shannon Yoon Other Chef Other Start: 11-11-2022 Telephone encounter Shannon Car [facility] Start: 10-25-2022 End: 10-25-2022 ambulatory Shannon Yoon Other Chef Other Start: 10-25-2022 Telephone encounter Shannon Car [facility] Start: 10-22-2022 Encounter for gynecological examination (general) (routine) with abnormal findings Shannonandrey Yoon [facility] Start: 10-22-2022 Office outpatient vi sit 25 minutes Shannon Yoon [facility] Start: 10-22-2022 End: 10-22-2022 ambulatory MD Shannon Yoon Work Phone: [facility] Work Phone: Start: 10-22-2022 End: 10-22-2022 Departed Referred MD Shannon Yoon Work Phone: [facility] [place] Work Phone: Start: 10-15-2022 End: 10-15-2022 ambulatory Shannon Yoon Other Chef Other Start: 10-15-2022 Telephone encounter Shannon Yoon [facility] Start: 10-10-2022 End: 10-10-2022 Departed Referred MD Shannon Yoon Work Phone: [facility] [place] Work Phone: Start: 10-10-2022 End: 10-10-2022 ambulatory Shannon Yoon Other Chef Other Start: 10-10-2022 Office outpatient vi sit 15 minutes Shannon Yoon [facility] Start: 10-07-2022 End: 10-07-2022 ambulatory MD Shannon Yoon Work Phone: [facility] Work Phone: Start: 10-07-2022 End: 10-07-2022 Patient encounter procedure MD Shannon Yoon Work Phone: [facility] Work Phone: Start: 08-09-2022 Office outpatient vi sit 25 minutes Gavino Tavera [facility] [place] [facility] Start: 08-09-2022 End: 08-09-2022 ambulatory MD Shannon Yoon Work Phone: [facility] Work Phone: Start: 08-09-2022 End: 08-09-2022 Patient encounter procedure MD Shannon Yoon Work Phone: [facility] [place] [facility] Start: 08-02-2022 End: 08-02-2022 ambulatory Shannon Yoon Other [employer] [facility] [place] Other Start: 08-02-2022 Office outpatient vi sit 15 minutes Shannon Yoon [facility] Start: 07-30-2022 Office outpatient ne w 30 minutes Dena Alcantara [facility] [place] [facility] Start: 07-30-2022 End: 07-30-2022 ambulatory MD Shannon Yoon Work Phone: [facility] Work Phone: Start: 07-30-2022 End: 07-30-2022 Patient encounter procedure MD Shannon Yoon Work Phone: [facility] [place] [facility] Start: 07-08-2022 Office outpatient vi sit 25 minutes Shannon Yoon Work Phone: [facility] 250 DO Work Phone: Start: 07-08-2022 Patient encounter procedure Shannon Yoon Work Phone: [facility] 250 DO Work Phone: Start: 07-08-[address] Shannon Yoon Facility: Start: 06-26-2022 End: 06-26-2022 ambulatory Eulogio Mai Other Chef Other Start: 06-26-2022 Office outpatient vi sit 15 minutes Eulogio Mai [facility] Start: 06-21-2022 End: 06-21-2022 ambulatory MD Shannon Yoon Work Phone: [facility] Work Phone: Start: 06-21-2022 End: 06-21-2022 Patient encounter procedure MD Shannon Yoon Work Phone: [facility] [place] Work Phone: Start: 06-20-2022 End: 06-20-2022 ambulatory Shannon Yoon Other Chef Other Start: 06-20-2022 Telephone encounter Shannon Yoon [facility] Start: 06-04-2022 End: 06-04-2022 Admission to same day surgery center MD Shannon Yoon Work Phone: [facility] Work Phone: Start: 06-04-2022 End: 06-04-2022 ambulatory MD Shannon Yoon Work Phone: [facility] Work Phone: Start: 05-08-2022 End: 05-08-2022 ambulatory Eulogio Mai Other Chef Other Start: 05-08-2022 Office outpatient ne w 60 minutes Eulogio Mai [facility] Start: 05-01-2022 End: 05-01-2022 ambulatory Shannon Yoon Other Chef Other Start: 05-01-2022 Telephone encounter Shannon Yoon [facility] Start: 04-30-2022 End: 04-30-2022 ambulatory Shannon Yoon Other Chef Other Start: 04-30-2022 Office outpatient vi sit 15 minutes Shannon Yoon [facility] Start: 04-18-2022 Telephone encounter Shannon toth Work Phone: [facility] 250 DO Work Phone: Start: 04-08-[address] Shannon Yoon Facility: Start: 04-08-2022 Office outpatient vi sit 25 minutes Shannon Yoon Work Phone: [facility] 250 DO Work Phone: Start: 04-04-2022 End: 04-04-2022 ambulatory MD Shannon Yoon Work Phone: [facility] Work Phone: Start: 04-04-2022 End: 04-04-2022 Patient encounter procedure MD Shannon Yoon Work Phone: [facility] [place] Work Phone: Start: 03-18-2022 Chart Update Shannon Yoon Work Phone: [facility] 250 DO Work Phone: Start: 03-18-2022 Patient encounter procedure Shannon Yoon Work Phone: [facility] [address] [place] Work Phone: Start: 03-18-[address] Juany Perkins ty:[id number] Start: 02-12-2022 End: 02-13-2022 ambulatory RAYNA OCHOA Facility:[facility] Start: 02-11-2022 Office consultation new/estab patient 60 min Shannon Yoon Work Phone: [facility] 250 DO Work Phone: Start: 02-11-2022 Office outpatient ne w 45 minutes Shannon Yoon Work Phone: [facility] 250 DO Work Phone: Start: 02-11-[address] Rayna Cardoso acility: Start: 02-08-2022 ambulatory Facility:[facility] Start: 01-28-2022 End: 01-29-[address] SHANNON YOON Facility: Start: 01-15-2022 End: 01-15-2022 ambulatory [facility] Start: 12-10-2021 End: 12-11-[address] SHANNON YOON Facility:[facility] Start: 08-13-2021 Encounter for preprocedural laboratory examination [facility] Start: 08-13-2021 End: 08-14-2021 ambulatory SHANNON YOON Facility:[facility] Start: 08-10-2021 End: 08-11-[address] SHANNON YOON Facility: Start: 08-10-2021 End: 08-11-2021 Encounter for preprocedural laboratory examination DR SHANNON YOON Facility:[facility] Start: 07-05-2021 End: 07-06-[address] SHANNON YOON Facility: Start: 06-26-2021 End: 07-20-[address] SHANNON YOON Facility:[facility] Start: 06-14-2021 End: 06-15-[address] SHANNON YOON Facility:[facility] Start: 04-23-2021 End: 04-24-[address] SHANNON YOON Facility: Procedures Date Procedure Procedure Detail Performing Clinician Start: 01-05-2024 Ecg routine ecg w/le ast 12 lds w/i&r Juany Richter MD Work Phone: Start: 06-05-2023 ECG 12-LEAD MAXIMILIANO SANDEEP H Start: 06-05-2023 FOLLOW UP IN CARDIOLOGY MAXIMILIANO BLACK[facility]URN Start: 06-05-2023 Ecg routine ecg w/le ast 12 lds w/i&r Juany Richter MD Work Phone: Start: 06-05-2023 Radiologic exam ches t 2 views Juany Richter MD Work Phone: Start: 05-05-2023 ECG 12-LEAD MAXIMILIANO SANDEEP H Start: 04-15-2023 Plain chest X-ray MD Edgardo Yoon Work Phone: Start: 02-10-2023 Hysteroscopy MD Shannon Yoon Work Phone: Start: 01-30-2023 Antibody screen Shannon Yoon Comment on above: Order Comment: Date of Surgery: [id number] Result Comment: PERF ORMED BY: [facility] [place] [address] PATHOLOGIST SENIOR SECURITY ANALYST GARRETT PEÑA M.D. Start: 12-26-2022 Ankle brachial press ure index MD Shannon Yoon Work Phone: Start: 10-10-2022 Urine culture MD Shannon Yoon [...] Appendectomy Shannon Yoon Work Phone: section Shannon aguilar Work Phone: Cholecystectomy Shannon fowler Work Phone: Decompression of med bello nerve Shannon Yoon Work Phone: Depression screening Shannon Yoon Other Ligation of fallopian tube Ish Yoon Work Phone: Screening for malign ant neoplasm of breast Shannon Yoon Other Total colonoscopy Shannon toth Work Phone: Comment on above: 2011; Viral screening Shannon Yoon Other Plan of Treatment Date Care Activity Detail Author Start: 07-12-2024 End: 07-12-2024 Patient encounter procedure 07/12/2024 9:30 AM EDT Office Visit [facility] [address] [facility] [address] [place] [address] Juany Richter MD [address] [facility] [address] [place] [address] [facility] Start: 03-30-2024 End: 03-30-2024 Patient encounter procedure 03/30/2024 10:30 AM EST Procedure Visit [facility] [address] [place] [address] Rahel Tovar DPIsh [address] [place] [address] [facility] Start: 01-05-2024 End: 01-04-2025 Alanine aminotransferase [Enzymatic activity/volume] in Serum or Plasma by With P-5'-P Alanine Aminotransferase Lab Routine Paroxysmal atrial fibrillation (Multi) Mixed hyperlipidemia Hypercoagulable state due to paroxysmal atrial fibrillation (Multi) Expected: 01/05/2024, Expires: 01/04/2025 [facility] Work Phone: Comment on above: Expected: 01/05/2024, Expires: Start: 01-05-2024 End: 01-04-2025 Aspartate aminotransferase [Enzymatic activity/volume] in Serum or Plasma by With P-5'-P Aspartate Aminotransferase Lab Routine Paroxysmal atrial fibrillation (Multi) Mixed hyperlipidemia Hypercoagulable state due to paroxysmal atrial fibrillation (Multi) Expected: 01/05/2024 (Approximate), Expires: 01/04/2025 [facility] Work Phone: Comment on above: Expected: 01/05/2024 (Approximate), Expi res: 01/04/2025 Start: 01-05-2024 End: 01-04-2025 Basic metabolic 2000 panel - Serum or Plasma Basic Metabolic Panel Lab Routine Paroxysmal atrial fibrillation (Multi) Hypercoagulable state due to paroxysmal atrial fibrillation (Multi) Expected: 01/05/2024 (Approximate), Expires: 01/04/2025 [facility] Work Phone: Comment on above: Expected: 01/05/2024 (Approximate), Expi res: 01/04/2025 Start: 01-05-2024 End: 01-04-2025 Complete Pulmonary Function Test (Spirometry/DLCO/Lung Volumes) Complete Pulmonary Function Test (Spirometry/DLCO/Lung Volumes) PFT Routine Paroxysmal atrial fibrillation (Multi) Hypercoagulable state due to paroxysmal atrial fibrillation (Multi) Expected: 01/05/2024 (Approximate), Expires: 01/04/2025 [facility] Work Phone: Comment on above: Expected: 01/05/2024 (Approximate), Expi res: 01/04/2025 Start: 01-05-2024 End: 01-04-2025 Lipid 1996 panel - Serum or Plasma Lipid Panel Lab Routine Mixed hyperlipidemia Expected: 01/05/2024, Expires: 01/04/2025 [facility] Service Area Work Phone: Comment on above: Expected: 01/05/2024, Expires: Start: 01-05-2024 End: 01-04-2025 Thyrotropin [Units/volume] in Serum or Plasma Thyroid Stimulating Hormone Lab Routine Paroxysmal atrial fibrillation (Multi) Hypercoagulable state due to paroxysmal atrial fibrillation (Multi) Expected: 01/05/2024 (Approximate), Expires: 01/04/2025 [facility] Work Phone: Comment on above: Expected: 01/05/2024 (Approximate), Expi res: 01/04/2025 Start: 01-05-2024 End: 01-04-2025 XR Chest 2 Views XR chest 2 views Imaging Routine Paroxysmal atrial fibrillation (Multi) Hypercoagulable state due to paroxysmal atrial fibrillation (Multi) Expected: 01/05/2024 (Approximate), Expires: 01/04/2025 [facility] Work Phone: Comment on above: Expected: 01/05/2024 (Approximate), Expi res: 01/04/2025 Start: 12-29-2023 End: 12-29-2023 Patient encounter procedure 12/29/2023 10:15 AM EDT Procedure Visit [facility] [address] [place] [address] Rahel Tovar DPM [address] [place] [address] Arrived [facility] Comment on above: Arrived Start: 12-22-2023 End: 12-22-2023 Patient encounter procedure 12/22/2023 9:45 AM EDT Office Visit [facility] [address] [facility] [address] [place] [id number] Juany Richter MD [address] [place] [address] [address] [place] [address] [facility] Start: 11-02-2023 COVID-19 Vaccine ( season) COVID-19 Vaccine ( season) [facility] Start: 11-02-2023 Influenza vaccination [facility] Start: 06-12-2023 End: 06-12-2023 Patient encounter procedure 06/12/2023 10:15 AM EDT Procedure Visit [facility] [address] [place] [address] Rahel Tovar DPM [address] [place] [address] [facility] Start: 06-05-2023 End: 06-04-2024 Alanine aminotransferase [Enzymatic activity/volume] in Serum or Plasma by With P-5'-P Alanine Aminotransferase Lab Routine Paroxysmal atrial fibrillation (CMS/HCC) Expected: 06/05/2023 (Approximate), Expires: 06/04/2024 [facility] Work Phone: Comment on above: Expected: 06/05/2023 (Approximate), Expi res: 06/04/2024 Start: 06-05-2023 End: 06-04-2024 Aspartate aminotransferase [Enzymatic activity/volume] in Serum or Plasma by With P-5'-P Aspartate Aminotransferase Lab Routine Paroxysmal atrial fibrillation (CMS/HCC) Expected: 06/05/2023 (Approximate), Expires: 06/04/2024 [facility] Service Area Work Phone: Comment on above: Expected: 06/05/2023 (Approximate), Expi res: 06/04/2024 Start: 06-05-2023 End: 06-04-2024 Basic metabolic 2000 panel - Serum or Plasma Basic Metabolic Panel Lab Routine Paroxysmal atrial fibrillation (CMS/HCC) Expected: 06/05/2023 (Approximate), Expires: 06/04/2024 [facility] Work Phone: Comment on above: Expected: 06/05/2023 (Approximate), Expi res: 06/04/2024 Start: 06-05-2023 End: 06-04-2024 Complete Pulmonary Function Test Pre/Post Bronchodialator (Spirometry Pre/Post/DLCO/Lung Volumes) Complete Pulmonary Function Test Pre/Post Bronchodialator (Spirometry Pre/Post/DLCO/Lung Volumes) PFT Routine Paroxysmal atrial fibrillation (CMS/HCC) Expected: 06/05/2023 (Approximate), Expires: 06/04/2024 [facility] Work Phone: Comment on above: Expected: 06/05/2023 (Approximate), Expi res: 06/04/2024 Start: 06-05-2023 End: 06-04-2024 Lipid 1996 panel - Serum or Plasma Lipid Panel Lab Routine PVD (peripheral vascular disease) (CMS/HCC) Mixed hyperlipidemia Expected: 06/05/2023 (Approximate), Expires: 06/04/2024 [facility] Work Phone: Comment on above: Expected: 06/05/2023 (Approximate), Expi res: 06/04/2024 Start: 06-05-2023 End: 06-04-2024 Thyrotropin [Units/volume] in Serum or Plasma Thyroid Stimulating Hormone Lab Routine Paroxysmal atrial fibrillation (CMS/HCC) Expected: 06/05/2023 (Approximate), Expires: 06/04/2024 [facility] Work Phone: Comment on above: Expected: 06/05/2023 (Approximate), Expi res: 06/04/2024 Start: 06-05-2023 End: 06-05-2023 Patient encounter procedure 06/05/2023 10:00 AM EDT Office Visit [facility] [address] [facility] [address] [place] [address] Juany Richter MD [address] [place] [address] [address] [place], [place] [id number] [facility] Start: 02-10-2023 End: 02-10-2023 [facility] Start: 12-05-2022 FUV, Provider: Juany Richter, Status: Pen, Time: 10:30 AM FUV, Provider: Juany Richter, Status: Pen, Time: 10:30 AM [facility] 250 DO Work Phone: Start: 11-01-2022 COVID-19 Vaccine ( season) COVID-19 Vaccine ( season) [facility] Start: 11-01-2022 Influenza vaccination Influenza Vaccine (#1) [facility] Start: 10-22-2022 [facility] Start: 07-08-2022 FUV, Provider: Juany Richter, Status: Pen, Time: 10:30 AM FUV, Provider: Juany Richter, Status: Pen, Time: 10:30 AM [facility] 250 DO Work Phone: Start: 06-21-2022 Ankle brachial pressure index [facility] Start: 06-04-2022 [facility] Start: 04-08-2022 FUV, Provider: Juany Richter, Status: Pen, Time: 1:45 PM FUV, Provider: Juany Richter, Status: Pen, Time: 1:45 PM -[facility] 250 DO Work Phone: Start: 04-04-2022 PVR, Provider: [place] [facility] ULTRASOUND 01,[id number], Status: Pen, Time: 8:45 AM PVR, Provider: [place] [facility] ULTRASOUND 01,[id number], Status: Pen, Time: 8:45 AM [facility] 250 DO Work Phone: Start: 04-01-2022 FUV, Provider: Juany Richter, Status: Pen, Time: 10:30 AM FUV, Provider: Juany Richter, Status: Pen, Time: 10:30 AM -[facility] 250 DO Work Phone: Start: 03-25-2022 PVR, Provider: [id number] ULTRASOUND 02,[id number], Status: Pen, Time: 10:15 AM PVR, Provider: [id number] ULTRASOUND 02,[id number], Status: Pen, Time: 10:15 AM [facility] 250 DO Work Phone: Start: 03-18-2022 STRESS NUC, Provider: [place] [facility] NUCLEAR 01,[id number], Status: Pen, Time: 8:00 AM STRESS NUC, Provider: [place] [facility] NUCLEAR 01,[id number], Status: Pen, Time: 8:00 AM -[facility] 250 DO Work Phone: Start: 12-16-2016 Pneumococcal Vaccine: 65+ Years (1 - PCV) Pneumococcal Vaccine: 65+ Years (1 - PCV) [facility] Start: 12-16-2016 Pneumococcal Vaccine: 65+ Years (1 of 1 - PCV) Pneumococcal Vaccine: 65+ Years (1 of 1 - PCV) [facility] Start: 2011 RSV High Risk: (Elderly (60+) or Population) (1 - Risk 60-74 years 1-dose series) RSV High Risk: (Elderly (60+) or Population) (1 - Risk 60-74 years 1-dose series) [facility] Start: 12-16-2001 Zoster Vaccines (1 of 2) Zoster Vaccines (1 of 2) [facility] Start: 1991 Screening for malignant neoplasm of breast Mammogram [facility] Start: 12-16-1973 DTaP/Tdap/Td Vaccines (1 - Tdap) DTaP/Tdap/Td Vaccines (1 - Tdap) [facility] Start: 12-16-1970 Urine screening for protein CKD: Urine Protein Screening [facility] Start: 12-16-1969 Diabetes mellitus screening Diabetes Screening [facility] Start: 12-16-1969 Hepatitis C screening Hepatitis C Screening [facility] Start: 12-16-1957 Pneumococcal Vaccine: 65+ Years (1 - PCV) Pneumococcal Vaccine: 65+ Years (1 - PCV) [facility] Start: 12-16-1957 Pneumococcal Vaccine: 65+ Years (1 of 2 - PCV) Pneumococcal Vaccine: 65+ Years (1 of 2 - PCV) [facility] Start: 1950 Lipid panel Lipid Panel [facility] Start: 1950 Medicare Annual Wellness Visit Medicare Annual Wellness Visit (AWV) [facility] Start: 1950 Screening for malignant neoplasm of colon [facility] Start: 1950 Screening for osteoporosis Bone Density Scan [facility] Start: 1950 Thyroid stimulating hormone measurement TSH Level [facility] Ankle brachial press ure index [facility] Comprehensive metabo lic 2000 panel - Serum or Plasma [facility] ECG 12 Lead ECG 12 Lead ECG Routine Atrial fibrillation, unspecified type (CMS/HCC) 05/05/2023 10:36 AM EST [facility] Service Area Work Phone: Patient Education Peripheral Art kathrine Disease and Claudication Atherectomy - Angioplasty of a Noncoronary Vessel Peripheral Vascular Ultrasound Peripheral Vascular (Arterial) Disease (DC) Peripheral Vascular Stenting (DC) Peripheral Vascular Stenting [facility] Work Phone: Patient referral [facility] Work Phone: XR Chest 2 Views [facility] Immunizations Immunization Date Immunization Notes Care Provider Fa cility 11-23-2021 COVID-19 (Pfizer) MD Shannon Yoon Work Phone: [facility] 01-23-2021 Pfizer-BioNTech COVI D-19 Vacc 30 MCG/0.3ML Intramuscular Suspension Shannon Yoon Work Phone: [facility] 06-22-2020 COVID-19 (Pfizer) MD Shannon Yoon Work Phone: [facility] 06-22-2020 Pfizer-BioNTech COVI D-19 Vacc 30 MCG/0.3ML Intramuscular Suspension Shannon Yoon Work Phone: [facility] 06-02-2020 COVID-19 (Pfizer) MD Shannon Yoon Work Phone: [facility] 06-02-2020 Pfizer-BioNTech COVI D-19 Vacc 30 MCG/0.3ML Intramuscular Suspension Shannon Yoon Work Phone: [facility] Payers Date Payer Category Payer Self-pay [id number] 2022 Unknown [id number] 2022 Medicare [id number] 2022 Medicare (Managed Care) 1.2. [id number] 2022 Private Health Insurance [id number] 1959 Medicare [id number] 1959 Private Health Insurance [id number] 1951 Unknown [id number] 2.16.8 40.1.689295.3.579.2.647 1951 Unknown [id number] 2.16.84 0.1.054416.3.579.2.593 1951 Unknown [id number] 2.16.84 0.1.005629.3.579.2.593 1951 Unknown [id number] 2.16.84 0.1.977717.3.579.2.593 1951 Unknown [id number] 2.16.84 0.1.118071.3.579.2.593 1951 Unknown [id number] 2.16.84 0.1.248429.3.579.2.593 1951 Unknown [id number] 2.16.84 0.1.116674.3.579.2.593 1951 Unknown [id number] 2.16.84 0.1.962860.3.579.2.593 1951 Unknown [id number] 2.16.84 0.1.262862.3.579.2.593 1951 Unknown [id number] 2.16. 840.1.590680.3.579.2.356 1951 Unknown [id number] 2.16. 840.1.791648.3.579.2.356 1951 Unknown [id number] 2.16. 840.1.698226.3.579.2.356 1951 Unknown [id number] 2.16.8 40.1.544480.3.579.2.1068 1951 Unknown [id number] 2.16.8 40.1.744353.3.579.2.1068 1951 Unknown [id number] 2.16.84 0.1.547395.3.579.2.1259 1951 Unknown [id number] 2.16.84 0.1.341372.3.579.2.1259 1951 Unknown [id number] 2.16.84 0.1.225440.3.579.2.1259 1951 Unknown [id number] 2.16.84 0.1.362753.3.579.2.1259 1951 Unknown [id number] 2.16.84 0.1.133314.3.579.2.1259 1951 Unknown [id number] 2.16.840 .1.666603.3.579.2.1259 1951 Unknown [id number] 2.16. 840.1.780338.3.579.2.1244 1951 Unknown [id number] 2.16.8 40.1.888988.3.579.2.1244 1951 Unknown [id number] 2.16.8 40.1.463102.3.579.2.1244 Private Health Insurance [id number] 2.16.840.1.130958.19 Unknown Unknown [id number] 2.16.8 40.1.282904.3.579.2.531 Unknown [id number] 2.16.8 40.1.733013.3.579.2.531 Unknown [id number] 2.16.8 40.1.197257.3.579.2.531 Social History Date Type Detail Facility Start: 04-08-2022 End: 08-29-2022 Illicit drug use Illicit drug use [facility] Comment on above: diet mt dew 2 liter a day; 10 cigs a day; 06/2022 quit; Start: 1950 Sex Assigned At Female F [facility] Start: 04-08-2022 End: 04-03-2023 Sex Assigned At [facility] Start: 06-04-2022 End: 02-10-2023 Tobacco smoking status NHIS Smoker (finding) [facility] Start: 08-29-2022 Tobacco smoking stat us ILIS Smokes tobacco daily [facility] End: 12-01-2022 History of tobacco use Cigarette Smoker [facility] Start: 08-29-2022 End: 01-05-2024 Tobacco use and exposure Smokeless tobacco non-user [facility] Start: 04-03-2023 End: 12-29-2023 Alcohol intake Lifetime non-drinker (finding) [facility] Start: 1950 Sex Assigned At Not on file N [facility] Start: 12-23-2022 End: 01-05-2024 Tobacco smoking status NHIS Ex-smoker [facility] Work Phone: Start: 04-25-2023 End: 01-05-2024 Exposure to SARS-CoV-2 (event) Not sure [facility] Start: 01-05-2024 Alcoholic beverage intake Ex-drinker (finding) [facility] Work Phone: Start: 01-05-2024 [facility] Medical Equipment Procedure Code Equipment Code Equipment Origin al Text Equipment Identifier Dates Aortogram, abdominal, with bilateral lower extremity runoff Multiple peripheral artery stent, bare-metal ([id number] [facility] Start: 06-04-2022 Goals Date Patient Goal Desired Activity /State Clinical Notes 01-15-2022 to 01-05-2024 Juany Richter MD - 01/05/2024 10:45 AM ESTPatient InstructionsChstephen Tovar DPM - 12/29/2023 10:15 AM Casey Richter MD - 06/05/2023 10:00 AM EDTPatient InstructionsPatient Instructions Note Date & Type Note Facility 01-05-2024 History of Present illness Narrative This is a 6-month follow-up. This is a patient with aggressive vascular disease, paroxysmal atrial fibrillation on high risk medications amiodarone and Eliquis, also on aspirin, Subjective : Interval review of systems is [...] care. Albuterol inhaler has been recommended. 12. [id number]-FNTt score 4 13.GERD on prophylaxis. 14. PVR rest and [...] diffusion abnormality no reversibility after bronchodilator therapy 21. Several medication intolerances including Clopidogrel and ACEI and angiotensin receptor rai. 22. Intolerant to rosuvastatin and atorvastatin, cannot tolerate atorvastatin 20 mg. 23. PFTs December 2023-no evidence of obstruction mildly reduced diffusion capacity compared to April 2023 marked improvement in FVC and FEV1 with 5% increase in DLCO. No indication for medication adjustment 24. PVR lower extremities July 2023-left leg 0.47 dorsalis pedis 0.51 posterior tibial on the right side 0.57 dorsalis pedis 0.62 posterior tibial rest study Objective Wt Readings from Last 3 Encounters: 01/05/24 81.6 kg (180 lb) 06/05/23 88.9 kg (196 lb) 05/05/23 92.1 kg (203 lb) Vitals: 01/05/24 1041 BP: 100/64 BP Location: Left arm Patient Position: Sitting Pulse: 89 Weight: 81.6 kg (180 lb) Height: 1.6 m (5' 3 ) Physical Exam: GENERAL APPEARANCE: in no acute [...] powdr breath act w/sensor inhaler 2 puffs, Every 4 hours PRN amiodarone (PACERONE) 100 mg, oral, Daily apixaban (ELIQUIS) 5 mg, oral, 2 times daily aspirin 81 mg, oral, Daily, Take with food. coenzyme Q-10 100 mg, oral, Daily inclisiran (LEQVIO) 284 mg, subcutaneous, Every 6 months, at 0, 3 months and then every 6 months thereafter loratadine (Claritin) 10 mg tablet 1 tablet, Nightly magnesium oxide (MAG-OX) 400 mg, oral, 2 times daily montelukast (SINGULAIR) 10 mg, Nightly olmesartan-hydrochlorothiazide (BENIcar HCT) 20-12.5 mg tablet 1 tablet, oral, Daily omeprazole (PriLOSEC) [address] capsule 1 capsule, Daily Allergies Allergen Reactions Chanel Inhibitors Hives and Shortness of breath Lisinopril Hives and Shortness of breath TABS Prednisone Hives Sulfamethoxazole Hives itching Arb-Angiotensin Receptor Antagonist Hives Atorvastatin Itching Adverse reaction: myalgia Methylprednisolone Hives Plavix [Clopidogrel] Hives Rosuvastatin Itching and Myalgia Penicillins Unknown Latex Rash swelling Toradol [Ketorolac] Headache LABS: October 2023-hemoglobin 12. 1, hematocrit 39.3, platelets 216,000, sodium 137 potassium 4.1 creatinine 1.06 GFR 51 liver enzymes normal total cholesterol 111 LDL 32 triglycerides 92 HDL 61 TSH 2.67 Patient Active Problem List Diagnosis Date Noted Statin intolerance 01/05/2024 BMI 31.0-31.9,adult 01/05/2024 Stage 3a chronic kidney disease (Multi) 06/05/2023 Former smoker 06/05/2023 Hypercoagulability due to atrial fibrillation ([facility]) 12/23/2022 Second hand smoke exposure 12/23/2022 CHANEL inhibitor intolerance 12/23/2022 Afib ([facility]) 10/28/2022 COPD (chronic obstructive pulmonary disease) ([facility]) 10/28/2022 GERD (gastroesophageal reflux disease) 10/28/2022 Lung nodules 10/28/2022 Hypertension 10/28/2022 PVD (peripheral vascular disease) ([facility]) 10/28/2022 Varicose veins of legs 10/28/2022 High risk medication use 10/28/2022 Mixed hyperlipidemia 10/28/2022 Vascular claudication ([facility]) 10/28/2022 Assessment: 1. Paroxysmal atrial fibrillation (Multi) Follow Up In Cardiology 2. High risk medication use 3. PVD (peripheral vascular disease) ([facility]) 4. Mixed hyperlipidemia 5. Hypertension, unspecified type 6. Hypercoagulable state due to paroxysmal atrial fibrillation (Multi) 7. Statin intolerance 8. Stage 3a chronic kidney disease (Multi) 9. BMI 31.0-31.9,adult 10. Former smoker No clinical evidence of amiodarone toxicity no laboratory or PFT evidence of amiodarone toxicity No clinical recurrence of atrial fibrillation Lipid profile at target on inclisiran CKD 3A-stable Continue current medical regimen, continue amiodarone surveillance Follow up : 6 months Provider Attestation - Scribe documentation All medical record entries made by the Scribe were at my direction and personally dictated by me. I have reviewed the chart and agree that the record accurately reflects my personal performance of the history, physical exam, discussion and plan. Scribe Attestation By signing my name below, I, Carlee Bosch LPN attest that this documentation has been prepared under the direction and in the presence of Juany Richter MD. documented in this encounter [facility] Work Phone: 01-05-2024 Instructions Ann Gonzalez LPN - 01/05/2024 10:45 AM EST Please bring all medicines, vitamins, and herbal supplements with you when you come to the office. Prescriptions will not be filled unless you are compliant with your follow up appointments or have a follow up appointment scheduled as per instruction of your physician. Refills should be requested at the time of your visit. EKG done in office today BMI was above normal measurement. Current weight: 81.6 kg (180 lb) Weight change since last visit (-) denotes wt loss -16 lbs Weight loss needed to achieve BMI 25: 39.2 Lbs Weight loss needed to achieve BMI 30: 11 Lbs Provided instructions on dietary changes Provided instructions on exercise. documented in this encounter [facility] Work Phone: 12-29-2023 History of Present illness Narrative Subjective Patient ID: Avelino Barrett is a 73 y.o. female who presents for Follow-up ([facility]). Nail care Location nails on bilateral feet Severity of symptoms mild Onset gradual Status no change Context hard to trim, hard to reach Nails thickened, discolored, pain Relieved by debridement, filing down nails, clipping nails History of ulcers/wounds no Aggravated by shoe gear, pressure Last seen date: Shannon Yoon MD Last seen diagnosing provider: 12-03-23 ROS General: Chillsdenies. Feverdenies. Musculoskeletal: muscle weaknessdenies. Bone/joint [...] at the same time., Disp: , Rfl: CVS Aspirin Low Dose [...] at the same time., Disp: , Rfl: Inclisiran Sodium (Leqvio) 284 MG/1.5ML solution prefilled syringe, Inject under the skin, Disp: , Rfl: loratadine (Claritin) 10 MG [...] Histories Past Medical History: Diagnosis Date A-fib (CMS/[facility]) Allergies Arrhythmia Arthritis Hypertension (CMS/HCC) Surgical Histories Past Surgical History: Procedure Laterality Date APPENDECTOMY CARPAL TUNNEL RELEASE Right SECTION, CLASSIC GALLBLADDER HYSTEROSCOPY 02/10/2023 D&C TUBAL LIGATION VEIN LIGATION Hospitalizations Family History Family History Problem Relation Name Age of Onset Heart disease Mother Cancer Father Ovarian cancer Sister Cancer Sister Diabetes Son Objective Foot Exam General Examination: awake, aware of surroundings, in no acute distress. Vascular: DORSALIS PEDIS PULSE:2/4, bilaterally. POSTERIOR TIBIAL PULSE:2/4, bilaterally. TEMPERATURE GRADIENT:warm to warm. EDEMA:mild. VARICOSITIES:moderate , bilaterally. CAPILLARY FILLING TIME(sec):capillary fill intact bilateral digits less than 3 secs. HAIR GROWTH:absent. Neurologic: light touch (normal). increased sensation to left [...] crumbling. mild 2 bilat and mod 5 3mm. SKIN PATHOLOGY:texture, turgor, hair growth, within normal [...] 5mm. 2Long, Thick, Crumbly, Deformed, Discolored, Brittle, Dystrophic.3mm 3Normal. 4Long , Thick. 5Long, Thick, Crumbly, Deformed, Discolored, Brittle, Dystrophic.4mm Nail Pathology: Left Foot: 1 (great toe)Long, Thick, Crumbly, Deformed, Discolored, Brittle, [id number]. 2Long, Thick, Crumbly, Deformed, Discolored, Brittle, Dystrophic.3mm 3Normal. 4Normal. 5Long, Thick, Crumbly, Deformed, Discolored, Brittle, Dystrophic. 3mm Assessment/Plan neuropathy, mycotic nails Nails: all thick and dystrophic nails debrided of all affected and loose material All of the nondystrophic nails were debrided documented in this encounter [facility] 12-15-2023 Procedure note [facility] 06-05-2023 History of Present illness Narrative This [...] care. Albuterol inhaler has been recommended. 12. [id number]-LEUv score 4 based on my evaluation today [...] redirect to the Timeline version of the REVFS SmartLink. Wt Readings from Last 3 Encounters: [...] Date Noted Stage 3a chronic kidney disease ([facility]) 06/05/2023 Former smoker 06/05/2023 Hypercoagulability due to atrial fibrillation ([facility]) 12/23/2022 Second hand smoke exposure 12/23/2022 CHANEL inhibitor intolerance 12/23/2022 Afib ([facility]) 10/28/2022 COPD (chronic obstructive pulmonary disease) ([facility]) 10/28/2022 GERD (gastroesophageal reflux disease) 10/28/2022 Lung nodules 10/28/2022 Hypertension 10/28/2022 PVD (peripheral vascular disease) (CMS/HCC) 10/28/2022 Varicose veins of legs 10/28/2022 Class 2 obesity with body mass index (BMI) of 35.0 to 35.9 in adult 10/28/2022 High risk medication use 10/28/2022 Mixed hyperlipidemia 10/28/2022 Vascular claudication (CMS/HCC) 10/28/2022 Assessment: This is a patient with [...] discussion and plan. documented in this encounter [facility] Work Phone: 06-05-2023 Instructions Ann Gonzalez LPN [...] up per routine documented in this encounter [facility] Work Phone: 05-05-2023 History of Present illness Narrative Patient here for at EKG visit ordered by Maximiliano Blackburn RADIO FREQUENCY DESIGN ENGINEER due to AFIB. Dr. Robb in suite [...] (5' 3 ) documented in this encounter [facility] Work Phone: 05-05-2023 Instructions Diana De Oliveira LPN - 05/05/2023 11:00 AM EST EKG done in office today documented in this encounter [facility] Work Phone: 04-03-2023 History of Present illness [...] Shannon Yoon Last seen diagnosing provider: 02-22 ROS General: Chillsdenies. Feverdenies. Musculoskeletal: muscle weaknessdenies. Bone/joint [...] Histories Past Medical History: Diagnosis Date A-fib ([facility]) Allergies Arrhythmia Arthritis Hypertension ([facility]) Surgical Histories Past Surgical History: Procedure Laterality [...] (great toe)Long, Thick, Crumbly, Deformed, Discolored, Brittle, [id number]. 2Long, Thick, Crumbly, Deformed, Discolored, Brittle, Dystrophic. 3Normal. 4Normal. 5Long, Thick, Crumbly, Deformed, Discolored, Brittle, Dystrophic. Assessment/Plan neuropathy, mycotic nails Nails: all thick and dystrophic nails debrided of all affected and loose material All of the nondystrophic nails were debrided documented in this encounter [facility] 02-19-2023 Evaluation note Encounter [...] verbalized understanding and agreement with treatment plan. Chef Other 12-07-2023 Evaluation note* Encounter Date Diagnosis [...] verbalized understanding and agreement with treatment plan. Chef Other 10-26-2023 Evaluation note* Encounter Date Diagnosis [...] her risks and is unmotivated to quit. Chef Other 10-17-2023 Evaluation note* Encounter Date Diagnosis [...] with Dr. Mai in a few weeks. Chef Other 09-11-2023 Evaluation note* Encounter Date Diagnosis Assessment Notes Treatment Notes Treatment Clinical Notes Nov, Endometrial thickening on ultrasound (ICD-10 - R93.89) Chef Other 08-22-2023 Evaluation note* Encounter Date Diagnosis [...] her satisfaction and patient sent home stable Chef Other 08-10-2023 Evaluation note* Encounter Date Diagnosis Assessment Notes Treatment Notes Treatment Clinical Notes Oct, Paroxysmal a-fib (ICD-10 - I48.0) Presently in regular rhythm. Refilled eliquis Oct, GERD without esophagitis (ICD-10 - K21.9) Refilled med. Pt states her symptoms are controlled. Oct, Left flank pain (ICD-10 - R10.9) Check UA and C&S at lab. Jun, Dysuria (ICD-10 - R30.0) Dysuria Chef Other 08-10-2023 Evaluation note* Encounter Date Diagnosis [...] available. Jun, Dysuria (ICD-10 - R30.0) Dysuria Chef Other 06-09-2023 Evaluation note* Encounter Date Diagnosis [...] as documented in the electronic medical record. Chef Other 06-02-2023 Evaluation note* Encounter Date Diagnosis Assessment Notes Treatment Notes Treatment Clinical Notes Aug, Right anterior knee pain (ICD-10 - M25.561) Keep ortho appt - requests pain med to be moderately comfortable in the meantime. Chef Other 05-30-2023 Evaluation note* Encounter Date Diagnosis [...] Patient offered cortisone injection today, patient declined Chef Other 04-26-2023 Evaluation note* Encounter Date Diagnosis [...] the plan all her questions were addressed. Chef Other [facility]* Encounter Date Diagnosis Assessment Notes [...] and she has been trying for years. Chef Other 02-28-2023 Evaluation note* Encounter Date Diagnosis [...] take 2 - will notify her new analyst food and beverage. Chef Other 02-01-2023 History of Present illness Narrative* [...] EKG shows sinus rhythm at 75 bpm WV interval 150 ms QRS duration 90 ms [...] normal sinus rhythm QTc 477 ms normal WV interval. * To further clarify the physical [...] Albuterol inhaler has been recommended. * 12. [id number]-YSNf score 4 based on my evaluation today [...] as possible and take breaks in between. -[facility] DO Work Phone: 1(226) 685-479012-12-2022 History of Present illness Narrative* Patient was [...] normal sinus rhythm at 66 bpm with WV interval of 130 ms QRS duration 92 [...] Albuterol inhaler has been recommended. * 12. IXC4WN1-AYKu score 4 based on my evaluation today [...] the amiodarone and initiating another antiarrhythmic agent. -[facility] [employer] DO Work Phone: 1(561) 762-257511-15-2022 NoteUT Cardiology Consult Note Reason for Consultation: [...] Value Ventricular Rate 61 Atrial Rate 61 WV Interval 166 QRS DURATION 88 QT Interval 442 QTC CALCULATION(BAZETT) 444 P Axi (more content not included)...[facility] Evaluation noteNo assessment information availableChildren[facility] Work Phone: Evaluation noteNo InformationNort [employer] Other Evaluation note* Diagnosis Idiopathic progressive polyneuropathy- Primary Onychomycosis Dermatophytosis of nail [facility] Diagnosis Onset Date Resolution Status Osteoarthritis of left knee acute Osteoarthritis of right knee acute [facility] Work Phone: Evaluation note* Diagnosis Atrial fibrillation, unspecified type (CMS/HCC) documented in this encounter [facility] Work Phone: Evaluation note* Diagnosis Paroxysmal atrial fibrillation (CMS/HCC) Atrial fibrillation PVD (peripheral vascular disease) (CMS/HCC) Unspecified peripheral vascular disease Hypertension, unspecified type Hypercoagulable state due to paroxysmal atrial fibrillation (CMS/HCC) Gastroesophageal reflux disease, unspecified whether esophagitis present Chronic obstructive pulmonary disease, unspecified COPD type (CMS/HCC) CHANEL inhibitor intolerance Stage 3a chronic kidney disease (CMS/HCC) Mixed hyperlipidemia High risk medication use Former smoker Personal history of tobacco use, presenting hazards to health Paroxysmal atrial fibrillation ([facility]) Atrial fibrillation documented in this encounter [facility] Work Phone: Evaluation note* Diagnosis Paroxysmal atrial fibrillation (CMS/HCC) Atrial fibrillation documented in this encounter [facility] Work Phone: Evaluation note* Diagnosis Onset Date Resolution Status Spasm of left trapezius muscle acute PAD (peripheral artery disease) acute Osteoarthritis of left knee acute Osteoarthritis of right knee acute Otitis externa acute [facility] Work Phone: Evaluation note* Diagnosis Onset Date Resolution Status PAD (peripheral artery disease) acute Osteoarthritis of left knee acute Osteoarthritis of right knee acute Otitis externa acute Osteoarthritis of left knee acute Osteoarthritis of right knee acute [facility] Work Phone: Evaluation note* Diagnosis Onset Date Resolution Status PAD (peripheral artery disease) acute Osteoarthritis of left knee acute Osteoarthritis of right knee acute Otitis externa acute Osteoarthritis of left knee acute Osteoarthritis of right knee acute Dysuria acute [facility] Work Phone: Evaluation note* Diagnosis Onset Date Resolution Status Osteoarthritis of left knee acute Osteoarthritis of right knee acute Otitis externa acute Osteoarthritis of left knee acute Osteoarthritis of right knee acute Dysuria acute [facility] Work Phone: Evaluation note* Diagnosis Onset Date Resolution Status Osteoarthritis of left knee acute Osteoarthritis of right knee acute Otitis externa acute Osteoarthritis of left knee acute Osteoarthritis of right knee acute Dysuria acute Bronchitis acute Dyspnea acute Essential hypertension acute Fatigue acute [facility] Work Phone: Evaluation note* Diagnosis Onset Date Resolution Status Osteoarthritis of left knee acute Osteoarthritis of right knee acute Dysuria acute Bronchitis acute Dyspnea acute Essential hypertension acute Fatigue acute [facility] Work Phone: Evaluation note* Diagnosis Onset Date Resolution Status Dysuria acute Bronchitis acute Dyspnea acute Essential hypertension acute Fatigue acute [facility] Work Phone: Evaluation note* Diagnosis Paroxysmal atrial fibrillation (Multi) Atrial fibrillation High risk medication use PVD (peripheral vascular disease) ([facility]) Unspecified peripheral vascular disease Mixed hyperlipidemia Hypertension, unspecified type Hypercoagulable state due to paroxysmal atrial fibrillation (Multi) Statin intolerance Stage 3a chronic kidney disease (Multi) BMI 31.0-31.9,adult Former smoker Personal history of tobacco use, presenting hazards to health documented in this encounter [facility] Work Phone: History general Narrative - Reported* [...] History APPENDECTOMY 1974 Hospitalization History SEE SURGICAL HX Chef Other History general Narrative - Reported* Type [...] PLASTY ILIAC 2022 Hospitalization History SEE SURGICAL Chef Other Hisfbcq general Narrative - Reported* Type Description Date [...] LIGATION AND STRIPPING Hospitalization History SEE SURGICAL Chef Other Hisiebo general Narrative - Reported* Type Description Date [...] History CARPAL TUNNEL RELEASE ON THE RI T WRIST 1986 Surgical History CHOLECYSTECTOMY Surgical History SECTION Surgical History TUBAL LIGATION 1982 Surgical History 1980 Surgical History TUBAL LIGATION Surgical History CARPAL TUNNEL RELEASE ON RIGHT WRIST Surgical History CHOLECYSTECTOMY 1976 Surgical History APPENDECTOMY 1973 Surgical History LLE VEIN LIGATION AND STRIPPING Surgical History ANGIOGRAM AORTA W RUNOFF, ANGIO PLASTY ILIAC 2022 Hospitalization History SEE SURGICAL Chef Other History of Present illness Narrative* Patient [...] shows normal sinus rhythm at 69 bpm WV interval 158 ms QRS interval 90 ms [...] Albuterol inhaler has been recommended. * 12. [id number]-QFRy score 4 based on my evaluation today [...] I have is her hives to prednisone. Ifshe were to develop pneumonitis or pulmonary issues from amiodarone, the only treatment that we have would be steroids, and if she cannot have steroids then it is better to switch her to an alternateagent. * She did see an outside analyst food and beverage, who recommended apparently ablation for atrial fibrillation, [...] arise, * Sincerely, * Juany Richter MD [facility] DO Work Phone: History of Present illness [...] Albuterol inhaler has been recommended. * 12. SNC3EX4-VTTd score 4 based on my evaluation today [...] 76% DLCO corrected for alveolar ventilation 72% -[facility] [address] DO Work Phone: Hospital Discharge instructions Additional [...] in an emergency, call the office at [phone]. TODAY -Take it easy the rest of [...] FOLLOW UP -Please call the office at [phone] to arrange an appointment to see me in 1 weeks [facility] Work Phone: Reason for referral (narrative)* Consultation (Routine) - Authorized Specialty Diagnoses / Procedures Referred By Ranjan t Referred To Contact Cardiology Diagnoses Paroxysmal atrial fibrillation (CMS/HCC) Procedures Follow Up In Cardiology Juany Richter MD [address] [address] Juany Richter MD [address] [address] Referral ID Status Reason Start Date Expiration Date V isits Requested Visits Authorized [id number] Authorized 06/05/2023 06/04/2024 1 1 * PFT (Routine) - Pending Review Specialty Diagnoses / Procedures Referred By Contac t Referred To Contact Diagnoses Paroxysmal atrial fibrillation (CMS/HCC) Procedures Complete Pulmonary Function Test Pre/Post Bronchodialator (Spirometry Pre/Post/DLCO/Lung Volumes) Juany Richter MD [address] [address] Referral ID Status Reason Start Date Expiration Date V isits Requested Visits Authorized [id number] Pending Review 06/05/2023 06/04/2024 1 1 * Imaging (Routine) - Pending Review Specialty Diagnoses / Procedures Referred By Contac t Referred To Contact Radiology Diagnoses Paroxysmal atrial fibrillation (CMS/HCC) Procedures XR chest 2 views Juany Richter MD [address] [address] Referral ID Status Reason Start Date Expiration Date Visits Requested Visits Authorized [id number] Pending Review Perform Procedure 06/05/2023 06/04/2024 1 1 * Cardiovascular (Routine) - Authorized Specialty Diagnoses / Procedures Referred By Contac t Referred To Contact Diagnoses Paroxysmal atrial fibrillation (CMS/HCC) Procedures ECG 12 Lead Juany Richter MD [facility] [address] [place] [address] Referral ID Status Reason Start Date Expiration Date V isits Requested Visits Authorized [id number] Authorized 06/05/2023 06/04/2024 1 1 T [facility] Work Phone: Reason for visit NarrativeREF BY DR RICHTER FOR CLAUDICATION BILATERAL; PVR DONE AT [facility] INCLUDED WITH REFERRAL [facility] Other Summary Purpose Family History No Family History Records FoundUnknown Family Member Name Dates Details Family history [...] History of ovarian cancer Unknown Advance Directives No Advanced Directives Records Found Advance Directive Response Recorded Date/ Time Advance [...] Bronchitis Dyspnea Essential hypertension Fatigue Chief Complaint Z78.9,E78.2 OP SP CHAD KNEE PAIN REQUESTING INJECTION UA, painful and salcedo cough ,congestion , runny nose medical concerns UA, back, painful urination Reason for Visit Osteoarthritis of le ft knee Osteoarthritis of right knee Dysuria Bronchitis Dyspnea Essential hypertension Fatigue Chief Complaint UA, painful and burn s cough ,congestion , runny nose medical concerns UA, back, painful urination i48.91 z79.899 Z78.9,E78.2 i48.91 z79.899 Reason for Visit Dysuria Bronchitis Dyspnea Essential hypertension Fatigue Chief Complaint AVELINO BUSTOS is being seen for a 2 month follow-up of.AVELINO BUSTOS is being seen for a 3 month follow-up of.AVELINO BUSTOS is being seen for a 3 month follow-up of.AVELINO BUSTOS is being seen for a 3 month follow-up of. Reason for Referral Specialty Diagnoses / Procedures Referred By Contnagi t Referred To Contact Radiology Diagnoses Paroxysmal atrial fibrillation (CMS/HCC) Procedures XR chest 2 views Juany Richter MD 254 [facility] [address] [place] [address] Referral ID Status Reason Start Date Expiration Date Visits Requested Visits Authorized [id number] Pending Review Perform Procedure 06/05/2023 06/04/2024 1 1 Reason *FU 11/18 [facility] ADULT PHYSICIAN - last OV note, pelvic US report, pap report and vaginal culture. Thanks , Female preferred Diagnosis 1 Endometrial thickeni ng on ultrasound (R93.89) Referral Organization [facility] abi Referring Provider First Name Shannon Referring Provider Last Name Car Referring Provider Specialty Family [facility] Referred Organization [facility] Referred Provider NormaKatty locohleen Referred Address ,[place],[address] Referred Provider Specialty OB - Gynecol ogy Referral Priority Routine General Notes Sugey Kong 01:09:37 PM >received today Sugey Kong 11/11/2022 01:12:16 PM >attachments made, notes locked, referral faxed Additional Source Comments INFORMATION SOURCE (unrecogn ized section and content) DATE CREATED AUTHOR 10/26/2021 [facility] DATE CREATED AUTHOR AUTHOR'S ORGANIZ ATION 01/18/2022 [facility] DATE CREATED AUTHOR AUTHOR'S ORGANIZ ATION 02/08/2022 [facility] DATE CREATED AUTHOR AUTHOR'S ORGANIZ ATION 02/22/2022 [facility] DATE CREATED AUTHOR AUTHOR'S ORGANIZ ATION 07/09/2022 [facility] DATE CREATED AUTHOR AUTHOR'S ORGANIZ ATION 08/30/2022 [facility] DATE CREATED AUTHOR AUTHOR'S ORGANIZ ATION 01/18/2023 [employer] DATE CREATED AUTHOR AUTHOR'S ORGANIZ ATION 2023 [facility] DATE CREATED AUTHOR AUTHOR'S ORGANIZ ATION 12/29/2023 [facility] EPIC DATE CREATED AUTHOR AUTHOR'S ORGANIZ ATION 01/09/2024 [facility] Director Epidemiology Teams (unrecognized sec tion and content) Team Status: Active Member Role Status Dates [...] October 23, 2023 End: October 23, 2023 Team Status: Active Member Role Status Dates Shannon Yoon MD Primary Care Provide r, Attending Provider Active Start: October 24, 2023 Team Status: Inactive Member Role Status Dates Shannon Yoon MD Primary Care Provider Active Start: December 03, 2023 End: December 03, 2023 Blayne Mccarthy DO Attending Provider Active Sta rt: December 03, 2023 End: December 03, 2023 Team Status: Inactive Member Role Status Dates Shannon Yoon MD Primary Care Provider Active Start: December 15, 2023 End: December 15, 2023 Juany iRchter MD Attending Provider Active Star t: December 15, 2023 End: December 15, 2023 Team Status: Active Member Role Status Dates Shannon Yoon MD Primary Care Provider Active Start: December 15, 2023 Juany Richter MD Attending Provider, Referring Provider Active Start: December 15, 2023 Team Status: Active Member Role Status Arik Yoon MD Primary Care Provider Active Start: December 15, 2023 Juany Richter MD Other Provider Active Start: O ct2023 Rahel Massey MD Attending Provider Active Start: December 15, 2023 Team Status: Active Member Role Status Dates Shannon Yoon MD Primary Care Provider Active Start: September 08, 2023 Juany Richter MD Attending Provider, Referring Provider Active Start: September 08, 2023 Team Status: Inactive Member Role Status Arik Yoon MD Primary Care Provider Active Start: September 12, 2023 End: September 12, 2023 Gavino Tavrea DO Attending Provider Active S tart: September 12, 2023 End: September 12, 2023 Team Status: Inactive Member Role Status Arik Yoon MD Primary Care Provider Active Juany Richter MD Attending Provider Active Team Status: Inactive Member Role Status Arik Yoon MD Primary Care Provider Active Eulogio Mai MD Attending Provider Active Team Status: Inactive Member Role Status Arik Yoon MD Primary Care Provider Active Eulogio Mai MD Attending Provider Active Juany Richter MD Referring Provider Active Team Status: Inactive Member Role Status Arik Yoon MD Primary Care Provider Active Dena Alcantara MD Attending Provider Active Team Status: Inactive Member Role Status Arik Yoon MD Primary Care Provider Active Gavino [...] Active Lorri White DO Attending Provider Active Ambulance Driver Paramedic Relationship Specialty Start Date End Date Shannon Yoon MD [address] [place] [address] PCP - General Family Medicine 08/29/22 Team Status: Inactive Member Role Status Dates [...] 15, 2023 End: April 15, 2023 Juany Richter MD Attending Provider Active Star t: April 15, 2023 End: April 15, 2023 Team Status: Active Member Role Status Dates Shannon Yoon MD Primary Care Provider Active Start: April 15, 2023 Juany Richter MD Other Provider Active Start: F odetterusuellen 2023 Rahel Massey MD Attending Provider Active Start: April 15, 2023 Team Status: Inactive Member Role Status Dates Shannon Yoon MD Primary Care Provider Active Start: April 23, 2023 End: April 23, 2023 Gavino Tavera DO Active Start: April 23, 2023 End: April 23, 2023 JAN PinzonC Attending Provider Active Start: April 23, 2023 End: April 23, 2023 Ambulance Driver Paramedic Relationship Specialty Start Date End Date Shannon Yoon MD [address] [place] [address] PCP - General Family Medicine 05/05/23 Team Status: Inactive Member Role Status Dates Shannon Yoon MD Primary Care Provide r, Attending Provider Active Start: May 26, 2023 End: May 26, 2023 Ambulance Driver Paramedic Relationship Specialty Start Date End Date Shannon Yoon MD [address] [place] [address] PCP - General Family Medicine 05/05/23 Ambulance Driver Paramedic Relationship Specialty Start Date End Date Shannon Yoon MD [address] [place] [address] PCP - General Family Medicine 05/05/23 Team [...] August 18, 2023 End: August 18, 2023 Ambulance Driver Paramedic Relationship Specialty Start Date End Date Shannon Yoon MD [address] [facility] [place] [address] PCP - General Family Medicine 08/29/22 Ambulance Driver Paramedic Relationship Specialty Start Date End Date Shannon Yoon MD PCP - General Family Medicine 05/05/23 Goals (unrecognized section and content) Goals may [...] To Contact Diagnoses Atrial fibrillation, unspecified type (CMS/HCC) Procedures ECG 12 Lead Maximiliano Blackburn, AGRICULTURAL MECH[employer]IC[employer]CONTACT CENTER ANALYST [address] [facility] [address] [place] [address] Referral ID Status Reason Start Date Expiration Date V isits Requested Visits Authorized [id number] Authorized 04/29/2023 04/28/2024 1 1 Reason Comments Follow-up 6M Specialty Diagnoses / Procedures Referred By Contac t Referred To Contact Cardiology Diagnoses Paroxysmal atrial fibrillation (CMS/HCC) Procedures Follow Up In Cardiology Juany Richter MD [address] [facility] [address] [place] [address] Juany Richter MD [address] [facility] [address] [place] [address] Referral ID Status Reason Start Date Expiration Date V isits Requested Visits Authorized [id number] Authorized 12/23/2022 12/23/2023 1 1 Specialty Diagnoses / Procedures Referred By Contac t Referred To Contact Radiology Diagnoses Paroxysmal atrial fibrillation (CMS/HCC) Procedures XR chest 2 views Juany Richter MD [address] [facility] [address] [place] [address] Referral ID Status Reason Start Date Expiration Date Visits Requested Visits Authorized [id number] Pending Review Perform Procedure 06/05/2023 06/04/2024 1 1 Reason Comments Follow-up Nailcare Reason Comments Follow-up 6 month Specialty Diagnoses / Procedures Referred By Contac t Referred To Contact Cardiology Diagnoses Paroxysmal atrial fibrillation (Multi) Procedures Follow Up In Cardiology Juany Richter MD Phone: tel: fax: Juany Richter MD [address] [place] [address] [address] [place] [address] Phone: tel: fax: Referral ID Status Reason Start Date Expiration Date V isits Requested Visits Authorized [id number] Authorized 06/05/2023 06/04/2024 1 1 FOR RECORDS PERTAINING [...] BE BASED ON THE PRIMARY CLINICAL RECORDS. [employer] [facility]. provides no warranty or guarantee of the accuracy or completeness of information in this document.
== END 2024-02-02 09:23 | disposition home or self-care (01) ==
PROVIDERS: PCP Family Medicine; Visit Provider Internal Medicine
DX: F17.219 Nicotine dependence, cigarettes, with unspecified nicotine-induced disorders (principal); Z12.2 Encounter for screening for malignant neoplasm of respiratory organs; R91.8 Other nonspecific abnormal finding of lung field
CPT/HCPCS: 71271

== ENCOUNTER 2024-03-01 15:36 | Outpatient (OUT) | payer MEDICARE, SELFPAY ==
--- NOTE | 2024-03-01 16:53 | PE_ITS ---
[address] [address] Patient Name: AVELINO BARRETT MRN: [id number] date: 1950 Sex: F Assigned Patient Location: PETCT Current Patient Location: PETCT Accession/Order Number: [id number] Exam Date: 03/01/2024 16:30 Report Date: 03/10/2024 09:23 At the request of: RAYNA OCHOA Procedure: PET skull to mid thigh NUCLEAR MEDICINE PET/CT HISTORY: Solitary pulmonary nodule. COMPARISON: CT chest 02/02/2024. METHOD: 13.77 mCi of F-18 FDG was administered intravenously. Blood sugar level at the time of the injection: 95. At 52 minutes from injection, PET images were obtained from the skull base through the midthigh levels in the axial plane. Reformatted images were performed in the sagittal and coronal planes. A low-dose, noncontrast CT scan was performed for attenuation correction and anatomical localization. A low dose, noncontrast and nondiagnostic CT scan was performed for attenuation correction and anatomic localization. Mediastinal blood pool SUV max 2.4 using the patient's body weight as the normalization method. FINDINGS: HEAD AND NECK: There are no metabolically active lymph nodes in the neck. CHEST: There are no metabolically active mediastinal, hilar, or axillary lymph nodes. The major airways are patent. There is no pericardial effusion. There is no evidence of abnormal metabolic uptake in the esophagus. There is a very minimally metabolically active right lower lobe superior segment ill-defined nodular density measuring approximate 10 x 5 mm with a maximum SUV of 1.9. There is a nonmetabolically active right upper lobe 3 mm pulmonary nodule. There is a nonmetabolically active anterior left upper lobe 7 mm pulmonary nodule. There are no pleural effusions. There is no pneumothorax. ABDOMEN AND PELVIS: There is no evidence of abnormal metabolic activity in the liver or adrenal glands. There is no evidence of abnormal metabolic active lymph nodes in the abdomen or pelvis. There is no free fluid. There is physiologic uptake in the urinary system and bowel. MUSCULOSKELETAL: There is no evidence of abnormal metabolically active bony lesions. PET/PET skull to mid thigh IMPRESSION: Very minimally metabolically active right lower lobe nodular density. Recommend follow-up noncontrast CT chest in 3 and 9 months to confirm stability. Nonmetabolically active right upper lobe and left upper lobe pulmonary nodules. Electronically authenticated by: DONNIE SANCHES Date: 03/10/2024 09:23
== END 2024-03-01 15:37 | disposition home or self-care (01) ==
LOC: PETCT 15:36
PROVIDERS: PCP Family Medicine; Visit Provider Internal Medicine
DX: R91.8 Other nonspecific abnormal finding of lung field (principal)
CPT/HCPCS: 78815; A9552

== ENCOUNTER 2024-05-12 09:59 | Outpatient (OUT) | payer MEDICARE, SELFPAY ==
--- NOTE | 2024-05-12 10:04 | CT_ITS ---
The [address] [address] Patient Name: AVELINO BARRETT MRN: [id number] date: 1950 Sex: F Assigned Patient Location: CT Current Patient Location: CT Accession/Order Number: [id number] Exam Date: 05/12/2024 10:40 Report Date: 05/12/2024 10:52 At the request of: RAYNA OCHOA DO Procedure: CT chest wo con CT CHEST WITHOUT CONTRAST COMPARISON: 02/02/2024 and PET/CT 03/01/2024 CLINICAL DATA: Follow-up pulmonary nodules. Spiral axial unenhanced images were obtained through the lungs. Images were reviewed using both narrow and wide window settings. This CT exam was performed using one or more following dose reduction techniques: Automated exposure control, adjustment of the mA and/or kV according to patient size, or use of iterative reconstruction technique. The heart is within normal limits for size. No pericardial effusion is identified. Mild coronary artery disease is seen. The ascending aorta is mildly ectatic. A few small nonpathologic mediastinal lymph nodes are again seen. There is slight dextroscoliotic curvature and endplate spurring at the spine. There is redemonstration of a small groundglass opacity at the posterior right upper lobe. A similar irregular asymmetry is seen at the superior segment of the right lower lobe near the top of the major fissure. There are multiple additional small nodules and groundglass opacities bilaterally though predominantly on the right which are stable. There is minimal basilar atelectasis or scarring. No developing consolidation, pleural effusion or pneumothorax is present. Limited imaging through the upper abdomen shows small hepatic hypodensities which might be cysts. CT/CT chest wo con IMPRESSION: STABLE APPEARANCE OF THE LUNGS INCLUDING SEVERAL SMALL NODULES WELL IRREGULAR AND GROUNDGLASS OPACITIES. NO ACUTE FINDINGS. Impression dictated by: Quiana Pepe M.D.05/12/2024 10:52 AM Dictation Location: [place] [address] Electronically authenticated by: [id number] Y Date: 05/12/2024 10:52
--- OUTSIDE RECORDS SUMMARY | 2024-05-12 10:14 | XMS_ITS | CCD ---
Author Organization [facility] Care Team Providers Care Pull Over Machine Operator Name Role Phone SHANNON YOON Primary Care Unavailable CORY MOREL Attending Unavailable CORY MOREL Admitting Unavailable SELF, REFERRED Referring Unavailable CORY MOREL Attending Unavailable Shannon Yoon Unavailable Unavailable Unavailable CAR, DR SHANNON Wodo Primary Care Unavailable CORY MOREL Admitting Unavailable [...] Provider Shannon Yoon Unavailable Eulogio Mai Unavailable [phone] MD Shannon Yoon Primary Care Provider MD [...] MD Shannon Yoon Primary Care Provider MD Eulogoi Mai Attending Provider MD Eulogio Mai Attending Provider MD Shannon Yoon Primary Care Provider DO Lorri White Attending Provider [phone] Shannon Yoon MD Primary Care Provider [phone] MD Shannon Yoon Primary Care Provider [phone] MD Juany Richter Attending Provider Shannon Yoon MD Primary Care Provider [phone] MD Shannon Yoon Primary Care Provider [phone] MD Juany Richter Attending Provider MD Shannon Yoon Primary Care Provider [phone] MD Juany Richter Attending Provider MD Juany Richter Referring Provider MD Shannon Yoon Primary Care Provider MD Juany Richter Attending Provider MD Juany Richter Attending Provider MD Juany Richter Referring Provider Shannon Yoon MD Primary Care Provider [phone] Shannon Yoon MD Primary Care Provider Juany Richter MD Attending Provider Juany Richter MD Attending Provider Juany Richter MD Referring Provider GERTRUDIS DUMONT Attending Unavailable RAHEL HENRY Attending UnavailRAHEL Vega Attending UnavailRAHEL Vega Attending Unavailabl RAHEL Bedolla Attending UnavailRAHEL Vega Attending UnavailShannon Sousa MD Primary Care Provider Gavino Tavera DO Attending Provider Pili Campbell Attending Unavailable Pili Campbell Admitting Unavailable Yoon, Shannon E Primary Care Unavailable Juany Richter Attending Unavailable Juany Richter Admitting Unavailable Yoon, Shannon E Primary Care Unavailable Gavino Tavera Attending Unavailable Gavino Tavera Admitting Unavailable Yoon, Shannon E Primary Care Unavailable MAXIMILIANO CONNELL Referring Unavailable YOON, SHANNON E Primary Care Unavailable JUANY RICHTER Attending Unavailable JUANY RICHTER Referring Unavailable SHANNON YOON Primary Care Unavailable JUANY RICHTER Attending Unavailable JUANY RICHTER Referring Unavailable SHANNON YOON Primary Care Unavailable Allergies Allergy Classification Reported Allergen(s) Allergy Type Date of Onset Reaction(s) Facility (20 sources) Azithromycin; Translations: [AZITHROMYCIN] Drug Allergy Unknown, [facility] Repository (20 sources) busPIRone; Translations: [BUSPIRONE] Drug Allergy [facility] Repository (1 source) Cefuroxime; Translations: [CEFUROXIME AXETIL] Drug Allergy [facility] Repository (1 source) celecoxib; Translations: [CELECOXIB] Drug Allergy [facility] Repository (20 sources) Cephalexin; Translations: [CEPHALEXIN] Drug Allergy [facility] Repository (20 sources) Ciprofloxacin; Translations: [CIPROFLOXACIN] Drug Allergy Unknown, [facility] Repository (20 sources) Citalopram; Translations: [CITALOPRAM] Drug Allergy Unknown, [facility] Repository (20 sources) Doxycycline; Translations: [DOXYCYCLINE] Drug Allergy [facility] Repository (20 sources) DULoxetine; Translations: [DULOXETINE] Drug Allergy [facility] Repository (1 source) hydroCHLOROthiazide / Losartan; Translations: [LOSARTAN-HYDROCHLOROT HIAZIDE] Drug Allergy [facility] Repository (20 sources) Ketorolac; Translations: [KETOROLAC] Drug Allergy Headache [facility] Repository (20 sources) Latex; Translations: [LATEX] Propensity to adverse reactions to drug (disorder) 016 Swelling, [facility] Repository (20 sources) levocetirizine; Translations: [LEVOCETIRIZINE] Drug Allergy Unknown, [facility] Repository (20 sources) Lisinopril; Translations: [LISINOPRIL] Drug Allergy Hives, Shortness of breath [facility] Repository (20 sources) Magnesium; Translations: [MAGNESIUM] Drug Allergy 014 Unknown, Rash, Abdominal Pain [facility] Repository (11 sources) Metoprolol; Translations: [METOPROLOL] Drug Allergy [facility] Repository (1 source) PARoxetine; Translations: [PAROXETINE HCL] Drug Allergy [facility] Repository (20 sources) Penicillins; Translations: [PENICILLINS] Propensity to adverse reactions to drug (disorder) Hives, Unknown [facility] Repository (20 sources) predniSONE; Translations: [PREDNISONE] Drug Allergy Hives [facility] Repository (20 sources) Sulfonamides (Antibiotic); Translations: [SULFA (SULFONAMIDE ANTIBIOTICS)] Propensity to adverse reactions to drug (disorder) Rash [facility] Repository (1 source) NITROFURANTOIN MONOHYD/M-CRYST; Translations: [NITROFURANTOIN MONOHYD/M-CRYST] Propensity to adverse reactions to drug (disorder) [facility] Repository (13 sources) Angiotensin Converting Enzyme (Chanel) Inhibitors; Translations: [CHANEL Inhibitors] Allergy to drug (finding) 023 Shortness of breath, Hives [facility] Repository (20 sources) Ketorolac; Translations: [Toradol] [facility] (12 sources) Lisinopril; Translations: [Lisinopril TABS] Drug Allergy Hives, Shortness of breath [facility] 250 DO Work Phone: (17 sources) Sulfamethoxazole; Translations: [sulfa] Drug Allergy 023 Hives [facility] 250 DO Work Phone: (12 sources) Angiotensin Receptor Blockers; Translations: [Angiotensin Receptor Blockers] Allergy to drug (finding) [facility] Work Phone: (1 source) Azithromycin Drug Allergy [facility] Repository (1 source) Ciprofloxacin Drug Allergy [facility] Repository (1 source) Citalopram Drug Allergy [facility] Repository (1 source) DULoxetine Drug Allergy [facility] Repository (1 source) hydroCHLOROthiazide / Losartan Drug Allergy [facility] Repository (1 source) Nitrofurantoin Drug Allergy [facility] Repository (1 source) PARoxetine Drug Allergy [facility] Repository (2 sources) Sulfamethoxazole; Translations: [SULFAMETHOXAZOLE] Drug Allergy [facility] Repository (10 sources) atorvastatin; Translations: [atorvastatin] Drug Allergy [facility] (9 sources) clopidogrel; Translations: [Plavix] Drug Allergy [facility] Work Phone: (20 sources) busPIRone Drug Allergy Unknown [facility] Other (20 sources) Cefuroxime Drug Allergy 015 Unknown, [facility] (20 sources) Cephalexin Drug Allergy Unknown [facility] Other (20 sources) hydroCHLOROthiazide Drug Allergy 023 Unknown, [facility] Comment on above: can take with olmesa rtan without problem (20 sources) hydroCHLOROthiazide / Losartan Drug Allergy Unknown [facility] Other (20 sources) Latex rubber gloves Propensity to adverse reactions Unknown [facility] Other (20 sources) NITROFURANTOIN, MACROCRYSTALS / Nitrofurantoin, Monohydrate Drug Allergy Unknown [facility] Other (20 sources) PARoxetine Drug Allergy 023 Unknown, [facility] (20 sources) Sulfonamides (Antibiotic) Propensity to adverse reactions Unknown [facility] [employer] [facility] Other (20 sources) Substance with penicillin structure and antibacterial mechanism of action (substance) Drug allergy Unknown [facility] [employer] [facility] Other (20 sources) Losartan Drug Allergy 023 [facility] (20 sources) Nitrofurantoin Drug Allergy 022 [facility] (12 sources) Corticosteroids Propensity to adverse reactions 011 STEROIDS [facility] [employer] [facility] Other (12 sources) Penicillin Drug Allergy 013 Unknown [facility] [employer] [facility] Other (12 sources) Ceftin *CEPHALOSPORINS* Propensity to adverse reactions Unknown [facility] [employer] [facility] Other (20 sources) Substance with sulfonamide structure and antibacterial mechanism of action (substance) Drug allergy 022 [facility] Other (10 sources) DULoxetine Drug Allergy 023 [facility] (11 sources) Rosuvastatin calcium; Translations: [ROSUVASTATIN] Propensity to adverse reactions [facility] (10 sources) Hydrobenzthiazide Allergy to substance Shortness of breath [facility] (10 sources) Losartan Potassium-Hctz Drug Allergy 023 [facility] (14 sources) Cephalosporins (Antibiotic) Allergy to substance 023 Abdominal Pain [facility] (14 sources) Xyzal Allergy 24HR Allergy to substance 023 Abdominal Pain [facility] (6 sources) Angiotensin II receptor antagonist; Translations: [ARB-ANGIOTENSIN RECEPTOR ANTAGONIST] [facility] Work Phone: (5 sources) Angiotensin-converting enzyme inhibitor agent Drug Allergy 023 Hives, Shortness of breath [facility] (5 sources) rosuvastatin Drug Allergy 023 Itching, Myalgia [facility] Work Phone: (5 sources) methylPREDNISolone; Translations: [METHYLPREDNISOLONE] Drug Allergy 024 [facility] Work Phone: (1 source) clopidogrel; Translations: [CLOPIDOGREL] Drug Allergy 023 [facility] 3 Repository (1 source) Triamcinolone Drug Allergy 025 [facility] Medications Current Medications Medication Drug Class(es) Dates Sig (Normalized) Sig (Original) acetaminophen 500 mg oral tablet (16 sources) Start: 01-30-2023 take 2 tablets by mouth twice daily as needed for pain Acetaminophen (Tylenol Extra Strength) 500 mg Tablet Active 1000 MG PO Twice daily as needed for Pain January 30, 2023 12:00am [id number] 200 actuat albuterol 0.09 mg/actuat metered dose inhaler (20 sources) beta2-Adrenergic Agonist Start: 06-04-2022 take 1 puff(s) by inhalation every four hours as needed Albuterol Sulfate 90 mcg/actuation HFA aerosol inhaler Active 1 PUFF INHALATION Every 4 hours as needed for Shortness Of Breath June 03, 2022 11:00pm Start: 02-07-2022 take 2 puff(s) by [facility] every four hours as needed Albuterol Sulfate HFA 108 (90 Base) MCG/ACT Inhalation Aerosol Solution INHALE 2 PUFFS BY MOUTH EVERY 4 HOURS NEEDED FOR SHORTNESS OF BREATH Quantity: 7 Refills: 0 Ordered: 08-Mar-2022 DO Start : 07-Feb-2022 Active albuterol HFA 90 mcg/act inhaler every 4 (four) hours. Active take 2 puff(s) by in halation every four hours albuterol sulfate (Proair Digihaler) 90 mcg/actuation aero powdr breath act w/sensor inhaler Inhale 2 puffs every 4 hours if needed for shortness of breath. Active take 1 puff(s) by in halation [...] take 1 tablet by mouth once daily in the morning Amiodarone 100 mg tablet Active 100 MG PO Every morning June 03, 2022 11:00pm Start: 06-04-2022 take 100 mg by mouth [...] 1 tablet by mouth every twenty-four hours Ptmvxixprg-zfKNHHVobf-ZZNV 20-5-12.5 MG 1 tablet once a day Active apixaban 5 mg oral tablet (20 sources) Factor Xa Inhibitor Sta rt: End : take 1 tablet by mouth twice daily Apixaban (Eliquis) 5 mg tablet Active 5 MG PO Twice daily June 03, 2022 11:00pm Start: 09-26-2021 Eliquis 5 MG t ablet every 12 (twelve) hours. 09/26/2021 Active aspirin 81 mg delayed release oral tablet (20 sources) Platelet Aggregation Inhibitor, Nonsteroidal Anti-inflammatory Drug Start: 04-29-2022 take 1 tablet by mouth once daily Aspirin 81 mg tablet,delayed release (DR/EC) Active 81 MG PO Daily June 03, 2022 11:00pm End: 05-05-2023 take 1 tablet by mouth once daily at mealtime ASPIRIN ORAL Take 1 tablet by mouth once daily. 81 mg; with food 0 05/05/2023 Discontinued (Other) Baby Aspirin Act khloe benzonatate 200 mg oral capsule (4 sources) Non-narcotic Antitussive Start: 03-12-2024 Benzonatate 200 mg capsule Active 200 MG PO 2-3 TIMES PER DAY as needed for cough March 12, 2024 12:00am cephalexin 500 mg oral capsule (7 sources) Cephalosporin Antibacterial Start: 03-12-2024 take 1 capsule by mouth three times daily Cephalexin 500 mg capsule Active 500 MG PO Three times daily 20 09March 12, 2024 12:00am Start: 04-30-2022 take 1 capsule by [facility] every twelve hours Cephalexin 500 MG 1 capsule Orally bid for 7 days to replace zpack. pt states she tolerated it fine in 12/2021 - multiple allergies. Apr, Active [facility] Co[facility] Q-10 100 MG (2 sources) take 1 capsule by mouth once daily [facility] Coenzyme Q-10 100 MG TAKE 1 CAPSULE BY MOUTH ONCE DAILY. Oral for 90 Days Active diclofenac sodium 75 mg delayed release oral tablet (10 sources) Nonsteroidal Anti-inflammatory Drug take 1 tablet [...] Thiazide Diuretic, Angiotensin 2 Receptor Rai Start: 023 End: 025 take 1 tablet by mouth once daily Olmesartan-Hydroch lorothiazide (Benicar Hct) 20-12.5 mg Tablet Active 1 TAB PO Daily June 03, 2022 11:00pm Inclisiran (8 sources) Start: 024 Inclisiran (Leqvio) 284 mg/1.5 mL syringe Active 284 MG SUBCUT EVERY 6 MONTHS October 08, 2023 11:00pm Start: 10-09-2023 Inclisiran (Le qvio) 284 mg/1.5 mL syringe Active 284 MG SUBCUT EVERY 6 MONTHS October 09, 2023 12:00am inclisiran (Leqvio) injectio n (5 sources) Start: 04-06-2023 End: 04-05-2024 inclisiran (Leqvio) injectio [...] Sodium (Leqvio) 284 MG/1.5ML solution prefilled syringe (9 sources) Inclisiran Sodiu m (Leqvio) 284 MG/1.5ML solution prefilled syringe Inject under the skin Active loratadine 10 mg oral tablet (20 sources) Start: 10-06-2023 take 1 tablet by mouth once daily Loratadine Active 0 .ROUTE .COMPLEX October 06, 2023 9:44am TAKE 1 TABLET BY MOUTH EVERY DAY FOR 90 DAYS Start: 04-18-2023 End: 04-30-2024 take 1 tablet by mouth once daily Loratadine 10 mg tablet Active 0 .ROUTE .COMPLEX April 30, 2024 1:35pm TAKE 1 TABLET BY MOUTH EVERY DAY [...] 90 DAYS Start: 06-04-2022 End: 04-18-2023 take 1 tablet by mouth once daily Loratadine 10 mg tablet Discontinued 10 MG PO Daily June 03, 2022 11:00pm April 18, 2023 9:00am Magnesium (15 sources) Magnesium 400 MG as directed Orally Active magnesium oxide 400 mg oral tablet (20 sources) Start : 02-11 End: 01-04 take 1 tablet by mouth twice daily Magnesium Oxide 400 mg (241.3 mg magnesium) tablet Active 400 MG PO Twice daily January 30, 2023 12:00am methylPREDNISolone 4 mg oral tablet (1 source) Corticosteroid Start : 02-19 methylPREDNISolone 4 MG as directed Orally for 6 days Jan, Active montelukast 10 mg oral tablet (20 sources) Leukotriene Receptor Antagonist Start : 08-07 take 1 tablet by mouth once daily at bedtime Montelukast 10 mg tablet Active 10 MG PO Daily at bedtime January 30, 2023 12:00am pitavastatin calcium 4 mg oral tablet (12 sources) HMG-CoA Reductase Inhibitor Start : 12-23 End: 06-04 take 1 tablet by mouth in the morning Pitavastatin Calcium (Livalo) 4 MG tablet Take 4 mg by mouth in the morning. 12/23/2022 Active pravastatin sodium 40 mg oral tablet (2 sources) HMG-CoA Reductase Inhibitor Start : 01-27 End: 01-26 take 1 tablet by mouth once daily pravastatin (PravachoL) 40 mg tablet Indications: PVD (peripheral vascular disease) (CMS/HCC) , Mixed hyperlipidemia Take 1 tablet (40 mg) by mouth once daily. 30 tablet 11 01/27/2023 06/05/2023 Discontinued (Side effects) ubidecarenone 100 mg oral capsule (20 sources) Start : 01-30 take 10 capsules by mouth once daily at bedtime Coenzyme Q10 100 mg capsule Active 100 MG PO Daily at bedtime January 30, 2023 12:00am Start: 12-23-2022 End: 07-06-2024 take 1 capsule [...] / vitamin e 5 unt oral capsule (2 sources) Start: 12-23-2022 End: 12-23-2023 take 1 capsule by mouth in the morning coenzyme Q-10 100 MG capsule Take 100 mg by mouth in the morning. 12/23/2022 12/23/2023 Active 24 hr venlafaxine 37.5 mg extended release oral capsule (16 sources) Serotonin and Norepinephrine Reuptake Inhibitor Start: [...] MD Start : 08-Apr-2022 Active new start ciprofloxacin 250 mg oral tablet (20 sources) Quinolone Antimicrobial Start: 12-03-2023 End: 02-09-2024 take 1 tablet by mouth twice daily Ciprofloxacin Hcl 250 mg tablet Discontinued 250 MG PO Twice daily 10 December 03, 2023 11:18am February 09, 2024 3:31pm Start: 10-09-2023 End: 12-03-2023 take 1 tablet by mouth once daily Ciprofloxacin Hcl 500 mg tablet Discontinued 500 MG PO Daily October 09, 2023 12:49pm December 03, 2023 11:19am Start: 09-24-2023 End: 10-09-2023 take 1 tablet by mouth once daily Ciprofloxacin Hcl 250 mg tablet Discontinued 250 MG PO Daily September 23, 2023 11:00pm October 09, 2023 12:50pm clopidogrel 75 mg oral tablet (4 sources) [id number] Platelet Inhibitor Start: 04-08-2022 take 1 tablet by mouth once daily Clopidogrel Bisulfate 75 MG Oral Tablet TAKE 1 TABLET DAILY. Quantity: 90 Refills: 3 Ordered: 08-Apr-2022 Juany Richter MD Start : 08-Apr-2022 Active fluticasone propionate 0.05 mg/actuat metered dose nasal spray (20 sources) Corticosteroid Start: 02-09-2024 End: 02-09-2024 take 1 spray(s) nasal route once daily Fluticasone Propionate 50 mcg/actuation spray,suspension Discontinued 1 SPRAY INTRANASAL Daily February 09, 2024 12:00am February 09, 2024 3:32pm [employer] spray in each nostril Nasally Once a day; Note: Source Status: Not-Takingundefine dPRN; Provider: Car Fuentes ( ) Start: 06-04-2022 End: 01-30-2023 take 1 spray(s) nasal route once daily Fluticasone Propionate 50 mcg/actuation [place],Suspension Discontinued 1 SPRAY INTRANASAL Daily June 03, 2022 11:00pm January 30, 2023 4:00pm administer into each nostril Start: 09-25-2020 take [...] / neomycin 3.5 mg/ml / polymyxin b [id number] unt/ml otic suspension (11 sources) Aminoglycoside Antibacterial, Polymyxin-class Antibacterial, Corticosteroid Start: 08-18-2023 End: 09-08-2023 Yhzprfbx-Kbcshtlmm-Di 3.5-10,000-1 mg/mL-unit/mL-% drops,suspension Discontinued 4 DROPS OTIC Three times daily August 17, 2023 11:00pm September 08, 2023 9:11am hydrOXYzine hydrochloride 25 mg oral tablet (1 source) Antihistamine Start: 04-23-2024 End: 04-30-2024 take 1 tablet by mouth four times daily as needed Hydroxyzine Hcl 25 mg tablet Discontinued 25 MG PO Four times daily as needed for itching 30 7 April 23, 2024 12:00am April 30, 2024 1:24pm omeprazole 40 mg delayed release oral capsule (20 sources) Proton Pump Inhibitor Start: 05-27-2023 End: 01-01-2024 Omeprazole 40 mg capsule,delayed release(DR/EC) Discontinued 0 .ROUTE .COMPLEX 90 September 30, 2023 8:04am January 01, 2024 2:37pm TAKE 1 CAPSULE BY MOUTH EVERY DAY 30 MINUTES BEFORE MORNING MEAL Start: 06-04-2022 End: 05-27-2023 take 1 capsule by mouth once daily Omeprazole 40 mg Capsule,Delayed Release(Dr/Ec) Discontinued 40 MG PO Daily June 03, 2022 11:00pm May 27, 2023 12:06pm rosuvastatin calcium 10 mg oral tablet (3 sources) HMG-CoA Reductase Inhibitor Start: 07-08-2022 take 1 tablet by mouth at bedtime Rosuvastatin Calcium 10 MG Oral Tablet TAKE 1 TABLET AT BEDTIME Quantity: 90 Refills: 3 Ordered: 08-Jul-2022 Juany Richter MD Start : 08-Jul-2022 Active stop Simvastatin/ new start simvastatin 20 mg oral tablet (20 sources) HMG-CoA Reductase Inhibitor Start: 02-09-2024 End: 02-09-2024 take 1 tablet by mouth once daily in the evening Simvastatin 20 mg tablet Discontinued 20 MG PO Daily February 09, 2024 12:00am February 09, 2024 3:33pm FreeTextSi tablet in the evening Orally Once a day; Note: Source Status: Not-Takingundefined PRN; Provider: Patricia Wood Start: 04-29-2022 End: 01-30-2023 take 1 tablet by mouth once daily Simvastatin 20 mg tablet Discontinued 20 MG PO Daily June 03, 2022 11:00pm January 30, 2023 4:01pm traMADol hydrochloride 50 mg oral tablet (20 sources) Opioid Agonist Start: 09-12-2023 End: 03-12-2024 take 1 tablet by mouth every four to six hours as needed for pain Tramadol 50 mg tablet Discontinued 50 MG PO EVERY 4-6 HOURS as needed for pain 29 09September 11, 2023 11:00pm March 12, 2024 10:15am Dispense quantity of thirty tablets M17.11 Start: 04-23-2023 End: 08-18-2023 take 1 tablet by mouth every eight hours as needed for pain Tramadol 50 mg tablet Discontinued 50 MG PO Every 8 hours as needed for pain 19 09July 18, 2023 9:33am August 18, 2023 3:08pm twenty Start: 08-02-2022 take 1 tablet by neda th three times daily as needed traMADol (Ultram) 50 MG tablet TAKE 1 TABLET BY MOUTH 3 TIMES A DAY NEEDED FOR 7 DAYS 08/02/2022 Active triamcinolone acetonide 40 mg/ml injectable suspension (20 [...] Chronic Chronic obstructive pulmonary disease and bronchiectasis (16 sources) Bronchitis; Translations: [Bronchitis, not specified as acute or chronic] 10-09-2023 Episodic Coagulation and hemorrhagic disorders (20 sources) 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; Translations: [Hemorrhagic disorder due to extrinsic circulating anticoagulants] Onset: 08-29-2022 08-29-2022 Chronic Diabetes mellitus without complication (7 sources) Impaired [...] source) Acute vaginitis Episodic Malaise and fatigue (20 sources) Other fatigue; Translations: [Fatigue] Onset: 03-24-2013 10-23-2023 Episodic Mood disorders (13 sources) Moderate recurrent major depression; Translations: [Major depressive disorder, recurrent, moderate] Onset: 02-20-2018 Chronic Mycoses (10 sources) Candidiasis of skin and nails; Translations: [...] use of drug therapy; Translations: [Other terminal press operator (current) drug therapy] Episodic Other aftercare (7 sources) Taking high risk medication; Translations: [Other group home (current) drug therapy] Onset: 10-28-2022 10-28-2022 Episodic Other and unspecified benign neoplasm (2 sources) Melanocytic nevus of trunk; Translations: [Melanocytic nevi of trunk] 03-29-2024 Episodic Other circulatory disease (6 sources) Elevated [...] source) Pain in left hand Episodic Other connective tissue disease (3 sources) Pain in thumb ; Translations: [Pain in left finger(s)] 04-21-2024 Episodic Other connective tissue disease (1 source) Pain in left finger(s); Translations: [Pain in left finger(s)] Onset: 04-21-2024 Episodic Other ear and sense organ disorders (6 sources) Hearing loss; Translations: [Unspecified hearing loss, bilateral] Chronic Other ear and sense organ disorders (11 sources) Otitis externa; Translations: [Unspecified otitis externa, [...] Onset: 02-12-2022 Episodic Other lower respiratory disease (8 sources) Solitary pulmonary nodule; Translations: [Solitary pulmonary nodule] Onset: 01-28-2022 Episodic Other lower respiratory disease (20 sources) Lung field abnormal; Translations: [Other nonspecific abnormal finding of lung field] Episodic Other lower respiratory disease (20 sources) Solitary nodule of lung; Translations: [Solitary pulmonary nodule] Episodic Other lower respiratory disease (13 sources) Dyspnea; Translations: [Shortness of breath] 10-23-2023 Episodic Other lower respiratory disease (6 sources) Cough; Translations: [Cough, unspecified] Episodic Other lower respiratory disease (3 sources) Dyspnea, unspecified; Translations: [Other respiratory abnormalities] 10-23-2023 Episodic Other lower respiratory disease (4 sources) Nodule of lung; Translations: [Solitary pulmonary nodule] 02-09-2024 Episodic Other nervous system disorders (6 sources) Carpal tunnel syndrome; Translations: [Carpal tunnel syndrome, left upper limb] Onset: 12-23-2013 Chronic Other nervous system disorders (14 sources) Idiopathic progressive polyneuropathy; Translations: [Idiopathic progressive neuropathy] Onset: 08-29-2022 04-06-2023 Chronic Other nervous system disorders (2 sources) Notalgia paresthetica; Translations: [Paresthesia of skin] 03-29-2024 Episodic Other non-traumatic joint disorders (3 sources) Pain [...] Folliculitis; Translations: [Follicular disorder, unspecified] Episodic Other skin disorders (2 sources) Seborrheic keratosis; Translations: [Other seborrheic keratosis] 03-29-2024 Episodic Other skin disorders (2 sources) Asteatosis cutis; Translations: [Xerosis cutis] 03-29-2024 Episodic Other upper respiratory disease (20 sources) Allergic rhinitis; Translations: [Other allergic rhinitis] Chronic Other upper respiratory disease (1 source) Other allergic rhinitis Chronic Other upper respiratory disease (6 sources) Seasonal allergic rhinitis; Translations: [Other seasonal allergic rhinitis] Chronic Other upper respiratory infections (6 sources) Chronic sinusitis; Translations: [Chronic sinusitis, unspecified] Chronic Other upper respiratory infections (20 sources) Acute pharyngitis; Translations: [Acute pharyngitis, unspecified] Onset: 02-20-2018 Episodic Otitis media and related conditions (14 sources) Non-suppurative otitis media; Translations: [Unspecified nonsuppurative otitis media, bilateral] 02-09-2024 Episodic Peripheral and visceral atherosclerosis (20 sources) [...] W/AND (SUSP) EXPOS COVID-19] Onset: 08-13-2021 Unclassified (2 sources) Hypercoagulable state due to [...] 07-02-2022 Other aftercare (3 sources) Other terminal press operator (current) drug therapy; Translations: [OTH PRESS BRAKE OPERATOR CURRENT DRUG THERAPY] Onset: 02-16-2022 Episodic Other connective tissue disease (6 sources) Pain in limb; Translations: [Pain in leg, unspecified] Onset: 03-24-2013 Episodic Other gastrointestinal disorders (6 sources) Flatulence, [...] Translations: [Obesity, unspecified] Onset: 10-28-2022 Resolved: 01-05-2024 3 Chronic Other nutritional; endocrine; and metabolic disorders (6 sources) Excessive thirst; Translations: [Polydipsia] Onset: 07-28-2013 Episodic Residual codes; unclassified (20 sources) Other specified health status; Translations: [Other drug allergy] Onset: 12-23-2022 01-09-2023 Episodic Residual codes; unclassified (5 sources) Passive [...] Test Name Value Interpretation Reference Range Facility X-ray reportOrdered By: Donavan Woods on 04-21-2024 Study report [facility] [place] [facility] [address] [facility] [place] [address] XRay Report Signed Patient: Avelino Barrett R#: [id number] : 1950 Acct:[id number] Age/Sex: 73 / F ADM Date: 5 Loc: SOX Room: Type: [facility] Attending Dr: Gavino Tavera DO Copies to: Gavino Tavera DO~ Ordering Provider: Gavino Tavera DO Date of Service: 04/21/24 XR/XR hand LT min 3V*: M79.645 - Pain in left finger(s) 4 views left hand plain film COMPARISON: None HISTORY: The first carpometacarpal joint pain ACUTE FINDINGS: None DEGENERATIVE CHANGE: Extensive first carpometacarpal degeneration with mild subluxation. Interphalangeal degenerative changes. SOFT TISSUE FINDINGS: Unremarkable JOINT EFFUSION: None POSTOP CHANGES: None BONY MINERALIZATION: Adequate XR/XR hand LT min 3V* IMPRESSION: Extensive first carpometacarpal degeneration with subluxation Impression dictated by: Raghu Woods M.D.04/21/2024 4:07 PM Dictation Location: RADIO-PC-19 Transcribed By: JESSICA 04/21/24 160 Dictated By: Raghu Woods DO 04/21/24 1606 Signed By: 04/21/24 1607 [facility] XR hand LT min 3V*on 025 XR hand LT min 3V* [facility] [address] [place] [address] XRay Report Signed Patient: Avelino Barrett MR#: [id number] : 1950 Acct:[id number] Age/Sex: 73 / F ADM Date: 04/21/24 Loc: [facility] [place] Room: Type: [facility] Attending Dr: Gavino Tavera DO Copies to: Gavino Tavera DO Ordering Provider: Gavino Tavera DO Date of Service: 04/21/24 XR/XR hand LT min 3V*: M79.645 - Pain in left finger(s) 4 views left hand plain film COMPARISON: None HISTORY: The first carpometacarpal joint pain ACUTE FINDINGS: None DEGENERATIVE CHANGE: Extensive first carpometacarpal degeneration with mild subluxation. Interphalangeal degenerative changes. SOFT TISSUE FINDINGS: Unremarkable JOINT EFFUSION: None POSTOP CHANGES: None BONY MINERALIZATION: Adequate XR/XR hand LT min 3V* IMPRESSION: Extensive first carpometacarpal degeneration with subluxation Impression dictated by: Raghu Woods M.D.04/21/2024 4:07 PM Dictation Location: RADIO-PC-19 Transcribed By: JESSICA 04/21/24 1607 Dictated By: Raghu Woods DO 04/21/24 1606 Signed By: 04/21/24 1607 Normal [facility] ECG [address] [place] 01-05-2024 [facility] Work Phone: Normal sinus rhythm isolated ventricular premature beats normal intervals no significant change compared to previous EKG of June 2023 [facility] Work Phone: Laboratory - Chemistry and C hemistry - challengeon 12-03-2023 Bilirubin Ql (U) Negative [facility] Glucose (U) [Mass/Vol] Negative [facility] Ketones Ql (U) Negative [facility] pH (U) 5.0 [pH] [facility] Specific gravity (U) [Rel density] 1.010 [facility] Urobilinogen (U) [Mass/Vol] 0.2 mg/dL [facility] Laboratory - Specimen inform ationon 12-03-2023 Appearance (U) cloudy [facility] Color (U) yellow [facility] Laboratory - Urinalysison Leukocyte esterase Test strip Ql (U) Positive [facility] Nitrite Ql (U) Negative [facility] Protein Ql (U) + [facility] No Panel Informationon 12-02 Urine Occult Blood +++ [facility] Basophils Auto (Bld) [#/Vol] on 10-24-2023 Basophils (Bld) [#/Vol] 0.0 10 3/uL 0.0-0.1 [facility] Basophils/100 WBC Auto (Bld) on 10-24-2023 Basophils/100 WBC (Bld) 0.4 % 0.2-2.0 [facility] Cholesterol in LDL Calc [Mas s/Vol]on 10-24-2023 Cholesterol in LDL [Mass/Vol] 32.0 mg/dL [facility] Comment on above: <100 mg/dl [id number] 0-129 mg/dl NEAR OR ABOVE [id number] mg/dl BORDERLINE [id number] mg/dl HIGH>190 mg/dl VERY HIGH Cholesterol in VLDL Calc [Ma ss/Vol]on 10-24-2023 Cholesterol in VLDL [Mass/Vol] 18.4 mg/dL [facility] Eosinophils/100 WBC Auto (Bl d)on 10-24-2023 Eosinophils/100 WBC (Bld) 1.2 % 0.9-7.0 [facility] Erythrocyte distribution wid th Auto (RBC) [Ratio]on 10-24-2023 Erythrocyte distribution width (RBC) [Ratio] 15.5 % High 11.0-15.0 [facility] Estimated glomerular filtrat ion rate (GFR) non- Americanon 10-24-2023 GFR/1.73 sq M.predicted among non-blacks MDRD (S/P/Bld) [Vol rate/Area] 51 mL/min/{1.73_m2} Low >=60 [facility] Globulin Calc (S) [Mass/Vol] on 10-24-2023 Globulin (S) [Mass/Vol] 3.1 g/dL [facility] Hematocrit Auto (Bld) [Volum e fraction]on 10-24-2023 Hematocrit (Bld) [Volume fraction] 39.3 % 36.0-48.0 [facility] Hemoglobin [Mass/volume] in Bloodon 10-24-2023 Hemoglobin (Bld) [Mass/Vol] 12.1 g/dL 12.0-16.0 [facility] Laboratory - Chemistry and C hemistry - challengeon 10-24-2023 Albumin [Mass/Vol] 3.9 g/dL 3.4-5.0 [facility] ALP [Catalytic activity/Vol] 95 U/L 46-116 [facility] ALT [Catalytic activity/Vol] 25 U/L 14-59 [facility] AST [Catalytic activity/Vol] 21 U/L 15-37 [facility] Bilirubin [Mass/Vol] 0.7 mg/dL 0.2-1.0 [facility] Calcium [Mass/Vol] 9.2 mg/dL 8.5-10.1 [facility] Chloride [Moles/Vol] 101 mmol/L 98-107 [facility] Cholesterol [Mass/Vol] 111 mg/dL <=200 [facility] Cholesterol in HDL [Mass/Vol] 61 mg/dL High 40-60 [facility] Comment on above: > or =60 mg/dl - LOW CARDIOVASCULAR RISK<40 mg/dl - HIGH CARDIOVASCULAR RISK CO2 [Moles/Vol] 27.2 mmol/L 21.0-32.0 [facility] Creatinine [Mass/Vol] 1.06 mg/dL High 0.55-1.02 [facility] GFR/1.73 sq M.predicted MDRD (S/P/Bld) [Vol rate/Area] mL/min/{1.73_m2} >=60 [facility] Glucose [Mass/Vol] 97 mg/dL 74-106 [facility] Potassium [Moles/Vol] 4.1 mmol/L 3.5-5.1 [facility] Protein [Mass/Vol] 7.0 g/dL 6.4-8.2 [facility] Sodium [Moles/Vol] 137 mmol/L 136-145 [facility] Triglyceride [Mass/Vol] 92 mg/dL <=150 [facility] TSH Qn 2.667 m[IU]/L 0.358-3.74 0 [facility] Urea nitrogen [Mass/Vol] 11.0 mg/dL 7.0-18.0 [facility] Urea nitrogen/Creatinine [Mass ratio] 10.4 mg/mg [facility] Laboratory - Hematology and Cell countson 10-24-2023 Immature granulocytes/100 WBC (Bld) 0.3 % 0.0-0.5 [facility] Leukocytes [#/volume] correc alirio for nucleated erythrocytes in Blood by Automated counon 10-24-2023 WBC corrected for nucl RBC Auto (Bld) [#/Vol] 9.7 10 3/uL 4.0-11.0 [facility] Lymphocytes Auto (Bld) [#/Vo l]on 10-24-2023 Lymphocytes (Bld) [#/Vol] 2.2 10 3/uL 1.2-3.8 [facility] Lymphocytes/100 WBC Auto (Bl d)on 10-24-2023 Lymphocytes/100 WBC (Bld) 22.6 % 20.5-60.0 [facility] MCH Auto (RBC) [Entitic mass ]on 10-24-2023 MCH (RBC) [Entitic mass] 27.4 pg 26.7-34.0 [facility] MCHC Auto (RBC) [Mass/Vol]on 10-24-2023 MCHC (RBC) [Mass/Vol] 30.8 g/dL 29.9-35.2 [facility] MCV Auto (RBC) [Entitic vol] on 10-24-2023 MCV (RBC) [Entitic vol] 88.9 fL 81.0-99.0 [facility] Monocytes Auto (Bld) [#/Vol] on 10-24-2023 Monocytes (Bld) [#/Vol] 0.7 10 3/uL 0.3-0.8 [facility] Monocytes/100 WBC Auto (Bld) on 10-24-2023 Monocytes/100 WBC (Bld) 7.6 % 1.7-12.0 [facility] Neutrophils Auto (Bld) [#/Vo l]on 10-24-2023 Neutrophils (Bld) [#/Vol] 6.6 10 3/uL High 1.4-6.5 [facility] Neutrophils/100 WBC Auto (Bl d)on 10-24-2023 Neutrophils/100 WBC (Bld) 67.9 % 43.0-75.0 [facility] No Panel Informationon 10-23 Eosinophils # (Auto) 0.1 10 3/uL 0.0-0.7 [facility] Immature Granulocyte # (Auto) 0.03 10 3/uL 0.00-0.03 [facility] Platelet mean volume Auto (B ld) [Entitic vol]on 10-24-2023 Platelet mean volume (Bld) [Entitic vol] 11.4 fL 9.5-13.5 [facility] Platelets Auto (Bld) [#/Vol] on 10-24-2023 Platelets (Bld) [#/Vol] 216 10 3/uL 150-450 [facility] RBC Auto (Bld) [#/Vol]on RBC (Bld) [#/Vol] 4.42 10 6/uL 4.20-5.40 [facility] Serum or plasma albumin/glob ulin mass ratioon 10-24-2023 Albumin/Globulin [Mass ratio] 1.3 {ratio} [facility] Serum or plasma anion gap de terminationon 10-24-2023 Anion gap [Moles/Vol] 12.9 mmol/L [facility] Serum or plasma total choles terol/high density lipoprotein (HDL) cholesterol mass stephon 10-24-2023 Cholesterol.total/Cho lesterol in HDL [Mass ratio] 1.8 {ratio} [facility] Comment on above: 3.3 - 4.4 LOW RISK4. 4 - 7.1 AVERAGE RISK7.1 - 11.0 MODERATE RISK>11.0 HIGH RISK Laboratory - Chemistry and C hemistry - challengeon 10-23-2023 Bilirubin Ql (U) Negative [facility] Glucose (U) [Mass/Vol] Negative [facility] Ketones Ql (U) Negative [facility] pH (U) 5 [pH] [facility] Specific gravity (U) [Rel density] 1.000 [facility] Urobilinogen (U) [Mass/Vol] 0.2 mg/dL [facility] Laboratory - Specimen inform ationon 10-23-2023 Appearance (U) clear [facility] Color (U) yellow [facility] Laboratory - Urinalysison Leukocyte esterase Test strip Ql (U) Negative [facility] Nitrite Ql (U) Negative [facility] Protein Ql (U) Negative [facility] No Panel Informationon 10-22 Urine Occult Blood Negative [facility] Laboratory - Chemistry and C hemistry - challengeon 09-24-2023 Bilirubin Ql (U) Negative [facility] Glucose (U) [Mass/Vol] Negative [facility] Ketones Ql (U) Negative [facility] pH (U) 6.5 [pH] [facility] Specific gravity (U) [Rel density] 1.010 [facility] Laboratory - Specimen inform ationon 09-24-2023 Appearance (U) cloudy [facility] Color (U) yellow [facility] Laboratory - Urinalysison Leukocyte esterase Test strip Ql (U) ++ [facility] Nitrite Ql (U) Negative [facility] Protein Ql (U) + [facility] No Panel Informationon 09-23 Urine Occult Blood ++ [facility] Urine Urobilinogen offchart [facility] US ankle/arm indiceson 07-01 US ankle/arm indices [facility] [address] [place] [id number] Ultrasound Report Signed Patient: Avelino Barrett MR#: [id number] : 1950 Acct:[id number] Age/Sex: 72 / F ADM Date: 07/02/23 Loc: [facility] Room: Type: [facility] Attending Dr: Pili Campbell [employer] Ordering Provider: Pili Campbell APRN Date of [...] Eulogio Mai MD07/02/2023 3:38 PM Dictation Location: [id number] Tech: Emperatriz Kang Transcribed By: JESSICA 07/02/23 1538 Dictated By: Eulogio Mai MD 07/02/23 1538 Signed By: 07/02/23 1538 Normal [facility] ECG 12 [place] 06-05-2023 Normal sinus rhythm with normal intervals, no significant change prior EKG from April 2023. [facility] Work Phone: XR Chest 2 Viewson 4 These images are not reportable by radiology and will not be interpreted by Radiologists. IMAGING Alanine aminotransferase [En zymatic activity/volume] in Serum or PlasmaOrdered By: Juany Richter on 04-15-2023 ALT [Catalytic activity/Vol] 13 U/L 7-52 [facility] Aspartate aminotransferase [ Enzymatic activity/volume] in Serum or PlasmaOrdered By: Juany Richter on 04-15-2023 AST [Catalytic activity/Vol] 15 U/L 13-39 [facility] Calcium [Mass/volume] in Ser um or PlasmaOrdered By: Juany Richter on 04-15-2023 Calcium [Mass/Vol] 9.6 mg/dL 8.6-10.3 [facility] Carbon dioxide, total [Moles /volume] in Serum or PlasmaOrdered By: Juany Richter on 04-15-2023 CO2 [Moles/Vol] 30.1 mmol/L 21.0-31.0 [facility] Chloride [Moles/volume] in S diomedes or PlasmaOrdered By: Juany Richter on 04-15-2023 Chloride [Moles/Vol] 103 mmol/L 98-107 [facility] Cholesterol [Mass/volume] in Serum or PlasmaOrdered By: Juany Richter on 04-15-2023 Cholesterol [Mass/Vol] 203 mg/dL 140-200 [facility] Comment on above: Chol less than 200 m g/dl low riskChol 201-239 mg/dl borderline riskChol 240 mg/dl and greater high risk Cholesterol in LDL Calc [Mas s/Vol]Ordered By: Juany Richter on 04-15-2023 Cholesterol in LDL [Mass/Vol] 114 mg/dL 0-100 [facility] Comment on above: LDL ATP III CLASSIFI CATIONLDL less than 100 mg/dL OptimalLDL 100-129 mg/dL Near or above optimalLDL 130-159 mg/dL Borderline highLDL 160-189 mg/dL HighLDL greater than 189 mg/dL Very high Cholesterol in VLDL Calc [Ma ss/Vol]Ordered By: Juany Richter on 04-15-2023 Cholesterol in VLDL [Mass/Vol] 40 mg/dL [facility] Creatinine [Mass/volume] in Serum or PlasmaOrdered By: Juany Richter on 04-15-2023 Creatinine [Mass/Vol] 1.09 mg/dL 0.60-1.20 [facility] Glucose [Mass/volume] in Ser um or PlasmaOrdered By: Juany Richter on 04-15-2023 Glucose [Mass/Vol] 94 mg/dL 70-100 [facility] Comment on above: ADA recommended refe rence rangeRandom Glucose Reference Range is dependent on time and content of last meal. Glucose of more than 200 mg/dL in a nonstressed, ambulatory subject supports the diagnosis of Diabetes Mellitus. No Panel InformationOrdered By: Juany Richter on 04-15-2023 Estimated GFR (CKD-EPI) 54.313 mL/Min [facility] Creatinine Clearance (Chem N/A [facility] Potassium [Moles/volume] in Serum or PlasmaOrdered By: Juany Richter on 04-15-2023 Potassium [Moles/Vol] 4.7 mmol/L 3.5-5.1 [facility] Serum or plasma anion gap de terminationOrdered By: Juany Richter on 04-15-2023 Anion gap [Moles/Vol] 11.6 mmol/L 6.0-15.0 [facility] Serum or plasma high density lipoprotein (HDL) cholesterol measurementOrdered By: Juany Richter on 04-15-2023 Cholesterol in HDL [Mass/Vol] 48 mg/dL 23-92 [facility] Comment on above: HDL CHOL ATP-III CLA SSIFICATION Cardiovascular RiskHDL > or equal to 60 mg/dL LOWHDL < 40 mg/dL HIGH Serum or plasma total choles terol/high density lipoprotein (HDL) cholesterol mass ratOrdered By: Juany Richter on 04-15-2023 Cholesterol.total/Cho lesterol in HDL [Mass ratio] 4.2 {ratio} <5.0 [facility] Sodium [Moles/volume] in Ser um or PlasmaOrdered By: Juany Richter on 04-15-2023 Sodium [Moles/Vol] 140 mmol/L 136-145 [facility] Thyrotropin [Units/volume] i n Serum or PlasmaOrdered By: Juany Richter on 04-15-2023 TSH Qn 4.62 m[IU]/L 0.45-5.33 [facility] Triglyceride [Mass/volume] i n Serum or PlasmaOrdered By: Juany Richter on 04-15-2023 Triglyceride [Mass/Vol] 204 mg/dL 0-149 [facility] Comment on above: TRIG ATP III CLASSIF ICATIONTRIG less than 150 mg/dL NormalTRIG 150-199 mg/dL Borderline highTRIG 200-500 mg/dL High TRIG greater than 500 mg/dL Very highStandard traceable to the Center for Disease Conrtrol and Prevention (CDC) test method. Urea nitrogen [Mass/volume] in Serum or PlasmaOrdered By: Juany Richter on 04-15-2023 Urea nitrogen [Mass/Vol] 15 mg/dL 7-25 [facility] Basophils Auto (Bld) [#/Vol] Ordered By: Lorri White on 01-30-2023 Basophils (Bld) [#/Vol] 0.1 10*3/uL 0.0-0.2 [facility] Basophils/100 WBC Auto (Bld) Ordered By: Lorri White on 01-30-2023 Basophils/100 WBC (Bld) 0.7 % . [facility] Calcium [Mass/volume] in Ser um or PlasmaOrdered By: Lorri White on 01-30-2023 Calcium [Mass/Vol] 9.4 mg/dL 8.6-10.3 [facility] Carbon dioxide, total [Moles /volume] in Serum or PlasmaOrdered By: Lorri White on 01-30-2023 CO2 [Moles/Vol] 26.8 mmol/L 21.0-31.0 [facility] Chloride [Moles/volume] in S diomedes or PlasmaOrdered By: Lorri White on 01-30-2023 Chloride [Moles/Vol] 105 mmol/L 98-107 [facility] Creatinine [Mass/volume] in Serum or PlasmaOrdered By: Lorri White on 01-30-2023 Creatinine [Mass/Vol] 1.09 mg/dL 0.60-1.20 [facility] Eosinophils Auto (Bld) [#/Vo l]Ordered By: Lorri White on 01-30-2023 Eosinophils (Bld) [#/Vol] 0.1 10*3/uL 0.0-0.45 [facility] Eosinophils/100 WBC Auto (Bl d)Ordered By: Lorri White on 01-30-2023 Eosinophils/100 WBC (Bld) 0.8 % . [facility] Erythrocyte distribution wid th Auto (RBC) [Ratio]Ordered By: Lorri White on 01-30-2023 Erythrocyte distribution width (RBC) [Ratio] 14.5 % 11.9-15.3 [facility] Glucose [Mass/volume] in Ser um or PlasmaOrdered By: Lorri White on 01-30-2023 Glucose [Mass/Vol] 78 mg/dL 70-100 [facility] Comment on above: ADA recommended refe rence rangeRandom Glucose Reference Range is dependent on time and content of last meal. Glucose of more than 200 mg/dL in a nonstressed, ambulatory subject supports the diagnosis of Diabetes Mellitus. Hematocrit Auto (Bld) [Volum e fraction]Ordered By: Lorri White on 01-30-2023 Hematocrit (Bld) [Volume fraction] 37.4 % 34.0-46.4 [facility] Hemoglobin [Mass/volume] in BloodOrdered By: Lorri White on 01-30-2023 Hemoglobin (Bld) [Mass/Vol] 12.4 g/dL 11.8-15.4 [facility] Leukocytes [#/volume] correc alirio for nucleated erythrocytes in Blood by Automated counOrdered By: Lorri White on 01-30-2023 WBC corrected for nucl RBC Auto (Bld) [#/Vol] 10.0 10*3/uL 3.8-11.6 [facility] Lymphocytes Auto (Bld) [#/Vo l]Ordered By: Lorri White on 01-30-2023 Lymphocytes (Bld) [#/Vol] 2.7 10*3/uL 1.00-4.8 [facility] Lymphocytes/100 WBC Auto (Bl d)Ordered By: Lorri White on 01-30-2023 Lymphocytes/100 WBC (Bld) 27.2 % . [facility] MCH Auto (RBC) [Entitic mass ]Ordered By: Lorri White on 01-30-2023 MCH (RBC) [Entitic mass] 28.2 pg 24.7-34.3 [facility] MCHC Auto (RBC) [Mass/Vol]Or dered By: Lorri White on 01-30-2023 MCHC (RBC) [Mass/Vol] 33.0 g/dL 32.0-35.0 [facility] MCV Auto (RBC) [Entitic vol] Ordered By: Lorri White on 01-30-2023 MCV (RBC) [Entitic vol] 85.4 fL 80-100 [facility] Monocytes Auto (Bld) [#/Vol] Ordered By: Lorri White on 01-30-2023 Monocytes (Bld) [#/Vol] 0.7 10*3/uL 0.0-0.8 [facility] Monocytes/100 WBC Auto (Bld) Ordered By: Lorri White on 01-30-2023 Monocytes/100 WBC (Bld) 6.6 % . [facility] Neutrophils Auto (Bld) [#/Vo l]Ordered By: Lorri White on 01-30-2023 Neutrophils (Bld) [#/Vol] 6.5 10*3/uL 1.8-7.7 [facility] Neutrophils/100 WBC Auto (Bl d)Ordered By: Lorri White on 01-30-2023 Neutrophils/100 WBC (Bld) 64.7 % . [facility] No Panel InformationOrdered By: Lorri White on 01-30-2023 Estimated GFR (CKD-EPI) 54.313 mL/Min [facility] Creatinine Clearance (Chem N/A [facility] Nucleated erythrocytes [Pres ence] in Blood by Automated countOrdered By: Lorri White on 01-30-2023 Nucleated RBC Auto Ql (Bld) 0.1 /100{WBC} 0-0.5 [facility] Platelet mean volume Auto (B ld) [Entitic vol]Ordered By: Lorri White on 01-30-2023 Platelet mean volume (Bld) [Entitic vol] 10.0 fL 6.3-10.7 [facility] Platelets Auto (Bld) [#/Vol] Ordered By: Lorri White on 01-30-2023 Platelets (Bld) [#/Vol] 192 10*3/uL 150-450 [facility] Potassium [Moles/volume] in Serum or PlasmaOrdered By: Lorri White on 01-30-2023 Potassium [Moles/Vol] 3.7 mmol/L 3.5-5.1 [facility] RBC Auto (Bld) [#/Vol]Ordere d By: Lorri White on 01-30-2023 RBC (Bld) [#/Vol] 4.38 10*6/uL 3.60-5.00 [facility] Serum or plasma anion gap de terminationOrdered By: Lorri White on 01-30-2023 Anion gap [Moles/Vol] 10.9 mmol/L 6.0-15.0 [facility] Sodium [Moles/volume] in Ser um or PlasmaOrdered By: Lorri White on 01-30-2023 Sodium [Moles/Vol] 139 mmol/L 136-145 [facility] Urea nitrogen [Mass/volume] in Serum or PlasmaOrdered By: Lorri White on 01-30-2023 Urea nitrogen [Mass/Vol] 13 mg/dL 7-25 [facility] WBC Auto (Bld) [#/Vol]Ordere d By: Lorri White on 01-30-2023 WBC (Bld) [#/Vol] 10.0 10*3/uL 3.8-11.6 [facility] Human papilloma virus 16+18+ 31+33+35+39+45+51+52+56+58+59+66+68 DNA [Presence] in CerOrdered By: Shannon Yoon on 10-22-2022 HPV 16+18+31+33+35+39+45+ 51+52+56+58+59+66+68 DNA Probe+sig amp Ql (Cvx) Negative Negative [facility] Comment on above: This nucleic acid am plification test detects fourteen high- risk HPV types (16,18,31,33,35,39,45,51,52,56,58,59,66,68)without differentiation.Performed at: [facility] [id number] [facility] [place] [place] [place], [place] [id number] Director: Nicanor Hancock MD, Phone: [phone] at: = - [facility] [address] [id number] Director: Roslyn Walls MD, Phone: [phone] No Panel InformationOrdered By: Shannon Yoon on 10-22-2022 Gris albicans (KARON) Negative Negative [facility] Comment on above: This test was develo ped and its performance characteristicsdetermined by [employer]. It has not been cleared orapproved by the Food and Drug Administration. Gris glabrata (KARON) Negative Negative [facility] Comment on above: This test was develo ped and its performance characteristicsdetermined by [facility]. It has not been cleared orapproved by the Food and Drug Administration. IG Pap w/Ct-Ng & HPV Rflx (Off-Site Note . [facility] Comment on above: TESTS RESULT FLAG UN ITS REF RANGE LAB Clinician Provided Cytology Information No. of containers..01 ThinPrep VialDIAGNOSIS: 01 NEGATIVE FOR INTRAEPITHELIAL LESION OR MALIGNANCY.Specimen adequacy: 01 Satisfactory for evaluation. Endocervical and/or squamous metaplastic cells (endocervical component) are present.Performed by: Lauro Hart, Shop Firer/Fireman (ASCP). 01Note: Note 02 The Pap smear [...] <-Panic Low,>-Panic High,A-Abnormal,AA-Critical Abnormal ----Performed at:01 [facility] [address] [place] [address] Nicanor Hancock MD, [address] [address] Roslyn Walls MD, Trichomonas vaginalis (KARON) Negative Negative [facility] Comment on above: Performed at: =[facility] - [facility] [place], [place] [id number] Director: Roslyn Walls MD, Phone: [phone] Vaginal fluid Atopobium vagi ana DNA detection by probe and target amplification methoOrdered By: Shannon Yoon on 10-22-2022 A. vaginae DNA KARON+probe Ql (Vag fld) Low - 0 Score . [facility] Vaginal fluid Megasphaera sp ecies type 1 DNA detection by probe and target amplificatOrdered By: Shannon Yoon on 10-22-2022 Megasphaera sp type 1 DNA KARON+probe Ql (Vag fld) Low - 0 Score . [facility] Comment on above: Calculate total scor e by adding the 3 individual bacterialvaginosis (BV) marker scores together. Total score isinterpreted as follows:Total score 0-1: Indicates the absence of BV.Total score 2: Indeterminate for BV. Additional clinical data should be evaluated to establish a diagnosis.Total score 3-6: Indicates the presence of BV.This test was developed and its performance characteristicsdetermined by [facility]. It has not been cleared or approvedby the Food and Drug Administration. Vaginal fluid bacterial vagi nosis associated bacterium 2 DNA detection by probe and tOrdered By: Shannon Yoon on 10-22-2022 Bacterial vaginosis associated bacterium 2 DNA KARON+probe Ql (Vag fld) Low - 0 Score . [facility] Vaginitis (VG)on 10-22-2022 Vaginitis (VG) Negative Negative [employer] Other Vaginitis (VG) Low - 0 . [employer] Other Urine Cultureon 10-10-2022 Bacteria identified Cx Nom (U) [facility] Other Urine culture routineOrdered By: Shannon Yoon on 10-10-2022 Bacteria identified Cx Nom (U) 2 Days [facility] Aspartate aminotransferase [ Enzymatic activity/volume] in Serum or PlasmaOrdered By: Juany Richter on 10-07-2022 AST [Catalytic activity/Vol] 16 U/L 13-39 [facility] Calcium [Mass/volume] in Ser um or PlasmaOrdered By: Juany Richter on 10-07-2022 Calcium [Mass/Vol] 9.4 mg/dL 8.6-10.3 [facility] Carbon dioxide, total [Moles /volume] in Serum or PlasmaOrdered By: Juany Richter on 10-07-2022 CO2 [Moles/Vol] 25.6 mmol/L 21.0-31.0 [facility] Chloride [Moles/volume] in S diomedes or PlasmaOrdered By: Juany Richter on 10-07-2022 Chloride [Moles/Vol] 104 mmol/L 98-107 [facility] Creatinine [Mass/volume] in Serum or PlasmaOrdered By: Juany Richter on 10-07-2022 Creatinine [Mass/Vol] 1.15 mg/dL 0.60-1.20 [facility] Glucose [Mass/volume] in Ser um or PlasmaOrdered By: Juany Richter on 10-07-2022 Glucose [Mass/Vol] 126 mg/dL 70-100 [facility] Comment on above: ADA recommended refe rence rangeRandom Glucose Reference Range is dependent on time and content of last meal. Glucose of more than 200 mg/dL in a nonstressed, ambulatory subject supports the diagnosis of Diabetes Mellitus. No Panel InformationOrdered By: Juany Richter on 10-07-2022 Estimated GFR (CKD-EPI) 51.248 mL/Min [facility] Creatinine Clearance (Chem N/A [facility] Potassium [Moles/volume] in Serum or PlasmaOrdered By: Juany Richter on 10-07-2022 Potassium [Moles/Vol] 3.9 mmol/L 3.5-5.1 [facility] Serum or plasma anion gap de terminationOrdered By: Juany Richter on 10-07-2022 Anion gap [Moles/Vol] 13.3 mmol/L 6.0-15.0 [facility] Sodium [Moles/volume] in Ser um or PlasmaOrdered By: Juayn Richter on 10-07-2022 Sodium [Moles/Vol] 139 mmol/L 136-145 [facility] Thyrotropin [Units/volume] i n Serum or PlasmaOrdered By: Juany Richter on 10-07-2022 TSH Qn 3.20 m[IU]/L 0.45-5.33 [facility] Urea nitrogen [Mass/volume] in Serum or PlasmaOrdered By: Juany Richter on 10-07-2022 Urea nitrogen [Mass/Vol] 10 mg/dL 7-25 [facility] XR knee RT 3Von 08-09-2022 XR knee RT 3V [facility] [place] [employer]) Other XR knee RT 3V [facility] Main [facility] [place] [employer]) Other XR knee RT 3V [address] [place] [address] [employer] Other XR knee RT 3[place] [address] [facility] [employer] Other XR knee RT 3V [facility]Ray Report [facility] Other XR knee RT 3V Signed [facility] Other XR knee RT 3V Patient: Aveilno Barrett MR#: [facility] Other XR knee RT 3V [id number] [employer] Other XR knee RT 3V : 1950 Acct:[id number] [employer] Other XR knee RT 3V Age/Sex: 71 / F ADM Date: 08/09/22 [employer] Other XR knee RT 3V Loc: SOXD Room: Type : REG CLI [employer] Other XR knee RT 3V Attending Dr: Gavino Tavera DO [employer] Other XR knee RT 3V Copies to: Gavino Tavera, [employer] Other XR knee RT 3V Ordering Provider: Gwen Tavera DO [employer] Other XR knee RT 3V Date of Service: 08/09/22 [employer] Other XR knee RT 3V 20203) XR/XR knee RT 3V - NOT FOR ER USE: Acute pain of right knee [employer] Other XR knee RT 3V 3 views right knee p luisa film [employer] Other XR knee RT 3V COMPARISON: None [facility] Other XR knee RT 3V HISTORY: [place] a tear in the right knee 3 weeks ago. Painful since. [employer] Other XR knee RT 3V ACUTE FINDINGS: None N [employer] Other XR knee RT 3V DEGENERATIVE CHANGE: Minor [employer] Other XR knee RT 3V SOFT TISSUE FINDINGS : Unremarkable [employer] Other XR knee RT 3V JOINT EFFUSION: Mode rate joint effusion [employer] Other XR knee RT 3V POSTOP CHANGES: None N [facility] [employer] Other XR knee RT 3V BONE MINERALIZATION: Adequate [employer] Other XR knee RT 3V X R/XR knee RT 3V - NOT FOR ER USE [employer] Other XR knee RT 3V IMPRESSION: Moderate joint effusion. Minor degeneration. [employer] Other XR knee RT 3V Impression dictated by: Raghu Woods M.D.08/09/2022 2:22 PM [facility] Other XR knee RT 3V Dictation Location: [place] [address] [employer] Other XR knee RT 3V Transcribed By: PWS 08/09/22 [facility] [employer] Other XR knee RT 3V Dictated By: Sumanth Woods DO 08/09/22 [facility] [employer] Other XR knee RT 3V Signed By: [employer] Other XR knee RT 3V 08/09/22 [facility] [employer] Other XR hand LT min 3V*on 023 XR hand LT min 3V* [facility] [employer] Other XR hand LT min 3V* [facility] [employer] Other XR hand LT min 3V* [address] [place] [address] [employer] Other XR hand LT min 3V* [place] [address] [employer] Other XR hand LT min 3V* XRay Report [facility] Other XR hand LT min 3V* Signed [facility] Other XR hand LT min 3V* Patient: Avelino Barrett MR#: [facility] Other XR hand LT min 3V* [id number] [facility] [facility] Other XR hand LT min 3V* : 1950 Acct:[id number] [employer] Other XR hand LT min 3V* Age/Sex: 71 / F ADM Date: 07/30/22 [employer] Other XR hand LT min 3V* Loc: SOXD Room: Type : [facility] [employer] Other XR hand LT min 3V* Attending Dr: Lito Alcantara MD [employer] [facility] Other XR hand LT min 3V* Copies to: Dena Alcantara MD [facility] [facility] Other XR hand LT min 3V* Ordering Provider: Cadence Alcantara MD [employer] Other XR hand LT min 3V* Date of Service: 07/30/22 [facility] Other XR hand LT min 3V* [id number]) XR/XR hand LT min 3V*: Left hand pain [facility] Other XR hand LT min 3V* [address] ain film [employer] Other XR hand LT min 3V* COMPARISON: None [facility] Other XR hand LT min 3V* HISTORY: LEFT thumb and carpometacarpal pain for months [facility] Other XR hand LT min 3V* ACUTE FINDINGS: None [facility] [facility] Other XR hand LT min 3V* DEGENERATIVE CHANGE: Extensive 1st carpometacarpal degeneration include joint space narrowing and [facility] Other XR hand LT min 3V* large spurring and degenerative subluxation. Moderate interphalangeal degenerative changes. [facility] Other XR hand LT min 3V* SOFT TISSUE FINDINGS : Unremarkable [facility] Other XR hand LT min 3V* JOINT EFFUSION: None [facility] Other XR hand LT min 3V* POSTOP CHANGES: None [facility] [facility] Other XR hand LT min 3V* BONY MINERALIZATION: Adequate [facility] Other XR hand LT min 3V* X R/XR hand LT min 3V* [facility] Other XR hand LT min 3V* IMPRESSION: Extensiv e 1st carpometacarpal degeneration. [facility] [facility] Other XR hand LT min 3V* Impression dictated by: Raghu Woods M.D.07/30/2022 10:29 AM [facility] Other XR hand LT min 3V* Dictation Location: [place] [address] [employer] [facility] Other XR hand LT min 3V* Transcribed By: JESSICA 07/30/22 [facility] [employer] [facility] Other XR hand LT min 3V* Dictated By: Sumanth Woods DO 07/30/22 [facility] [employer] [facility] Other XR hand LT min 3V* Signed By: [facility] [facility] Other XR hand LT min 3V* 07/30/[address] [place] [address] [employer] Other Office Visit (Cardiology)on 07-08-2022 Follow-up visit [...] new start Rosuvastatin 10mg daily sent to [facility]. [facility] [...] EKG shows sinus rhythm at 75 bpm NV interval 150 ms QRS duration 90 ms [...] normal sinus rhythm QTc 477 ms normal NV interval. To further clarify the physical examination [...] a) No falls within the last year -[facility] [facility] DO Work Phone: Tobacco use status CP a) Yes [facility] 250 DO Work Phone: Tobacco Screening. Yes [facility] 250 DO Work Phone: Alanine aminotransferase [En zymatic activity/volume] in Serum or PlasmaOrdered By: Juany Richter on 06-21-2022 ALT [Catalytic activity/Vol] 16 U/L 7-52 [facility] Aspartate aminotransferase [ Enzymatic activity/volume] in Serum or PlasmaOrdered By: Juany Richter on 06-21-2022 AST [Catalytic activity/Vol] 21 U/L 13-39 [facility] Cholesterol [Mass/volume] in Serum or PlasmaOrdered By: Juany Richter on 06-21-2022 Cholesterol [Mass/Vol] 151 mg/dL 140-200 [facility] Comment on above: Chol less than 200 m g/dl low riskChol 201-239 mg/dl borderline riskChol 240 mg/dl and greater high risk Cholesterol in LDL Calc [Mas s/Vol]Ordered By: Juany Richter on 06-21-2022 Cholesterol in LDL [Mass/Vol] 70 mg/dL 0-100 [facility] Comment on above: LDL ATP III CLASSIFI CATIONLDL less than 100 mg/dL OptimalLDL 100-129 mg/dL Near or above optimalLDL 130-159 mg/dL Borderline highLDL 160-189 mg/dL HighLDL greater than 189 mg/dL Very high Cholesterol in VLDL Calc [Ma ss/Vol]Ordered By: Juany Richter on 06-21-2022 Cholesterol in VLDL [Mass/Vol] 25 mg/dL [facility] Serum or plasma high density lipoprotein (HDL) cholesterol measurementOrdered By: Juany Richter on 06-21-2022 Cholesterol in HDL [Mass/Vol] 56 mg/dL 35-85 [facility] Comment on above: HDL CHOL ATP-III CLA SSIFICATION Cardiovascular RiskHDL > or equal to 60 mg/dL LOWHDL < 40 mg/dL HIGH Serum or plasma total choles terol/high density lipoprotein (HDL) cholesterol mass ratOrdered By: Juany Richter on 06-21-2022 Cholesterol.total/Cho lesterol in HDL [Mass ratio] 2.7 {ratio} <5.0 [facility] Triglyceride [Mass/volume] i n Serum or PlasmaOrdered By: Juany Richter on 06-21-2022 Triglyceride [Mass/Vol] 125 mg/dL 0-149 [facility] Comment on above: TRIG ATP III CLASSIF ICATIONTRIG less than 150 mg/dL NormalTRIG 150-199 mg/dL Borderline highTRIG 200-500 mg/dL High TRIG greater than 500 mg/dL Very highStandard traceable to the Center for Disease Conrtrol and Prevention (CDC) test method. Creatinine [Mass/volume] in Serum or PlasmaOrdered By: Eulogio Mai on 06-04-2022 Creatinine [Mass/Vol] 1.19 mg/dL 0.60-1.20 [facility] No Panel InformationOrdered By: Eulogio Mai on 06-04-2022 Estimated GFR (CKD-EPI) 49.189 mL/Min [facility] Creatinine Clearance (Chem 46.02 [facility] Urea nitrogen [Mass/volume] in Serum or PlasmaOrdered By: Eulogio Mai on 06-04-2022 Urea nitrogen [Mass/Vol] 13 mg/dL 7- [facility] Urinalysis - DIPSTICKon 04-04 Appearance (U) cloudy [employer] Other Bilirubin Ql (U) small [employer] Other Color (U) light yellow [facility] [facility] Other Glucose Ql (U) Negative [employer] Other Hemoglobin Ql (U) non hem to trace N [employer] Other Ketones Ql (U) Negative [employer] Other Leukocyte esterase Test strip Ql (U) moderate [facility] Other Nitrite Ql (U) Negative [employer] Other pH (U) 5.0 [pH] [facility] [facility] Other Protein Ql (U) Negative [employer] Other Specific gravity (U) [Rel density] 1.010 [facility] Other Urobilinogen (U) [Mass/Vol] 0.5 mg/dL [facility] Other Urinalysis - DIPSTICK [employer] Other Office Visit (Cardiology)on 04-08-2022 Follow-up visit [...] persists. Status: Complete - Retrospective Authorization Done: [id number] PVD (peripheral vascular disease) Start: Atorvastatin Calcium 20 MG Oral Tablet; TAKE 1 TABLET AT BEDTIME Vascular Surgery Referral Evaluation and Treatment Evaluate AND Treat Status: Hold For - Scheduling,Retrospective Authorization Requested for: [id number] Start: Clopidogrel Bisulfate 75 MG Oral Tablet; TAKE 1 TABLET DAILY SocHx: Current smoker Tobacco Use Screening; Status:Complete; Done: [id number] Patient Instructions Please bring all medicines, vitamins, [...] up in 3 months Chief Complaint AVELINO WHYTE is being seen for a 2 month [...] normal sinus rhythm at 66 bpm with NV interval of 130 ms QRS duration 92 [...] care. Albuterol inhaler has been recommended. 12. CXT1GQ1-OWXh score 4 based on my evaluation today [...] 0.52 rig (more content not included)... Normal Zoom Tobacco Screening.on 023 Adult depression screening assessment Yes [facility] [facility] DO Work Phone: Adult depression screening assessment Moderately Severe (15-19) M [facility] 250 DO Work Phone: Fall risk assessment a) No falls within the last year [facility] [facility] 250 DO Work Phone: Tobacco use status CPHS a) Yes [facility] DO Work Phone: Tobacco Screening. Yes [facility] [facility] 250 DO Work Phone: Tobacco Screening. 3-Nearly every day [facility] 250 DO Work Phone: Tobacco Screening. 2-More than half the days [facility] 250 DO Work Phone: Tobacco Screening. 0-Not at all [facility] [facility] 250 DO Work Phone: Tobacco Screening. Somewhat Difficult [facility] [facility] 250 DO Work Phone: Cholesterol [Mass/volume] in Serum or PlasmaOrdered By: Juany Richter on 04-04-2022 Cholesterol [Mass/Vol] 230 mg/dL 140-200 [facility] Comment on above: Chol less than 200 m g/dl low riskChol 201-239 mg/dl borderline riskChol 240 mg/dl and greater high risk Cholesterol in LDL Calc [Mas s/Vol]Ordered By: Juany Richter on 04-04-2022 Cholesterol in LDL [Mass/Vol] 139 mg/dL 0-100 [facility] Comment on above: LDL ATP III CLASSIFI CATIONLDL less than 100 mg/dL OptimalLDL 100-129 mg/dL Near or above optimalLDL 130-159 mg/dL Borderline highLDL 160-189 mg/dL HighLDL greater than 189 mg/dL Very high Cholesterol in VLDL Calc [Ma ss/Vol]Ordered By: Juany Richter on 04-04-2022 Cholesterol in VLDL [Mass/Vol] 39 mg/dL [facility] Serum or plasma high density lipoprotein (HDL) cholesterol measurementOrdered By: Juany Richter on 04-04-2022 Cholesterol in HDL [Mass/Vol] 51 mg/dL 35-85 [facility] Comment on above: HDL CHOL ATP-III CLA SSIFICATION Cardiovascular RiskHDL > or equal to 60 mg/dL LOWHDL < 40 mg/dL HIGH Serum or plasma total choles terol/high density lipoprotein (HDL) cholesterol mass ratOrdered By: Juany Richter on 04-04-2022 Cholesterol.total/Cho lesterol in HDL [Mass ratio] 4.5 {ratio} <5.0 [facility] Triglyceride [Mass/volume] i n Serum or PlasmaOrdered By: Juany Richter on 04-04-2022 Triglyceride [Mass/Vol] 199 mg/dL 35-149 [facility] Comment on above: TRIG ATP III CLASSIF ICATIONTRIG less than 150 mg/dL NormalTRIG 150-199 mg/dL Borderline highTRIG 200-500 mg/dL High TRIG greater than 500 mg/dL Very highStandard traceable to the Center for Disease Conrtrol and Prevention (CDC) test method. VASC LAB PVR W/O EXERCISEon 04-04-2022 VASC LAB PVR W/O EXERCISE MP-[facility] 250 DO Work Phone: VASC LAB PVR W/O Exerciseon 04-04-2022 VASC LAB PVR W/O Exercise [facility] [address] [facility], [address] [place] [address] Vascular Lab Report PVR With Out Exercise Patient Name: AVELINO Hannah Physician: [id number] Niesha WHYTE MD, [facility] Study Date: 04/04/2022 Referring Physician: JUANY RICHTER MRN/PID: [id number] PCP: Accession/Order#: [id number] CC Report to: Date of : 1950 Technologist: Thea Manriquez RD, T Gender: F Technologist 2: Admission Status: Outpatient Location Performed: [facility] Diagnosis/ICD: R58-Evclyresp primary hypertension; I73.9-Peripheral vascular disease, unspecified; I83.93-Asymptomatic varicose veins of bilateral lower extremities Indication: HTN, Atrial Fibrillation, GERD, COPD, Lung Nodules, Obesity Procedure/CPT: 26068 Peripheral artery PVR (multi segmental pressure)-11537 CONCLUSIONS: Right Lower PVR: There is evidence [...] Left Brachial Pressure 178 mmHg 175 mmHg [id number] Niesha Gipson MD, FACC Final (Updated) Normal [facility] CARDIAC STRESS/REST INJE CTIONon 03-18-2022 [facility] CARDIAC STRESS/REST INJECTION Patient Name: AVELINO ZELAYA STUDY: MYOCARDIAL PERFUSION STRESS TEST WITH LEXISCAN Performing facility: [facility], [address] [place] [address], [address] Provider: Juany Richter MD, FACC PCP: Dr. Marcio Valenzuela Supervising provider: Juany Richter MD, FACC INDICATION: A-fib HTN HISTORY: Gender: F; Age: 71 y/o ; Height: 0 cm; Weight: 0 kg. HTN; Arrhythmias; COPD; PVD Currently smoking. COMPARISON: Previous nuclear testing completed at [place]. ACCESSION NUMBER(S): [id number]; [id number]; [id number] ORDERING CLINICIAN: JUANY RICHTER TECHNIQUE: ONE DAY [...] available for comparison. Electronically signed by: NIESHA GIPSON MD Normal [facility] No Panel Informationon 03-18 Normal -[facility] [facility] 250 DO Work Phone: HEMOGLOBINon 02-12-2022 Hemoglobin (Bld) [Mass/Vol] 13.6 g/dL Normal 12.0-16.0 [facility] Comment on above: Performed By: #### H GB #### [facility] [address] [place] [address] [address] Christopher Infante Office Visit (Cardiology)on 02-11-2022 [...] IO EKG Electrocardiogram- 12 Lead; Status:Complete; Done: [id number] Afib, Hypertension NM Cardiac Stress/Rest Nuclear Med Order; Status:Hold For - Scheduling,Retrospective Authorization; Requested for:[id number]; Radiologist to Determine Optimal Study : Y What are the patient's signs and symptoms? : pvd - varicose veins-htn Afib, Hypertension, PVD (peripheral vascular disease), Varicose veins of legs Start: Magnesium Oxide 400 MG Oral Tablet; TAKE 1 TABLET TWICE DAILY Class 1 obesity with body mass index (BMI) of 33.0 to 33.9 in adult Healthy Weight Tips; Status:Complete - Retrospective Authorization; Done: [id number] Some eating tips that can help you lose weight.; Status:Complete - Retrospective Authorization; Done: [id number] Hypertension, PVD (peripheral vascular disease), Varicose veins of legs US Arterial Duplex Bilateral Lower Extremity; Status:Hold For - Scheduling,Retrospective Authorization; Requested for:[id number]; Radiologist to Determine Optimal Study : Y What are the patient's signs and symptoms? : pvd - varicose veins US PVR Lower Extremity Rest; Status:Hold For - Scheduling,Retrospective Authorization; Requested for:[id number]; Radiologist to Determine Optimal Study : Y What are the patient's signs and symptoms? : pvd - varicose veins Lipid screening Lipid Panel; Status:Active - Retrospective Authorization; Requested for:[id number]; SocHx: Current smoker Tobacco Use Screening; Status:Complete; Done: [id number] You need to stop smoking. Though it is not easy, more than half of all adult smokers have quit. We encourage you to write down all the reasons you should quit smoking and set a quit date for yourself. Ask us how we can help. You may also call 1-834-ZQOU-NOW for free resources and assistance.; Status:Complete - Retrospective Authorization; Done: [id number] Tobacco Use Screening; Status:Complete; Done: [id number] Unlinked Stop: Amiodarone HCl - 200 MG [...] shows normal sinus rhythm at 69 bpm NV interval 158 ms QRS interval 90 ms QTC 458 ms An EKG in the chart from 2018 does show atrial fibrillation. Normal QRS and QTc. Laboratory data from April 2021 hemoglobin 13 hematocrit 42 platelets 180 Assessment: 1. Symptomat (more content not included)... Normal Zoom Tobacco Screening.on 022 Adult depression screening assessment No [facility] [place] y 250 DO Work Phone: Fall risk assessment a) No falls within the last year [facility] [place] y 250 DO Work Phone: Tobacco use status CPHS a) Yes [facility] [place] y 250 DO Work Phone: CT CHEST [...] by: CHERIE MENENDEZ Date: 2022-01-28 19:17 Normal [facility] Follow-Upon 01-15-2022 Follow-Up [id number] Avelino Zelaya 1950 F Date Provider Department Center 01/15/2022 241-CORY MOREL [facility] No family history on file Level of Service:35973 NV OFFICE/OUTPATIENT ESTABLISHED MOD MDM 30-39 MIN Normal [facility] Erroneous Telephone Encounte atiya 11-13-2021 Erroneous Telephone Encounter [id number] Avelino Zelaya 1950 F Date Provider Department Center 11/13/2021 1987-EDMAR MORAES [facility]ASC [facility] No family history on file Reason for Visit and Comments: Error (VOID this visit) [77] Normal [facility] Covid-19 PCR (CVDTB)on 08-01 SARS-CoV-2 (COVID-19) RNA KARON+probe Ql (Unsp spec) Not detected Normal NOT DETECTED [facility] Comment on above: Result Comment: This test is not yet approved or cleared by the [place] FDA. When there are no FDA-approved or cleared tests available, and other criteria are met, FDA can make tests available under an emergency access mechanism called an Emergency Use Authorization (EUA). The EUA for this test is supported by the Ecclesiastical Worker of Health and Human Service's (HHS's) [...] consistent with SARS-CoV-2. Performed By: #### C [facility] #### [facility] [address] [place] [address] Dr. Christopher Infante ECHOCARDIO M/2D COMPLETEon 0 07-05-2021 ECHOCARDIO M/2D COMPLETE Patient: AVELINO BARRETT Exam Date: 07/05/2021 : 1950 Gender:F Ordering : CORY MOREL Admission #: [id number] Family : Order #: [id number] CLICK HERE TO VIEW EXAM ECHOCARDIOGRAM REPORT [...] Area(A4C): 16.40 cm2 Left Atrium Systolic Volume(A2C): 93148 mm3 Left Atrium Systolic Volume(A4C): 10867 mm3 Mitral Valve MV E to A [...] M.D. on 07/05/2021 at 15:04 Normal [facility] CBC AUTO DIFFon 04-23-2021 BASO # 0.1 103/ul Normal 0.0-0.1 [facility] Comment on above: Performed By: #### C BC #### [facility] [address] [address] [address] Christopher Infante Basophils/100 WBC (Bld) 0.5 % Normal 0.2-2.0 [facility] Comment on above: Performed By: #### C BC #### [facility] [address] [place] [address] Dr. Christopher Infante EO # 0.2 103/ul Normal 0.0-0.7 [facility] Comment on above: Performed By: #### C BC #### [facility] [address] [address] [address] Christopher Infante Eosinophils/100 WBC (Bld) 2.3 % Normal 0.9-7.0 [facility] Comment on above: Performed By: #### C BC #### [facility] [address] [place] [address] Dr. Christopher Infante Erythrocyte distribution width (RBC) [Ratio] 14.3 % Normal 11.0-15.0 [facility] Comment on above: Performed By: #### C BC #### [facility] [address] [place] [address] Dr. Christopher Infante Hematocrit (Bld) [Volume fraction] 41.7 % Normal 36.0-48.0 [facility] Comment on above: Performed By: #### C BC #### [facility] [address] [place] [address] Dr. Christopher Infante Hemoglobin (Bld) [Mass/Vol] 13.1 g/dL Normal 12.0-16.0 [facility] Comment on above: Performed By: #### C BC #### [facility] [address] [place] [address] Dr. Christopher Infante IG # 0.03 10e3/ul Normal 0.00-0.03 [facility] Comment on above: Performed By: #### C BC #### [facility] [address] [place] [address] Dr. Christopher Infante IG % 0.3 % Normal 0.0-0.5 [facility] Comment on above: Performed By: #### C BC #### [facility] [address] [place] [address] Dr. Christopher Infante LYMPH # 2.6 103/ul Normal 1.2-3.8 [facility] Comment on above: Performed By: #### C BC #### [facility] [address] [place] [address] Dr. Christopher Infante Lymphocytes/100 WBC (Bld) 27.4 % Normal 20.5-60.0 [facility] Comment on above: Performed By: #### C BC #### [facility] [address] [place] [address] Dr. Christopher Infante MANUAL DIFF REQ NO Normal [facility] Comment on above: Performed By: #### C BC #### [facility] [address] [place] [address] Dr. Christopher Infante MCH (RBC) [Entitic mass] 28.7 pg Normal 26.7-34.0 [facility] Comment on above: Performed By: #### C BC #### [facility] [address] [place] [address] Dr. Christopher Infante MCHC (RBC) [Mass/Vol] 31.4 g/dL Normal 29.9-35.2 [facility] Comment on above: Performed By: #### C BC #### [facility] [address] [place] [address] Dr. Christopher Infante MCV (RBC) [Entitic vol] 91.2 fL Normal 81.0-99.0 [facility] Comment on above: Performed By: #### C BC #### [facility] [address] [place] [address] Dr. Christopher Infante MONO # 0.7 103/ul Normal 0.3-0.8 [facility] Comment on above: Performed By: #### C BC #### [facility] [address] [place] [address] Dr. Christopher Infante Monocytes/100 WBC (Bld) 7.4 % Normal 1.7-12.0 [facility] Comment on above: Performed By: #### C BC #### [facility] [address] [place] [address] Dr. Christopher Infante NEUT # 5.9 103/ul Normal 1.4-6.5 [facility] Comment on above: Performed By: #### C BC #### [facility] [address] [place] [address] Dr. Christopher Infante Neutrophils/100 WBC (Bld) 62.1 % Normal 43.0-75.0 [facility] Comment on above: Performed By: #### C BC #### [facility] [address] [place] [address] Dr. Christopher Infante Platelet mean volume (Bld) [Entitic vol] 11.7 fL Normal 9.5-13.5 [facility] Comment on above: Performed By: #### C BC #### [facility] [address] [place] [address] Dr. Christopher Infante PLT 180 103/ul Normal 150-450 [facility] Comment on above: Performed By: #### C BC #### [facility] [address] [place] [address] Dr. Christopher Infante RBC 4.57 106/ul Normal 4.20-5.40 [facility] Comment on above: Performed By: #### C BC #### [facility] [address] [place] [address] Dr. Christopher Infante WBC 9.5 103/ul Normal 4.0-11.0 [facility] Comment on above: Performed By: #### C BC #### [facility] [address] [place] [address] Dr. Christopher Infante FREE T4on 04-23-2021 Free T4 [Mass/Vol] 0.92 ng/dL Normal 0.78-2.19 [facility] Comment on above: Performed By: #### F T4 #### [facility] [address] [place] [address] Dr. Christopher Infante GLYCOHEMOGLOBIN A1Con 2021 ADA RECOMMENDATION ADA THERAPEUTIC TARG ET 6.0 - 7.0 ACTION SUGGESTED > 7.0 Normal [facility] Comment on above: Performed By: #### A 1C #### [facility] [address] [place] [address] Dr. Christopher Infante Glucose [Mass/Vol] 123 mg/dL Normal [facility] Comment on above: Performed By: #### A 1C #### [facility] [address] [place] [address] Dr. Christopher Infante HbA1c (Bld) [Mass fraction] 5.9 % Normal <=6.0 [facility] Comment on above: Performed By: #### A 1C #### [facility] [address] [place] [address] Dr. Christopher Infante PROF 14(COMP METB)on 022 Albumin [Mass/Vol] 3.7 g/dL Normal 3.5-5.0 [facility] Comment on above: Performed By: #### C MP, TSH #### [facility] [address] [place] [address] Dr. Christopher Infante Albumin/Globulin [Mass ratio] 1.2 {ratio} Normal [facility] Comment on above: Performed By: #### C MP, TSH #### [facility] [address] [place] [address] Dr. Christopher Infante ALP [Catalytic activity/Vol] 90 U/L Normal 38-126 [facility] Comment on above: Performed By: #### C MP, TSH #### [facility] [address] [place] [address] Dr. Christopher Infante ALT [Catalytic activity/Vol] 18 U/L Normal 9-52 [facility] Comment on above: Performed By: #### C MP, TSH #### [facility] [address] [place] [address] Dr. Christopher Infante Anion gap [Moles/Vol] 12.8 mmol/L Normal [facility] Comment on above: Performed By: #### C MP, TSH #### [facility] [address] [place] [address] Dr. Christopher Infante AST [Catalytic activity/Vol] 17 U/L Normal 14-36 [facility] Comment on above: Performed By: #### C MP, TSH #### [facility] [address] [place] [address] Dr. Christopher Infante Bilirubin [Mass/Vol] 0.4 mg/dL Normal 0.2-1.3 [facility] Comment on above: Performed By: #### C MP, TSH #### [facility] [address] [place] [address] Dr. Christopher Infante Calcium [Mass/Vol] 9.0 mg/dL Normal 8.4-10.2 [facility] Comment on above: Performed By: #### C MP, TSH #### [facility] [address] [place] [address] Dr. Christopher Infante Chloride [Moles/Vol] 107 mmol/L Normal 98-107 [facility] Comment on above: Performed By: #### C MP, TSH #### [facility] [address] [place] [address] Dr. Christopher Infante CO2 [Moles/Vol] 25.3 mmol/L Normal 22.0-30.0 [facility] Comment on above: Performed By: #### C MP, TSH #### [facility] [address] [place] [address] Dr. Christopher Infante Creatinine [Mass/Vol] 1.10 mg/dL Critically high 0.52-1.04 [facility] Comment on above: Performed By: #### C MP, TSH #### [facility] [address] [place] [address] Dr. Christopher Infante EGFR-AF NAMIBIAN 60 mL/min/1.73m2 Normal >=60 [facility] Comment on above: Performed By: #### C MP, TSH #### [facility] [address] [place] [address] Dr. Christopher Infante EGFR-NON AF NAMIBIAN 49 mL/min/1.73m2 Critically low >=60 [facility] Comment on above: Performed By: #### C MP, TSH #### [facility] [address] [address] [address] Christopher Infante Globulin (S) [Mass/Vol] 3.2 g/dL Normal [facility] Comment on above: Performed By: #### C MP, TSH #### [facility] [address] [address] [address] Christopher Infante Glucose [Mass/Vol] 110 mg/dL Critically high 74-106 [facility] Comment on above: Performed By: #### C MP, TSH #### [facility] [address] [place] [address] Dr. Christopher Infante Potassium [Moles/Vol] 4.1 mmol/L Normal 3.4-5.0 [facility] Comment on above: Performed By: #### C MP, TSH #### [facility] [address] [place] [address] Dr. Christopher Infante Protein [Mass/Vol] 6.9 g/dL Normal 6.1-8.2 [facility] Comment on above: Performed By: #### C MP, TSH #### [facility] [address] [place] [address] Dr. Christopher Infante Sodium [Moles/Vol] 141 mmol/L Normal 137-145 [facility] Comment on above: Performed By: #### C MP, TSH #### [facility] [address] [place] [address] Dr. Christopher Infante Urea nitrogen [Mass/Vol] 13.0 mg/dL Normal 7.0-17.0 [facility] Comment on above: Performed By: #### C MP, TSH #### [facility] [address] [place] [address] Dr. Christopher Infante Urea nitrogen/Creatinine [Mass ratio] 11.8 mg/mg Normal [facility] Comment on above: Performed By: #### C MP, TSH #### [facility] [address] [address] [address] Christopher Infante TSHon 04-23-2021 TSH 2.305 uIU/mL Normal 0.470-4.68 0 [facility] Comment on above: Performed By: #### C MP, TSH #### [facility] [address] [place], [place] [address] Dr. Christopher Infante TSH RANGE SEE BELOW Normal [facility] Comment on above: Result Comment: <0.3 4 UIU/ml HYPERTHYROID 0.34-5.60 UIU/ml EUTHYROID >5.60 UIU/ml HYPOTHYROID Performed By: #### C MP, TSH #### [facility] [address] [address] [address] Christopher Infante Vital Signs Date Time Vital Sign Value Performing Clinician Facility 04-30-2024 13:08-0500 Body height 160.02 cm Shannon Yoon MD Work Phone: [facility] 04-30-2024 13:08-0500 Body mass index (BMI) [Ratio] 32.5 kg/m2 Shannon Yoon MD Work Phone: [facility] 04-30-2024 13:08-0500 Body weight 83.46 kg Shannon Yoon MD Work Phone: [facility] 04-30-2024 13:08-0500 Diastolic blood pressure 64 mm[Hg] Shannon Yoon MD Work Phone: [facility] 04-30-2024 13:08-0500 Heart rate 66 /min Shannon Yoon MD Work Phone: [facility] 04-30-2024 13:08-0500 Systolic blood pressure 97 mm[Hg] Shannon Yoon MD Work Phone: [facility] 04-02-2024 10:32-0500 Body height 162.6 cm Rahel Henry DPM Work Phone: [facility] 04-02-2024 10:32-0500 Body mass index (BMI) [Ratio] 33.99 kg/m2 Rahel Henry DPM Work Phone: [facility] 04-02-2024 10:32-0500 Body weight 89.81 kg Christremigioer Bohach DPM Work Phone: [facility] 04-02-2024 10:32-0500 Diastolic blood pressure 73 mm[Hg] Christopher Bohach DPM Work Phone: [facility] 04-02-2024 10:32-0500 Heart rate 68 /min Christopher Bohach DPM Work Phone: [facility] 04-02-2024 10:32-0500 Systolic blood pressure 117 mm[Hg] Christopher Bohach DPM Work Phone: [facility] 03-12-2024 09:50-0500 Body height 160.02 cm Shannon Yoon MD Work Phone: [facility] 03-12-2024 09:50-0500 Body mass index (BMI) [Ratio] 31.6 kg/m2 Shannon Yoon MD Work Phone: [facility] 03-12-2024 09:50-0500 Body temperature 97.6 [degF] Shannon Yoon MD Work Phone: [facility] 03-12-2024 09:50-0500 Body weight 81.19 kg Shannon Yoon MD Work Phone: [facility] 03-12-2024 09:50-0500 Diastolic blood pressure 74 mm[Hg] Shannon Yoon MD Work Phone: [facility] 03-12-2024 09:50-0500 Heart rate 60 /min Shannon Yoon MD Work Phone: [facility] 03-12-2024 09:50-0500 SaO2% (BldA) [Mass fraction] 99 % Shannon Yoon MD Work Phone: [facility] 03-12-2024 09:50-0500 Systolic blood pressure 114 mm[Hg] Shannon Yoon MD Work Phone: [facility] 02-09-2024 15:23-0500 Body height 160.02 cm Shannon Yoon MD Work Phone: [facility] 02-09-2024 15:23-0500 Body mass index (BMI) [Ratio] 31.1 kg/m2 Shannon Yoon MD Work Phone: [facility] 02-09-2024 15:23-0500 Body weight 79.83 kg Shannon Yoon MD Work Phone: [facility] 02-09-2024 15:23-0500 Diastolic blood pressure 58 mm[Hg] Shannon Yoon MD Work Phone: [facility] 02-09-2024 15:23-0500 Heart rate 64 /min Shannon Yoon MD Work Phone: [facility] 02-09-2024 15:23-0500 Systolic blood pressure 90 mm[Hg] Shannon Yoon MD Work Phone: [facility] 01-05-2024 10:41-0500 Body height 160 cm Juany Richter MD Work Phone: [facility] 01-05-2024 10:41-0500 Body mass index (BMI) [Ratio] 31.89 kg/m2 Juany Richter MD Work Phone: [facility] 01-05-2024 10:41-0500 Body weight 81.65 kg Juany Richter MD Work Phone: [facility] 01-05-2024 10:41-0500 Diastolic blood pressure 64 mm[Hg] Juany Richter MD Work Phone: [facility] 01-05-2024 10:41-0500 Heart rate 89 /min Juany Richter MD Work Phone: [facility] 01-05-2024 10:41-0500 Systolic blood pressure 100 mm[Hg] Juany Richter MD Work Phone: [facility] 12-29-2023 10:13-0400 Body height 162.6 cm Rahel Henry DPM Work Phone: [facility] 12-29-2023 10:13-0400 Body mass index (BMI) [Ratio] 33.99 kg/m2 Rahel Dunbarach DPM Work Phone: [facility] 12-29-2023 10:13-0400 Body weight 89.81 kg Rahel Henry DPM Work Phone: [facility] 12-29-2023 10:13-0400 Diastolic blood pressure 65 mm[Hg] Rahel Henry DPM Work Phone: [facility] 12-29-2023 10:13-0400 Heart rate 89 /min Rahel Henry DPM Work Phone: [facility] 12-29-2023 10:13-0400 Systolic blood pressure 95 mm[Hg] Rahel Henry DPM Work Phone: [facility] 12-15-2023 10:34-0400 Diastolic blood pressure 70 mm[Hg] MD Shannon Yoon Work Phone: [facility] 12-15-2023 10:34-0400 Heart rate 90 /min MD Shannon Yoon Work Phone: [facility] 12-15-2023 10:34-0400 Systolic blood pressure 126 mm[Hg] MD Shannon Yoon Work Phone: [facility] 10-23-2023 11:06-0400 Body height 160.02 cm MD Shannon Yoon Work Phone: [facility] 10-23-2023 11:06-0400 Body mass index (BMI) [Ratio] 34.3 kg/m2 MD Shannon Yoon Work Phone: [facility] 10-23-2023 11:06-0400 Body temperature 97.7 [degF] MD Shannon Yoon Work Phone: [facility] 10-23-2023 11:06-0400 Body weight 87.99 kg MD Shannon Yoon Work Phone: [facility] 10-23-2023 11:06-0400 Diastolic blood pressure 65 mm[Hg] MD Shannon Yoon Work Phone: [facility] 10-23-2023 11:06-0400 Heart rate 69 /min MD Shannon Yoon Work Phone: [facility] 10-23-2023 11:06-0400 Systolic blood pressure 99 mm[Hg] MD Shannon Yoon Work Phone: [facility] 10-20-2023 09:08-0400 Body height 162.6 cm Christopher Bohach DPM Work Phone: [facility] 10-20-2023 09:08-0400 Body mass index (BMI) [Ratio] 33.99 kg/m2 Christopher Bohach DPM Work Phone: [facility] 10-20-2023 09:08-0400 Body weight 89.81 kg Christopher Bohach DPM Work Phone: [facility] 10-20-2023 09:08-0400 Diastolic blood pressure 76 mm[Hg] Christopher Bohach DPM Work Phone: [facility] 10-20-2023 09:08-0400 Heart rate 77 /min Christopher Bohach DPM Work Phone: [facility] 10-20-2023 09:08-0400 Systolic blood pressure 131 mm[Hg] Christopher Bohach DPM Work Phone: [facility] 10-09-2023 13:27-0400 Body height 160.02 cm MD Shannon Yoon Work Phone: [facility] 10-09-2023 13:27-0400 Body mass index (BMI) [Ratio] 34.2 kg/m2 MD Shannon Yoon Work Phone: [facility] 10-09-2023 13:27-0400 Body temperature 98.7 [degF] MD Shannon Yoon Work Phone: [facility] 10-09-2023 13:27-0400 Body weight 87.77 kg MD Shannon Yoon Work Phone: [facility] 10-09-2023 13:27-0400 Diastolic blood pressure 62 mm[Hg] MD Shannon Yoon Work Phone: [facility] 10-09-2023 13:27-0400 Heart rate 63 /min MD Shannon Yoon Work Phone: [facility] 10-09-2023 13:27-0400 Systolic blood pressure 96 mm[Hg] MD Shannon Yoon Work Phone: [facility] 09-08-2023 11:05-0400 Diastolic blood pressure 75 mm[Hg] MD Shannon Yoon Work Phone: [facility] 09-08-2023 11:05-0400 Heart rate 62 /min MD Sahnnon Yoon Work Phone: [facility] 09-08-2023 11:05-0400 Systolic blood pressure 138 mm[Hg] MD Shannon Yoon Work Phone: [facility] 08-18-2023 14:51-0400 Body height 160.02 cm [facility] 08-18-2023 14:51-0400 Body mass index (BMI) [Ratio] 35.6 kg/m2 [facility] 08-18-2023 14:51-0400 Body temperature 98 [degF] [facility] 08-18-2023 14:51-0400 Body weight 91.17 kg [facility] 08-18-2023 14:51-0400 Diastolic blood pressure 66 mm[Hg] [facility] 08-18-2023 14:51-0400 Heart rate 71 /min [facility] 08-18-2023 14:51-0400 Systolic blood pressure 99 mm[Hg] [facility] 07-02-2023 11:11-0400 Body height 160.02 cm [facility] 07-02-2023 11:11-0400 Body mass index (BMI) [Ratio] 36.1 kg/m2 [facility] 07-02-2023 11:[id number] Body temperature 97.8 [degF] [facility] 07-02-2023 11:110400 Body weight 92.53 kg [facility] 07-02-2023 11:11-0400 Diastolic blood pressure 78 mm[Hg] [facility] 07-02-2023 11:110400 Heart rate 67 /min [facility] 07-02-2023 11:110400 Respiratory rate 16 /min [facility] 07-02-2023 11:110400 SaO2% (BldA) [Mass fraction] 98 % [facility] 07-02-2023 11:110400 Systolic blood pressure 124 mm[Hg] [facility] 06-05-2023 10:31-0400 Body height 160 cm Juany Richter MD Work Phone: [facility] 06-05-2023 10:31-0400 Body mass index (BMI) [Ratio] 34.72 kg/m2 Juany Richter MD Work Phone: [facility] 06-05-2023 10:31-0400 Body weight 88.91 kg Juany Richter MD Work Phone: [facility] 06-05-2023 10:31-0400 Diastolic blood pressure 82 mm[Hg] Juany Richter MD Work Phone: [facility] 06-05-2023 10:31-0400 Heart rate 75 /min Juany Richter MD Work Phone: [facility] 06-05-2023 10:31-0400 Systolic blood pressure 128 mm[Hg] Juany Richter MD Work Phone: [facility] 05-26-2023 10:36-0400 Body height 160.02 cm MD Shannon Yoon Work Phone: [facility] 05-26-2023 10:36-0400 Body mass index (BMI) [Ratio] 36.1 kg/m2 MD Shannon Yoon Work Phone: [facility] 05-26-2023 10:36-0400 Body weight 92.53 kg MD Shannon Yoon Work Phone: [facility] 05-26-2023 10:36-0400 Diastolic blood pressure 74 mm[Hg] MD Shannon Yoon Work Phone: [facility] 05-26-2023 10:36-0400 Heart rate 74 /min MD Shannon Yoon Work Phone: [facility] 05-26-2023 10:36-0400 Systolic blood pressure 145 mm[Hg] MD Shannon Yoon Work Phone: [facility] 05-05-2023 13:12-0500 Body height 160 cm [facility] 05-05-2023 13:12-0500 Body mass index (BMI) [Ratio] 35.96 kg/m2 [facility] 05-05-2023 13:12-0500 Body weight 92.08 kg [facility] 05-05-2023 13:12-0500 Diastolic blood pressure 70 mm[Hg] [facility] 05-05-2023 13:12-0500 Heart rate 66 /min [facility] 05-05-2023 13:12-0500 Systolic blood pressure 126 mm[Hg] [facility] 04-03-2023 10:53-0500 Body height 162.6 cm Rahel Henry DPM Work Phone: [facility] 04-03-2023 10:53-0500 Body mass index (BMI) [Ratio] 33.99 kg/m2 Rahel Henry DPM Work Phone: [facility] 04-03-2023 10:53-0500 Body weight 89.81 kg Christopher Bohach DPM Work Phone: [facility] 04-03-2023 10:53-0500 Diastolic blood pressure 78 mm[Hg] Kennedykurt Dunbarach DPM Work Phone: [facility] 04-03-2023 10:53-0500 Heart rate 74 /min Franker Bohach DPM Work Phone: [facility] 04-03-2023 10:53-0500 Respiratory rate 16 /min Kennedykurt Dunbarach DPM Work Phone: [facility] 04-03-2023 10:53-0500 Systolic blood pressure 126 mm[Hg] Kennedyremigioer Bohach DPM Work Phone: [facility] 02-19-2023 10:45-0500 Body height 160.02 cm Shannon Yoon Other [facility] 02-19-2023 10:45-0500 Body mass index (BMI) [Ratio] 35.71 kg/m2 Shannon Yoon Other [facility] [employer] Other 02-19-2023 10:45-0500 Body temperature 97.8 [degF] Shannon Yoon Other [facility] [employer] Other 02-19-2023 10:45-0500 Body weight 91.45 kg Shannon Yoon Other [facility] [employer] Other 02-19-2023 10:45-0500 Body weight 91.44 kg MD Shannon Yoon Work Phone: [facility] 02-19-2023 10:45-0500 Diastolic blood pressure 76 mm[Hg] Shannon Yoon Other [facility] 02-19-2023 10:45-0500 Systolic blood pressure 121 mm[Hg] Shannon Yoon Other [facility] 02-10-2023 11:50-0500 Diastolic blood pressure 64 mm[Hg] MD Shannon Yoon Work Phone: [facility] 02-10-2023 11:50-0500 Heart rate 65 /min MD Shannon Yoon Work Phone: [facility] 02-10-2023 11:50-0500 Respiratory rate 16 /min MD Shannon Yoon Work Phone: [facility] 02-10-2023 11:50-0500 SaO2% (BldA) [Mass fraction] 96 % MD Shnanon Yoon Work Phone: [facility] 02-10-2023 11:50-0500 Systolic blood pressure 114 mm[Hg] MD Shannon Yoon Work Phone: [facility] 02-10-2023 11:17-0500 Body temperature 98.4 [degF] MD Shannon Yoon Work Phone: [facility] 02-10-2023 10:47-0500 Inhaled oxygen flow rate 8 L/min MD Shannon Yoon Work Phone: [facility] 02-10-2023 10:00-0500 Body height 160.02 cm MD Shannon Yoon Work Phone: [facility] 02-10-2023 10:00-0500 Body mass index (BMI) [Ratio] 35.5 kg/m2 MD Shannon Yoon Work Phone: [facility] 02-10-2023 10:00-0500 Body weight 91 kg MD Shannon Yoon Work Phone: [facility] 02-06-2023 11:30-0500 Body height 160.02 cm Shannon Yoon Other [facility] 02-06-2023 11:30-0500 Body mass index (BMI) [Ratio] 35.42 kg/m2 Shannon Yoon Other [facility] [employer] [employer] Other 02-06-2023 11:30-0500 Body temperature 97.5 [degF] Shannon Yoon Other [employer] Other 02-06-2023 11:30-0500 Body weight 90.72 kg Shannon Yoon Other [employer] Other 02-06-2023 11:30-0500 Body weight 90.71 kg MD Shannon Yoon Work Phone: [facility] 02-06-2023 11:30-0500 Diastolic blood pressure 74 mm[Hg] Shannon Yoon Other [facility] 02-06-2023 11:30-0500 Systolic blood pressure 136 mm[Hg] Shannon Yoon Other [facility] 12-26-2022 10:00-0400 Body height 160.02 cm Pili Campbell Other [employer] Other 12-26-2022 10:00-0400 Body mass index (BMI) [Ratio] 35.42 kg/m2 Pili Shannan Other [employer] Other 12-26-2022 10:00-0400 Body temperature 96.1 [degF] Pilibess Campbell Other [employer] Other 12-26-2022 10:00-0400 Body weight 90.72 kg Pili Campbell Other [employer] Other 12-26-2022 10:00-0400 Diastolic blood pressure 78 mm[Hg] Pili Campbell Other [employer] Other 12-26-2022 10:00-0400 SaO2% (BldA) [Mass fraction] 99 % Pili Campbell Other [employer] Other 10-26-2023 10:00-0400 Systolic blood pressure 128 mm[Hg] Pili Campbell Other [employer] Other 2022 08:45-0400 Body height 160.02 cm Shannon Yoon Other [employer] Other 2022 08:45-0400 Body mass index (BMI) [Ratio] 35.46 kg/m2 Shannon Yoon Other [employer] Other 2022 08:45-0400 Body weight 90.81 kg Shannon Yoon Other [employer] Other 2022 08:45-0400 Diastolic blood pressure 81 mm[Hg] Shannon Yoon Other [employer] Other 2022 08:45-0400 Systolic blood pressure 140 mm[Hg] Shannon Yoon Other [employer] Other 10-22-2022 10:15-0400 Body height 160.02 cm Shannon Yoon Other [employer] Other 10-22-2022 10:15-0400 Body mass index (BMI) [Ratio] 35.42 kg/m2 Shannon Yoon Other [employer] Other 10-22-2022 10:15-0400 Body weight 90.72 kg Shannon Yoon Other [employer] Other 10-22-2022 10:15-0400 Diastolic blood pressure 72 mm[Hg] Shannon Yoon Other [employer] Other 10-22-2022 10:15-0400 Systolic blood pressure 115 mm[Hg] Shannon Yoon Other [employer] Other 10-10-2022 15:15-0400 Body height 160.02 cm Shannon Yoon Other [employer] Other 10-10-2022 15:15-0400 Body mass index (BMI) [Ratio] 35.96 kg/m2 Shannon Yoon Other [employer] Other 10-10-2022 15:15-0400 Body weight 92.08 kg Shannon Yoon Other [employer] Other 10-10-2022 15:15-0400 Diastolic blood pressure 71 mm[Hg] Shannon Yoon Other [employer] Other 10-10-2022 15:15-0400 Systolic blood pressure 113 mm[Hg] Shannon Yoon Other [employer] Other 08-09-2022 10:15-0400 Body height 160.02 cm Gavino Tavera Other [employer] Other 08-09-2022 10:15-0400 Body mass index (BMI) [Ratio] 35.78 kg/m2 Gavino Tavera Other [employer] Other 08-09-2022 10:15-0400 Body weight 91.63 kg Gavino Tavera Other [employer] Other 08-02-2022 10:30-0400 Body height 160.02 cm Shannon Yoon Other [employer] Other 08-02-2022 10:30-0400 Body mass index (BMI) [Ratio] 35.78 kg/m2 Shannon Yoon Other [employer] Other 08-02-2022 10:30-0400 Body weight 91.63 kg Shannon Yoon Other [employer] Other 08-02-2022 10:30-0400 Diastolic blood pressure 71 mm[Hg] Shannon Yoon Other [employer] Other 08-02-2022 10:30-0400 Systolic blood pressure 113 mm[Hg] Shannon Yoon Other [employer] Other 07-30-2022 08:00-0400 Body height 160.02 cm Dena Alcantara Other [employer] Other 07-30-2022 08:00-0400 Body mass index (BMI) [Ratio] 35.07 kg/m2 Dena Alcantara Other [employer] Other 07-30-2022 08:00-0400 Body weight 89.81 kg Dena Alcantara Other [employer] Other 07-08-2022 10:50-0400 Diastolic blood pressure 80 mm[Hg] Shannon Yoon Work Phone: [facility] [employer] DO Work Phone: 07-08-2022 10:50-0400 Systolic blood pressure 126 mm[Hg] Shannon Yoon Work Phone: [facility] [employer] DO Work Phone: 07-08-2022 10:47-0400 Body height 160.02 cm Shannon Yoon Work Phone: [facility] [employer] DO Work Phone: 07-08-2022 10:47-0400 Body mass index (BMI) [Ratio] 35.96 kg/m2 Shannon Yoon Work Phone: [facility] [employer] DO Work Phone: 07-08-2022 10:47-0400 Body surface area Derived from formula 1.95 m2 Shannon E Car Work Phone: [facility] [employer] DO Work Phone: 07-08-2022 10:47-0400 Body weight 92.08 kg Shannon E Car Work Phone: [facility] [employer] 250 DO Work Phone: 07-08-2022 10:47-0400 Heart rate 75 /min Shannon E Car Work Phone: [facility] [employer] Work Phone: 06-26-2022 11:00-0400 Body height 160.02 cm Eulogio Mai Other [employer] Other 06-26-2022 11:00-0400 Body mass index (BMI) [Ratio] 35.07 kg/m2 Eulogio Mai Other [employer] Other 06-26-2022 11:00-0400 Body temperature 97.3 [degF] Eulogio Mai Other [employer] Other 06-26-2022 11:00-0400 Body weight 89.81 kg Eulogio Mai Other [employer] Other 06-26-2022 11:00-0400 Diastolic blood pressure 62 mm[Hg] Eulogio Mai Other [employer] Other 06-26-2022 11:00-0400 SaO2% (BldA) [Mass fraction] 98 % Eulogio Mai Other [employer] Other 06-26-2022 11:00-0400 Systolic blood pressure 110 mm[Hg] Eulogio Mai Other [employer] Other 06-04-2022 14:40-0400 Diastolic blood pressure 78 mm[Hg] MD Shannon Yoon Work Phone: [facility] 06-04-2022 14:40-0400 Heart rate 66 /min MD Shannon Yoon Work Phone: [facility] 06-04-2022 14:40-0400 Respiratory rate 16 /min MD Shannon Yoon Work Phone: [facility] 06-04-2022 14:40-0400 SaO2% (BldA) [Mass fraction] 95 % MD Shannon Yoon Work Phone: [facility] 06-04-2022 14:40-0400 Systolic blood pressure 137 mm[Hg] MD Shannon Yoon Work Phone: [facility] 06-04-2022 12:00-0400 Inhaled oxygen flow rate 3 L/min MD Shannon Yoon Work Phone: [facility] 06-04-2022 08:49-0400 Body height 160.02 cm MD Shannon Yoon Work Phone: [facility] 06-04-2022 08:49-0400 Body weight 87.08 kg MD Shannon Yoon Work Phone: [facility] 05-08-2022 11:30-0500 Body height 160.02 cm Eulogio Mai Other [employer] Other 05-08-2022 11:30-0500 Body mass index (BMI) [Ratio] 35.07 kg/m2 Eulogio Mai Other [employer] Other 05-08-2022 11:30-0500 Body temperature 96.7 [degF] Eulogio Mai Other [employer] Other 05-08-2022 11:30-0500 Body weight 89.81 kg Eulogio Bacarandy Other [employer] Other 05-08-2022 11:30-0500 Diastolic blood pressure 74 mm[Hg] Eulogio Bacarandy Other [employer] Other 05-08-2022 11:30-0500 SaO2% (BldA) [Mass fraction] 98 % Eulogio Bacarandy Other [employer] Other 05-08-2022 11:30-0500 Systolic blood pressure 128 mm[Hg] Eulogio Bacarandy Other [employer] Other 04-30-2022 10:15-0500 Body height 160.02 cm Shannon Yoon Other [employer] Other 04-30-2022 10:15-0500 Body mass index (BMI) [Ratio] 35.07 kg/m2 Shannon Yoon Other [employer] Other 04-30-2022 10:15-0500 Body temperature Shannon Yoon Other [employer] Other 04-30-2022 10:15-0500 Body weight 89.81 kg Shannon Yoon Other [employer] Other 04-30-2022 10:15-0500 SaO2% (BldA) [Mass fraction] 97 % Shannon Yoon Other [employer] Other 04-08-2022 14:11-0500 Body height 160.02 cm Shannon Yoon Work Phone: [facility] DO Work Phone: 04-08-2022 14:11-0500 Body mass index (BMI) [Ratio] 34.37 kg/m2 Shannon Yoon Work Phone: [facility] DO Work Phone: 04-08-2022 14:11-0500 Body surface area Derived from formula 1.91 m2 Shannon Yoon Work Phone: [facility] DO Work Phone: 04-08-2022 14:11-0500 Body weight 88 kg Shannon Yoon Work Phone: [facility] DO Work Phone: 04-08-2022 14:11-0500 Diastolic blood pressure 80 mm[Hg] Shannon Yoon Work Phone: [facility] DO Work Phone: 04-08-2022 14:11-0500 Heart rate 66 /min Shannon Yoon Work Phone: [facility] DO Work Phone: 04-08-2022 14:11-0500 Systolic blood pressure 118 mm[Hg] Shannon Yoon Work Phone: [facility] 250 DO Work Phone: 04-08-2022 14:11-0500 15 1 Shannon Yoon Work Phone: [facility] DO Work Phone: Comment on above: PHQ-9 TS 04-04-2022 14:11-0500 139 1 Shannon Yoon Work Phone: [facility] 250 DO Work Phone: Comment on above: FSLDL 03-18-2022 08:00-0500 53 1 Shannon Yoon Work Phone: [facility] [address] [place] Work Phone: Comment on above: [id number] 02-11-2022 13:41-0500 Diastolic blood pressure 82 mm[Hg] Shannon Yoon Work Phone: [facility] 250 DO Work Phone: 02-11-2022 13:41-0500 Systolic blood pressure 128 mm[Hg] Shannon Yoon Work Phone: [facility] 250 DO Work Phone: 02-11-2022 13:40-0500 Body height 160.02 cm Shannon Yoon Work Phone: [facility] 250 DO Work Phone: 02-11-2022 13:40-0500 Body mass index (BMI) [Ratio] 33.92 kg/m2 Shannon Yoon Work Phone: [facility] 250 DO Work Phone: 02-11-2022 13:40-0500 Body surface area Derived from formula 1.9 m2 Shannon Yoon Work Phone: [facility] 250 DO Work Phone: 02-11-2022 13:40-0500 Body weight 86.86 kg Shannon Yoon Work Phone: [facility] 250 DO Work Phone: 02-11-2022 13:40-0500 Diastolic blood pressure 86 mm[Hg] Shannon Yoon Work Phone: [facility] 250 DO Work Phone: 02-11-2022 13:40-0500 Heart rate 69 /min Shannon Yoon Work Phone: [facility] 250 DO Work Phone: 02-11-2022 13:40-0500 Systolic blood pressure 138 mm[Hg] Shannon Yoon Work Phone: [facility] 250 DO Work Phone: Encounters Encounter Date Encounter Type Care Provider Facility Start: 04-30-2024 End: 04-30-2024 ambulatory Shannon Yoon MD Work Phone: [facility] Work Phone: Start: 04-30-2024 End: 04-30-2024 Patient encounter procedure Shannon Yoon MD Work Phone: [facility] Work Phone: Start: 04-21-2024 End: 04-21-2024 ambulatory Shannon Yoon MD Work Phone: [facility] Work Phone: Start: 04-21-2024 End: 04-21-2024 Patient encounter procedure Shannon Yoon MD Work Phone: [facility] Work Phone: Start: 04-02-2024 End: 04-02-2024 Bamboo flowsheet Rahel Henry DPM Work Phone: [facility] Start: 04-02-2024 End: 04-02-2024 Bamboo flowsheet Rahel Henry DPM Work Phone: [facility] Start: 04-02-2024 End: 04-02-2024 Patient encounter procedure Rahel Henry DPM Work Phone: [facility] Comment on above: Idiopathic progressi ve polyneuropathy (Primary Dx); Onychomycosis Start: 04-02-2024 End: 04-02-2024 ambulatory RAHEL HENRY Not Available Start: 03-29-2024 End: 03-29-2024 Bamboo flowsheet Gertrudis Dumont [employer]ICATOR-SUPERVISOR [employer] Work Phone: [facility] Start: 03-29-2024 End: 03-29-2024 Bamboo flowsheet Gertrudis Dumont [employer]ICATOR-[employer]PER[employer]OR [employer] Work Phone: [facility] Start: 03-29-2024 End: 03-29-2024 Office outpatient new 30 minutes Gertrudis Dumont [employer]ICATOR-[employer]PER[employer]OR [employer] Work Phone: [facility] Comment on above: Melanocytic nevus of trunk (Primary Dx); Seborrheic keratosis; Notalgia paresthetica; Xerosis cutis Start: 03-29-2024 End: 03-29-2024 ambulatory GERTRUDIS DUMONT Not Available Start: 03-12-2024 End: 03-12-2024 ambulatory Shannon Yoon MD Work Phone: [facility] Work Phone: Start: 03-12-2024 End: 03-12-2024 Patient encounter procedure Shannon Yoon MD Work Phone: [facility] Work Phone: Start: 03-04-2024 End: 03-04-2024 Telephone encounter Lorriketty White DO Work Phone: [facility] [facility] [facility] [employer] [facility] Start: 02-09-2024 End: 02-09-2024 Patient encounter procedure Shannon Yoon MD Work Phone: [facility] Work Phone: Start: 01-05-2024 End: 01-05-2024 Office outpatient visit 25 minutes Juany Richter MD Work Phone: [facility] Comment on above: Paroxysmal atrial fi brillation (Multi); High risk medication use; PVD (peripheral vascular disease) ([facility]-H[facility]); Mixed hyperlipidemia; Hypertension, unspecified type; Hypercoagulable state due to paroxysmal atrial fibrillation (Multi); Statin intolerance; Stage 3a chronic kidney disease (Multi); BMI 31.0-31.9,adult; Former smoker Start: 01-05-2024 End: 01-05-2024 ambulatory [facility] Ambulatory Start: 12-29-2023 End: 12-29-2023 Bamboo flowsheet Rahel Henry DPM Work Phone: [facility] Start: 12-29-2023 End: 12-29-2023 Bamboo flowsheet Rahel Henry DPM Work Phone: [facility] Start: 12-29-2023 End: 12-29-2023 Patient encounter procedure Rahel Henry DPM Work Phone: [facility] Comment on above: Idiopathic progressi ve polyneuropathy (Primary Dx); Onychomycosis Start: 12-29-2023 End: 12-29-2023 ambulatory RAHEL HENRY Not Available Start: 12-15-2023 Non-patient / Non-visit MD Hanna Yoon Work Phone: [facility] Pulmonary Disease Work Phone: Start: 12-15-2023 Registered Recurring MD Shannon Yoon Work Phone: [facility] C[facility]-Infusion Therapy - O/P Work Phone: Start: 12-15-2023 End: 12-15-2023 Patient encounter procedure MD Shannon Yoon Work Phone: [facility]-Respiratory Therapy Work Phone: Start: 12-15-2023 End: 12-15-2023 ambulatory MD Shannon Yoon Work Phone: [facility] Work Phone: Start: 12-03-2023 End: 12-03-2023 ambulatory MD Shannon Yoon Work Phone: [facility] Work Phone: Start: 12-03-2023 End: 12-03-2023 Patient encounter procedure MD Shannon Yoon Work Phone: [facility] Work Phone: Start: 10-24-2023 Non-patient / Non-visit MD Hanna Yoon Work Phone: [facility] Work Phone: Start: 10-23-2023 End: 10-23-2023 ambulatory MD Shannon Yoon Work Phone: [facility] Work Phone: Start: 10-23-2023 End: 10-23-2023 Patient encounter procedure MD Shannon Yoon Work Phone: [facility] Work Phone: Start: 10-20-2023 End: 10-20-2023 Patient encounter procedure Rahel Henry DP Work Phone: [facility] Comment on above: Idiopathic progressi ve polyneuropathy (Primary Dx); Onychomycosis Start: 10-20-2023 End: 10-20-2023 ambulatory RAHEL HENRY Not Available Start: 10-09-2023 End: 10-09-2023 ambulatory MD Shannon Yoon Work Phone: [facility] Work Phone: Start: 10-09-2023 End: 10-09-2023 Patient encounter procedure MD Shannon Yoon Work Phone: [facility] Work Phone: Start: 09-24-2023 End: 09-24-2023 ambulatory MD Shannon Yoon Work Phone: [facility] Work Phone: Start: 09-24-2023 End: 09-24-2023 Patient encounter procedure MD Shannon Yoon Work Phone: [facility] Work Phone: Start: 09-12-2023 End: 09-12-2023 ambulatory MD Shannon Yoon Work Phone: [facility] Work Phone: Start: 09-12-2023 End: 09-12-2023 Patient encounter procedure MD Shannon Yoon Work Phone: [facility] Work Phone: Start: 09-08-2023 Registered Recurring MD Shannon Yoon Work Phone: [facility]-Infusion Therapy - O/P Work Phone: Start: 08-18-2023 End: 08-18-2023 ambulatory [facility] Work Phone: Start: 08-18-2023 End: 08-18-2023 Patient encounter procedure [facility] Work Phone: Start: 08-15-2023 End: 08-15-2023 ambulatory RAHEL HENRY Not Available Start: 07-02-2023 End: 07-02-2023 Patient encounter procedure [facility] Vascular Surgery Work Phone: Start: 07-02-2023 End: 07-02-2023 ambulatory Pili Campbell Facility:[facility] Start: 06-12-2023 End: 06-12-2023 ambulatory RAHEL HENRY Not Available Start: 06-05-2023 End: 06-05-2023 Office outpatient visit 25 minutes Juany Richter MD Work Phone: [facility] Comment on above: Paroxysmal atrial fi brillation (CMS/HCC); PVD (peripheral vascular disease) ([facility]/HCC); Hypertension, unspecified type; Hypercoagulable state due to paroxysmal atrial fibrillation (CMS/HCC); Gastroesophageal reflux disease, unspecified whether esophagitis present; Chronic obstructive pulmonary disease, unspecified COPD type ([facility]/HCC); CHANEL inhibitor intolerance; Stage 3a chronic kidney disease (CMS/HCC); Mixed hyperlipidemia; High risk medication use; Former smoker Start: 06-05-2023 End: 06-05-2023 ambulatory [facility] Amb[facility] Start: 06-05-2023 End: 06-05-2023 Subsequent hospital visit by physician Rad External Film EF [facility] [employer]TERNAL [employer] Comment on above: Paroxysmal atrial fi brillation (CMS/HCC) Start: 05-26-2023 End: 05-26-2023 ambulatory MD Shannon Yoon Work Phone: [facility] Work Phone: Start: 05-26-2023 End: 05-26-2023 Patient encounter procedure MD Shannon Yoon Work Phone: [facility] Work Phone: Start: 05-05-2023 End: 05-05-2023 Professional / ancillary services [facility] Comment on above: Atrial fibrillation, unspecified type (CMS/HCC) Start: 05-05-2023 End: 05-05-2023 ambulatory [facility] Ambulatory Start: 04-23-2023 End: 04-23-2023 ambulatory MD Shannon Yoon Work Phone: [facility] Work Phone: Start: 04-23-2023 End: 04-23-2023 Patient encounter procedure MD Shannon Yoon Work Phone: [facility] Work Phone: Start: 04-15-2023 Non-patient / Non-visit MD Hanna Yoon Work Phone: [facility] Pulmonary Disease Work Phone: Start: 04-15-2023 End: 04-15-2023 ambulatory MD Shannon Yoon Work Phone: [facility] Work Phone: Start: 04-15-2023 End: 04-15-2023 Patient encounter procedure MD Shannon Yoon Work Phone: [facility]-Respiratory Therapy Work Phone: Start: 04-03-2023 End: 04-03-2023 Patient encounter procedure Rahel Henry DPM Work Phone: [facility] Comment on above: Idiopathic progressi ve polyneuropathy (Primary Dx); Onychomycosis Start: 02-19-2023 End: 02-19-2023 ambulatory Shannon Yoon Other [employer] Other Start: 02-19-2023 Office outpatient vi sit 15 minutes Shannon Yoon [facility] Start: 02-19-2023 End: 02-19-2023 Patient encounter procedure MD Shannon Yoon Work Phone: [facility] Work Phone: Start: 02-10-2023 End: 02-10-2023 Admission to same day surgery center MD Shannon Yoon Work Phone: [facility] [place] Start: 02-10-2023 End: 02-10-2023 ambulatory MD Shannon Yoon Work Phone: [facility] Work Phone: Start: 02-06-2023 End: 02-06-2023 ambulatory Shannon Yoon Other [employer] Other Start: 02-06-2023 Office outpatient vi sit 15 minutes Shannon Yoon [facility] Start: 02-06-2023 Telephone encounter Shannon Yoon [facility] Start: 02-06-2023 End: 02-06-2023 Patient encounter procedure MD Shannon Yoon Work Phone: [facility] Work Phone: Start: 02-03-2023 End: 02-03-2023 ambulatory Shannon Yoon Other [employer] Other Start: 02-03-2023 Telephone encounter Shannon Yoon [facility] Start: 01-30-2023 End: 01-30-2023 ambulatory MD Shannon Yoon Work Phone: [facility] Work Phone: Start: 01-30-2023 End: 01-30-2023 Patient encounter procedure MD Shannon Yoon Work Phone: [facility]-Pre-Surgical Testing Work Phone: Start: 12-26-2022 End: 12-26-2022 Patient encounter procedure Pili Campbell [facility] Vascular Surgery Start: 12-26-2022 End: 12-26-2022 ambulatory MD Shannon Yoon Work Phone: [employer] Other Start: 2022 End: 2022 ambulatory Shannon Yoon Other [employer] Other Start: 2022 Patient encounter procedure Shannon Yoon [facility] Start: 11-11-2022 End: 11-11-2022 ambulatory Shannon Yoon Other [employer] Other Start: 11-11-2022 Telephone encounter Shannon Yoon [facility] Start: 10-25-2022 End: 10-25-2022 ambulatory Shannon Yoon Other [employer] Other Start: 10-25-2022 Telephone encounter Shannon Yoon [facility] Start: 10-22-2022 Encounter for gynecological examination (general) (routine) with abnormal findings Shannon Yoon [facility] Start: 10-22-2022 Office outpatient vi sit 25 minutes Shannon Yoon [facility] Start: 10-22-2022 End: 10-22-2022 ambulatory MD Shannon Yoon Work Phone: [facility] Work Phone: Start: 10-22-2022 End: 10-22-2022 Departed Referred MD Shannon Yoon Work Phone: [facility] C[facility]-Lab [place] Work Phone: Start: 10-15-2022 End: 10-15-2022 ambulatory Shannon Yoon Other [employer] Other Start: 10-15-2022 Telephone encounter Shannon Yoon [facility] Start: 10-10-2022 End: 10-10-2022 Departed Referred MD Shannon Yoon Work Phone: [facility] C[facility]-Lab Main [place] Work Phone: Start: 10-10-2022 End: 10-10-2022 ambulatory Shannon Yoon Other [employer] Other Start: 10-10-2022 Office outpatient vi sit 15 minutes Shannon Yoon [facility] Start: 10-07-2022 End: 10-07-2022 ambulatory MD Shannon Yoon Work Phone: [facility] Work Phone: Start: 10-07-2022 End: 10-07-2022 Patient encounter procedure MD Shannon Yoon Work Phone: [facility]-Respiratory Therapy Work Phone: Start: 08-09-2022 Office outpatient vi sit 25 minutes Gavino Tavera [facility] [place] [facility] Start: 08-09-2022 End: 08-09-2022 ambulatory MD Shannon Yoon Work Phone: [facility] Work Phone: Start: 08-09-2022 End: 08-09-2022 Patient encounter procedure MD Shannon Yoon Work Phone: [facility]-XRay [facility] Start: 08-02-2022 End: 08-02-2022 ambulatory Shannon Yoon Other [employer] Other Start: 08-02-2022 Office outpatient vi sit 15 minutes Shannon Yoon [facility] Start: 07-30-2022 Office outpatient ne w 30 minutes Dena Alcantara [facility] [place] [facility] Start: 07-30-2022 End: 07-30-2022 ambulatory MD Shannon Yoon Work Phone: [facility] Work Phone: Start: 07-30-2022 End: 07-30-2022 Patient encounter procedure MD Shannon Yoon Work Phone: [facility]-XRay [place] [facility] Start: 07-08-2022 Office outpatient vi sit 25 minutes Shannon Yoon Work Phone: [facility] [address] DO Work Phone: Start: 07-08-2022 Patient encounter procedure Shannon Yoon Work Phone: [facility] [address] DO Work Phone: Start: 07-08-[address] Shannon Yoon Facility: Start: 06-26-2022 End: 06-26-2022 ambulatory Eulogio Mai Other [employer] Other Start: 06-26-2022 Office outpatient vi sit 15 minutes Eulogio Mai [facility] Vascular Surgery Start: 06-21-2022 End: 06-21-2022 ambulatory MD Shannon Yoon Work Phone: [facility] Work Phone: Start: 06-21-2022 End: 06-21-2022 Patient encounter procedure MD Shannon Yoon Work Phone: [facility]-Ultrasound Main [place] Work Phone: Start: 06-20-2022 End: 06-20-2022 ambulatory Shannon Yoon Other [employer] Other Start: 06-20-2022 Telephone encounter Shannon Yoon [facility] Start: 06-04-2022 End: 06-04-2022 Admission to same day surgery center MD Shannon Yoon Work Phone: [facility]-Interventional Radiology Work Phone: Start: 06-04-2022 End: 06-04-2022 ambulatory MD Shannon Yoon Work Phone: [facility] Work Phone: Start: 05-08-2022 End: 05-08-2022 ambulatory Eulogio Mai Other [facility] [employer] Other Start: 05-08-2022 Office outpatient ne w 60 minutes Eulogio Mai [facility] Vascular Surgery Start: 05-01-2022 End: 05-01-2022 ambulatory Shannon Yoon Other [place] [employer] Other Start: 05-01-2022 Telephone encounter Shannon Yoon [facility] Start: 04-30-2022 End: 04-30-2022 ambulatory Shannon Yoon Other [place] [employer] Other Start: 04-30-2022 Office outpatient vi sit 15 minutes Shannon Yoon [facility] Start: 04-18-2022 Telephone encounter Shannon toth Work Phone: [facility] [address] DO Work Phone: Start: 04-08-[address] Shannon Yoon Facility: Start: 04-08-2022 Office outpatient vi sit 25 minutes Shannon Yoon Work Phone: [facility] [address] DO Work Phone: Start: 04-04-2022 End: 04-04-2022 ambulatory MD Shannon Yoon Work Phone: [facility] Work Phone: Start: 04-04-2022 End: 04-04-2022 Patient encounter procedure MD Shannon Yoon Work Phone: [facility]-Lab Main [place] Work Phone: Start: 03-18-2022 Chart Update Shannon Yoon Work Phone: [facility] [address] DO Work Phone: Start: 03-18-2022 Patient encounter procedure Shannon Yoon Work Phone: [facility] [address] [place] Work Phone: Start: 03-18-[address] Juany Perkins ty:[id number] Start: 02-12-2022 End: 02-13-2022 ambulatory RAYNA OCHOA Facility:[facility]1 Start: 02-11-2022 Office consultation new/estab patient 60 min Shannon Yoon Work Phone: [facility] [address] DO Work Phone: Start: 02-11-2022 Office outpatient ne w 45 minutes Shannon Yoon Work Phone: [facility] [address] DO Work Phone: Start: 02-11-[address] Rayna Ochoa F acility: Start: 02-08-2022 ambulatory Facility:[facility] Start: 01-28-2022 End: 01-29-[address] SHANNON YOON Facility: Start: 01-15-2022 End: 01-15-2022 ambulatory [facility] Start: 12-10-2021 End: 12-11-[address] SHANNON YOON Facility: Start: 08-13-2021 Encounter for preprocedural laboratory examination CORY MOREL [facility] Start: 08-13-2021 End: 08-14-2021 ambulatory SHANNON YOON Facility:[facility] Start: 08-10-2021 End: 08-11-[address] SHANNON YOON Facility: Start: 08-10-2021 End: 08-11-2021 Encounter for preprocedural laboratory examination DR SHANNON YOON Facility: Start: 07-05-2021 End: 07-06-[address] SHANNON YOON Facility: Start: 06-26-2021 End: 07-20-[address] SHANNON YOON Facility: Start: 06-14-2021 End: 06-15-[address] SHANNON YOON Facility:[facility]1 Start: 04-23-2021 End: 04-24-[address] SHANNON YOON Facility: Procedures Date Procedure Procedure Detail Performing Clinician Start: 04-21-2024 Plain X-ray of left hand Shannon Yoon MD Work Phone: Start: 01-05-2024 Ecg routine ecg w/le ast 12 lds w/i&r Juany Richter MD Work Phone: Start: 06-05-2023 ECG 12-LEAD MAXIMILIANO SANDEEP H Start: 06-05-2023 FOLLOW UP IN CARDIOLOGY MAXIMILIANO CONNELL Start: 06-05-2023 Ecg routine ecg w/le ast 12 lds w/i&r Juany Richter MD Work Phone: Start: 06-05-2023 Radiologic exam ches t 2 views Juany Richter MD Work Phone: Start: 05-05-2023 ECG 12-LEAD MAXIMILIANO SANDEEP H Start: 04-15-2023 Plain chest X-ray MD Edgardo Yoon Work Phone: Start: 02-10-2023 Hysteroscopy MD Shannon Yoon Work Phone: Start: 12-26-2022 Ankle brachial press ure index [...] section Shannon aguilar Work Phone: Cholecystectomy Shannon E Bra un Work Phone: Decompression of med bello nerve Shannon Wood Yoon Work Phone: Depression screening Shannon Yoon Other Ligation of fallopian tube M narayan Wood Yoon Work Phone: Screening for malign ant neoplasm of breast Shannon Yoon Other Total colonoscopy Shannon toth Work Phone: Comment on above: 2011; Viral screening Shannon Car Other Plan of Treatment Date Care Activity Detail Author Start: 09-27-2024 End: 09-27-2024 Patient encounter procedure 09/27/2024 9:20 AM EDT Office Visit [facility] [address] [place] [address] Gertrudis Dumont, [employer] FABRICATOR-SUPERVISOR [employer] [address] [place] [address] [facility] Start: 07-12-2024 End: 07-12-2024 Patient encounter procedure 07/12/2024 9:30 AM EDT Office Visit [facility] [address] [facility] [address] [place] [address] Juany Richter MD [address] [facility] [address] [place] [address] [facility] Start: 06-21-2024 End: 06-21-2024 Patient encounter procedure 06/21/2024 11:00 AM EDT Procedure Visit [facility] [address] [place] [address] Rahel Henry DPM [address] [place] [address] [facility] Start: 04-21-2024 Plain X-ray of left hand XR hand LT min 3V* [facility] Start: 04-21-2024 XR Hand - left GE [address] [facility] Start: 04-02-2024 End: 04-02-2024 Patient encounter procedure [facility] Comment on above: Arrived Start: 03-30-2024 End: 03-30-2024 Patient encounter procedure 03/30/2024 10:30 AM EST Procedure Visit [facility] [address] [facility] [address] Rahel Henry, DPIsh [address] [facility] [place] [address] [facility] Start: 03-29-2024 End: 03-29-2024 Patient encounter procedure 03/29/2024 10:10 AM EST Office Visit [facility] [address] [place] [address] Gertrudis Dumont APRN-SUPERVISOR [employer] [address] [place] [address] Arrived [facility] Comment on above: Arrived Start: 01-05-2024 End: 01-04-2025 Alanine aminotransferase [Enzymatic activity/volume] in Serum or Plasma by With P-5'-P Alanine Aminotransferase Lab Routine Paroxysmal atrial fibrillation (Multi) Mixed hyperlipidemia Hypercoagulable state due to paroxysmal atrial fibrillation (Multi) Expected: 01/05/2024, Expires: 01/04/2025 [facility] Work Phone: Comment on above: Expected: 01/05/2024, Expires: Start: 01-05-2024 End: 01-04-2025 Aspartate aminotransferase [Enzymatic activity/volume] in Serum or Plasma by With P-5'-P Aspartate Aminotransferase Lab Routine Paroxysmal atrial fibrillation (Multi) Mixed hyperlipidemia Hypercoagulable state due to paroxysmal atrial fibrillation (Multi) Expected: 01/05/2024 (Approximate), Expires: 01/04/2025 [facility] Work Phone: Comment on above: Expected: 01/05/2024 (Approximate), Expi res: 01/04/2025 Start: 01-05-2024 End: 01-04-2025 Basic metabolic 2000 panel - Serum or Plasma Basic Metabolic Panel Lab Routine Paroxysmal atrial fibrillation (Multi) Hypercoagulable state due to paroxysmal atrial fibrillation (Multi) Expected: 01/05/2024 (Approximate), Expires: 01/04/2025 [facility] Work Phone: Comment on above: Expected: 01/05/2024 (Approximate), Expi res: 01/04/2025 Start: 01-05-2024 End: 01-04-2025 Complete Pulmonary Function Test (Spirometry/DLCO/Lung Volumes) Complete Pulmonary Function Test (Spirometry/DLCO/Lung Volumes) PFT Routine Paroxysmal atrial fibrillation (Multi) Hypercoagulable state due to paroxysmal atrial fibrillation (Multi) Expected: 01/05/2024 (Approximate), Expires: 01/04/2025 [facility] Work Phone: Comment on above: Expected: 01/05/2024 (Approximate), Expi res: 01/04/2025 Start: 01-05-2024 End: 01-04-2025 Lipid 1996 panel - Serum or Plasma Lipid Panel Lab Routine Mixed hyperlipidemia Expected: 01/05/2024, Expires: 01/04/2025 [facility] Work Phone: Comment on above: Expected: 01/05/2024, Expires: Start: 01-05-2024 End: 01-04-2025 Thyrotropin [Units/volume] in Serum or Plasma Thyroid Stimulating Hormone Lab Routine Paroxysmal atrial fibrillation (Multi) Hypercoagulable state due to paroxysmal atrial fibrillation (Multi) Expected: 01/05/2024 (Approximate), Expires: 01/04/2025 [facility] Work Phone: Comment on above: Expected: 01/05/2024 (Approximate), Expi res: 01/04/2025 Start: 01-05-2024 End: 01-04-2025 XR Chest 2 Views XR chest 2 views Imaging Routine Paroxysmal atrial fibrillation (Multi) Hypercoagulable state due to paroxysmal atrial fibrillation (Multi) Expected: 01/05/2024 (Approximate), Expires: 01/04/2025 [facility] Work Phone: Comment on above: Expected: 01/05/2024 (Approximate), Expi res: 01/04/2025 Start: 12-29-2023 End: 12-29-2023 Patient encounter procedure [facility] Comment on above: Arrived Start: 12-22-2023 End: 12-22-2023 Patient encounter procedure 12/22/2023 9:45 AM EDT Office Visit [facility] [address] [facility] [address] [place] [address] Juany Richter MD [address] [facility] [address] [place], [place] [id number] [facility] Start: 11-02-2023 COVID-19 Vaccine ( season) COVID-19 Vaccine () [facility] Start: 11-02-2023 Influenza vaccination [facility] Start: 06-12-2023 End: 06-12-2023 Patient encounter procedure 06/12/2023 10:15 AM EDT Procedure Visit [facility] [address] [place] [address] Rahel Henry DPM [address] [place], [place] [id number] [facility] Start: 06-05-2023 End: 06-04-2024 Alanine aminotransferase [Enzymatic activity/volume] in Serum or Plasma by With P-5'-P Alanine Aminotransferase Lab Routine Paroxysmal atrial fibrillation (CMS/HCC) Expected: 06/05/2023 (Approximate), Expires: 06/04/2024 [facility] Work Phone: Comment on above: Expected: 06/05/2023 (Approximate), Expi res: 06/04/2024 Start: 06-05-2023 End: 06-04-2024 Aspartate aminotransferase [Enzymatic activity/volume] in Serum or Plasma by With P-5'-P Aspartate Aminotransferase Lab Routine Paroxysmal atrial fibrillation (CMS/HCC) Expected: 06/05/2023 (Approximate), Expires: 06/04/2024 [facility] Work Phone: Comment on above: Expected: 06/05/2023 (Approximate), Expi res: 06/04/2024 Start: 06-05-2023 End: 06-04-2024 Basic metabolic 2000 panel - Serum or Plasma Basic Metabolic Panel Lab Routine Paroxysmal atrial fibrillation (CMS/HCC) Expected: 06/05/2023 (Approximate), Expires: 06/04/2024 [facility] Work Phone: Comment on above: Expected: 06/05/2023 (Approximate), Expi res: 06/04/2024 Start: 06-05-2023 End: 06-04-2024 Complete Pulmonary Function Test Pre/Post Bronchodialator (Spirometry Pre/Post/DLCO/Lung Volumes) Complete Pulmonary Function Test Pre/Post Bronchodialator (Spirometry Pre/Post/DLCO/Lung Volumes) PFT Routine Paroxysmal atrial fibrillation (CMS/HCC) Expected: 06/05/2023 (Approximate), Expires: 06/04/2024 [facility] Work Phone: Comment on above: Expected: 06/05/2023 (Approximate), Expi res: 06/04/2024 Start: 06-05-2023 End: 06-04-2024 Lipid 1996 panel - Serum or Plasma Lipid Panel Lab Routine PVD (peripheral vascular disease) ([facility]) Mixed hyperlipidemia Expected: 06/05/2023 (Approximate), Expires: 06/04/2024 [facility] Work Phone: Comment on above: Expected: 06/05/2023 (Approximate), Expi res: 06/04/2024 Start: 06-05-2023 End: 06-04-2024 Thyrotropin [Units/volume] in Serum or Plasma Thyroid Stimulating Hormone Lab Routine Paroxysmal atrial fibrillation (CMS/HCC) Expected: 06/05/2023 (Approximate), Expires: 06/04/2024 [facility] Work Phone: Comment on above: Expected: 06/05/2023 (Approximate), Expi res: 06/04/2024 Start: 06-05-2023 End: 06-05-2023 Patient encounter procedure 06/05/2023 10:00 AM EDT Office Visit [facility] [address] [place] [address] Juany Richter MD [address] [facility] [address] [place], [place] [id number] [facility] Start: 02-10-2023 End: 02-10-2023 [facility] Start: 12-05-2022 FUV, Provider: Juany Richter, Status: Pen, Time: 10:30 AM FUV, Provider: Juany Richter, Status: Pen, Time: 10:30 AM [facility] Work Phone: Start: 11-01-2022 COVID-19 Vaccine ( season) COVID-19 Vaccine ( season) [facility] Start: 11-01-2022 Influenza vaccination Influenza Vaccine (#1) [facility] Start: 10-22-2022 [facility] Start: 07-08-2022 FUV, Provider: Juany Richter, Status: Pen, Time: 10:30 AM FUV, Provider: Juany Richter, Status: Pen, Time: 10:30 AM [facility] DO Work Phone: Start: 06-21-2022 Ankle brachial pressure index [facility] Start: 06-04-2022 [facility] Start: 04-08-2022 FUV, Provider: Juany Richter, Status: Pen, Time: 1:45 PM FUV, Provider: Juany Richter, Status: Pen, Time: 1:45 PM [facility] 250 DO Work Phone: Start: 04-04-2022 PVR, Provider: ANASTACIA [facility] ULTRASOUND 01,[id number], Status: Pen, Time: 8:45 AM PVR, Provider: ANASTACIA [facility] ULTRASOUND 01,[id number], Status: Pen, Time: 8:45 AM [facility] 250 DO Work Phone: Start: 04-01-2022 FUV, Provider: Juany Richter, Status: Pen, Time: 10:30 AM FUV, Provider: Juany Richter, Status: Pen, Time: 10:30 AM [facility] 250 DO Work Phone: Start: 03-25-2022 PVR, Provider: [id number] ULTRASOUND 02,[id number], Status: Pen, Time: 10:15 AM PVR, Provider: [id number] ULTRASOUND 02,[id number], Status: Pen, Time: 10:15 AM [facility]-[place] 250 DO Work Phone: Start: 03-18-2022 STRESS NUC, Provider: ANASTACIA [facility] NUCLEAR 01,[id number], Status: Pen, Time: 8:00 AM STRESS NUC, Provider: ANASTACIA [facility] NUCLEAR 01,[id number], Status: Pen, Time: 8:00 AM [facility] 250 DO Work Phone: Start: 12-16-2016 Pneumococcal Vaccine: 65+ Years (1 - PCV) Pneumococcal Vaccine: 65+ Years (1 - PCV) [facility] Start: 12-16-2016 Pneumococcal Vaccine: 65+ Years (1 of 1 - PCV) Pneumococcal Vaccine: 65+ Years (1 of 1 - PCV) [facility] Start: 2011 RSV High Risk: (Elderly (60+) or Population) (1 - Risk 60-74 years 1-dose series) RSV High Risk: (Elderly (60+) or Population) (1 - Risk 60-74 years 1-dose series) [facility] Start: 12-16-2001 Zoster Vaccines (1 of 2) Zoster Vaccines (1 of 2) [facility] Start: 1991 Screening for malignant neoplasm of breast Mammogram [facility] Start: 12-16-1973 DTaP/Tdap/Td Vaccines (1 - Tdap) DTaP/Tdap/Td Vaccines (1 - Tdap) [facility] Start: 12-16-1970 Urine screening for protein CKD: Urine Protein Screening [facility] Start: 12-16-1969 Diabetes mellitus screening Diabetes Screening [facility] Start: 12-16-1969 Hepatitis C screening Hepatitis C Screening [facility] Start: 12-16-1957 Pneumococcal Vaccine: 65+ Years (1 - PCV) Pneumococcal Vaccine: 65+ Years (1 - PCV) [facility] Start: 12-16-1957 Pneumococcal Vaccine: 65+ Years (1 of 2 - PCV) Pneumococcal Vaccine: 65+ Years (1 of 2 - PCV) [facility] Start: 1950 Lipid panel Lipid Panel [facility] Start: 1950 Medicare Annual Wellness Visit Medicare Annual Wellness Visit (AWV) [facility] Start: 1950 Screening for malignant neoplasm of colon [facility] Start: 1950 Screening for osteoporosis Bone Density Scan [facility] Start: 1950 Thyroid stimulating hormone measurement TSH Level [facility] Ankle brachial press ure index [facility] Comprehensive metabo lic 2000 panel - Serum or Plasma [facility] ECG 12 Lead ECG 12 Lead ECG Routine Atrial fibrillation, unspecified type (CMS/HCC) 05/05/2023 10:36 AM EST [facility] Work Phone: Patient Education Peripheral Art kathrine Disease and Claudication Atherectomy - Angioplasty of a Noncoronary Vessel Peripheral Vascular Ultrasound Peripheral Vascular (Arterial) Disease (DC) Peripheral Vascular Stenting (DC) Peripheral Vascular Stenting [facility] Work Phone: Patient referral [facility] Work Phone: XR Chest 2 Views [facility] Immunizations Immunization Date Immunization Notes Care Provider Fa cility 01-23-2021 COVID-19 (Pfizer) MD Shannon Yoon Work Phone: [facility] 01-23-2021 Pfizer-BioNTech COVI D-19 Vacc 30 MCG/0.3ML Intramuscular Suspension Shannon Yoon Work Phone: [facility] 06-22-2020 COVID-19 (Pfizer) MD Shannon Yoon Work Phone: [facility] 06-22-2020 Pfizer-BioNTech COVI D-19 Vacc 30 MCG/0.3ML Intramuscular Suspension Shannon Yoon Work Phone: [facility] 06-02-2020 COVID-19 (Pfizer) MD Shannon Yoon Work Phone: [facility] 06-02-2020 Pfizer-BioNTech COVI D-19 Vacc 30 MCG/0.3ML Intramuscular Suspension Shannon Yoon Work Phone: [facility] Payers Date Payer Category Payer Medicare [id number] 2022 Medicare (Managed Care) [id number] 2022 Private Health Insurance [id number] 1959 Medicare [id number] 1959 Private Health Insurance [id number] 1951 Unknown [id number] 2..840.1.396700.3.579.2.647 1951 Unknown [id number] ..840.1.537618.3.579.2.593 1951 Unknown [id number] 2..840.1.252968.3.579.2.593 1951 Unknown [id number] 2..840.1.885459.3.579.2.593 1951 Unknown [id number] 2..840.1.407471.3.579.2.593 1951 Unknown [id number] 2.16.840.1.468538.3.579.2.593 1951 Unknown [id number] 2.16.840.1.194698.3.579.2.593 1951 Unknown [id number] 2.16.840.1.154294.3.579.2.593 1951 Unknown [id number] 2.16.840.1.151560.3.579.2.593 1951 Unknown [id number] 2.16.840.1.006742.3.579.2.356 1951 Unknown [id number] 2.16.840.1.756082.3.579.2.356 1950 Unknown [id number] 2.16.840.1.360226.3.579.2.356 1950 Unknown [id number] 2.16.840.1.161085.3.579.2.106 8 1950 Unknown [id number] 2.16.840.1.517224.3.579.2.106 8 1951 Unknown [id number] 2.16.840.1.816039.3.579.2.125 9 1950 Unknown [id number] 2.16.840.1.687617.3.579.2.125 9 1951 Unknown [id number] 2.16.840.1.760804.3.579.2.125 9 1951 Unknown [id number] 2.16.840.1.036221.3.579.2.125 9 1950 Unknown [id number] 2.16.840.1.629484.3.579.2.125 9 1950 Unknown [id number] 2.16.840.1.665803.3.579.2.125 9 1950 Unknown [id number] 2.16.840.1.586896.3.579.2.124 4 1950 Unknown [id number] 2.16.840.1.480458.3.579.2.124 4 1950 Unknown [id number] 2.16.840.1.570641.3.579.2.124 4 Private Health Insurance [id number] [id number] Self-pay Self Pay [id number] Unknown Unknown HCAP/HFA/FAP Active [id number] Social History Date Type Detail Facility Start: 08-29-2022 End: 04-02-2024 Illicit drug use Illicit drug use [facility] Comment on above: diet mt dew 2 liter a day; 10 cigs a day; 06/2022 quit; Start: 1950 Sex Assigned At Female F [facility] Start: 04-03-2023 End: 04-02-2024 Sex Assigned At [facility] Start: 06-04-2022 End: 02-10-2023 Tobacco smoking status HIIS Smoker (finding) [facility] Start: 08-29-2022 Tobacco smoking stat us HIIS Smokes tobacco daily [facility] End: 12-01-2022 History of tobacco use Cigarette Smoker [facility] Start: 08-29-2022 End: 01-05-2024 Tobacco use and exposure Smokeless tobacco non-user [facility] Start: 04-03-2023 End: 04-02-2024 Alcohol intake Lifetime non-drinker (finding) [facility] Start: 1950 Sex Assigned At Not on file [facility] Start: 12-23-2022 End: 01-05-2024 Tobacco smoking status NHIS Ex-smoker [facility] Work Phone: Start: 04-25-2023 End: 01-05-2024 Exposure to SARS-CoV-2 (event) Not sure [facility] Start: 01-05-2024 Alcoholic beverage intake Ex-drinker (finding) [facility] Work Phone: Start: 01-05-2024 Alcohol Comment rarely [facility] Work Phone: Start: 03-12-2024 End: 04-30-2024 Sex Female (finding) [facility] Medical Equipment Procedure Code Equipment Code Equipment Origin al Text Equipment Identifier Dates Aortogram, abdominal, with bilateral lower extremity runoff Multiple peripheral artery stent, bare-metal [id number] FDA Start: 06-04-2022 Goals Date Patient Goal Desired Activity /State Clinical Notes 01-15-2022 to 04-02-2024 Rahel Henry DPM - 04/02/2024 10:45 AM Jamir Dumont APRN-CRISTOPHER - 03/29/2024 10:10 AM ESTTelephone Encounter - DamarisSantiago - 03/04/2024 11:30 AM EST Note Date & Type Note Facility 04-02-2024 History of Presen t illness Narrative Subjective Patient ID: Avelino Barrett is a 73 y.o. female who presents for Follow-up and Tinea Pedis (Nailcare). Nail care Location nails on bilateral [...] (great toe)Long, Thick, Crumbly, Deformed, Discolored, Brittle, [id number]. 2Long, Thick, Crumbly, Deformed, Discolored, Brittle, Dystrophic.3mm 3Normal. 4Normal. 5Long, Thick, Crumbly, Deformed, Discolored, Brittle, Dystrophic. 3mm Assessment/Plan neuropathy, mycotic nails Nails: all thick and dystrophic nails debrided of all affected and loose material All of the nondystrophic nails were debrided documented in this encounter [facility] 03-29-2024 History of Presen t illness Narrative Lesions: Location: back, left buttock, pubic area Duration: ' long time' Quality: painful, itchy Modifying factors: rubs on clothing, aggravated by picking Associated symptoms: raised, dry Treatments: none; wants reassurance New patient All pertinent medical history, medications, and allergies were reviewed. General Exam: alert, oriented to person, place, and time, normal affect, well appearing Unaccompanied A focused exam completed based on patient reported problems, see below: 1. Melanocytic nevus of trunk (2) Left Suprapubic Area, Torso - Posterior (Back) Scattered benign appearing, regular brown to light brown melanocytic papules and macules with similar morphology Counseled regarding these benign growths. Rarely, a nevus can develop into malignant melanoma, so any changing nevi should be promptly re-evaluated. 2. Seborrheic keratosis (3) Left Buttock, Pubic, Torso - Posterior (Back) Stuck on verrucous, lima-brown papules and plaques. Patient was counseled regarding these benign growths. Removal is normally not necessary, but they may be removed if they are symptomatic or for cosmetic reasons. 3. Notalgia paresthetica Mid Back Skin appears normal in areas of itching. The patient was informed that notalgia paresthetica is a chronic itching, burning, or tingling sensation in the areas of skin just below the shoulder blade on either side of the back. The affected skin may appear normal or show changes from chronic scratching. It was explained that this is caused by nerve changes or damage in the local nerves, usually from arthritis or minor injury. The patient was informed that treatment is difficult and often ineffective. Treatment options were discussed including cooling lotions/icing the area. Literature provided. 4. Xerosis cutis Dry, scaly skin Recommended soap and moisturizer handout given. Next Visit: rec pt schedule FBSE documented in this encounter [facility] 03-04-2024 Telephone encounter Note Form atting of this note might be different from the original. PT lvm to schedule her annual appt with KER, called back and the phone was answered and immediately hung up [facility] 03-04-2024 Miscellaneous Notes Formattin g of this note might be different from the original. PT lvm to schedule her annual appt with KER, called back and the phone was answered and immediately hung up documented in this encounter [facility] 02-09-2024 Evaluation note Diagnosis Onset Date Resolution Bilateral otitis media with effusion acute February 08 2:50pm Lung nodule acute February 09, 2024 2:50pm [facility] Work Phone: 1([phone]) 716-149112-09-2024 Evaluation note* Diagnosis Onset Date Resolution Status Admit Date Bilateral otitis media with effusion acute February 08 2:50pm Lung nodule acute February 09, 2024 2:50pm Sinusitis, acute maxillary acute March 12, 2024 9:48am Arthritis of carpometacarpal (CMC) joint of left thumb acute Februa 2024 9:23am Osteoarthritis of left knee acute April 21, 2024 9:23am Osteoarthritis of right knee acute April 21, 2024 9:23am [facility] Work Phone: 1([phone]) 511-229711-04-2024 History of Present illness Narrative* Juany Richter MD - 01/05/2024 10:45 AM EST This is a 6-month follow-up. This is a patient with aggressive vascular disease, paroxysmal atrial fibrillation on high risk medications amiodarone and Eliquis, also on aspirin, Subjective : Interval review of systems is negative for chest discomfort pressure tightness heaviness palpitations lightheadedness orthopnea paroxysmal nocturnal dyspnea dependent edema or claudication TIA or CVAtype symptoms or bleeding diathesis History so Far [...] care. Albuterol inhaler has been recommended. 12. [id number] score 4 13.GERD on prophylaxis. 14. PVR [...] posterior tibial and0.55 at the dorsalis pedis. 18. Intolerance to [...] smoker 06/05/2023 Hypercoagulability due to atrial fibrillation (Multi) 12/23/2022 Second hand smoke exposure 12/23/2022 CHANEL inhibitor intolerance 12/23/2022 Afib (Multi) 10/28/2022 COPD (chronic obstructive pulmonary disease) ([facility]) 10/28/2022 GERD (gastroesophageal reflux disease) 10/28/2022 Lung nodules 10/28/2022 Hypertension 10/28/2022 PVD (peripheral vascular disease) ([facility]) 10/28/2022 Varicose veins of legs 10/28/2022 High risk medication use 10/28/2022 Mixed hyperlipidemia 10/28/2022 Vascular claudication ([facility]) 10/28/2022 Assessment: 1. Paroxysmal atrial fibrillation (Multi) Follow Up In Cardiology 2. High risk medication use 3. PVD (peripheral vascular disease) ([facility]) 4. Mixed hyperlipidemia 5. Hypertension, unspecified type [...] my direction and personally dictated by me. Ihave reviewed the chart and agree that the record accurately reflects my personal performance of the history, physical exam, discussion and plan. Scribe Attestation By signing my name below, I, Carlee Bosch LPN attest that this documentation has been prepared under the direction and in the presence of Juany Richter MD. documented in this [facility] Work Phone: 1(846) 591-589511-04-2024 Instructions* Patient Instructions* Ann Gonzalez LPN - 01/05/2024 10:45 AM [...] Provided instructions on exercise. documented in this [facility] Work Phone: 1(835) 586-725810-28-2024 History of Present illness Narrative* Rahel Henry, LETHA - 12/29/2023 10:15 AM EDT Subjective Patient ID: Avelino Barrett is a 73 y.o. female who presents for Follow- up (Nailcare). Nail care Location nails on bilateral feet Severity of symptoms mild Onset gradual Status no change Context hard to trim, hard to reach Nails thickened, discolored, pain Relieved by debridement, filing down nails, clipping nails History of ulcers/wounds no Aggravated by shoe gear, pressure Last seen date: Shannon Yoon MD Last seen diagnosing provider: 12-03-23 General: Chillsdenies. Feverdenies. Musculoskeletal: muscle weaknessdenies. Bone/joint [...] (great toe)Long, Thick, Crumbly, Deformed, Discolored, Brittle, [id number]. 2Long, Thick, Crumbly, Deformed, Discolored, Brittle, Dystrophic.3mm 3Normal. 4Normal. 5Long, Thick, Crumbly, Deformed, Discolored, Brittle, Dystrophic. 3mm Assessment/Plan neuropathy, mycotic nails Nails: all thick and dystrophic nails debrided of all affected and loose material All of the nondystrophic nails were debrided documented in this encounterPut[facility] [id number] [facility] History of Present illness Narrative* Rahel Henry DPM - 10/20/2023 9:15 AM EDT Subjective Patient ID: Avelino Barrett is a 72 y.o. female who presents for Follow- up (Nailcare). Nail care Location nails on bilateral feet Severity of symptoms mild Onset gradual Status no change Context hard to trim, hard to reach Nails thickened, discolored, pain Relieved by debridement, filing down nails, clipping nails History of ulcers/wounds no Aggravated by shoe gear, pressure Last seen date: Dr. Malik Last seen diagnosing provider: 06-25-23 ROS General: Chillsdenies. Feverdenies. Musculoskeletal: muscle weaknessdenies. [...] Histories Past Medical History: Diagnosis Date A-fib ([facility]) Allergies Arrhythmia Arthritis Hypertension ([facility]) Surgical Histories Past Surgical History: Procedure Laterality [...] (great toe)Long, Thick, Crumbly, Deformed, Discolored, Brittle, [id number]. 2Long, Thick, Crumbly, Deformed, Discolored, Brittle, Dystrophic.3mm 3Normal. 4Normal. 5Long, Thick, Crumbly, Deformed, Discolored, Brittle, Dystrophic. 3mm Assessment/Plan neuropathy, mycotic nails Nails: all thick and dystrophic nails debrided of all affected and loose material All of the nondystrophic nails were debrided documented in this encounterPutnam County Memorial [id number] History of Present illness Narrative* Juany Richter MD - 06/05/2023 10:00 AM EDT This is a follow-up from December 2022. At that visit we recommended Livalo 4 mg p.o. daily along with coenzyme Q 10. Subjective : Interval review of systems is negative for chest discomfort pressure tightness heaviness palpitations lightheadedness orthopnea paroxysmal nocturnal dyspnea dependent edema or claudication TIA or CVAtype symptoms or bleeding diathesis History so Far [...] care. Albuterol inhaler has been recommended. 12. [id number]-PQDs score 4 based on my evaluation today [...] posterior tibial and0.55 at the dorsalis pedis. 18. Intolerance to [...] redirect to the Timeline version of the [facility] SmartLink. Wt Readings from Last 3 Encounters: [...] Date Noted Stage 3a chronic kidney disease ([facility]) 06/05/2023 Former smoker 06/05/2023 Hypercoagulability due to atrial fibrillation ([facility]) 12/23/2022 Second hand smoke exposure 12/23/2022 CHANEL inhibitor intolerance 12/23/2022 Afib ([facility]) 10/28/2022 COPD (chronic obstructive pulmonary disease) ([facility]) 10/28/2022 GERD (gastroesophageal reflux disease) 10/28/2022 Lung [...] my direction and personally dictated by me. Sallie reviewed the chart and agree that the record accurately reflects my personal performance of the history, physical exam, discussion and plan. [facility] Work Phone: 1(362) 526-191504-04-2024 Instructions* Patient Instructions* Ann Gonzalez LPN - 06/05/2023 10:00 AM [...] follow up per routine [facility] Phone: [phone]) 448-281103-04-2024 History of Present illness Narrative* Daina De Oliveira LPN - 05/05/2023 11:00 AM EST Patient here for at EKG visit ordered by Maximiliano Connell PA[employer]ER due to AFIB. Dr. Robb in suite [...] m (5' 3 ) documented in [facility] [place] Work Phone: 1([phone]) 478-434403-04-2024 Instructions* Patient Instructions* Diana De Oliveira LPN - 05/05/2023 11:00 AM EST EKG done in office today documented in this [facility] Work Phone: 1([phone]) 819-690602-01-2024 History of Present illness Narrative* Kennedykurt Gwen Henry, LETHA - 04/03/2023 11:00 AM EST Subjective Patient ID: Avelino Barrett is a [...] Histories Past Medical History: Diagnosis Date A-fib ([facility]) Allergies Arrhythmia Arthritis Hypertension ([facility]) Surgical Histories Past Surgical History: Procedure Laterality [...] (great toe)Long, Thick, Crumbly, Deformed, Discolored, Brittle, Hatpstshps2qh. 2Long, Thick, Crumbly, Deformed, Discolored, Brittle, Dystrophic. 3Normal. 4Normal. 5Long, Thick, Crumbly, Deformed, Discolored, Brittle, Dystrophic. Assessment/Plan neuropathy, mycotic nails Nails: all thick and dystrophic nails debrided of all affected and loose material All of the nondystrophic nails were debrided documented in this encounterPutnam County Memorial [id number] Evaluation note* Encounter Date Diagnosis Assessment Notes [...] verbalized understanding and agreement with treatment plan. [facility] Other 12-07-2023 Evaluation note* Encounter Date Diagnosis [...] verbalized understanding and agreement with treatment plan. [facility] Other 10-26-2023 Evaluation note* Encounter Date Diagnosis [...] her risks and is unmotivated to quit. [facility] Other 10-17-2023 Evaluation note* Encounter Date Diagnosis [...] with Dr. Mai in a few weeks. [facility] Other 09-11-2023 Evaluation note* Encounter Date Diagnosis Assessment Notes Treatment Notes Treatment Clinical Notes Nov, Endometrial thickening on ultrasound (ICD-10 - R93.89) [facility] Other 08-22-2023 Evaluation note* Encounter Date Diagnosis [...] her satisfaction and patient sent home stable [facility] Other 08-10-2023 Evaluation note* Encounter Date Diagnosis Assessment Notes Treatment Notes Treatment Clinical Notes Oct, Paroxysmal a-fib (ICD-10 - I48.0) Presently in regular rhythm. Refilled eliquis Oct, GERD without esophagitis (ICD-10 - K21.9) Refilled med. Pt states her symptoms are controlled. Oct, Left flank pain (ICD-10 - R10.9) Check UA and C&S at lab. Jun, Dysuria (ICD-10 - R30.0) Dysuria [facility] Other 08-10-2023 Evaluation note* Encounter Date Diagnosis [...] available. Jun, Dysuria (ICD-10 - R30.0) Dysuria [facility] Other 06-09-2023 Evaluation note* Encounter Date Diagnosis [...] as documented in the electronic medical record. [facility] Other 06-02-2023 Evaluation note* Encounter Date Diagnosis Assessment Notes Treatment Notes Treatment Clinical Notes Aug, Right anterior knee pain (ICD-10 - M25.561) Keep ortho appt - requests pain med to be moderately comfortable in the meantime. [facility] Other 05-30-2023 Evaluation note* Encounter Date Diagnosis [...] Patient offered cortisone injection today, patient declined [facility] Other 04-26-2023 Evaluation note* Encounter Date Diagnosis [...] the plan all her questions were addressed. [facility] Other 04-04-2023 [facility]03-[facility] Evaluation note* Encounter Date Diagnosis Assessment Notes [...] and she has been trying for years. [facility] Other 02-28-2023 Evaluation note* Encounter Date Diagnosis [...] take 2 - will notify her new nitrate operator. [facility] Other 02-01-2023 History of Present illness Narrative* [...] EKG shows sinus rhythm at 75 bpm NV interval 150 ms QRS duration 90 ms [...] normal sinus rhythm QTc 477 ms normal NV interval. * To further clarify the physical [...] Albuterol inhaler has been recommended. * 12. DXK1ZV4-FRVu score 4 based on my evaluation today [...] as possible and take breaks in between. -[facility]-Anastacia Garcia DO Work Phone: 1([phone]) [phone] History of Present illness Narrative* Patient was [...] normal sinus rhythm at 66 bpm with NV interval of 130 ms QRS duration 92 [...] Albuterol inhaler has been recommended. * 12. DXT0LU3-EFAm score 4 based on my evaluation today [...] the amiodarone and initiating another antiarrhythmic agent. -[facility]-Anastacia Garcia DO Work Phone: [phone] NoteUT Cardiology Consult Note Reason for Consultation: Afib HPI: Avelino Whyte is a 71 y.o. with a past [...] Value Ventricular Rate 61 Atrial Rate 61 NV Interval 166 QRS DURATION 88 QT Interval 442 QTC CALCULATION(BAZETT) 444 P Axi (more content not included)...[facility] Evaluation noteNo assessment information availableC[facility] Work Phone: Evaluation noteNo InformationNort PostRank Other Evaluation note* Diagnosis Idiopathic progressive polyneuropathy- Primary Onychomycosis Dermatophytosis of nail documented in this encounter [facility] HealthcareEvaluation note* Diagnosis Onset Date Resolution Status Osteoarthritis of left knee acute Osteoarthritis of right knee acute [facility] Work Phone: Evaluation note* Diagnosis Atrial fibrillation, unspecified type (CMS/HCC) documented in this encounter [facility] Work Phone: Evaluation note* Diagnosis Paroxysmal atrial [...] presenting hazards to health Paroxysmal atrial fibrillation ([facility]) Atrial fibrillation documented in this encounter [facility] Work Phone: Evaluation note* Diagnosis Paroxysmal atrial fibrillation (CMS/HCC) Atrial fibrillation documented in this encounter [facility] Work Phone: Evaluation note* Diagnosis Onset Date Resolution Status Spasm of left trapezius muscle acute PAD (peripheral artery disease) acute Osteoarthritis of left knee acute Osteoarthritis of right knee acute Otitis externa acute [facility] Work Phone: Evaluation note* Diagnosis Onset Date Resolution Status PAD (peripheral artery disease) acute Osteoarthritis of left knee acute Osteoarthritis of right knee acute Otitis externa acute Osteoarthritis of left knee acute Osteoarthritis of right knee acute [facility] Work Phone: Evaluation note* Diagnosis Onset Date Resolution Status PAD (peripheral artery disease) acute Osteoarthritis of left knee acute Osteoarthritis of right knee acute Otitis externa acute Osteoarthritis of left knee acute Osteoarthritis of right knee acute Dysuria acute [facility] Work Phone: Evaluation note* Diagnosis Onset Date Resolution Status Osteoarthritis of left knee acute Osteoarthritis of right knee acute Otitis externa acute Osteoarthritis of left knee acute Osteoarthritis of right knee acute Dysuria acute [facility] Work Phone: Evaluation note* Diagnosis Onset Date Resolution Status Osteoarthritis of left knee acute Osteoarthritis of right knee acute Otitis externa acute Osteoarthritis of left knee acute Osteoarthritis of right knee acute Dysuria acute Bronchitis acute Dyspnea acute Essential hypertension acute Fatigue acute [facility] Work Phone: Evaluation note* Diagnosis Onset Date Resolution Status Osteoarthritis of left knee acute Osteoarthritis of right knee acute Dysuria acute Bronchitis acute Dyspnea acute Essential hypertension acute Fatigue acute [facility] Work Phone: Evaluation note* Diagnosis Onset Date Resolution Status Dysuria acute Bronchitis acute Dyspnea acute Essential hypertension acute Fatigue acute [facility] Work Phone: Evaluation note* Diagnosis Paroxysmal atrial fibrillation (Multi) Atrial fibrillation High risk medication use PVD (peripheral vascular disease) ([facility]) Unspecified peripheral vascular disease Mixed hyperlipidemia Hypertension, unspecified type Hypercoagulable state due to paroxysmal atrial fibrillation (Multi) Statin intolerance Stage 3a chronic kidney disease (Multi) BMI 31.0-31.9,adult Former smoker Personal history of tobacco use, presenting hazards to health documented in this encounter [facility] Work Phone: Evaluation note* Diagnosis Idiopathic progressive polyneuropathy- Primary Onychomycosis Dermatophytosis of nail documented in this encounter [facility] HealthcareEvaluation note* Diagnosis Melanocytic nevus of trunk- Primary Benign neoplasm of skin of trunk, except scrotum Seborrheic keratosis Notalgia paresthetica Disturbance of skin sensation Xerosis cutis Other specified disease of sebaceous glands documented in this encounter [facility] HealthcareEvaluation note* Diagnosis Idiopathic progressive polyneuropathy- Primary Onychomycosis Dermatophytosis of nail documented in this encounter [facility] HealthcareHistory general Narrative - Reported* Type Description Date [...] History CHOLECYSTECTOMY 1976 Surgical History APPENDECTOMY 1973 Hospitalization History SEE SURGICAL [facility] Other Hisrtup general Narrative - Reported* Type Description Date [...] PLASTY ILIAC 2022 Hospitalization History SEE SURGICAL [facility] Other Hissywx general Narrative - Reported* Type Description Date [...] LIGATION AND STRIPPING Hospitalization History SEE SURGICAL [facility] Other history general Narrative - Reported* Type Description Date [...] ILIAC 2022 Hospitalization History SEE SURGICAL HX [facility] Other History of Present illness Narrative* Patient [...] shows normal sinus rhythm at 69 bpm NV interval 158 ms QRS interval 90 ms [...] Albuterol inhaler has been recommended. * 12. FUQ3AO4-DBJm score 4 based on my evaluation today [...] I have is her hives to prednisone. Ifshrose were to develop pneumonitis or pulmonary issues from amiodarone, the only treatment that we have would be steroids, and if she cannot have steroids then it is better to switch her to an alternateagent. * She did see an outside nitrate operator, who recommended apparently ablation for atrial fibrillation, [...] arise, * Sincerely, * Juany Richter MD [facility]-Anastacia 250 DO Work Phone: History of [...] Albuterol inhaler has been recommended. * 12. GEF9YZ0-JJYw score 4 based on my evaluation today [...] 76% DLCO corrected for alveolar ventilation 72% -[facility]-Anastacia 250 DO Work Phone: Hospital Discharge instructions [...] in an emergency, call the office at [phone]. TODAY -Take it easy the rest of [...] FOLLOW UP -Please call the office at [phone] to arrange an appointment to see me in 1 weeks [facility] Work Phone: Reason for referral (narrative)* Consultation (Routine) - Authorized Specialty Diagnoses / Procedures Referred By Contac t Referred To Contact Cardiology Diagnoses Paroxysmal atrial fibrillation (CMS/HCC) Procedures Follow Up In Cardiology Juany Richter MD [address] [place] [id number] Juany Richter MD [address] [address] Referral ID Status Reason Start Date Expiration Date V isits Requested Visits Authorized [id number] Authorized 06/05/2023 06/04/2024 1 1 * PFT (Routine) - Pending Review Specialty Diagnoses / Procedures Referred By Contac t Referred To Contact Diagnoses Paroxysmal atrial fibrillation (CMS/HCC) Procedures Complete Pulmonary Function Test Pre/Post Bronchodialator (Spirometry Pre/Post/DLCO/Lung Volumes) Juany Richter MD [address] [address] Referral ID Status Reason Start Date Expiration Date V isits Requested Visits Authorized [id number] Pending Review 06/05/2023 06/04/2024 1 1 * Imaging (Routine) - Pending Review Specialty Diagnoses / Procedures Referred By Contac t Referred To Contact Radiology Diagnoses Paroxysmal atrial fibrillation (CMS/HCC) Procedures XR chest 2 views Juany Richter MD [address] [place] [address] [address] [place] [address] Referral ID Status Reason Start Date Expiration Date Visits Requested Visits Authorized [id number] Pending Review Perform Procedure 06/05/2023 06/04/2024 1 1 * Cardiovascular (Routine) - Authorized Specialty Diagnoses / Procedures Referred By Contac t Referred To Contact Diagnoses Paroxysmal atrial fibrillation (CMS/HCC) Procedures ECG 12 Lead Juany Richter MD [address] [place] [address] [address] [place] [address] Referral ID Status Reason Start Date Expiration Date V isits Requested Visits Authorized [id number] Authorized 06/05/2023 06/04/2024 1 1 [facility] Work Phone: Reason for visit NarrativeREF BY DR RICHTER FOR CLAUDICATION BILATERAL; PVR DONE AT [facility] INCLUDED WITH REFERRAL [employer] Other Summary Purpose Family History Unknown Family [...] Bronchitis Dyspnea Essential hypertension Fatigue Chief Complaint Admit Date i48.91 z79.899 December 15, 2023 9 :41am Z78.9,E78.2 December 15, 2023 1 0:12am i48.91 z79.899 December 15, 2023 6 :15pm L Ear Pain/Cold symptoms February 08 024 2:50pm L Ear Pain/Cough/COVID- March 12 9:48am Reason for Visit Admit Date Bilateral otitis media with effusion Dec ember 2023 2:50pm Lung nodule February 09, 2024 2 :50pm Chief Complaint Admit Date L Ear Pain/Cold symptoms February 08 024 2:50pm L Ear Pain/Cough/COVID- March 12 9:48am OP SP CHAD KNEE PAIN April 21, 2024 9:23am M79.645 - Pain in left finger(s) 2024 9:33am Reason for Visit Admit Date Bilateral otitis media with effusion Dec emb2023 2:50pm Lung nodule February 09, 2024 2 :50pm Sinusitis, acute maxillary March 12, 2024 9:48am Arthritis of carpometacarpal (CMC) joint of left thumb April 21, 2024 9:23am Osteoarthritis of left knee April 9:23am Osteoarthritis of right knee April 212024 9:23am Chief Complaint Admit Date L Ear Pain/Cold symptoms February 08 024 2:50pm L Ear Pain/Cough/COVID- March 12 9:48am OP SP CHAD KNEE PAIN April 21, 2024 9:23am M79.645 - Pain in left finger(s) uar y 2024 9:33am Allergic Reaction to Shots April 1:03pm Chief Complaint AVELINO WHYTE is being seen for a 2 month follow-up of.AVELINO WHYTE is being seen for a 3 month follow-up of.AVELINO WHYTE is being seen for a 3 month follow-up of.AVELINO WHYTE is being seen for a 3 month follow-up of. Reason for Referral Specialty Diagnoses / Procedures Referred By Ranjan t Referred To Contact Radiology Diagnoses Paroxysmal atrial fibrillation (CMS/HCC) Procedures XR chest 2 views Juany Richter MD [address] [facility] [address] [place] [address] Referral ID Status Reason Start Date Expiration Date Visits Requested Visits Authorized [id number] Pending Review Perform Procedure 06/05/2023 06/04/2024 1 1 Reason *FU 11/18 [facility] [employer] [employer] - last OV note, pelvic US report, pap report and vaginal culture. Thanks , Female preferred Diagnosis 1 Endometrial thickeni ng on ultrasound (R93.89) Referral Organization [facility] Referring Provider First Name Shannon Referring Provider Last Name Car Referring Provider Specialty Family [facility] cine Referred Organization [facility] Referred Provider Lorri White Referred Address ,[place], [place],[address] Referred Provider Specialty OB - Gynecol ogy Referral Priority Routine General Notes Sugey Kong 01:09:37 PM >received today Sugey Kong 11/11/2022 01:12:16 PM >attachments made, notes locked, referral faxed Additional Source Comments INFORMATION SOURCE (unrecogn ized section and content) DATE CREATED AUTHOR 10/26/2021 [facility] DATE CREATED AUTHOR AUTHOR'S ORGANIZ ATION 01/18/2022 [facility] DATE CREATED AUTHOR AUTHOR'S ORGANIZ ATION 02/08/2022 [facility] DATE CREATED AUTHOR AUTHOR'S ORGANIZ ATION 02/22/2022 [facility] DATE CREATED AUTHOR AUTHOR'S ORGANIZ ATION 07/09/2022 [facility] DATE CREATED AUTHOR AUTHOR'S ORGANIZ ATION 08/30/2022 [facility] DATE CREATED AUTHOR AUTHOR'S ORGANIZ ATION 01/18/2023 [facility] DATE CREATED AUTHOR AUTHOR'S ORGANIZ ATION 04/04/2024 [facility] EPIC DATE CREATED AUTHOR AUTHOR'S ORGANIZ ATION 04/23/2024 [facility] DATE CREATED AUTHOR AUTHOR'S ORGANIZ ATION 04/27/2024 [facility] Nurse Discharge Teams (unrecognized sec tion and content) Team Status: Active Member Role Status Dates Shannon Yoon MD Primary Care Provider Active Team Status: Inactive Member Role Status Arik Yoon MD Primary Care Provide r, Attending Provider Active Start: September 24, 2023 End: September 24, 2023 Team Status: Inactive Member Role Status Arik Yoon MD Primary Care Provide r, Attending Provider Active Start: October 09, 2023 End: October 09, 2023 Team Status: Inactive Member Role Status Arik Yoon MD Primary Care Provide r, Attending Provider Active Start: October 23, 2023 End: October 23, 2023 Team Status: Active Member Role Status Arik Yoon MD Primary Care Provide r, Attending [...] 15, 2023 End: December 15, 2023 Juany Richter MD Attending Provider Active Star t: December [...] Active Lorri White DO Attending Provider Active Pull Over Machine Operator Relationship Specialty Start Date End Date Shannon Yoon MD [address] [place] [phone] PCP - General Family Medicine 08/29/22 Team [...] April 23, 2023 End: April 23, 2023 Brianna Ansari NP-C Attending Provider Active Start: April 23, 2023 End: April 23, 2023 Pull Over Machine Operator Relationship Specialty Start Date End Date Shannon Yoon MD [address] [place] [id number] PCP - General Family Medicine 05/05/23 Team Status: Inactive Member Role Status Dates Shannon Yoon MD Primary Care Provide r, Attending Provider Active Start: May 26, 2023 End: May 26, 2023 Pull Over Machine Operator Relationship Specialty Start Date End Date Shannon Yoon MD [address] [place] [id number] PCP - General Family Medicine 05/05/23 Pull Over Machine Operator Relationship Specialty Start Date End Date Shannon Yoon MD [address] [place] [id number] PCP - General Family Medicine 05/05/23 Team [...] August 18, 2023 End: August 18, 2023 Pull Over Machine Operator Relationship Specialty Start Date End Date Shannon Yoon MD [address] [facility] [place] [phone] PCP - General Family Medicine 08/29/22 Pull Over Machine Operator Relationship Specialty Start Date End Date Shannon Yoon MD PCP - General Family Medicine 05/05/23 Pull Over Machine Operator Relationship Specialty Start Date End Date Shannon Yoon MD [address] [facility] [phone] PCP - General Family Medicine 08/29/22 Pull Over Machine Operator Relationship Specialty Start Date End Date Shannon Yoon MD [address] [facility] [phone] PCP - General Family Medicine 08/29/22 Team Status: Inactive Member Role Status Dates Shannon Yoon MD Primary Care Provide r, Attending Provider Active Start: February 09, 2024 End: February 09, 2024 Team Status: Inactive Member Role Status Dates Shannon Yoon MD Primary Care Provide r, Attending Provider Active Start: March 12, 2024 End: March 12, 2024 Pull Over Machine Operator Relationship Specialty Start Date End Date Shannon Yoon MD [address] [facility] [phone] PCP - General Family Medicine 08/29/22 Pull Over Machine Operator Relationship Specialty Start Date End Date Shannon Yoon MD [address] [facility] [place] [address] PCP - General Family Medicine 08/29/22 Team Status: Inactive Member Role Status Dates Shannon Yoon MD Primary Care Provider Active Start: April 21, 2024 End: April 21, 2024 Gavino Tavera DO Attending Provider Active S tart: April 21, 2024 End: April 21, 2024 Team Status: Active Member Role Status Dates Shannon Yoon MD Primary Care Provider Active Start: April 21, 2024 Gavino Tavera DO Attending Provider Active S tart: April 21, 2024 Team Status: Inactive Member Role Status Dates Shannon Yoon MD Primary Care Provide r, Attending Provider Active Start: April 30, 2024 End: April 30, 2024 Goals (unrecognized section and content) Goals may [...] visit Specialty Diagnoses / Procedures Referred By Ranjan shaffer Referred To Contact Diagnoses Atrial fibrillation, unspecified type (CMS/HCC) Procedures ECG 12 Lead Maximiliano Connell, SHOWER DOORS AND PANELS FABRICATOR-SUPERVISOR SHUTTLE FITTING [address] [facility] 2, [address] [address] Referral ID Status Reason Start Date Expiration Date V isits Requested Visits Authorized [id number] Authorized 04/29/2023 04/28/2024 1 1 Reason Comments Follow-up 6M Specialty Diagnoses / Procedures Referred By Ranjan t Referred To Contact Cardiology Diagnoses Paroxysmal atrial fibrillation (CMS/HCC) Procedures Follow Up In Cardiology Juany Richter MD [address] [facility] [address] [place] [address] Juany Richter MD [address] [facility] [address] [place] [address] Referral ID Status Reason Start Date Expiration Date V isits Requested Visits Authorized [id number] Authorized 12/23/2022 12/23/2023 1 1 Specialty Diagnoses / Procedures Referred By Contac t Referred To Contact Radiology Diagnoses Paroxysmal atrial fibrillation ([facility]/HCC) Procedures XR chest 2 views Juany Richter MD [address] [facility] [address] [place] [address] Referral ID Status Reason Start Date Expiration Date Visits Requested Visits Authorized [id number] Pending Review Perform Procedure 06/05/2023 06/04/2024 1 1 Reason Comments Follow-up Nailcare Reason Comments Follow-up 6 month Specialty Diagnoses / Procedures Referred By Contac t Referred To Contact Cardiology Diagnoses Paroxysmal atrial fibrillation ([facility]) Procedures Follow Up In Cardiology Juany Richter MD Phone: tel: fax: Juany Richter MD [address] [facility] [address] [place] [address] Phone: tel: fax: Referral ID Status Reason Start Date Expiration Date V isits Requested Visits Authorized [id number] Authorized 06/05/2023 06/04/2024 1 1 Reason Comments Suspicious Skin Lesion Reason Comments Follow-up Tinea Pedis Nailcare FOR RECORDS PERTAINING TO PATIENTS WHO ARE [...] BE BASED ON THE PRIMARY CLINICAL RECORDS. [employer] provides no warranty or guarantee of the accuracy or completeness of information in this document.
== END 2024-05-12 10:00 | disposition home or self-care (01) ==
LOC: CT 10:00
PROVIDERS: PCP Family Medicine; Visit Provider Internal Medicine
DX: R91.8 Other nonspecific abnormal finding of lung field (principal)
CPT/HCPCS: 71250

== ENCOUNTER 2024-08-03 09:06 | Outpatient (OUT) | payer MEDICARE, SELFPAY ==
--- OUTSIDE RECORDS SUMMARY | 2024-07-21 09:15 | XMS_ITS | Encounter Summary ---
Author Organization [facility] Address [address] [place] [address] Care Team Providers Care Service Order Dispatcher Name Role Phone Gina Benton MD Primary Care Provider [phone] Reason for Visit * Reason Comments Follow-up Nailcare Encounter Details Date Type Department Care Team ([facility] st Contact Info) Description 07/21/2024 9:15 AM EDT Procedure Visit [facility] [address] [place] [address] Alexandre Tovar DPM [address] [place] [address] Idiopathic progressive polyneuropathy (Primary Dx); Onychomycosis Social History Tobacco Use Types Packs/Day Years Used Date Smoking Tobacco: Every Day Cigarettes Smokeless Tobacco: Never Alcohol Use Standard Drinks/Week Comments Never 0 (1 standard drink = 0.6 oz pur e alcohol) Comments Unknown Sex and Gender Information Value Date Recorded Sex Assigned at Not on file Legal Sex Female 6:56 PM EDT Gender Identity Not on file Sexual Orientation Not on file documented as of this encounter Last Filed Vital Signs Vital Sign Reading Time Taken Comments Blood Pressure 127/74 07/21/2024 9:38 AM EDT Pulse 71 07/21/2024 9:38 AM EDT Temperature - - Respiratory Rate - - Oxygen Saturation - - Inhaled Oxygen Concentration - - Weight 89.8 kg (198 lb) 07/21/2024 9:38 AM EDT Height 162.6 cm (5' 4 ) 07/21/2024 9:38 AM EDT Body Mass Index 33.99 07/21/2024 9:38 AM EDT documented in this encounter Progress Notes * Alexandre Tovar, LETHA - 07/21/2024 9:15 AM EDT Subjective Patient ID: Liza Weston is a 73 y.o. female who presents for Follow- up (Nailcare). Nail care Location nails on bilateral feet Severity of symptoms mild Onset gradual Status no change Context hard to trim, hard to reach Nails thickened, discolored, pain Relieved by debridement, filing down nails, clipping nails History of ulcers/wounds no Aggravated by shoe gear, pressure Last seen date: Gina Benton MD Last seen diagnosing provider: 05-01-24 ROS General: Chillsdenies. Feverdenies. Musculoskeletal: muscle weaknessdenies. Bone/joint symptomsdenies. Peripheral Vascular: Edemadenies. Hx of blood clots in legsdenies. Raynaud'sdenies. Rest pain denies. Ulceration of feetdenies. Varicose veinsdenies. Skin: Hyperpigmentationdenies. Nail changesdenies. Rashdenies. Skin lesion(s)denies. Neurologic: Gait abnormalitydenies. Tingling/Numbnessdenies. Current Medications Current Outpatient Medications: albuterol HFA 90 mcg/act inhaler, every 4 (four) hours, Disp: , Rfl: amiodarone (Pacerone) 100 MG tablet, Take 100 mg by mouth Daily, Disp: , Rfl: Benicar HCT 20-12.5 MG tablet, 1 (one) time each day at the same time, Disp: , Rfl: CVS Aspirin Low Dose 81 MG EC tablet, , Disp: , Rfl: diclofenac (Voltaren) 75 MG EC tablet, , Disp: , Rfl: Eliquis 5 MG tablet, every 12 (twelve) hours, Disp: , Rfl: fluticasone (Flonase) 50 MCG/ACT nasal spray, 1 (one) time each day at the same time, Disp: , Rfl: Inclisiran Sodium (Leqvio) 284 MG/1.5ML solution prefilled syringe, Inject under the skin, Disp: , Rfl: loratadine (Claritin) 10 MG tablet, , Disp: , Rfl: magnesium oxide (Mag-Ox) 400 MG tablet, Take 1 tablet by mouth in the morning and 1 tablet before bedtime., Disp: , Rfl: montelukast (Singulair) 10 MG tablet, , Disp: , Rfl: omeprazole (PriLOSEC) [address] capsule, 1 (one) time each day at the same time, Disp: , Rfl: Pitavastatin Calcium (Livalo) 4 MG tablet, Take 4 mg by mouth in the morning., Disp: , Rfl: traMADol (Ultram) 50 MG tablet, , Disp: , Rfl: venlafaxine XR (Effexor XR) 37.5 MG 24 hr capsule, , Disp: , Rfl: Allergies Hydrobenzthiazide, Doxycycline, Duloxetine, [...] (great toe)Long, Thick, Crumbly, Deformed, Discolored, Brittle, Lbevidxfwd4mi. 2Long, Thick, Crumbly, Deformed, Discolored, Brittle, Dystrophic.3mm 3Normal. 4Normal. 5Long, Thick, Crumbly, Deformed, Discolored, Brittle, Dystrophic. 3mm Assessment/Plan neuropathy, mycotic nails Nails: all thick and dystrophic nails debrided of all affected and loose material All of the nondystrophic nails were debrided documented in this encounter Plan of Treatment Upcoming Encounters Date Type Department Care Team (Late st Contact Info) Description 09/23/2024 9:45 AM EDT Procedure Visit [facility] [address] [place] [phone] Alexandre Tovar DPM [address] [place] [address] 10/04/2024 9:20 AM EDT Office Visit [facility] [address] [place] [phone] Ilana Dumont, HIGH SCHOOL BAND TEACHER-ASSISTANT BRANCH OPERATIONS MANAGER [address] [place] [address] documented as of this encounter Visit Diagnoses Diagnosis Idiopathic progressive polyneuropathy- Primary Onychomycosis Dermatophytosis of nail documented in this encounter Care Teams Service Order Dispatcher Relationship Specialty Start Date End Date Gina Benton MD [address] [place] [phone] PCP - General Family Medicine 07/21/24 documented as of this encounter
--- OUTSIDE RECORDS SUMMARY | 2024-07-28 07:44 | XMS_ITS | Encounter Summary ---
Author Organization [facility] Address [address] [place] [address] Phone Care Team Providers Care Intel Recruiter Name Role Phone Gina Benton MD Primary Care Provider [phone] Reason for Visit * Cardiac Stress Testing (Routine) - Authorized Specialty Diagnoses / Procedures Referred By Contac t Referred To Contact Radiology Diagnoses Paroxysmal atrial fibrillation (Multi) Primary hypertension Mixed hyperlipidemia PVD (peripheral vascular disease) Shortness of breath SOB (shortness of breath) on exertion Procedures Nuclear Stress Test CHG MYOCARDIAL SPECT MULTIPLE STUDIES Tyesha Oates MD [address] [facility] [address] [place] [address] Phone: tel: fax: Referral ID Status Reason Start Date Expiration Date V isits Requested Visits Authorized [id number] Authorized 07/12/2024 07/12/2025 5 5 Encounter Details Date Type Department Care Team (Latest Contact Info) Description 07/28/2024 7:44 AM EDT Hospital Encounter [facility] [address] [facility] [address] [place] [address] Discharge Disposition: Home Social History Tobacco Use Types Packs/Day Years Used Date Smoking Tobacco: Every Day Cigarettes Last attempted to quit: 12/01/2022 Smokeless Tobacco: Never Alcohol Use Standard Drinks/Week Comments Yes 0 (1 standard drink = 0.6 oz pur e alcohol) rarely PHQ-2 Answer Date Recorded Patient Health Questionnaire-2 Score 5 04/08/2022 Comments Unknown Sex and Gender Information Value Date Recorded Sex Assigned at Not on file Legal Sex Female 6:55 AM EST Gender Identity Not on file Sexual Orientation Not on file COVID-19 Exposure Response Date Recorded In the last 10 days, have bronwyn u been in contact with someone who was confirmed or suspected to have Coronavirus/COVID-19? No / Unsure 07/28/2024 7:44 AM EDT documented as of this encounter Medications at Time of Discharge albuterol sulfate (Proair Digihaler) 90 mcg/actuation aero powdr breath act w/sensor inhaler Inhale 2 puffs every 4 hours if needed for shortness of breath. amiodarone (Pacerone) 100 mg tabletIndications: Paroxysmal atrial fibrillation (Multi),High risk medication use Take 1 tablet (100 mg) by mouth once daily. 90 tablet 1 07/12/2024 6 apixaban (Eliquis) 5 mg tabletIndications: Paroxysmal atrial fibrillation (Multi),High risk medication use Take 1 tablet (5 mg) by mouth 2 times a day. 180 tablet 2 07/12/2024 6 aspirin 81 mg EC tabletIndications: PVD (peripheral vascular disease),Hypertens ion, unspecified type TAKE 1 TABLET BY MOUTH EVERY DAY WITH FOOD 90 tablet 07/09/2024 inclisiran (Leqvio) injection Inject 1.5 mL (284 mg total) under the skin every 6 months. every 6 months loratadine (Claritin) 10 mg tablet Take 1 tablet (10 mg) by mouth once daily at bedtime. magnesium oxide (Mag-Ox) 400 mg (241.3 mg elemental) tabletIndications: Paroxysmal atrial fibrillation (Multi) Take 1 tablet (400 mg) by mouth 2 times a day. 180 tablet 2 07/12/2024 6 montelukast (Singulair) 10 mg tablet Take 1 tablet (10 mg) by mouth once daily at bedtime. olmesartan-hydroch lorothiazide (BENIcar HCT) 20-12.5 mg tabletIndications: Primary hypertension Take 1 tablet by mouth once daily. 90 tablet 2 07/12/2024 omeprazole (PriLOSEC) [address] capsule Take 1 capsule (40 mg) by mouth once daily. documented as of this encounter Plan of Treatment Upcoming Encounters Date Type Department Care Team (Late st Contact Info) Description 01/17/2025 11:00 AM EST Office Visit [facility] [address] [facility] [address] [place] [address] Tyesha Oates MD [address] [facility] [address] [place] [address] documented as of this encounter Procedures Procedure Name Priority Date/Time Associated Diagnosis Comments STRESS TEST, REGADENOSON W MYOCARDIAL PERFUSION SPECT (MULTI STUDY) Routine 07/28/2024 9:22 AM EDT Paroxysmal atrial fibrillation (Multi) Primary hypertension Mixed hyperlipidemia PVD (peripheral vascular disease) SOB (shortness of breath) on exertion documented in this encounter Results * STRESS TEST, REGADENOSON W MYOCARDIAL PERFUSION SPECT (MULTI STUDY) (07/28/2024 9:22 AM EDT) Anatomical Region Laterality Modality Nuclear Medicine 07/28/2024 5:17 PM EDT 07/28/2024 5:17 PM EDT Impressions 07/28/2024 5:16 PM EDT Normal Lexiscan Myoview cardiac perfusion stress test. No evidence of ischemia or myocardial infarction by perfusion imaging. Normal left ventricular systolic function, ejection fraction 53%. No change when compared to previous study. Signed by: Eduardo Johnson 07/28/2024 5:16 PM Dictation workstation: [id number] Narrative 07/28/2024 5:16 PM EDT Interpreted By: Eduardo Johnson and Giannuzzi Michael STUDY: MYOCARDIAL PERFUSION STRESS TEST WITH LEXISCAN Performing facility: [facility] Provider: Tyesha Oates MD, FACC PCP: Dr. Marcio Benton Supervising provider: Jadon Vallejo DO, FACC INDICATION: Signs/Symptoms:SOB, SOB on exertion, cardiac risk. ,I48.0 Paroxysmal atrial fibrillation (Multi),I10 Essential (primary) hypertension,E78.2 Mixed hyperlipidemia,I73.9 Peripheral vascular disease, unspecified,R06.02 Shortness of breath HISTORY: Gender: F; Age: 73 y/o ; Height: HT 160 cm cm; Weight: WT 85.276 kg kg. High Cholesterol; HTN; Arrhythmias;A-fib COPD; SOB; Currently smoking. COMPARISON: Previous nuclear testing completed at [facility]. ACCESSION NUMBER(S): [id number] ORDERING CLINICIAN: TYESHA OATES TECHNIQUE: ONE DAY protocol. Stress injection: Date:05-28-24, 34.3 mCi of Myoview IV 20 seconds after rapid injection of Lexiscan. Rest injection: Date: 05-28-24, 11.4 mCi of Myoview IV at rest. The patient had a rapid injection of 0.4 mg of Lexiscan IV over 10 seconds. Imaging was performed by gated tomographic technique. Reason for Lexiscan: uses walker/cane STRESS TEST DATA: Resting heart rate was 65 BPM. Resting blood pressure was 132/86 mmHg. Peak blood pressure was 122/82 mmHg. Peak heart rate was 86 BPM. TEST TERMINATED DUE TO: Protocol completed [...] be normal without regional wall motion abnormalities. Post-stress LV ejection fraction was 53%. Resting LVEF is 57% TID is and is normal. There were no evidence of attenuation artifact. Procedure Note Eduardo Johnson MD - 07/28/2024 Interpreted By: Eduardo Johnson and Giannuzzi Michael STUDY: MYOCARDIAL PERFUSION STRESS TEST WITH LEXISCAN Performing facility: [facility] Provider: Tyesha Oates MD, FACC PCP: Dr. Marcio Benton Supervising provider: Jadon Vallejo DO, FACC INDICATION: Signs/Symptoms:SOB, SOB on exertion, cardiac risk. ,I48.0 Paroxysmal atrial fibrillation (Multi),I10 Essential (primary) hypertension,E78.2 Mixed hyperlipidemia,I73.9 Peripheral vascular disease, unspecified,R06.02 Shortness of breath HISTORY: Gender: F; Age: 73 y/o ; Height: HT 160 cm cm; Weight: WT 85.276 kg kg. High Cholesterol; HTN; Arrhythmias;A-fib COPD; SOB; Currently smoking. COMPARISON: Previous nuclear testing completed at [facility]. ACCESSION NUMBER(S): [id number] ORDERING CLINICIAN: TYESHA OATES TECHNIQUE: ONE DAY protocol. Stress injection: Date:05-28-24, 34.3 mCi of Myoview IV 20 seconds after rapid injection of Lexiscan. Rest injection: Date: 05-28-24, 11.4 mCi of Myoview IV at rest. The patient had a rapid injection of 0.4 mg of Lexiscan IV over 10 seconds. Imaging was performed by gated tomographic technique. Reason for Lexiscan: uses walker/cane STRESS TEST DATA: Resting heart rate was 65 BPM. Resting blood pressure was 132/86 mmHg. Peak blood pressure was 122/82 mmHg. Peak heart rate was 86 BPM. TEST TERMINATED DUE TO: Protocol completed [...] be normal without regional wall motion abnormalities. Post-stress LV ejection fraction was 53%. Resting LVEF is 57% TID is and is normal. There were no evidence of attenuation artifact. IMPRESSION: Normal Lexiscan Myoview cardiac perfusion stress test. No evidence of ischemia or myocardial infarction by perfusion imaging. Normal left ventricular systolic function, ejection fraction 53%. No change when compared to previous study. Signed by: Eduardo Johnson 07/28/2024 5:16 PM Dictation workstation: [id number] us Tyesha Oates MD CV STRESS PROCEDURES Final Resul t documented in this encounter Visit Diagnoses Not on filedocumented in this encounter Additional Health Concerns Assessment Noted Time PHQ-9 Depression Total Score: 15 023 2:11 PM EST A fall risk assessment has been complete d for the patient 07/12/2024 9:41 AM EDT documented as of this encounter Care Teams Intel Recruiter Relationship Specialty Start Date End Date Gina Benton MD PCP - General Family Medicine 05/05/23 documented as of this encounter
--- OUTSIDE RECORDS SUMMARY | 2024-07-28 07:44 | XMS_ITS | Encounter Summary ---
Author Organization [facility] Address [address] [place] [address] Phone Care Team Providers Care Voip Engineer Name Role Phone Gina Benton MD Primary Care Provider [phone] Reason for Visit * Cardiac Stress Testing (Routine) - Authorized Specialty Diagnoses / Procedures Referred By Contac t Referred To Contact Radiology Diagnoses Paroxysmal atrial fibrillation (Multi) Primary hypertension Mixed hyperlipidemia PVD (peripheral vascular disease) Shortness of breath SOB (shortness of breath) on exertion Procedures Nuclear Stress Test CHG MYOCARDIAL SPECT MULTIPLE STUDIES Juany Richter MD [address] [facility] [address] [place] [address] Phone: tel: fax: Referral ID Status Reason Start Date Expiration Date V isits Requested Visits Authorized [id number] Authorized 07/12/2024 07/12/2025 5 5 Encounter Details Date Type Department Care Team (Latest Contact Info) Description 07/28/2024 7:44 AM EDT Hospital Encounter [facility] [address] [facility] [address] [place] [address] Discharge Disposition: Home Social History [...] Description 01/17/2025 11:00 AM EST Office Visit [facility] [address] [facility] [address] [place] [address] Juany Richter MD [address] [facility] [address] [place] [address] documented as of this encounter Procedures Procedure Name Priority Date/Time Associated Diagnosis Comments STRESS TEST, REGADENOSON W MYOCARDIAL PERFUSION SPECT (MULTI STUDY) Routine 07/28/2024 9:22 AM EDT Paroxysmal atrial fibrillation (Multi) Primary hypertension Mixed hyperlipidemia PVD (peripheral vascular disease) SOB (shortness of breath) on exertion documented in this encounter Visit Diagnoses Not on filedocumented in this encounter Administered Medications Inactive Administered Medications - up to 3 most recent administrations Medication Order MAR Action Action Date Dose Rate Site Tc-99m tetrofosmin (Myoview) injection 30 millicurie 30 millicurie, intravenous, Once in imaging, Starting on Fri07/28/24 at 0921, For 1 dose, Administer 45 to 90 minutes prior to imaging unless otherwise indicated. Given 07/28/2024 9:12 AM EDT 34.3 millicuries documented in this encounter Additional Health Concerns Assessment Noted Time PHQ-9 Depression Total Score: 15 023 2:11 PM EST A fall risk assessment has been complete d for the patient 07/12/2024 9:41 AM EDT documented as of this encounter Care Teams Voip Engineer Relationship Specialty Start Date End Date Gina Benton MD PCP - General Family Medicine 05/05/23 documented as of this encounter
--- OUTSIDE RECORDS SUMMARY | 2024-07-28 07:44 | XMS_ITS | Encounter Summary ---
Author Organization [facility] Address [address] [place] [address] Phone Care Team Providers Care Unleavened Dough Mixer Name Role Phone Gina Benton MD Primary Care Provider [phone] Reason for Visit * Cardiac Stress Testing (Routine) - Authorized Specialty Diagnoses / Procedures Referred By Contac t Referred To Contact Radiology Diagnoses Paroxysmal atrial fibrillation (Multi) Primary hypertension Mixed hyperlipidemia PVD (peripheral vascular disease) Shortness of breath SOB (shortness of breath) on exertion Procedures Nuclear Stress Test CHG MYOCARDIAL SPECT MULTIPLE STUDIES Tyesha Oates MD [address]17 [facility] [address] [place] [address] Phone: tel: fax: Referral ID Status Reason Start Date Expiration Date V isits Requested Visits Authorized [id number] Authorized 07/12/2024 07/12/2025 5 5 Encounter Details Date Type Department Care Team (Latest Contact Info) Description 07/28/2024 7:44 AM EDT Hospital Encounter [facility] [address] [facility] [address] [place] [address] Discharge Disposition: Home Social History [...] Description 01/17/2025 11:00 AM EST Office Visit [facility] [address] [facility] [address] [place] [address] Tyesha Oates MD [address] [facility] [address] [place] [address] documented as of this encounter Procedures Procedure [...] Eduardo Johnson 07/28/2024 5:16 PM Dictation workstation: [id number] Narrative 07/28/2024 5:16 PM EDT Interpreted By: Eduardo Johnson and Giannuzzi Michael STUDY: MYOCARDIAL PERFUSION STRESS TEST WITH LEXISCAN Performing facility: [facility] Provider: Tyesha Oates MD, FACC PCP: Dr. [...] smoking. COMPARISON: Previous nuclear testing completed at [facility]. ACCESSION NUMBER(S): [id number] ORDERING CLINICIAN: TYESHA OATES TECHNIQUE: ONE DAY [...] PERFUSION STRESS TEST WITH LEXISCAN Performing facility: [facility] Provider: Tyesha Oates MD, FACC PCP: Dr. [...] smoking. COMPARISON: Previous nuclear testing completed at [facility]. ACCESSION NUMBER(S): [id number] ORDERING CLINICIAN: TYESHA OATES TECHNIQUE: ONE DAY [...] Eduardo Johnson 07/28/2024 5:16 PM Dictation workstation: [id number] us Tyesha Oates MD CV STRESS PROCEDURES Final Resul t documented in this encounter Visit Diagnoses Not on filedocumented in this encounter Additional Health Concerns Assessment Noted Time PHQ-9 Depression Total Score: 15 023 2:11 PM EST A fall risk assessment has been complete d for the patient 07/12/2024 9:41 AM EDT documented as of this encounter Care Teams Unleavened Dough Mixer Relationship Specialty Start Date End Date Gina Benton MD PCP - General Family Medicine 05/05/23 documented as of this encounter
--- OUTSIDE RECORDS SUMMARY | 2024-07-28 07:44 | XMS_ITS | Encounter Summary ---
Author Organization [facility] Address [address] [place] [address] Phone Care Team Providers Care Professional Caster Name Role Phone Gina Benton MD Primary Care Provider [phone] Reason for Referral * Cardiac Stress Testing (Routine) - Authorized Specialty Diagnoses / Procedures Referred By Contac t Referred To Contact Radiology Diagnoses Paroxysmal atrial fibrillation (Multi) Primary hypertension Mixed hyperlipidemia PVD (peripheral vascular disease) Shortness of breath SOB (shortness of breath) on exertion Procedures Nuclear Stress Test CHG MYOCARDIAL SPECT MULTIPLE STUDIES Tyesha Oates MD [address] [address] Phone: tel: fax: Referral ID Status Reason Start Date Expiration Date V isits Requested Visits Authorized [id number] Authorized 07/12/2024 07/12/2025 5 5 Reason for Visit * Cardiac Stress Testing (Routine) - Authorized Specialty Diagnoses / Procedures Referred By Contac t Referred To Contact Radiology Diagnoses Paroxysmal atrial fibrillation (Multi) Primary hypertension Mixed hyperlipidemia PVD (peripheral vascular disease) Shortness of breath SOB (shortness of breath) on exertion Procedures Nuclear Stress Test CHG MYOCARDIAL SPECT MULTIPLE STUDIES Tyesha Oates MD [address] [address] Phone: tel: fax: Referral ID Status Reason Start Date Expiration Date V isits Requested Visits Authorized [id number] Authorized 07/12/2024 07/12/2025 5 5 Encounter Details Date Type Department Care Team (Latest Contact Info) Description 07/28/2024 7:44 AM EDT Hospital Encounter [facility] [address] [address] Paroxysmal atrial fibrillation (Multi); Primary hypertension; Mixed hyperlipidemia; PVD (peripheral vascular disease); SOB (shortness of breath) on exertion Discharge Disposition: Home Social History Tobacco Use [...] mouth once daily. 90 tablet 1 07/12/2024 apixaban (Eliquis) 5 mg tabletIndications: Paroxysmal atrial fibrillation (Multi),High risk medication use Take 1 tablet (5 mg) by mouth 2 times a day. 180 tablet 2 07/12/2024 aspirin 81 mg EC tabletIndications: PVD (peripheral vascular disease),Hypertens ion, unspecified type TAKE 1 TABLET BY MOUTH EVERY DAY WITH FOOD 90 tablet 11 07/09/2024 inclisiran (Leqvio) injection Inject 1.5 mL (284 mg total) under the skin every 6 months. every 6 months loratadine (Claritin) 10 mg tablet Take 1 tablet (10 mg) by mouth once daily at bedtime. magnesium oxide (Mag-Ox) 400 mg (241.3 mg elemental) tabletIndications: Paroxysmal atrial fibrillation (Multi) Take 1 tablet (400 mg) by mouth 2 times a day. 180 tablet 2 07/12/2024 montelukast (Singulair) 10 mg tablet Take 1 [...] Description 01/17/2025 11:00 AM EST Office Visit [facility] 7[address] [facility] [address] [place] [address] Tyesha Oates MD 917 [facility] [address] [place], [place] [id number] documented as of this encounter Procedures Procedure [...] Eduardo Johnson 07/28/2024 5:16 PM Dictation workstation: [id number] Narrative 07/28/2024 5:16 PM EDT Interpreted By: Eduardo Johnson and Sunni Art STUDY: MYOCARDIAL PERFUSION STRESS TEST WITH LEXISCAN Performing facility: [facility] Provider: Tyesha Oates MD, [facility] PCP: Dr. Marcio Benton Supervising provider: Jadon Vallejo DO, [facility] INDICATION: Signs/Symptoms:SOB, SOB on exertion, cardiac risk. ,I48.0 Paroxysmal atrial fibrillation (Multi),I10 Essential (primary) hypertension,E78.2 Mixed hyperlipidemia,I73.9 Peripheral vascular disease, unspecified,R06.02 Shortness of breath HISTORY: Gender: F; Age: 73 y/o ; Height: HT 160 cm cm; Weight: WT 85.276 kg kg. High Cholesterol; HTN; Arrhythmias;A-fib COPD; SOB; Currently smoking. COMPARISON: Previous nuclear testing completed at [facility]. ACCESSION NUMBER(S): [id number] ORDERING CLINICIAN: TYESHA OATES TECHNIQUE: ONE DAY [...] PERFUSION STRESS TEST WITH LEXISCAN Performing facility: [facility] Provider: Tyesha Oates MD, [facility] PCP: Dr. Marcio Benton Supervising provider: Jadon Vallejo DO, [facility] INDICATION: Signs/Symptoms:SOB, SOB on exertion, cardiac risk. ,I48.0 Paroxysmal atrial fibrillation (Multi),I10 Essential (primary) hypertension,E78.2 Mixed hyperlipidemia,I73.9 Peripheral vascular disease, unspecified,R06.02 Shortness of breath HISTORY: Gender: F; Age: 73 y/o ; Height: HT 160 cm cm; Weight: WT 85.276 kg kg. High Cholesterol; HTN; Arrhythmias;A-fib COPD; SOB; Currently smoking. COMPARISON: Previous nuclear testing completed at [facility]. ACCESSION NUMBER(S): [id number] ORDERING CLINICIAN: TYESHA OATES TECHNIQUE: ONE DAY [...] Eduardo Johnson 07/28/2024 5:16 PM Dictation workstation: [id number] us Tyesha Oates MD CV STRESS PROCEDURES Final Resul t documented in this encounter Visit Diagnoses Diagnosis Paroxysmal atrial fibrillation (Multi) Atrial fibrillation Primary hypertension Unspecified essential hypertension Mixed hyperlipidemia PVD (peripheral vascular disease) Unspecified peripheral vascular disease SOB (shortness of breath) on exertion Shortness of breath documented in this encounter Administered Medications Inactive Administered Medications - up to 3 most recent administrations Medication Order MAR Action Action Date Dose Rate Site Tc-99m tetrofosmin (Myoview) injection 10 millicurie 10 millicurie, intravenous, Once in imaging, Starting on Fri07/28/24 at 0803, For 1 dose, Administer 45 to 90 minutes prior to imaging unless otherwise indicated. Given 07/28/2024 8:02 AM EDT 11.4 millicuries documented in this encounter Additional Health Concerns Assessment Noted Time PHQ-9 Depression Total Score: 15 023 2:11 PM EST A fall risk assessment has been complete d for the patient 07/12/2024 9:41 AM EDT documented as of this encounter Care Teams Professional Caster Relationship Specialty Start Date End Date Gina Benton MD PCP - General Family Medicine 05/05/23 documented as of this encounter
--- OUTSIDE RECORDS SUMMARY | 2024-07-28 07:45 | XMS_ITS | Encounter Summary ---
Author Organization [facility] Address [address] [place] [address] Phone Care Team Providers Care Marketing Information Manager Name Role Phone Gina Benton MD Primary Care Provider [phone] Reason for Visit * Cardiac Stress Testing (Routine) - Authorized Specialty Diagnoses / Procedures Referred By Contac t Referred To Contact Radiology Diagnoses Paroxysmal atrial fibrillation (Multi) Primary hypertension Mixed hyperlipidemia PVD (peripheral vascular disease) Shortness of breath SOB (shortness of breath) on exertion Procedures Nuclear Stress Test CHG MYOCARDIAL SPECT MULTIPLE STUDIES Juany Richter MD [address] [facility] [address] [place] [address] Phone: tel: fax: Referral ID Status Reason Start Date Expiration Date V isits Requested Visits Authorized [id number] Authorized 07/12/2024 07/12/2025 5 5 Encounter Details Date Type Department Care Team (Latest Contact Info) Description 07/28/2024 7:45 AM EDT - 07/28/2024 11:59 PM EDT Hospital Encounter [facility] [address] [facility] [address] [place] [address] Discharge Disposition: Home Social History [...] AM EDT documented as of this encounter Last Filed Vital Signs Vital Sign Reading Time Taken Comments Blood Pressure 132/86 07/28/2024 9:05 AM EDT Pulse 65 07/28/2024 9:05 AM EDT Temperature - - Respiratory Rate - - Oxygen Saturation - - Inhaled Oxygen Concentration - - Weight - - Height - - Body Mass Index - - documented in this encounter Medications at Time of Discharge [...] Description 01/17/2025 11:00 AM EST Office Visit [facility] [address] [facility] [address] [place] [address] Juany Richter MD [address] [facility] [address] [place], [place] [id number] documented as of this encounter Procedures Procedure [...] MAR Action Action Date Dose Rate Site regadenoson (Lexiscan) injection 0.4 mg 0.4 mg, intravenous, Once, On Fri07/28/24 at 0830, For 1 dose Given 07/28/2024 9:11 AM EDT 0.4 mg documented in this encounter Additional Health Concerns Assessment Noted Time PHQ-9 Depression Total Score: 15 023 2:11 PM EST A fall risk assessment has been complete d for the patient 07/12/2024 9:41 AM EDT documented as of this encounter Care Teams Marketing Information Manager Relationship Specialty Start Date End Date Gina Benton MD PCP - General Family Medicine 05/05/23 documented as of this encounter
--- OUTSIDE RECORDS SUMMARY | 2024-08-03 04:57 | XMS_ITS | Continuity of Care Document ---
Author Organization [facility] Address [address] [place] [address] Phone Care Team Providers Care Vamp Maker Name Role Phone Gina Benton MD Primary Care Provider Juany Richter MD Attending Provider [phone] Juany Richter MD Referring Provider Juany Richter MD Attending Provider Eulogio Mai MD Attending Provider [phone] Care Teams Patient Care Team Team Status: Active Member Role Status Dates Gina Benton MD Primary Care Provider Active Visit Care Team Team Status: Active Member Role Status Dates Gina Benton MD Primary Care Provider Active Start: June 14, 2024 Juany Richter MD Attending Provider, Referring Provider Active Start: June 14, 2024 Visit Care Team Team Status: Inactive Member Role Status Dates Gina Benton MD Primary Care Provider Active Start: July 01, 2024 End: July 01, 2024 Juany Richter MD Attending Provider Active Star t: July 01, 2024 End: July 01, 2024 Visit Care Team Team Status: Active Member Role Status Dates Gina Benton MD Primary Care Provider Active Start: July 01, 2024 Juany Richter MD Other Provider Active Start: Ish perez 2024 Alexandre Massey MD Attending Provider Active Start: July 01, 2024 Visit Care Team Team Status: Inactive Member Role Status Dates Gina Benton MD Primary Care Provider Active Start: July 07, 2024 End: July 07, 2024 Eulogio Mai MD Attending Provider Active Start: July 07, 2024 End: July 07, 2024 Visit Care Team Team Status: Inactive Member Role Status Dates Gina Benton MD Primary Care Provider Active Start: July 07, 2024 End: July 07, 2024 Eulogio Mai MD Attending Provider Active Start: July 07, 2024 End: July 07, 2024 Patient Care Team Team Status: Inactive Member Role Status Dates Gina Benton MD Primary Care Provide r, Attending Provider Active Start: August 03, 2024 End: August 03, 2024 Chief Complaint and Reason for Visit Chief Complaint Admit Date Z78.9,E78.2 June 14, 2024 9:5 5am i48.0 d68.69 July 01, 2024 8:51am i48.0 d68.69 July 01, 2024 8:51pm I70.213 July 07, 2024 8:48am 1 YR FOLLOW UP; SHERLY'S BOTH LEGS 9A July 072024 8:51am Wellness August 03, 2024 8:25a m Reason for Visit Admit Date PAD (peripheral artery disease) July 07, 2024 8:51am Elevated TSH August 03, 2024 8:25a m Fatigue August 03, 2024 8:25a m Medicare annual wellness visit, subseque nt August 03, 2024 8:25am Paroxysmal A-fib August 03, 2024 8:25a m Allergies, Adverse Reactions, Alerts Allergen Type Severity Reaction Last Updated Verified Status Comments triamcinolone Allergy Mild Hives August 03, 2024 8:33am Yes Active azithromycin Allergy Unknown Rash August 03, 2024 8:33am Yes Active buspirone Allergy Unknown Rash August 03, 2024 8:33am Yes Active cefuroxime Allergy Unknown Rash August 03, 2024 8:33am Yes Active cephalexin Allergy Unknown Rash August 03, 2024 8:33am Yes Active Cephalosporins Allergy Unknown Abdominal Pain August 03, 2024 8:33am Yes Active ciprofloxacin Allergy Unknown Rash August 03, 2024 8:33am Yes Active citalopram Allergy Unknown Rash August 03, 2024 8:33am Yes Active doxycycline Allergy Unknown Rash August 03, 2024 8:33am Yes Active duloxetine Allergy Unknown Rash August 03, 2024 8:33am Yes Active hydrochlorothiazide Allergy Unknown Rash August 03, 2024 8:33am Yes Active can take with olmesartan without problem ketorolac Allergy Unknown Rash August 03, 2024 8:33am Yes Active latex Allergy Unknown Rash August 03, 2024 8:33am Yes Active levocetirizine Allergy Unknown Rash August 03, 2024 8:33am Yes Active lisinopril Allergy Unknown Rash August 03, 2024 8:33am Yes Active losartan Allergy Unknown Rash August 03, 2024 8:33am Yes Active nitrofurantoin Allergy Unknown Rash August 03, 2024 8:33am Yes Active paroxetine Allergy Unknown Rash August 03, 2024 8:33am Yes Active Penicillins Allergy Unknown Rash August 03, 2024 8:33am Yes Active prednisone Allergy Unknown Rash, Comment:Shaggy roids August 03, 2024 8:33am Yes Active Sulfa (Sulfonamide Antibiotics) Allergy Unknown Rash August 03, 2024 8:33am Yes Active Xyzal Allergy 24HR Allergy Unknown Abdominal Pain April 23, 2023 10:48am No Active Social History Smoking Status Status Start Date End Date Date of Observa tion Smoker (finding) February 102022 10:00am Observation Status Observation Response Date of Response Patient Sex Female August 03, 2024 8 :56am Assigned Sex Female 1950 Family History Relationship Condition Age at Onset Recorded Date/T tree mother Hypoglycemia Unknown Hypertension Unknown Alzheimer's disease Unknown father Malignant neoplasm of lung Unknown sister Malignant neoplasm of ovary Unknown brother Hypertension Unknown father Heart disease Unknown Family history of lung cancer Unknown Malignant neoplasm Unknown Unknown mother Hypoglycemia Unknown Unknown Hypertension Unknown sister Hypertension Unknown History of ovarian cancer Unknown Problems Active Problems Medical Problem Onset Date Status Medicare annual wellness visit, subsequent Active Spasm of left trapezius muscle A ctive Insomnia disorder Active Pain of left thumb Active Primary osteoarthritis of right knee Active Current every day smoker Active Sinusitis, acute maxillary Activ e Fatigue Active Dyspnea Active Dysuria Active Lung nodule Active Otitis externa Active Essential hypertension Active Cigarette nicotine dependence Ac tive Elevated TSH Active PAD (peripheral artery disease) Active Osteoarthritis of left knee Acti ve Osteoarthritis of right knee Act khloe Paroxysmal A-fib Active 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 Active Bilateral otitis media with effusion Active Bronchitis Active Arthritis of carpometacarpal (CMC) joint of left thumb Active Medications Medication Status Dose Units Route Directions Qty Days St art Date Stop Date End Date Instructions Loratadine 10 mg tablet Discont inued 0 .ROUTE .COMPLEX 2023 10:00a m Augus t 2023 9:44a m TAKE 1 TABLET BY MOUTH EVERY DAY FOR 90 DAYS Omeprazole 40 mg capsule,jeri yed release(DR/E C) Discont inued 0 .ROUTE .COMPLEX May 27, 2023 1:06pm September 30, 2023 9:04a m TAKE 1 CAPSULE BY MOUTH EVERY DAY 30 MINUTES BEFORE MORNING MEAL Tramadol 50 mg tablet Discont inued 50 MG PO Every 8 hours as needed for pain 20 July 18, 2023 10:33a m August 18, 2023 4:08p m twenty Omeprazole 40 mg capsule,jeri yed release(DR/E C) Discont inued 0 .ROUTE .COMPLEX September 30, 2023 9:04am Octob er 2023 3:37p m TAKE 1 CAPSULE BY MOUTH EVERY DAY 30 MINUTES BEFORE MORNING MEAL Loratadine 10 mg tablet Discont inued 0 .ROUTE .COMPLEX October 06, 2023 9:44am Febru suellen 2024 9:30a m TAKE 1 TABLET BY MOUTH EVERY DAY FOR 90 DAYS Omeprazole 40 mg capsule,jeri yed release(DR/E C) Active 0 .ROUTE .COMPLEX Decobe r 2023 3:37pm TAKE 1 CAPSULE BY MOUTH EVERY DAY 30 MINUTES BEFORE MORNING MEAL Loratadine 10 mg tablet Discont inued 0 .ROUTE .COMPLEX 2024 9:30am Febru suellen 2024 2:35p m TAKE 1 TABLET BY MOUTH EVERY DAY FOR 90 DAYS Hydroxyzine Hcl 25 mg tablet Discont inued 25 MG PO Four times daily as needed for itching 30 7 Februa ry 2024 1:00am Febru suellen 2024 2:24p m Aspirin 81 mg tablet,delay ed release (DR/EC) Active 81 MG PO Daily June 04, 2022 12:00a m Simvastatin 20 mg tablet Discont inued 20 MG PO Daily June 04, 2022 12:00a m Novem balta 2022 5:01p m Albuterol Sulfate 90 mcg/actuatio n HFA aerosol inhaler Active 1 PUFF INHALA TION Every 4 hours as needed for Shortness Of Breath June 04, 2022 12:00a m Loratadine 10 mg tablet Discont inued 10 MG PO Daily June 04, 2022 12:00a m Febru suellen2023 10:00 am Amiodarone 100 mg tablet Active 100 MG PO Every morning June 04, 2022 12:00a m Apixaban (Eliquis) 5 mg tablet Active 5 MG PO Twice daily June 04, 2022 12:00a m Olmesartan-H ydrochloroth iazide (Benicar Hct) 20-12.5 mg Tablet Active 1 TAB PO Daily June 04, 2022 12:00a m Fluticasone Propionate 50 mcg/actuatio n [place],Suspen marshal Discont inued 1 SPRAY INTRAN ROYAL Daily June 04, 2022 12:00a m balta 2022 5:00p m administer into each nostril Omeprazole 40 mg Capsule,Jeri yed Release(Dr/E c) Discont inued 40 MG PO Daily June 04, 2022 12:00a m May 27, 2023 1:06p m Magnesium Oxide 400 mg (241.3 mg magnesium) tablet Active 400 MG PO Twice daily Novemb er 2022 1:00am Montelukast 10 mg tablet Active 10 MG PO Daily at bedtime Novemb er 2022 1:00am Coenzyme Q10 100 mg capsule Active 100 MG PO Daily at bedtime Novemb er 2022 1:00am Acetaminophe n (Tylenol Extra Strength) 500 mg Tablet Active 1000 MG PO Twice daily as needed for Pain Novemb er 2022 1:00am Ciprofloxaci n Hcl 250 mg tablet Discont inued 250 MG PO Twice daily 10 5 Decobe r 2023 12:18p m Decem balta 2023 4:31p m Cephalexin 500 mg capsule Discont inued 500 MG PO Three times daily 21 7 2024 1:00am August 03, 2024 8:36a m Benzonatate 200 mg capsule Discont inued 200 MG PO 2-3 TIMES PER DAY as needed for cough y 2024 1:00am August 03, 2024 8:33a m Loratadine 10 mg tablet Active 0 .ROUTE .COMPLEX 2024 2:35pm TAKE 1 TABLET BY MOUTH EVERY DAY FOR 90 DAYS Tramadol 50 mg tablet Discont inued 50 MG PO Every 8 hours as needed for pain 30 7 2023 1:00am July 18, 2023 10:34 am Neomycin-Yuri ymyxin-Hc 3.5-10,000-1 mg/mL-unit/m L-% drops,suspen marshal Discont inued 4 DROPS OTIC Three times daily August 18, 2023 12:00a m September 08, 2023 10:11 am Tramadol 50 mg tablet Discont inued 50 MG PO EVERY 4-6 HOURS as needed for pain 30 7 September 12, 2023 12:00a m Marua ry 2024 11:15 am Dispense quantity of thirty tablets M17.11 Ciprofloxaci n Hcl 250 mg tablet Discont inued 250 MG PO Daily September 24, 2023 12:00a m Augus t 2023 1:50p m Inclisiran (Leqvio) 284 mg/1.5 mL syringe Active 284 MG SUBCUT EVERY 6 MONTHS October 09, 2023 12:00a m Ciprofloxaci n Hcl 500 mg tablet Discont inued 500 MG PO Daily October 09, 2023 1:49pm Octob er 2023 12:19 pm Simvastatin 20 mg tablet Discont inued 20 MG PO Daily Decemb er 2023 1:00am Decem balta 2023 4:33p m FreeTextSi tablet in the evening Orally Once a day; Note: Source Status: Not-Takingund efinedPRN; Provider: Patricia Wood Fluticasone Propionate 50 mcg/actuatio n spray,nati marshal Panchal inued 1 SPRAY INTRAN ROYAL Daily Decemb er 2023 1:00am Decem balta 2023 4:32p m FreeTextSi spray in each nostril Nasally Once a day; Note: Source Status: Not-Takingund efinedPRN; Provider: Chetan Fuentes ( ) Immunizations Immunization Event Date Not Given Reason Dose Number Elevator Starter Lot Number Vaccine Information Statement (VIS) Detail COVID-19 (Pfizer) June 02, 2020 COVID-19 (Pfizer) June 22, 2020 COVID-19 (Pfizer) January 23, 2021 Medical Equipment Device Date Implanted Device Details Multiple peripheral artery s tent, bare-metal June 04, 2022 MAT: [id number] Issuing Agency: [facility] Device Id: [id number] Expiration Date: 2024-11-01 Serial Number: [id number] Procedures Procedure Date Performed Status US ankle/arm indices July 07, 2024 8:49am comple alirio XR chest 2V* July 01, 2024 9:30am completed Relevant Diagnostic Tests and/or Laboratory Data Laboratory Results Test Date/Time Result Interpretation Reference Range Result Comment Performing Site Glucose Level July 01, 2024 10:05am 93 mg/dL 70-100 ADA recommended reference rangeRandom Glucose Reference Range is dependent on time and content of last meal. Glucose of more than 200 mg/dL in a nonstressed, ambulatory subject supports the diagnosis of Diabetes Mellitus. [facility] [id number] [address] [facility] [address] Blood Urea Nitrogen July 01, 2024 10:05am 11 mg/dL 7-25 [facility] [id number] [address] [facility] [address] Creatinine July 01, 2024 10:05am 1.11 mg/dL 0.60-1.20 [facility] [id number] [address] [facility] [address] Estimated GFR (CKD-EPI) July 01, 2024 10:05am 52.811 mL/Min [facility] [id number] [address] [place] [id number] Sodium Level July 01, 2024 10:05am 139 mmol/L 136-145 [facility] [id number] [address] [place] [id number] Potassium Level July 01, 2024 10:05am 4.4 mmol/L 3.5-5.1 [facility] [id number] [address] [place] [id number] Chloride Level July 01, 2024 10:05am 104 mmol/L 98-107 [facility] [id number] [address] [place] [id number] Carbon Dioxide Level July 01, 2024 10:05am 29.9 mmol/L 21.0-31.0 [facility] [id number] [address] [place] [id number] Anion Gap July 01, 2024 10:05am 9.5 mEq/L 6.0-15.0 [facility] [id number] [address] [place] [id number] Calcium Level July 01, 2024 10:05am 9.3 mg/dL 8.6-10.3 [facility] [id number] [address] [place] [id number] Aspartate Amino Transf (AST/SGOT) July 01, 2024 10:05am 19 U/L 13-39 [facility] [id number] [address] [place] [id number] Alanine Aminotransferas e (ALT/SGPT) July 01, 2024 10:05am 14 U/L 7-52 [facility] [id number] [address] [place] [id number] Cholesterol Level July 01, 2024 10:05am 122 mg/dL Below low normal 140-200 Chol less than 200 mg/dl low riskChol 201-239 mg/dl borderline riskChol 240 mg/dl and greater high risk [facility] [id number] [address] [place] [id number] HDL Cholesterol July 01, 2024 10:05am 61 mg/dL 23-92 HDL CHOL ATP-III CLASSIFICATION Cardiovascular RiskHDL > or equal to 60 mg/dL LOWHDL < 40 mg/dL HIGH [facility] [id number] [address] [place] [id number] Triglycerides Level July 01, 2024 10:05am 116 mg/dL 0-149 TRIG ATP III CLASSIFICATIONTRI G less than 150 mg/dL NormalTRIG 150-199 mg/dL Borderline highTRIG 200-500 mg/dL High TRIG greater than 500 mg/dL Very highStandard traceable to the Center for Disease Conrtrol and Prevention (CDC) test method. [facility] [id number] [address] [place], [place] [address] LDL Cholesterol, Calculated July 01, 2024 10:05am 38 mg/dL 0-100 LDL ATP III CLASSIFICATIONLDL less than 100 mg/dL OptimalLDL 100-129 mg/dL Near or above optimalLDL 130-159 mg/dL Borderline highLDL 160-189 mg/dL HighLDL greater than 189 mg/dL Very high [facility] [id number] [address] [place], [place] [address] VLDL Cholesterol July 01, 2024 10:05am 23 mg/dL [facility] [id number] [address] [place], [place] [address] Cholesterol/HDL Ratio July 01, 2024 10:05am 2.0 <5.0 [facility] [id number] [address] [place], [place] [address] Thyroid Stimulating Hormone 3rd Gen July 01, 2024 10:05am 6.67 u[iU]/m L Above high normal 0.45-5.33 [facility] [id number] [address] [place], [place] [address] Pharmacy Creatinine Clearance (Chem July 01, 2024 10:05am N/A [facility] [id number] [address] [place], [place] [address] Diagnostic Imaging Reports Author Reji Perry [facility] Authored July 01, 2024 4:10pm Report Dictated Date/Time Dictated By Status Radiology Report July 01, 2024 4:10pm Ish Crockett completed [facility] Main [place] [id number] XRay Report Signed Patient: Liza Weston#: [id number] : 1950 Acct:[id number] Age/Sex: 73 / F ADM Date: 5 Loc: RT Room: Type: [facility] CLI Attending Dr: Juany Richter MD Copies to: MD Gina Patel MD~ Ordering Provider: Gina Benton MD Date of Service: 07/01/24 XR/XR chest 2V*: R06.00 - Dyspnea, unspecified PA AND LATERAL CHEST: CLINICAL HISTORY: Paroxysmal atrial fibrillation, high risk medication usage COMPARISON: 04/15/2023 FINDINGS: Unremarkable cardiomediastinal silhouette. Lungs are clear. Left perihilar calcified granuloma. No effusion or pneumothorax. Degenerative changes of thoracic spine. XR/XR chest 2V* IMPRESSION: NO ACUTE CARDIOPULMONARY ABNORMALITY. Impression dictated by: Reji Perry M.D. 07/01/2024 4:11 PM Dictation Location: RADIO-PC-29 Transcribed By: [facility] 07/01/24 161 Dictated By: Reji Perry MD 07/01/24 1610 Signed By: <Electronically signed by Reji Perry MD in OV> 07/01/24 1611 Author Eulogio Mai [facility] Authored July 08, 2024 8:27am Report Dictated Date/Time Dictated By Status Radiology Report July 08, 2024 8:27am Eulogio Mai MD completed [facility] Vascular [address] [place] [address] Ultrasound Report Signed Patient: Liza Weston#: [id number] : 1950 Acct:[id number] Age/Sex: 73 / F ADM Date: 5 Loc: [facility] Room: Type: [facility] Attending Dr: Eulogio Mai MD Ordering Provider: Eulogio Mai MD Date of Service: 07/07/24 US/US ankle/arm indices: I70.213 - Atherosclerosis of [place] arteries of extremiti... Copies to: Eulogio Mai MD~ LOWER EXTREMITY SEGMENTAL ARTERIAL DOPSCAN (PVR) INDICATION: Annual surveillance ABIs study for known PAD. PROCEDURE: Right arm blood pressure is 163 , left is 164 . Pressures of the right leg are 106 at the ankle using the posterior tibial artery and 98 at the ankle using the dorsalis pedis artery with ankle-brachial index of 0.60 0.65 . Pressures of the left leg are 89 at the ankle using the posterior tibial artery and 94 at the ankle using the dorsalis pedis artery with ankle-brachial index of 0.57 0.54 . Wave forms by plethysmography are biphasic, bilaterally. 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 Impression dictated by: Eulogio Mai MD,FACS,FSVS 07/08/2024 8:28 AM Dictation Location: [place] [address] Tech: Jannie Vallejo Transcribed By: PWS 07/08/24827 Dictated By: Eulogio Mai MD 07/08/24826 Signed By: <Electronically signed by Eulogio Mai MD in OV> 07/08/24827 Vital Signs Vital Reading Result Reference Range Collection Date/Time Heart Rate 75 /min 60-100 June 14 10:17am BP Systolic 130 mm[Hg] 100-140 June 14 10:17am BP Diastolic 78 mm[Hg] 60-100 June 14 10:17am Body Temperature 96.8 [degF] 97.6-99.0 July 07 9:11am Heart Rate 67 /min 60-100 July 07, 2024 9 :11am Oxygen saturation by Pulse oximetry 98 % 95-100 July 07, 2024 9:11am BP Systolic 130 mm[Hg] 100-140 July 07, 2024 9 :11am BP Diastolic 80 mm[Hg] 60-100 July 07, 2024 9 :11am Height 63 [in_i] August 03, 2024 8:32am Weight 85.84 kg August 03, 2024 8:32am Heart Rate 62 /min 60-100 August 03, 2024 8:32am Respiratory rate 12 /min 12-24 August 03, 2 025 8:32am Oxygen saturation by Pulse oximetry 99 % 95-100 August 03, 2024 8:32a m BP Systolic 149 mm[Hg] 100-140 August 03, 2024 8:32am BP Diastolic 83 mm[Hg] 60-100 August 03, 2024 8:32am BMI (Body Mass Index) 33.5 kg/m2 August 032024 8:32am Advance Directives Advance Directive Response Recorded Date/ Time Advance Directives No April 04, 2022 11:06am Insurance Providers Guarantor Liza flores Address [address] [place] [address] Contact Info. Home Phone: Payer Policy Id Coverage Id Subscriber's Name Subscriber Id Effective Date Expiration Date [facility] PFFS [id number] Liza Weston [id number] HCAP/HFA/FAP Active [id number] Liza Weston [id number] 2023 Encounters Encounter Location(s) Arrival/Admit Date Discharge/Depart Date Provider(s) Registered [facility]-Infusion Therapy - O/P June 14, 2024 9:55am Juany Richter Departed [facility]-Respiratory Therapy July 01, 2024 8:51am July 01, 2024 8:52am Juany Richter MD Non-patient / Non-visit [facility] Pulmonary July 01, 2024 8:51pm Alexandre Massey MD Departed Clinical [facility]-Ultrasound [facility] July 07, 2024 8:48am July 07, 2024 8:49am Eulogio Mai MD Departed Physician/Provi pita Office Visit [facility] Surg July 07, 2024 8:51am July 07, 2024 9:14am Eulogio Mai MD Departed Physician/Provi pita Office Visit [facility] August 03, 2024 8:25am August 03, 2024 8:56am Gina Benton MD Recent Diagnosis Onset Date Admit Date PAD (peripheral artery disease) July 07, 2024 8:51am Elevated TSH August 03, 2024 8 :25am Fatigue August 03, 2024 8 :25am Medicare annual wellness visit, subsequent August 03, 2024 8:25am Paroxysmal A-fib August 03, 2024 8:25am Assessments Diagnosis Onset Date Resolution Status Admit Date PAD (peripheral artery disease) acut e July 07, 2024 8:51am Elevated TSH acute August 03 8:25am Fatigue acute August 03, 2024 8:25am Medicare annual wellness vis it, subsequent acute August 03, 2024 8 :25am Paroxysmal A-fib acute August 8:25am Plan of Treatment Author Eulogio Mai [facility] Authored July 07, 2024 10:40a m This patient has moderate bi lateral lower extremity PAD which is currently stable and minimally symptomatic. There is no indication for any further workup or treatment at this time. I recommend continued exercise regimen and risk factor modification. We will see her back in 1 year. I did auscultate a left carotid bruit. Therefore we will order a carotid screening study to rule out stenoses. Patient is agreeable to this. Future Tests Future scheduled test information is unavailable Pending Tests Test Name Ordered Date Scheduled Date US carotid doppler BI July 07, 2024 9:23am 11 Mo nt Future Visits Future appointment information is unavailable Referrals to Other Providers Referral information is unavailable Future Procedures Procedure Name Ordered Date Scheduled Date US ankle/arm indices July 07, 2024 9:23am 11 Mon ths Free T4 (Free Thyroxine) August 03, 2024 8:48am Thyroid Antibodies TPO+Tg Ab August 03, 2024 8:48 am Thyroid Stim Hormone w/Rflx August 03, 2024 8:48a m Future Medications Future medication information is unavailable Patient Instructions Patient instructions are unavailable
--- OUTSIDE RECORDS SUMMARY | 2024-08-03 09:19 | XMS_ITS | Clinical Summary ---
Author Organization [facility] Address [address] [place] [address] Care Team Providers Care Employee Relation Manager Name Role Phone Gina Benton MD Primary Care Provider [phone] Allergies Active Allergy Reactions Criticality Noted Date Comments Azithromycin Unknown 01/15/2022 Buspirone 01/15/2022 Cefuroxime Axetil 01/15/2022 Celecoxib 01/15/2022 Ciprofloxacin Unknown 01/15/2022 Citalopram Unknown 01/15/2022 Doxycycline Unknown 01/15/2022 Duloxetine Unknown 01/15/2022 Cephalexin 01/15/2022 Latex Unknown 01/15/2022 Levocetirizine 01/15/2022 Lisinopril 01/15/2022 Losartan-Hydrochlorothiazide Unknown 022 Magnesium Unknown 01/15/2022 Metoprolol 01/15/2022 Nitrofurantoin Monohyd/M-Cryst Unknown 01/15 Paroxetine Hcl Unknown 01/15/2022 Penicillins Unknown 01/15/2022 Prednisone 01/15/2022 Sulfa (Sulfonamide Antibiotics) Unknown 01/01 Ketorolac 01/15/2022 Medications Medication Sig Dispensed Refills Start Date End Date Status Eliquis 5 mg tablet Take 5 mg by mouth in the morning and at bedtime. 09/26/2021 Active loratadine (Claritin) 10 mg tablet Take 10 mg by mouth in the morning. Active omeprazole (PriLOSEC) [address] capsule Take 40 mg by mouth before breakfast. Do not crush or chew. Active olmesartan-hydrochloro thiazide (BENIcar HCT) 20-12.5 mg tablet Take 1 tablet by mouth in the morning. Active amiodarone (Pacerone) 200 mg tabletIndications:Paro xysmal atrial fibrillation (CMS/HCC) Take 1 tablet (200 mg) by mouth in the morning. 90 tablet 3 01/15/2022 Active Social History Tobacco Use Types Packs/Day Years Used Date Smoking Tobacco: Every Day Cigarettes Smokeless Tobacco: Never Tobacco Cessation:Ready to Q uit: Not Asked; Counseling Given: Not Answered Alcohol Use Standard Drinks/Week Comments Yes 0 (1 standard drink = 0.6 oz pur e alcohol) occasional [place] Safety & Environment Answer Date Rec orded Fear of Current or Ex-Partner Not on file Emotionally Abused Not on file 04/24/2023 Physically Abused Not on file 04/24/2023 Sexually Abused Not on file 04/24/2023 Physically or Sexually Abused Not on file Sex and Gender Information Value Date Recorded Sex Assigned at Not on file Gender Identity Not on file Sexual Orientation Not on file Last Filed Vital Signs Vital Sign Reading Time Taken Comments Blood Pressure 134/75 01/15/2022 9:57 AM EST Pulse 74 01/15/2022 9:57 AM EST Temperature - - Respiratory Rate - - Oxygen Saturation 99% 01/15/2022 9:57 AM EST Inhaled Oxygen Concentration - - Weight 87.1 kg (192 lb) 01/15/2022 9:57 AM EST Height 160 cm (5' 3 ) 01/15/2022 9:57 AM EST Body Mass Index 34.01 01/15/2022 9:57 AM EST Plan of Treatment Health Maintenance Due Date Last Done Comments CT Colonography 1950 Colonoscopy 1950 Colorectal Cancer Screening 1950 FIT-DNA 1950 FIT 1950 FOBT 1950 Medicare Annual Wellness (AWV) 1950 Sigmoidoscopy 1950 Pneumococcal Vaccine: 65+ Years (1 of 2 - PCV) 12/16/1957 Depression Screening 1963 Adult Tetanus 12/16/1973 Mammogram 1991 Zoster Vaccines (1 of 2) 12/16/2001 Fall Risk Screening 12/16/2016 COVID-19 Vaccine ( - 2023-2 5 season) 2023 01/23/2021, 06/22/2020, 06/02/2020 Influenza Vaccine (Season Ended) 2024 HIB Vaccines Aged Out No longer eligi ble based on patient's age to complete this topic HPV Vaccines Aged Out No longer eligi ble based on patient's age to complete this topic IPV Vaccines Aged Out No longer eligi ble based on patient's age to complete this topic Meningococcal B Vaccine Aged Out No l onger eligible based on patient's age to complete this topic Meningococcal Vaccine Aged Out No flako jevon eligible based on patient's age to complete this topic Rotavirus Vaccines Aged Out No longer eligible based on patient's age to complete this topic Care Teams Employee Relation Manager Relationship Specialty Start Date End Date Gina Benton MD [address] [facility] [address] PCP - General 10/22/21
--- OUTSIDE RECORDS SUMMARY | 2024-08-03 09:20 | XMS_ITS | Encounter Summary ---
Author Organization [facility] Address [address] [place] [address] Care Team Providers Care Health Informatics Specialist Name Role Phone Gina Benton MD Primary Care Provider [phone] Encounter Details Date Type Department Care Team (Latest Contact Info) Description 07/21/2024 Travel Social History Tobacco Use Types Packs/Day Years [...] on file documented as of this encounter Plan of Treatment Upcoming Encounters Date Type Department Care Team (Late st Contact Info) Description 09/23/2024 9:45 AM EDT Procedure Visit [facility] [address] [place] [phone] Alexandre Tovar DPIsh [address] [place] [address] 10/04/2024 9:20 AM EDT Office Visit [facility] [address] [facility] [address] [place] [phone] Ilana Dumont, ORAL PATHOLOGIST-SHIPBOARD INTELLIGENCE ANALYST [address] [facility] [address] [place] [address] documented as of this encounter Visit Diagnoses Not on filedocumented in this encounter Care Teams Health Informatics Specialist Relationship Specialty [place] [address] [place] [id number] PCP - General Family Medicine 07/21/24 documented as of this encounter
--- OUTSIDE RECORDS SUMMARY | 2024-08-03 09:20 | XMS_ITS | Clinical Summary ---
Author Organization [facility] Address [address] [place] [address] Phone Care Team Providers Care Kettle Cleaner Name Role Phone Gina Benton MD Primary Care Provider [phone] Allergies Active Allergy Reactions Criticality Noted Date Comments Matias Inhibitors Hives,Shortness of breath High 10/28/2022 Arb-Angiotensin Receptor Antagonist Hives Medium 10/28/2022 Atorvastatin Itching Medium 10/28/2022 Adverse reaction: myalgia Latex Rash Low 10/28/2022 swelling Lisinopril Hives,Shortness of breath High 10/28/2022 TABS Methylprednisolone Hives Medium 06/05/2023 Penicillins Unknown Low 10/28/2022 Clopidogrel Hives Medium 10/28/2022 Prednisone Hives High 10/28/2022 Rosuvastatin Itching,Myalgia Medium 12/23/2022 Sulfamethoxazole Hives High 10/28/2022 itching Ketorolac Headache Low 10/28/2022 Medications loratadine (Claritin) 10 mg tablet Take 1 tablet (10 mg) by mouth once daily at bedtime. Active omeprazole (PriLOSEC) [address] capsule Take 1 capsule (40 mg) by mouth once daily. Active albuterol sulfate (Proair Digihaler) 90 mcg/actuation aero powdr breath act w/sensor inhaler Inhale 2 puffs every 4 hours if needed for shortness of breath. Active montelukast (Singulair) 10 mg tablet Take 1 tablet (10 mg) by mouth once daily at bedtime. Active aspirin 81 mg EC tabletIndicatio ns:PVD (peripheral vascular disease),Hypert ension, unspecified type TAKE 1 TABLET BY MOUTH EVERY DAY WITH FOOD 90 tablet 11 07/10/19 25 Active inclisiran (Leqvio) injection Inject 1.5 mL (284 mg total) under the skin every 6 months. every 6 months Active olmesartan-hydr ochlorothiazide (BENIcar HCT) 20-12.5 mg tabletIndicatio ns:Primary hypertension Take 1 tablet by mouth once daily. 90 tablet 2 07/13/19 026 Active magnesium oxide (Mag-Ox) 400 mg (241.3 mg elemental) tabletIndicatio ns:Paroxysmal atrial fibrillation (Multi) Take 1 tablet (400 mg) by mouth 2 times a day. 180 tablet 2 07/13/19 026 Active apixaban (Eliquis) 5 mg tabletIndicatio ns:Paroxysmal atrial fibrillation (Multi),High risk medication use Take 1 tablet (5 mg) by mouth 2 times a day. 180 tablet 2 07/13/19 026 Active amiodarone (Pacerone) 100 mg tabletIndicatio ns:Paroxysmal atrial fibrillation (Multi),High risk medication use Take 1 tablet (100 mg) by mouth once daily. 90 tablet 1 07/13/19 026 Active coenzyme Q-10 100 mg capsuleIndicati ons:Paroxysmal atrial fibrillation (Multi),High risk medication use,Hypertensio n, unspecified type,Mixed hyperlipidemia, PVD (peripheral vascular disease),Vascul ar claudication,Va ricose veins of both lower extremities, unspecified whether complicated,Cur rent smoker,Hypercoa gulable state due to paroxysmal atrial fibrillation (Multi),Second hand smoke exposure,Statin intolerance,Chr onic obstructive pulmonary disease, unspecified COPD type (Multi) Take 1 capsule (100 mg) by mouth once daily. 90 capsule 1 07/07/19 025 olmesartan-hydr ochlorothiazide (BENIcar HCT) 20-12.5 mg tabletIndicatio ns:Hypertension , unspecified type Take 1 tablet by mouth once daily. 90 tablet 2 01/05/20 025 Discontinued(Re order) magnesium oxide (Mag-Ox) 400 mg (241.3 mg magnesium) tabletIndicatio ns:Paroxysmal atrial fibrillation (Multi),Hyperte nsion, unspecified type Take 1 tablet (400 mg) by mouth 2 times a day. 180 tablet 2 01/05/20 24 025 Discontinued(Re order) apixaban (Eliquis) 5 mg tabletIndicatio ns:Paroxysmal atrial fibrillation (Multi),High risk medication use Take 1 tablet (5 mg) by mouth 2 times a day. 180 tablet 2 01/05/20 24 025 Discontinued(Re order) amiodarone (Pacerone) 100 mg tabletIndicatio ns:Paroxysmal atrial fibrillation (Multi) Take 1 tablet (100 mg) by mouth once daily. 90 tablet 1 01/05/20 025 Discontinued(Re order) aspirin 81 mg EC tabletIndicatio ns:PVD (peripheral vascular disease),Hypert ension, unspecified type Take 1 tablet (81 mg) by mouth once daily. Take with food. 90 tablet 04/12/19 025 Discontinued Active Problems Problem Noted Date Diagnosed Date SOB (shortness of breath) on exertion 07/13/2024 ACEI/ARB contraindicated 07/13/2024 Adverse reaction to MATIAS-I (a ngiotensin-converting enzyme inhibitor) 07/13/2024 Atrial fibrillation, currently in sinus rhythm 0 07/12/2024 Statin intolerance 01/05/2024 BMI 31.0-31.9,adult 01/05/2024 Stage 3a chronic kidney disease (Multi) 06/05/19 24 Former smoker 06/05/2023 Hypercoagulability due to atrial fibrillation (M ulti) 12/23/2022 Second hand smoke exposure 12/23/2022 MATIAS inhibitor intolerance 12/23/2022 Afib (Multi) 10/28/2022 COPD (chronic obstructive pulmonary disease) (Mu lti) 10/28/2022 GERD (gastroesophageal reflux disease) 3 Lung nodules 10/28/2022 Hypertension 10/28/2022 PVD (peripheral vascular disease) 10/28/2022 Varicose veins of legs 10/28/2022 High risk medication use 10/28/2022 Mixed hyperlipidemia 10/28/2022 Vascular claudication 10/28/2022 Resolved Problems Problem Noted Date Diagnosed Date Resolved Date Class 2 obesity with body ma ss index (BMI) of 35.0 to 35.9 in adult 10/28/2022 01/05/2024 Encounters Date Type Department Care Team Description 07/28/2024 7:45 AM EDT - 07/28/2024 11:59 PM EDT Hospital Encounter [address] [place] [phone] Discharge Disposition: Home 07/28/2024 7:44 AM EDT Hospital Encounter [address] [facility] [address] [place], [place] [address], [place] [phone] Discharge Disposition: Home 07/28/2024 7:44 AM EDT Hospital Encounter [address] [place] [phone] Discharge Disposition: Home 07/28/2024 7:44 AM EDT Hospital Encounter [address] [phone] Discharge Disposition: Home 07/28/2024 7:44 AM EDT Hospital Encounter [address] [place] [phone] Paroxysmal atrial fibrillation (Multi); Primary hypertension; Mixed hyperlipidemia; PVD (peripheral vascular disease); SOB (shortness of breath) on exertion Discharge Disposition: Home 07/28/2024 Travel 07/12/2024 9:30 AM EDT Office Visit [address] [phone] Tyesha Oates MD Paroxysmal atrial fibrillation (Multi); High risk medication use; Hypercoagulable state due to paroxysmal atrial fibrillation (Multi); Stage 3a chronic kidney disease (Multi); Statin intolerance; Primary hypertension; Mixed hyperlipidemia; PVD (peripheral vascular disease); Former smoker; SOB (shortness of breath) on exertion; Adverse effect of angiotensin-converti ng enzyme inhibitor, sequela 07/12/2024 Travel 07/09/[address] [phone] Tyesha Oates MD PVD (peripheral vascular disease); Hypertension, unspecified type 07/01/2024 Scanned Document [facility] [address] [place] [phone] Scanning, Generic Provider 07/01/2024 Orders Only [facility] [address] [place] [address] Tyesha Oates MD from Last 3 Months Family History Medical History Relation Name Comments Heart attack Father Dementia Mother Hypertension Mother Hypertension Sister Ovarian cancer Sister No Known Problems Son Relation Name Status Comments Father Mother Sister Son Social History Tobacco Use Types Packs/Day Years Used Date Smoking Tobacco: Every Day Cigarettes Last attempted to quit: 12/01/2022 Smokeless Tobacco: Never Tobacco Cessation:Ready to Q uit: No; Counseling Given: Yes Alcohol Use Standard Drinks/Week Comments Yes 0 [...] Recorded In the last 10 days, have yo u been in contact with someone who was confirmed or suspected to have Coronavirus/COVID-19? No / Unsure 07/28/2024 7:44 AM EDT Last Filed Vital Signs Vital Sign Reading Time Taken Comments Blood Pressure 132/86 07/28/2024 9:05 AM EDT Pulse 65 07/28/2024 9:05 AM EDT Temperature - - Respiratory Rate - - Oxygen Saturation - - Inhaled Oxygen Concentration - - Weight 85.3 kg (188 lb) 07/12/2024 9:41 AM EDT Height 160 cm (5' 3 ) 07/12/2024 9:41 AM EDT Body Mass Index 33.3 07/12/2024 9:41 AM EDT Plan of Treatment Upcoming Encounters Date Type Department Care Team (Late st Contact Info) Description 01/17/2025 11:00 AM EST Office Visit [facility] [address] [facility] [address] [place] [address] Tyesha Oates MD [address] [facility] [address] [place], [place] [phone] Health Maintenance Due Date Last Done Comments Bone Density Scan 1951 CT Colonography 1950 Colonoscopy 1950 Colorectal Cancer Screening 1950 FIT-DNA (Cologuard) 1950 FIT 1950 Lipid Panel 1950 Medicare Annual Wellness Vis it (AWV) 1950 Sigmoidoscopy 1950 TSH Level 1951 Diabetes Screening 12/16/1969 Hepatitis C Screening 12/16/1969 CKD: Urine Protein Screening 12/16/1970 Pneumococcal Vaccine (1 of 2 - PCV) 12/16/1970 DTaP/Tdap/Td Vaccines (1 - Tdap) 12/16/1973 Mammogram 1991 Zoster Vaccines (1 of 2) 12/16/2001 RSV High Risk: (Elderly (60+ ) or Population) (1 - Risk 60-74 years 1-dose series) 2011 COVID-19 Vaccine (1 - 2023-2 5 season) 2023 Influenza Vaccine (Season Ended) 2024 HIB Vaccines Aged Out No longer eligi ble based on patient's age to complete this topic HPV Vaccines Aged Out No longer eligi ble based on patient's age to complete this topic Hepatitis A Vaccines Aged Out No long er eligible based on patient's age to complete this topic Hepatitis B Vaccines Aged Out No long er eligible based on patient's age to complete this topic IPV Vaccines Aged Out No longer eligi ble based on patient's age to complete this topic Meningococcal Vaccine Aged Out No flako jevon eligible based on patient's age to complete this topic Rotavirus Vaccines Aged Out No longer eligible based on patient's age to complete this topic Procedures Procedure Name Priority Date/Time Associated Diagnosis Comments STRESS TEST, REGADENOSON W MYOCARDIAL PERFUSION SPECT (MULTI STUDY) Routine 07/28/2024 9:22 AM EDT Paroxysmal atrial fibrillation (Multi) Primary hypertension Mixed hyperlipidemia PVD (peripheral vascular disease) SOB (shortness of breath) on exertion ECG 12-LEAD Routine 07/12/2024 9:30 AM EDT Paroxysmal atrial fibrillation (Multi) [facility] THYROID STIMULATING HORMONE Routine 07/01/2024 10:05 AM EDT [facility] LIPID PANEL Routine 10:05 AM EDT NON-[facility] H[facility] ALANINE AMINOTRANSFERASE Routine 07/01/2024 10:05 AM EDT NON-[facility] H[facility] ASPARTATE AMINO TRANSFERASE Routine 07/01/2024 10:05 AM EDT NON-[facility] BASIC METABOLIC PANEL Routine 07/01/2024 10:05 AM EDT OUTSIDE IMAGING SCAN 07/01/2024 from Last 3 Months Results * STRESS TEST, REGADENOSON W MYOCARDIAL [...] when compared to previous study. Signed by: Edaurdo Johnson 07/28/2024 5:16 PM Dictation workstation: [id number] Narrative 07/28/2024 5:16 PM EDT Interpreted By: Eduardo Johnson and Giannuzzi Michael STUDY: MYOCARDIAL PERFUSION STRESS TEST WITH LEXISCAN Performing facility: [facility] Provider: Tyesha Oates MD, FACC PCP: Dr. [...] smoking. COMPARISON: Previous nuclear testing completed at [facility]. ACCESSION NUMBER(S): [id number] ORDERING CLINICIAN: TYESHA OATES TECHNIQUE: ONE DAY [...] Johnson MD - 07/28/2024 Interpreted By: Eduardo Johnosn and Giannuzzi Michael STUDY: MYOCARDIAL PERFUSION STRESS TEST WITH LEXISCAN Performing facility: [facility] Provider: Tyesha Oates MD, FACC PCP: Dr. [...] smoking. COMPARISON: Previous nuclear testing completed at [facility]. ACCESSION NUMBER(S): [id number] ORDERING CLINICIAN: TYESHA OATES TECHNIQUE: ONE DAY [...] Eduardo Johnson 07/28/2024 5:16 PM Dictation workstation: [id number] us Tyesha Oates MD CV STRESS PROCEDURES Final Resul t * ECG 12 Lead (07/12/2024 9:30 AM EDT) Narrative [facility] - 07/13/2024 12:36 PM EDT Normal sinus rhythm at 70 bpm Septal myocardial infarction no significant change compared to the EKG from 01/06/2024 Tyesha Oates MD ECG ORDERABLES Final Result Performing Organization Address City/[facility]/ZIP Co de [facility] Number [facility] * [facility] Basic Metabolic Panel (07/01/2024 10:05 AM EDT) [facility] Glucose 93 70 - 100 mg/dL [facility] Comment:Random Glucose Refer ence Range is dependent on time and content of last meal. Glucose of more than 200 mg/dL in a nonstressed, ambulatory subject supports the diagnosis of Diabetes Mellitus. ADA recommended reference range NON-[facility]IE Blood Urea Nitrogen 11 7 - 25 mg/dL [facility] NON-[facility]IE Creatinine 1.11 0.60 - 1.20 mg/dL [facility] NON-[facility] HIE ESTIMATED GFR 52.811 mL/Min [facility] Sodium 139 136 - 145 mmol/L [facility] Potassium 4.4 3.5 - 5.1 mmol/L [facility] Chloride 104 98 - 107 mmol/L [facility] Carbon Dioxide 29.9 21.0 - 31.0 mmol/L [facility] Anion Gap 9.5 6.0 - 15.0 meq/L [facility] Calcium 9.3 8.6 - 10.3 mg/dL [facility] Plasma specimen or serum specimen or whole blood specimen 07/01/2024 10:05 AM EDT Tyesha Oates MD LAB BLOOD ORDERABLES Final Resul t Performing Organization Address City/[facility]/ZIP Co de Phone Number [facility] [address] [place] [address], [facility] [address] [place] [address] * (ABNORMAL) NON-[facility] HIE Thyroid Stimulating Hormone (07/01/2024 10:05 AM EDT) NON-[facility] H[facility] Thyroid Stimulating Hormone 6.67(H) 0.45 - 5.33 u[iU]/mL [facility] Comment:PERFORMED BY:[facility] [place], [place] [id number] MEDICAL DIRECTORSKYLER GRANT M.D. [facility] Plasma specimen or serum specimen or whole blood specimen 07/01/2024 10:05 AM EDT us Tyesha Oates MD LAB BLOOD ORDERABLES Final Resul t [facility] [address] [place] [address], [facility] [address] [place] [address] * (ABNORMAL) [facility] H[facility] Lipid Panel (07/01/2024 10:05 AM EDT) NON-[facility] HIE Cholesterol 122(L) 140 - 200 mg/dL [facility] Comment:Chol less than 200 m g/dl low risk Chol 201-239 mg/dl borderline risk Chol 240 mg/dl and greater high risk NON-[facility] HIE HDL Cholesterol 61 23 - 92 mg/dL [facility] Comment:HDL CHOL ATP-III CLA SSIFICATION Cardiovascular Risk HDL > or equal to 60 mg/dL LOW HDL < 40 mg/dL HIGH NON-[facility] HIE Triglyceride w/Reflex 116 0 - 149 mg/dL [facility] Comment:TRIG ATP III CLASSIF ICATION TRIG less than 150 mg/dL Normal TRIG 150-199 mg/dL Borderline high TRIG 200-500 mg/dL High TRIG greater than 500 mg/dL Very high Standard traceable to the Center for Disease Conrtrol and Prevention (CDC) test method. NON-[facility] HIE LDL Cholesterol,Calcula alirio 38 0 - 100 mg/dL [facility] Comment:LDL ATP III CLASSIFI CATION LDL less than 100 mg/dL Optimal LDL 100-129 mg/dL Near or above optimal LDL 130-159 mg/dL Borderline high LDL 160-189 mg/dL High LDL greater than 189 mg/dL Very high NON-[facility] HIE VLDL CHOLESTEROL 23 mg/dL [facility] NON-[facility] Chol/HDL Ratio 2.0 <5.0 [facility] Plasma specimen or serum specimen or whole blood specimen 07/01/2024 10:05 AM EDT us Tyesha Oates MD LAB BLOOD ORDERABLES Final Resul t [address] [address], [place] [id number] * NON-[facility] HIE Aspartate Amino Transferase (07/01/2024 10:05 AM EDT) NON-[facility] HIE Aspartate Amino Transferase 19 13 - 39 U/L [facility] Plasma specimen or serum specimen or whole blood specimen 07/01/2024 10:05 AM EDT us Tyesha Oates MD LAB BLOOD ORDERABLES Final Resul t Performing Organization Address City/[facility]/ZIP Co de Phone Number [address] [address], [facility] [address] [place] [address] * NON-[facility] HIE Alanine Aminotransferase (07/01/2024 10:05 AM EDT) NON-[facility] HIE Alanine Aminotransferase 14 7 - 52 U/L [facility] Plasma specimen or serum specimen or whole blood specimen 07/01/2024 10:05 AM EDT us Tyesha Oates MD LAB BLOOD ORDERABLES Final Resul t [address] [address], [facility] [address] [place] [address] * OUTSIDE IMAGING SCAN (07/01/2024) Anatomical Region Laterality Modality Other Narrative 07/01/2024 Ordered by an unspecified provider. us Generic Provider Scanning OUTSIDE SCAN Final Result from Last 3 Months Insurance [employer]ARE [employer] Care Teams Kettle Cleaner Relationship Specialty Start Date End Date Gina Benton MD PCP - General Family Medicine 05/05/23
--- OUTSIDE RECORDS SUMMARY | 2024-08-03 09:20 | XMS_ITS | Encounter Summary ---
Author Organization [facility] Address [address] [place] [address] Care Team Providers Care Student Services Coordinator Name Role Phone Gina Benton MD Primary Care Provider [phone] Gina Benton MD Primary Care Provider [phone] Encounter Details Date Type Department Care Team (Late Contact Info) Description 01/30/2023 External Result Encounter [facility] External Department Unsolicited Lorri White DO [address] [facility] [address] [place] [address] Social History Tobacco Use Types Packs/Day Years [...] Encounters Date Type Department Care Team (Late Contact Info) Description 09/23/2024 9:45 AM EDT Procedure Visit [facility] [address] [place] [address] Alexandre Tovar DPM [address] [place] [address] 10/04/2024 9:20 AM EDT Office Visit [facility] [address] [facility] 350 [place] [address] Ilana Dumont, FIRESTOPPER TECHNICIAN-JIG MAKER [address] [place] [id number] documented as of this encounter Procedures Procedure Name Priority Date/Time Associated Diagnosis Comments ECG 12-LEAD 01/30/2023 4:23 PM EST documented in this encounter Results * ECG 12 lead (01/30/2023 4:23 PM EST) 01/30/2023 4:23 PM EST Narrative [facility] - 02/03/2023 9:25 AM EST [address] [address] Electrocardiograph Report Signed Patient: Liza Weston MR#: [id number] : 1950 Acct:[id number] Age/Sex: 72 / F ADM Date: 01/30/23 Loc: Room: Type: [facility] Attending Dr: Lorri White DO Ordering [...] previous ECGs available Confirmed by CH[facility]EL[facility]OMEZ [facility] ([id number]) on 02/01/2023 1:02:41 AM Referred By: CAR WHITE Electronically Signed By:EVAN VILLARREAL MD, FACC Transcribed By: MUS Signed By Osmani Villarreal MD 02/01/23 010 Procedure Note Joao Villarreal MD - 02/03/[address] [address] Electrocardiograph Report Signed Patient: Liza Weston AMR#: [id number] : 2Acct:[id number] Age/Sex: 72 / FADM Date: 01/30/23 Loc: PS Room:Type: [facility] Attending Dr: Lorri White DO Ordering [...] No previous ECGs available Confirmed by EVAN VILLARREAL MD, FACC ([id number]) on 02/01/2023 1:02:41 AM Referred By: CAR WHITE Electronically Signed By:JOSE GOMEZ [facility] Transcribed By: MUS Signed By Osmani Villarreal MD 02/01/23 0102 us Lorri White DO ECG ORDERABLES Final Resul t [address] [address], documented in this encounter Visit Diagnoses Not on filedocumented in this encounter Care Teams Student Services Coordinator Relationship Specialty Start Date End Date Gina Benton MD PCP - General Family Medicine 08/29/22 07/20/24 Gina Benton MD [address] [place] [address] PCP - General Family Medicine 07/21/24 documented as of this encounter
--- OUTSIDE RECORDS SUMMARY | 2024-08-03 09:20 | XMS_ITS | Encounter Summary ---
Author Organization [facility] Address [address] [place] [address] Phone Care Team Providers Care Returned Goods Sorter Name Role Phone Gina Benton MD Primary Care Provider [phone] Gina Benton MD Primary Care Provider [phone] Encounter Details Date Type Department Care Team (Late st Contact Info) Description 10/07/2022 Scanned Document [facility] LEGACY [address] [place] [address] Conversion, Onbase Social History Tobacco Use Types Packs/Day Years Used Date Smoking Tobacco: Never Assessed PHQ-2 Answer Date Recorded Patient Health Questionnaire-2 [...] Description 01/17/2025 11:00 AM EST Office Visit [facility] [address] [facility] 250 [place] [address] Juany Richter MD [address] [facility] 130 [place], [place] [phone] documented as of this encounter Visit Diagnoses Not on filedocumented in this encounter Additional Health Concerns Assessment Noted Time PHQ-9 Depression Total Score: 15 023 2:11 PM EST documented as of this encounter Care Teams Returned Goods Sorter Relationship Specialty Start Date End Date Gina Benton MD [address] [place] [address] PCP - General 02/11/22 05/04/23 Gina Benton MD [address] [place] [address] PCP - General Family Medicine 05/05/23 documented as of this encounter
--- OUTSIDE RECORDS SUMMARY | 2024-08-03 09:20 | XMS_ITS | Encounter Summary ---
Author Organization [facility] Address [address] [place] [address] Phone Care Team Providers Care Construction Sales Representative Name Role Phone Gina Benton MD Primary Care Provider [phone] Gina Benton MD Primary Care Provider [phone] Encounter Details Date Type Department Care Team (Late st Contact Info) Description 02/19/2023 Scanned Document [facility] [address] [place] [phone] Scanning, Generic Provider Social History Tobacco Use Types Packs/Day Years Used Date Smoking Tobacco: Former Cigarettes Q uit: 12/01/2022 Smokeless Tobacco: Never Alcohol Use Standard Drinks/Week Comments Never 0 (1 standard drink = 0.6 oz pur e alcohol) PHQ-2 Answer Date Recorded Patient Health Questionnaire-2 [...] Description 01/17/2025 11:00 AM EST Office Visit [facility] 703 [facility] 250 [place] [address] Juany Richter MD 917 [facility] 130 [place] [address] documented as of this encounter Visit Diagnoses Not on filedocumented in this encounter Additional Health Concerns Assessment Noted Time PHQ-9 Depression Total Score: 15 04/08/ 023 2:11 PM EST A fall risk assessment has been complete d for the patient 12/23/2022 12:43 PM EDT documented as of this encounter Care Teams Construction Sales Representative Relationship Specialty Start Date End Date Gina Benton MD [address] [place] [address] PCP - General 02/11/22 05/04/23 Gina Benton MD [address] [place] [address] PCP - General Family Medicine 05/05/23 documented as of this encounter
--- OUTSIDE RECORDS SUMMARY | 2024-08-03 09:20 | XMS_ITS | Encounter Summary ---
Author Organization [facility] Address [address] [place] [address] Phone Care Team Providers Care Pathology Transcriptionist Name Role Phone Gina Benton MD Primary Care Provider [phone] Encounter Details Date Type Department Care Team (Late st Contact Info) Description 07/02/2023 Scanned Document [facility] [address] [place] [address] Scanning, Generic Provider Social History Tobacco Use [...] suspected to have Coronavirus/COVID-19? No / Unsure 06/05/2023 9:50 AM EDT documented as of this encounter Plan of Treatment Upcoming Encounters Date Type Department Care Team (Late st Contact Info) Description 01/17/2025 11:00 AM EST Office Visit [facility] 703 [facility] 250 [place] [address] Juany Richter MD 917 [facility] 130 [place] [address] Scheduled Orders Name Type Priority Associated Diagnoses Orde r Schedule Ultrasound- OnBase Scan Imaging O rdered: 07/02/2023 documented as of this encounter Visit Diagnoses Not on filedocumented in this encounter Additional Health Concerns Assessment Noted Time PHQ-9 Depression Total Score: 15 023 2:11 PM EST A fall risk assessment has been complete d for the patient 06/05/2023 10:31 AM EDT documented as of this encounter Care Teams Pathology Transcriptionist Relationship Specialty Start Date End Date Gina Benton MD PCP - General Family Medicine 05/05/23 documented as of this encounter
--- OUTSIDE RECORDS SUMMARY | 2024-08-03 09:20 | XMS_ITS | Encounter Summary ---
Author Organization [facility] Address [address] [place] [address] Phone Care Team Providers Care Hotel And Dining Room Cashier Name Role Phone Gina Benton MD Primary Care Provider [phone] Encounter Details Date Type Department Care Team (Late st Contact Info) Description 10/24/2023 Scanned Document [facility] [address] [place] [address] Scanning, Generic Provider Social History Tobacco Use [...] Description 01/17/2025 11:00 AM EST Office Visit [facility] 703 [facility] 250 [place] [address] Juany Richter MD [address] [facility] 130 [place] [address] documented as of this encounter Visit Diagnoses Not on filedocumented in this encounter Additional Health Concerns Assessment Noted Time PHQ-9 Depression Total Score: 15 023 2:11 PM EST A fall risk assessment has been complete d for the patient 06/05/2023 10:31 AM EDT documented as of this encounter Care Teams Hotel And Dining Room Cashier Relationship Specialty Start Date End Date Gina Benton MD PCP - General Family Medicine 05/05/23 documented as of this encounter
--- OUTSIDE RECORDS SUMMARY | 2024-08-03 09:20 | XMS_ITS | Encounter Summary ---
Author Organization [facility] Address [address] [place] [address] Phone Care Team Providers Care Manager Country Name Role Phone Gina Benton MD Primary Care Provider [phone] Encounter Details Date Type Department Care Team (Latest Contact Info) Description 07/28/2024 Travel Social History Tobacco Use Types Packs/Day [...] Description 01/17/2025 11:00 AM EST Office Visit [facility] 703 [facility] 250 [place] [address] Juany Richter MD 917 [facility] 130 [place] [address] documented as of this encounter Visit Diagnoses Not on filedocumented in this encounter Additional Health Concerns Assessment Noted Time PHQ-9 Depression Total Score: 15 023 2:11 PM EST A fall risk assessment has been complete d for the patient 07/12/2024 9:41 AM EDT documented as of this encounter Care Teams Manager Country Relationship Specialty Start Date End Date Gina Benton MD PCP - General Family Medicine 05/05/23 documented as of this encounter
--- OUTSIDE RECORDS SUMMARY | 2024-08-03 09:20 | XMS_ITS | Encounter Summary ---
Author Organization [facility] Address [address] [place] [address] Phone Care Team Providers Care Diet Tech Name Role Phone Gina Benton MD Primary Care Provider [phone] Encounter Details Date Type Department Care Team (Late st Contact Info) Description 07/01/2024 Scanned Document [facility] [address] [place] [address] Scanning, Generic Provider Social History Tobacco Use Types Packs/Day Years Used Date Smoking Tobacco: Former Cigarettes Q uit: 12/01/2022 Smokeless Tobacco: Never Alcohol Use Standard Drinks/Week Comments Not Currently 0 (1 standard drink = 0.6 oz [...] Description 01/17/2025 11:00 AM EST Office Visit [facility] 703 [facility] 250 [place] [address] Juany Richter MD 917 [facility] 130 [place] [address] documented as of this encounter Procedures Procedure Name Priority Date/Time Associated Diagnosis Comments OUTSIDE IMAGING SCAN 07/01/2024 documented in this encounter Results * OUTSIDE IMAGING SCAN (07/01/2024) Anatomical Region Laterality Modality Other Narrative 07/01/2024 Ordered by an unspecified provider. us Generic Provider Scanning OUTSIDE SCAN Final Result documented in this encounter Visit Diagnoses Not on filedocumented in this encounter Additional Health Concerns Assessment Noted Time PHQ-9 Depression Total Score: 15 023 2:11 PM EST A fall risk assessment has been complete d for the patient 06/05/2023 10:31 AM EDT documented as of this encounter Care Teams Diet Tech Relationship Specialty Start Date End Date Gina Benton MD PCP - General Family Medicine 05/05/23 documented as of this encounter
--- OUTSIDE RECORDS SUMMARY | 2024-08-03 09:20 | XMS_ITS | Encounter Summary ---
Author Organization [facility] Address [address] [place] [address] Care Team Providers Care Workcell Operator Name Role Phone Gina Benton MD Primary Care Provider [phone] Gina Benton MD Primary Care Provider [phone] Encounter Details Date Type Department Care Team (Late st Contact Info) Description 12/04/2022 Abstract [facility] [address] [facility] 210 [place] [phone] Lorri White, DO [address] [facility] 210 [place] [address] Social History Tobacco Use Types Packs/Day Years Used Date Smoking Tobacco: Every Day Cigarettes Smokeless Tobacco: Never Tobacco Cessation:Ready to Q uit: Not Asked; Counseling Given: Not Answered Alcohol Use Standard Drinks/Week Comments Never 0 [...] Procedure Visit [facility] [address] [place] [address] Alexandre Tovar, DPIsh [address] [place] [address] 10/04/2024 9:20 AM EDT Office Visit [facility] [address] [place] [phone] Ilana Dumont APRN-SOA ENGINEER [address] [place] [address] documented as of this encounter Visit Diagnoses Not on filedocumented in this encounter Care Teams Workcell Operator Relationship Specialty Start Date End Date Gina Benton MD PCP - General Family Medicine 08/29/22 07/20/24 Gina Benton MD [address] [place] [address] PCP - General Family Medicine 07/21/24 documented as of this encounter
--- OUTSIDE RECORDS SUMMARY | 2024-08-03 09:20 | XMS_ITS | Encounter Summary ---
Author Organization [facility] Address [address] [place] [address] Care Team Providers Care Audio Visual Aide Name Role Phone Gina Benton MD Primary Care Provider [phone] Gina Benton MD Primary Care Provider [phone] Encounter Details Date Type Department Care Team (Late st Contact Info) Description 02/12/2023 Abstract [facility] [address] [facility] [address] [place] [address] Lorri White, DO [address] [facility] [address] [place] [address] Social History Tobacco Use Types Packs/Day Years [...] Procedure Visit [facility] [address] [place] [address] Alexandre Tovar DPM [address] [place] [address] 10/04/2024 9:20 AM EDT Office Visit [facility] [address] [place] [address] Ilana Dumont APRN-SALVAGE SUPERVISOR [address] [place] [address] documented as of this encounter Visit Diagnoses Not on filedocumented in this encounter Care Teams Audio Visual Aide Relationship Specialty Start Date End Date Gina Benton MD PCP - General Family Medicine 08/29/22 07/20/24 Gina Benton MD [address] [facility] [place] [address] PCP - General Family Medicine 07/21/24 documented as of this encounter
--- OUTSIDE RECORDS SUMMARY | 2024-08-03 09:20 | XMS_ITS | Encounter Summary ---
Author Organization [facility] Address [address] [place] [address] Phone Care Team Providers Care Electrician Apprentice Name Role Phone Gina Benton MD Primary Care Provider [phone] Encounter Details Date Type Department Care Team (Late st Contact Info) Description 02/17/2024 Scanned Document [facility] [address] [place] [address] Scanning, Generic Provider Social History Tobacco Use [...] Description 01/17/2025 11:00 AM EST Office Visit [facility] [facility] 703 [facility] 250 [place] [address] Juany Richter MD [address] [facility] 130 [place] [address] documented as of this encounter Visit Diagnoses Not on filedocumented in this encounter Additional Health Concerns Assessment Noted Time PHQ-9 Depression Total Score: 15 023 2:11 PM EST A fall risk assessment has been complete d for the patient 06/05/2023 10:31 AM EDT documented as of this encounter Care Teams Electrician Apprentice Relationship Specialty Start Date End Date Gina Benton MD PCP - General Family Medicine 05/05/23 documented as of this encounter
--- OUTSIDE RECORDS SUMMARY | 2024-08-03 09:20 | XMS_ITS | Clinical Summary ---
Author Organization [facility] Address [address] [place] [address] Care Team Providers Care Roll Line Operator Name Role Phone Gina Benton MD Primary Care Provider [phone] Allergies Active Allergy Reactions Criticality Noted Date Comments Doxycycline Hives 01/15/2022 Duloxetine Hives 01/15/2022 Duloxetine Hcl Rash Low 08/29/2022 Hydrobenzthiazide Shortness of breath High Ketorolac 01/15/2022 Latex Swelling 01/15/2022 Levocetirizine 01/15/2022 Lisinopril 01/15/2022 Losartan Potassium-Hctz Hives 08/29/2022 Metoprolol 01/15/2022 Nitrofurantoin Hives 01/15/2022 Penicillins Hives 01/15/2022 Prednisone 01/15/2022 Rosuvastatin 12/23/2022 Other Reaction(s): Myalgia Sulfa Antibiotics Hives 01/15/2022 Medications albuterol HFA 90 mcg/act inhaler every 4 (four) hours Active amiodarone (Pacerone) 100 MG tablet Take 100 mg by mouth Daily 07/08/2022 Active Eliquis 5 MG tablet every 12 (twelve) hours 09/26/2021 Active [facility] Aspirin Low Dose 81 MG EC tablet 07/26/2022 Active diclofenac (Voltaren) 75 MG EC tablet Active fluticasone (Flonase) 50 MCG/ACT nasal spray 1 (one) time each day at the same time Active loratadine (Claritin) 10 MG tablet Active magnesium oxide (Mag-Ox) 400 MG tablet Take 1 tablet by mouth in the morning and 1 tablet before bedtime. Active montelukast (Singulair) 10 MG tablet 08/07/2022 Active Benicar HCT 20-12.5 MG tablet 1 (one) time each day at the same time Active omeprazole (PriLOSEC) [address] capsule 1 (one) time each day at the same time Active traMADol (Ultram) 50 MG tablet 08/02/2022 Active Pitavastatin Calcium (Livalo) 4 MG tablet Take 4 mg by mouth in the morning. 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 Encounters Date Type Department Care Team Description 07/21/2024 9:15 AM EDT Procedure Visit [facility] [address] [place] [address] Alexandre Tovar DPM Idiopathic progressive polyneuropathy (Primary Dx); Onychomycosis 07/21/2024 Bamboo flowsheet [facility] [address] [place] [address] Alexandre Tovar DPM 07/21/2024 Travel from Last 3 Months Family History Medical History Relation Name Comments Cancer Father Heart disease Mother Cancer Sister Ovarian cancer Sister Diabetes Son Relation Name Status Comments Father Mother Sister Son Alive Social History Tobacco Use Types Packs/Day Years [...] AM EDT Temperature - - Respiratory Rate 16 04/03/2023 10:53 AM EST Oxygen Saturation - - Inhaled Oxygen Concentration - - Weight 89.8 kg (198 lb) 07/21/2024 9:38 AM EDT Height 162.6 cm (5' 4 ) 07/21/2024 9:38 AM EDT Body Mass Index 33.99 07/21/2024 9:38 AM EDT Plan of Treatment Upcoming Encounters Date Type Department Care Team (Late st Contact Info) Description 09/23/2024 9:45 AM EDT Procedure Visit [facility] [address] [place] [address] Alexandre Tovar, DPIsh [address] [place] [address] 10/04/2024 9:20 AM EDT Office Visit [facility] [address] [place] [address] Ilana Dumont, CLAM BED WORKER-POOL HAND [address] [place] [address] Health Maintenance Due Date Last Done Comments CT Colonography 1950 Colonoscopy 1950 Colorectal Cancer Screening 1950 FIT-DNA 1950 FIT 1950 FOBT 1950 Sigmoidoscopy 1950 Mammogram 1991 Pneumococcal Vaccine: 65+ Years (1 of 1 - PCV) 002 Influenza Vaccine (Season Ended) 2024 Insurance [employer] MEDICARE Care Teams Roll Line Operator Relationship Specialty Start Date End Date Gina Benton MD [address] [place] [address] PCP - General Family Medicine 07/21/24
--- OUTSIDE RECORDS SUMMARY | 2024-08-03 09:20 | XMS_ITS | Encounter Summary ---
Author Organization [facility] Address [address] [place] [address] Phone Care Team Providers Care Derivatives Trader Name Role Phone Gina Benton MD Primary Care Provider [phone] Gina Benton MD Primary Care Provider Encounter Details Date Type Department Care Team (Late st Contact Info) Description 06/21/2022 Orders Only [facility] LEGACY [address] [place] [address] Conversion, Onbase Social History Tobacco Use Types [...] Department Care Team (Late Contact Info) Description 01/17/2025 11:00 AM EST Office Visit [facility] 703 [facility] 250 [place] [address] Juany Richter MD [address] [facility] 130 [place], [place] [address] Scheduled Orders Name Type Priority Associated Diagnoses Orde r Schedule OUTSIDE LAB SCAN Lab Ordered: 06/21/2022 documented as of this encounter Visit Diagnoses Not on filedocumented in this encounter Additional Health Concerns Assessment Noted Time PHQ-9 Depression Total Score: 15 023 2:11 PM EST documented as of this encounter Care Teams Derivatives Trader Relationship Specialty Start Date End Date Gina Benton MD [address] [place] [address] PCP - General 02/11/22 05/04/23 Gina Benton MD [address] [place] [address] PCP - General Family Medicine 05/05/23 documented as of this encounter
--- OUTSIDE RECORDS SUMMARY | 2024-08-03 09:20 | XMS_ITS | Encounter Summary ---
Author Organization [facility] Address [address] [place] [address] Phone Care Team Providers Care Manager Intensive Care Unit Name Role Phone Gina Benton MD Primary Care Provider [phone] Gina Benton MD Primary Care Provider [phone] Encounter Details Date Type Department Care Team (Late st Contact Info) Description 04/15/2023 Scanned Document [facility] [address] [place] [address] Scanning, Generic Provider Social History Tobacco Use [...] Visit [facility] 703 [facility] 250 [place] [address] Juany Richter MD 917 [facility] 130 [place] [address] Scheduled Orders Name Type Priority Associated Diagnoses Orde r Schedule PULMONARY FUNCTION TESTING PFT Ordered: 04/15/2023 documented as of this encounter Procedures Procedure Name Priority Date/Time Associated Diagnosis Comments OUTSIDE IMAGING SCAN 04/15/2023 documented in this encounter Results * OUTSIDE IMAGING SCAN (04/15/2023) Anatomical Region Laterality Modality Other Narrative 04/15/2023 Ordered by an unspecified provider. us Generic Provider Scanning OUTSIDE SCAN Final Result documented in this encounter Visit Diagnoses Not on filedocumented in this encounter Additional Health Concerns Assessment Noted Time PHQ-9 Depression Total Score: 15 023 2:11 PM EST A fall risk assessment has been complete d for the patient 12/23/2022 12:43 PM EDT documented as of this encounter Care Teams Manager Intensive Care Unit Relationship Specialty Start Date End Date Gina Benton MD [address] [place] [address] PCP - General 02/11/22 05/04/23 Gina Benton MD [address] [place] [address] PCP - General Family Medicine 05/05/23 documented as of this encounter
--- OUTSIDE RECORDS SUMMARY | 2024-08-03 09:20 | XMS_ITS | Referral Summary ---
Author Organization [facility] Address [address] [place] [address] Care Team Providers Care Mail Sorter Name Role Phone Gina Benton MD Primary Care Provider [phone] Allergies Active Allergy Reactions Criticality Noted Date [...] 01/15/2022 9:57 AM EST Plan of Treatment Not on file Care Teams Mail Sorter Relationship Specialty Start Date End Date Gina Benton MD [address] [facility]A PCP - General 10/22/21
--- OUTSIDE RECORDS SUMMARY | 2024-08-03 09:20 | XMS_ITS | Encounter Summary ---
Author Organization [facility] Address [address] [facility] [place] [address] Care Team Providers Care Combining Machine Operator Name Role Phone Gina Benton MD Primary Care Provider [phone] Gina Benton MD Primary Care Provider [phone] Encounter Details Date Type Department Care Team (Late st Contact Info) Description 11/07/2022 Abstract [facility] [address] [place] [phone] Alexandre Tovar DPM [address] [place] [address] Social History Tobacco Use Types Packs/Day Years [...] Procedure Visit [facility] [address] [place] [address] Alexandre Tovar DPM [address] [place] [address] 10/04/2024 9:20 AM EDT Office Visit [facility] [address] [place] [address] Ilana Dumont APRN-LIFE TEACHER [address] [place] [address] documented as of this encounter Visit Diagnoses Not on filedocumented in this encounter Care Teams Combining Machine Operator Relationship Specialty Start Date End Date Gina Benton MD PCP - General Family Medicine 08/29/22 07/20/24 iGna Benton MD [address] [place] [address] PCP - General Family Medicine 07/21/24 documented as of this encounter
--- OUTSIDE RECORDS SUMMARY | 2024-08-03 09:20 | XMS_ITS | Encounter Summary ---
Author Organization [facility] Address [address] [place] [address] Care Team Providers Care Electronic Tester Name Role Phone Gina Benton MD Primary Care Provider [phone] Gina Benton MD Primary Care Provider [phone] Encounter Details Date Type Department Care Team (Late st Contact Info) Description 12/09/2022 Orders Only [facility] [address] [facility] [address] [place] [phone] Gina Benton MD [address] [place] [address] Social History Tobacco Use Types Packs/Day Years [...] Procedure Visit [facility] [address] [place] [phone] Alexandre Tovar DPM [address] [place] [address] 10/04/2024 9:20 AM EDT Office Visit [facility] [address] [facility] [address] [place] [address] [place] Ilana Guzman, SWITCH REPAIRER-HEAD INSPECTOR [address] [place] [address] documented as of this encounter Procedures Procedure Name Priority Date/Time Associated Diagnosis Comments PAP SMEAR Routine 12/06/2022 10:09 AM EDT documented in this encounter Results * Pap Smear (12/06/2022 10:09 AM EDT) Swab Cervical swab / Unknown us Gina Benton MD LAB CYTOLOGY ORDERABLES Final Re sult documented in this encounter Visit Diagnoses Not on filedocumented in this encounter Care Teams Electronic Tester Relationship Specialty Start Date End Date Gina Benton MD PCP - General Family Medicine 08/29/22 07/20/24 Gina Benton MD [address] [facility] [place] [address] PCP - General Family Medicine 07/21/24 documented as of this encounter
--- OUTSIDE RECORDS SUMMARY | 2024-08-03 09:20 | XMS_ITS | Encounter Summary ---
Author Organization [facility] Address [address] [place] [address] Care Team Providers Care Edger Runner Name Role Phone Gina Benton MD Primary Care Provider [phone] Encounter Details Date Type Department Care Team (Late Contact Info) Description 07/21/2024 Bamboo flowsheet [facility] [address] [place] [phone] Alexandre Tovar DPM [address] [place] [address] Social History Tobacco Use Types Packs/Day Years [...] Procedure Visit [facility] [address] [place] [phone] Alexandre Tovar DPM [address] [place] [address] 10/04/2024 9:20 AM EDT Office Visit [facility] [address] [address] Ilana Dumont, NURSE OBGYN-INDUSTRIAL PLANT CUSTODIAN [address] [place] [address] documented as of this encounter Visit Diagnoses Not on filedocumented in this encounter Care Teams Edger Runner Relationship Specialty Start Date End Date Gina Benton MD [address] [place] [phone] PCP - General Family Medicine 07/21/24 documented as of this encounter
[2024-08-03 11:20] LABS: Thyroid Stimulating Hormone 7.627 uIU/mL (0.358-3.740)
[2024-08-03 12:46] LABS: Free T4 1.17 ng/dL (0.76-1.46)
[2024-08-04 16:08] LABS: Thyroglobulin Antibody <1.0 IU/mL (0.0-0.9); Thyroid Peroxidase (TPO) Ab 10 IU/mL (0-34)
== END 2024-08-03 09:07 | disposition home or self-care (01) ==
LOC: LAB 09:16
PROVIDERS: PCP Family Medicine; Visit Provider Family Medicine
DX: R53.82 Chronic fatigue, unspecified (principal); R79.89 Other specified abnormal findings of blood chemistry
CPT/HCPCS: 36415; 84439; 84443; 86376; 86800

== ENCOUNTER 2025-02-14 09:41 | Outpatient (OUT) | payer MEDICARE, SELFPAY ==
[2025-02-14 10:43] LABS: Anion Gap 13.9; Blood Urea Nitrogen 18.0 mg/dL (7.0-18.0); Calcium 9.4 mg/dL (8.5-10.1); Carbon Dioxide 26.3 mmol/L (21.0-32.0); Chloride 104 mmol/L (98-107); Estimated GFR (African America 49 (>=60 mL/min/1.73m^2); Estimated GFR (Non-African Ame 40 (>=60 mL/min/1.73m^2); Glucose 110 mg/dL (74-106); Potassium 4.2 mmol/L (3.5-5.1); Sodium 140 mmol/L (136-145); Thyroid Stimulating Hormone 6.778 uIU/mL (0.358-3.740)
== END 2025-02-14 09:42 | disposition home or self-care (01) ==
PROVIDERS: PCP Family Medicine; Visit Provider Family Medicine
DX: R79.89 Other specified abnormal findings of blood chemistry (principal); I10 Essential (primary) hypertension
CPT/HCPCS: 36415; 80048; 84439; 84443